=== PATIENT | female | born 1970 | race Caucasian/White ===

== ENCOUNTER → 2020-05-06 09:25 | Outpatient (BNVA) | payer OTHER, SELFPAY | PROVIDERS: PCP Family Medicine; Visit Provider Internal Medicine | DX: E55.9 Vitamin D deficiency, unspecified (principal); I10 Essential (primary) hypertension; K50.919 Crohn's disease, unspecified, with unspecified complications | CPT/HCPCS: 80053; 83036; 85025; 85651 ==

== ENCOUNTER → 2020-05-08 08:29 | Outpatient (BNVA) | payer OTHER, SELFPAY | PROVIDERS: PCP Family Medicine; Visit Provider Family Medicine | DX: E55.9 Vitamin D deficiency, unspecified (principal); N18.3 Chronic kidney disease, stage 3 (moderate); F17.219 Nicotine dependence, cigarettes, with unspecified nicotine-induced disorders; I12.9 Hypertensive chronic kidney disease with stage 1 through stage 4 chronic kidney disease, or unspecified chronic kidney disease | CPT/HCPCS: 80061; 82044; 82306 ==

== ENCOUNTER 2022-12-31 07:15 | Emergency (ER) | payer OTHER, SELFPAY ==
[2022-12-31 07:16] VITALS: BP 192/122; PULSE 108; RESP 14; TEMP 36.7; O2SAT 97; BMI 31.5
--- NOTE | 2022-12-31 07:17 | ECG_ITS ---
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 Measurements Intervals [place] Rate: 96 P: 34 WI: 167 QRS: -51 QRSD: 111 T: 77 QT: 359 QTc: 455 Interpretive Statements ELECTRONIC VENTRICULAR PACEMAKER ABNORMAL RHYTHM ECG No previous ECG available for comparison Electronically Signed On 12-31-2022 22:20:23 PAPER RULER by Yvette Be M.D. [email or web address] medical [email or web address] Groupclevel[id number]
--- NOTE | 2022-12-31 07:21 | ED_ITS ---
HPI - Abdominal Pain General: Chief Complaint: Abdominal Pain Stated Complaint: ABDOMINAL PAIN Time Seen by Provider: 12/31/22 07:17 Source: patient Mode of arrival: EMS History of Present Illness: 52-year-old female with a history of Crohn disease due to complication of her Crohn's disease several years ago she ended up with an ileostomy and a partial colectomy. She presents today now with abdominal pain but with complaints of mucousy discharge per rectum. Remainder of her colon at this point is a blind stump she does occasionally get mucus discharge, but states this is been excessive. She states she has not had any bloody discharge that she has noticed. She denies any dysuria urgency or frequency she denies any abdominal pain she has a rather large nonincarcerated incisional hernia medial to her ileostomy. No fever sweats or chills or any other symptoms at this time. Her biggest concern is the mucus output from the rectum. MD elicited complaint: abdominal pain Pertinent past history: none Onset (ago): hour(s) Exacerbating factors: nothing Relieving factors: nothing Associated Symptoms: Reports change in bowel habits and change in stool character; Denies anorexia, belching, bloating, chills, coffee ground emesis, constipation, GI cramping, diarrhea, dyspepsia, dysuria, excessive flatus, fever(s), heartburn, hematochezia, hematuria, hematemesis, fecal incontinence, loose stools, melena, nausea, poor appetite, syncope and vomiting Review of Systems Const: Denies: fever(s), chills, fatigue or malaise ENMT: Denies: throat pain, ear or mastoid pain, nasal discharge or nasal congestion Card: Denies: chest pain, palpitations, irregular heart rhythm or syncope Resp: Denies: dyspnea, productive cough or non-productive cough GI: Reports: change in bowel habits and change in stool character; Denies: abdominal pain, nausea, vomiting, hematemesis, coffee ground emesis, heartburn, diarrhea, constipation, bloating, GI cramping, belching, excessive flatus, fecal incontinence, hematochezia or melena : Denies: flank pain, dysuria, urinary frequency, urinary urgency or hematuria Skin/Breast: Denies: rash or pruritus PFSH ED PFSH: Medical History Anxiety Benign essential HTN Crohn disease Pt. had part of her small and large intestine removed in 2009. 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 Not finding any sign of abscess or colitis on the CT abdominal exam is rather benign at this point incidentally she does have a cystitis. Although she has no noticeable symptoms at this time recommend that she start on Macrobid 100 mg twice daily for 7 days. We will get her set up to follow-up with surgery for further evaluation her initial colectomy and ileostomy was done on the [facility]. She had been seeing Dr. Tapia but is unable to travel to [place]. Case management gave her numbers for local [facility] services to get her to that doctor's appointment. We will also refer to general surgery. Medical Records I reviewed the patient's medical records. Lab Data I reviewed the patient's lab results. 12/31/22 07:43 12/31/22 07:43 Labs/Radiology: Radiology Impressions Abdomen/Pelvis CT 12/31/22 07:26 IMPRESSION: 1. Prior RIGHT colectomy with RIGHT lower quadrant ileostomy. No evidence of obstruction. Stable peristomal hernia. 2. Rectum and sigmoid colon are normal in appearance. 3. Ventral abdominal wall/umbilical hernia with herniation of several nonobstructed bowel loops. This appears progressed compared to previous. 4. Suggestion of tiny faint gallbladder calculi or sludge in the dependent gallbladder. 5. Decrease in size of the previously described LEFT pelvic cystic lesion likely hydrosalpinx or ovarian cyst. 6. Heterogeneous enhancement of the uterus with improved fibroids compared to previous. Laboratory Results WBC 20.0 10^3/uL (4.0-10.0) H 12/31/22 07:43 RBC 4.70 10^6/uL (4.1-5.3) 12/31/22 07:43 Hgb 15.6 g/dL (11.5-15.3) H 12/31/22 07:43 Hct 45.9 % (37.0-47.0) 12/31/22 07:43 MCV 97.7 fl (81-99) 12/31/22 07:43 MCH 33.2 pg (28.0-34.0) 12/31/22 07:43 MCHC 34.0 g/dL (30.0-36.0) 12/31/22 07:43 RDW 15.5 % (12.1-15.1) H 12/31/22 07:43 Plt Count 470 10^3/cmm (130-400) H 12/31/22 07:43 MPV 9.7 fL (7.4-10.4) 12/31/22 07:43 Neut % (Auto) 73.0 % 12/31/22 07:43 Lymph % (Auto) 13.2 % 12/31/22 07:43 Maries % (Auto) 6.7 % 12/31/22 07:43 Eos % (Auto) 5.6 % 12/31/22 07:43 Baso % (Auto) 0.9 % 12/31/22 07:43 Neut # (Auto) 14.61 10^3/uL (1.8-7.7) H 12/31/22 07:43 Lymph # (Auto) 2.6 10^3/uL (0.8-4.8) 12/31/22 07:43 Maries # (Auto) 1.3 10^3/uL (0.2-0.9) H 12/31/22 07:43 Eos # (Auto) 1.1 10^3/uL (0.0-0.8) H 12/31/22 07:43 Baso # (Auto) 0.2 10^3/uL (0.0-0.1) H 12/31/22 07:43 Nucleated RBC % (auto) 0.5 % 12/31/22 07:43 Nucleated RBCs # 0.1 /100WBC 12/31/22 07:43 Sodium 141 mmol/L (136-145) 12/31/22 07:43 Potassium 3.6 mmol/L (3.5-5.1) 12/31/22 07:43 Chloride 104 mmol/L (98-107) 12/31/22 07:43 Carbon Dioxide 23 mmol/L (22-29) 12/31/22 07:43 Anion Gap 17.6 (5-19) 12/31/22 07:43 BUN 12 mg/dL (6-20) 12/31/22 07:43 Creatinine 1.0 mg/dL (0.5-0.9) H 12/31/22 07:43 GFR Calculation 57.8 mL/min (90-130) L 12/31/22 07:43 Glucose 108 mg/dL (65-115) 12/31/22 07:43 Calculated Osmolality 292 mOsm/kg (285-295) 12/31/22 07:43 Calcium 9.3 mg/dL (8.5-10.5) 12/31/22 07:43 Total Bilirubin 0.3 mg/dL (0.15-1.2) 12/31/22 07:43 AST 14 U/L (0-32) 12/31/22 07:43 ALT 16 U/L (0-33) 12/31/22 07:43 Alkaline Phosphatase 68 U/L (35-105) 12/31/22 07:43 Total Protein 7.1 g/dL (6.6-8.7) 12/31/22 07:43 Albumin 3.8 g/dL (3.5-5.2) 12/31/22 07:43 Globulin 3.3 g/dL (1.3-4.6) 12/31/22 07:43 Lipase 27 U/L (13-60) 12/31/22 07:43 Urine Color Yellow (Yellow) 12/31/22 07:55 Urine Appearance Sl hazy (CLEAR) A 12/31/22 07:55 Urine pH 5 (5-7) 12/31/22 07:55 Ur Specific [place] 1.020 (1.005-1.030) 12/31/22 07:55 Urine Protein Neg (Negative) 12/31/22 07:55 Urine Glucose (UA) Norm (Normal) 12/31/22 07:55 Urine Ketones Negative (Negative) 12/31/22 07:55 Urine Blood Neg (Negative) 12/31/22 07:55 Urine Nitrate Negative (Negative) 12/31/22 07:55 Urine Bilirubin Neg (Negative) 12/31/22 07:55 Urine Urobilinogen Norm mg/dL (Negative) 12/31/22 07:55 Ur Leukocyte Esterase 2+ (Negative) H 12/31/22 07:55 Urine RBC 0-4 /hpf (0-2) H 12/31/22 07:55 Urine WBC 25-40 /hpf (0-5) H 12/31/22 07:55 Ur Squamous Epith Cells 5-10 /hpf (0-5) H 12/31/22 07:55 Amorphous Sediment Not Reportable 12/31/22 07:55 Urine Bacteria Trace /hpf (NONE) 12/31/22 07:55 Discharge Plan Discharge Patient Disposition: Home Clinical Impression: Stool mucus, Cystitis Condition: Stable Prescriptions: New nitrofurantoin macrocrystal 100 mg capsule 100 mg PO BID 7 Days Qty: 14 0RF Rx Instructions: must administer with a meal/food No Action Complete Multivitamin Tablet 1 tab PO DAILY triamcinolone acetonide 0.025 % ointment 1 applic topical DAILY Qty: 15 0RF cholecalciferol (vitamin D3) 100 mcg (4,000 unit) capsule 100 mcg PO DAILY Discharge Orders: Discharge ED (Routine); Ordered 12/31/22 Ordered By: Chito Stephenson Referrals: Meeta Dominguez DO [Physician] - Discharge Diet: Usual diet Discharge Activity: Resume usual activity Patient Instructions: Opioid Safety, Pain Management Activity Restrictions/Additional Instructions: You were seen today for increased mucus from rectum. Recommend that you have a follow-up primary care doctor or surgery. Case management will help make arrangements for consultation with surgery. He did have an incidental finding of a mild bladder infection and were given a prescription for Macrobid 1 p.o. twice daily for 7 days. 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
--- NOTE | 2022-12-31 07:26 | CT_ITS ---
WS: [id number] CT ABDOMEN PELVIS TECHNIQUE: Contrast-enhanced CT of the abdomen and pelvis with coronal and sagittal reformatted image s. CLINICAL INFORMATION: mucous output from rectum after colostomy (11yrs) COMPARISON: CT October 14, 2019 DLP: 958.[address] scans at [facility] use at least one of these dose optimization techniques: automated e xposure control; mA and/or kV adjustment per patient size (includes targeted exams where dose is matc hed to clinical indication); or iterative reconstruction. FINDINGS: Postoperative changes RIGHT colectomy and RIGHT lower quadrant ileostomy. Associated peristomal herni a in the RIGHT lower quadrant similar in appearance to previous. No evidence of high-grade small or l arge bowel obstruction. Ostomy appears patent. Ectatic ventral abdominal wall with nonobstructed ventral abdominal wall hernia or umbilical hernia. Herniation of several bowel loops appears progressed progressed compared to 2019. No evidence of obst ruction. Diffuse fatty infiltration the liver. Normal portal vein and splenic vein. Normal GE junction. Slight bibasilar atelectasis. Tiny amount of sludge or tiny calculi in the gallbladder. Prior splenec neri. Normal pancreatic parenchymal enhancement. Portal vein and splenic vein are patent. Normal caliber abdominal aorta. Celiac and SMA are patent. Adrenal glands are normal. Normal renal pa renchymal enhancement. No hydronephrosis. Pelvic phleboliths. Bulky heterogeneous uterus. Cystic structure in the LEFT adnexa is stable measuring slightly smaller today measuring 8.4 x 3.3 cm.Previously described bulky fibroid appears to have been resected or reso lved. Additional smaller fibroids. Rectum appears normal. Normal sigmoid colon. Residual oversewn transverse colon and LEFT descending c olon are normal. Bilateral renal cysts. CT/CT abdomen pelvis w con* [id number] IMPRESSION: 1. Prior RIGHT colectomy with RIGHT lower quadrant ileostomy. No evidence of o bstruction. Stable peristomal hernia. 2. Rectum and sigmoid colon are normal in appearance. 3. Ventral abdominal wall/umbilical hernia with herniation of several nonobstr ucted bowel loops. This appears progressed compared to previous. 4. Suggestion of tiny faint gallbladder calculi or sludge in the dependent gal lbladder. 5. Decrease in size of the previously described LEFT pelvic cystic lesion like ly hydrosalpinx or ovarian cyst. 6. Heterogeneous enhancement of the uterus with improved fibroids compared to previous.
[2022-12-31 08:01] LABS: Basophils # 0.2 10^3/uL (0.0-0.1); Basophils % 0.9 %; Eosinophils # 1.1 10^3/uL (0.0-0.8); Eosinophils % 5.6 %; Hematocrit 45.9 % (37.0-47.0); Hemoglobin 15.6 g/dL (11.5-15.3); Lymphocytes # 2.6 10^3/uL (0.8-4.8); Lymphocytes % 13.2 %; Mean Corpuscular Hemoglobin 33.2 pg (28.0-34.0); Mean Corpuscular Volume 97.7 fl (81-99); Mean Platelet Volume 9.7 fL (7.4-10.4); Monocytes # 1.3 10^3/uL (0.2-0.9); Monocytes % 6.7 %; Neutrophils # 14.61 10^3/uL (1.8-7.7); Nucleated Red Blood Cells # 0.1 /100WBC; Nucleated Red Blood Cells % 0.5 %; Platelet Count 470 10^3/cmm (130-400); Red Cell Distribution Width 15.5 % (12.1-15.1)
[2022-12-31 08:15] LABS: Alanine Aminotransferase 16 U/L (0-33); Albumin Level 3.8 g/dL (3.5-5.2); Alkaline Phosphatase 68 U/L (35-105); Anion Gap 17.6 (5-19); Aspartate Amino Transferase 14 U/L (0-32); Blood Urea Nitrogen 12 mg/dL (6-20); Calcium 9.3 mg/dL (8.5-10.5); Carbon Dioxide 23 mmol/L (22-29); Chloride 104 mmol/L (98-107); Creatinine Clr Calc Pharmacy 82.2537; Globulin 3.3 g/dL (1.3-4.6); Glomerular Filtration Rate 57.8 mL/min (90-130); Glucose 108 mg/dL (65-115); Lipase 27 U/L (13-60); Osmolality Calculated 292 mOsm/kg (285-295); Potassium 3.6 mmol/L (3.5-5.1); Sodium 141 mmol/L (136-145); Total Bilirubin 0.3 mg/dL (0.15-1.2); Total Protein 7.1 g/dL (6.6-8.7)
[2022-12-31] MEDS: diphenhydrAMINE 50 mg/mL SDV 1mL IVP (08:16)
[2022-12-31 08:41] LABS: Bilirubin Urine Neg (Negative); Blood Urine Neg (Negative); Glucose Urine UA Norm (Normal); Ketones Urine Negative (Negative); Leukocyte Esterase Urine 2+ (Negative); Nitrate Urine Negative (Negative); Protein Urine Neg (Negative); Urine Appearance SL Hazy (CLEAR); Urine Color Yellow (Yellow); Urobilinogen Urine Norm (Negative); pH Urine 5 (5-7)
[2022-12-31 08:42] LABS: Add Urine Microscopic? YES; RBC Urine 0-4 /hpf (0-2); WBC Urine 25-40 /hpf (0-5)
[2022-12-31 08:43] LABS: Bacteria Urine TRACE /hpf
[2022-12-31 08:44] LABS: Add Urine Culture? Yes
[2022-12-31] MEDS: iohexol 350 mg/mL 500 mL Btl (per mL) IV (09:01)
--- NOTE | 2022-12-31 09:04 | PC.NURSE ---
Patient refusing to be hooked up to vitals monitor. Patient states I have anxiety and I want to pace the room.
--- NOTE | 2022-12-31 09:59 | DCPLANNER ---
database development project manager was asked to get patient information on area taxi companies that would transport patient to and from appointments.
--- NOTE | 2022-12-31 10:02 | DCPLANNER ---
Addendum entered by Connie Fernandez 01/15/23 09:06: adoption manager received the following message from the general surgery clinic regarding follow up appointment: Called patient and she wanted to follow up with her primary & did not want to be seen here in the office. Original Note: adoption manager had message to schedule a follow up appointment for patient with general surgery. adoption manager sent patients information to the front office staff at general surgery. Patients information will be printed and reviewed. Clinic will call patient with appointment information.
== END 2022-12-31 10:01 | disposition home or self-care (01) ==
PROVIDERS: Emergency Provider Family Medicine; PCP Internal Medicine
DX: N30.90 Cystitis, unspecified without hematuria (principal); R19.5 Other fecal abnormalities; Z93.2 Ileostomy status; K42.9 Umbilical hernia without obstruction or gangrene; K43.9 Ventral hernia without obstruction or gangrene; I10 Essential (primary) hypertension; F17.210 Nicotine dependence, cigarettes, uncomplicated
CPT/HCPCS: 74177; 80053; 81001; 83690; 85025; 87086; 93005; 96374; 96375; 99285; J1200; J2920; Q9967

== ENCOUNTER → 2023-06-25 16:23 | Outpatient (BNVA) | payer SELFPAY | PROVIDERS: PCP Internal Medicine; Visit Provider Emergency Medicine | DX: R30.9 Painful micturition, unspecified (principal); N30.00 Acute cystitis without hematuria | CPT/HCPCS: 81000 ==

== ENCOUNTER 2023-06-28 07:26 | Emergency (ER) | payer SELFPAY ==
[2023-06-28 07:27] VITALS: BMI 30.1
[2023-06-28 07:31] VITALS: BP 166/84; PULSE 112; RESP 16; TEMP 37.8; O2SAT 92
--- NOTE | 2023-06-28 07:45 | XRR_ITS ---
PROCEDURE INFORMATION: Exam: XR Chest Exam date and time: 06/28/2023 8:00 AM Age: 53 years old Clinical indication: Pain; Fever; Angina pectoris; Additional info: Chest pain TECHNIQUE: Imaging protocol: Radiologic exam of the chest. Views: 1 view. Total images: 634 COMPARISON: CR XR chest 1V [id number] 10/14/2019 3:13 PM FINDINGS: Lungs: Trace bibasilar atelectasis or scar. Pleural spaces: Unremarkable. No pleural effusion. No pneumothorax. Heart/Mediastinum: Unremarkable. No cardiomegaly. Bones/joints: Unremarkable. Other findings: X-ray is slightly rotated. XR/XR chest 1V portable [id number] IMPRESSION: Trace bibasilar atelectasis or scar.
--- NOTE | 2023-06-28 07:49 | W.ED.FEMALGU ---
Documented by User: CHELSI Odonnell 06/28/23 12:35 HPI - Female Genitourinary General: Chief complaint: Urogenital-Female Stated complaint: fever Time Seen by Provider: 06/28/23 07:28 Source: patient Mode of arrival: EMS Limitations: no limitations History of Present Illness: Patient is a 53-year-old female with history of Crohn's disease and splenectomy who presents to the emergency department via EMS complaining of fever onset 2 days. Patient was seen at walk-in clinic on Wednesday due to complaints of dysuria and was subsequently diagnosed with a UTI and was treated with Bactrim. No culture performed. She has been taking this as prescribed, but notes that since then she has become increasingly fatigued and as of yesterday has been running a fever, as high as 103. Her urinary symptoms have ceased, but she remains fatigued and states that she never runs fevers. 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 She denies any flank pain, back pain, or history of kidney infection. She denies any abdominal pain, chest pain, palpitations, shortness of breath, headache, and any other symptoms. She has an ileostomy in the right lower quadrant as she is status post colon resection due to her Crohn's disease. She states she has not been seen by a regular doctor for a while. MD elicited complaint: other (fever, fatigue) Onset (ago): day(s) Vaginal discharge: none Vaginal bleeding: none Exacerbating factors: none Relieving factors: none Associated symptoms: Deny abdominal pain, headache(s), nausea or syncope Treatment prior to arrival: acetaminophen Patient : No Date of Last Menstrual Period: 05/11/23 Review of Systems Const: Reports: fever(s) and fatigue; Denies: chills Eyes: Denies: change in vision or blurry vision Card: Denies: chest pain, palpitations, irregular heart rhythm, lightheadedness, syncope or dyspnea on exertion Resp: Denies: dyspnea, productive cough or pain on inspiration GI: Denies: abdominal pain, nausea, vomiting, heartburn or diarrhea : Denies: flank pain, difficulty voiding, dysuria, urinary frequency, urinary urgency, hematuria or pelvic pain Musc: Denies: neck pain, back pain or joint pain Skin/Breast: Denies: rash Neuro: Denies: headache(s) PFSH ED PFSH: Medical History Anxiety Benign essential HTN Crohn disease Pt. had part of her small and large intestine removed in 2009. 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 Female Reproductive History: Date of last menstrual period: 05/11/23 Physical Exam Const: COMMON NORMALS: no acute distress, patient oriented x3, no limitations, alert and well nourished GENERAL APPEARANCE: cooperative and comfortable NUTRITIONAL APPEARANCE: overweight ORIENTATION/CONSCIOUSNESS: Yes awake, Yes oriented to person, Yes oriented to place and Yes oriented to time HENMT: COMMON NORMALS: normocephalic, atraumatic and TM's normal bilaterally HEAD & SCALP: normal to inspection, normocephalic and atraumatic FACE & SINUS: normal facial exam TYMPANIC MEMBRANE: TM's normal bilaterally MOUTH: Normal oral and palatal mucosa present, lip normal and tongue normal THROAT: posterior oropharynx normal, tonsils normal and uvula midline Eye: COMMON NORMALS: no scleral icterus GENERAL EYE: appearance normal, both eyes and all related structures Neck/C-Spine: COMMON NORMALS: no lymphadenopathy, no meningeal signs and no JVD Chest: COMMONS NORMALS: normal inspection of the chest Resp: COMMON NORMALS: normal respiratory effort and clear to auscultation bilaterally AUSCULTATION: clear to auscultation bilaterally Cardio: COMMON NORMALS: no JVD, regular rate and regular rhythm RATE: regular rate RHYTHM: regular rhythm GI: COMMON NORMALS: Normal to inspection, nondistended, normoactive bowel sounds present, Soft to palpation, non-tender, No hepatosplenomegaly present and no masses INSPECTION: Yes GI ostomy present (Right lower quadrant; site appears clean) PALPATION: Yes Soft to palpation and Yes No hepatosplenomegaly present : COMMON NORMALS: Yes no CVA tenderness BLADDER/KIDNEY EXAM: Yes no CVA tenderness Back/Pelvis: COMMON NORMALS: no CVA tenderness and thoracic and lumbar spine normal to inspection Extremity: COMMON NORMALS: normal to inspection GENERAL: Yes normal exam except as noted Neuro: BRIGIDO COMA SCALE: document GCS findings [place] coma scale eye opening: Spontaneous [place]ido coma scale verbal response: Orientated Brigido coma scale motor response: Obey commands [place] coma scale total score: 15 COMMON NORMALS: patient oriented x3 SENSORIUM/ORIENTATION: Yes alert, Yes oriented to person, Yes oriented to place and Yes oriented to time MENINGEAL SIGNS: Yes no meningeal signs Skin: COMMON NORMALS: no rashes or lesions noted GENERAL SKIN EXAM: no rashes or lesions noted Course Consultations: Consultation #1: Dr. Breaux urology and Dr. Osman hospitalist both of which will accept transfer/consult on patient Vital Signs: Vital signs: Vital Signs Temperature 98.5 F 06/28/23 12:00 Pulse Rate 103 H 06/28/23 12:30 Respiratory Rate 20 H 06/28/23 12:30 Blood Pressure 167/88 06/28/23 12:30 Pulse Oximetry 97 06/28/23 12:30 Oxygen Delivery Me thod Room Air 06/28/23 12:00 [facility] - Female Medical Decision Making Patient is a 53-year-old female here for complaints of fever as high as 102.9 starting 2 days ago. She was seen at a walk-in clinic 3 days ago with complaints of dysuria and diagnosed with a UTI and placed on Bactrim. She has since developed a fever and has had worsening fatigue. She arrives to the ED today tachycardic with a low-grade fever. Labs reveal leukocytosis with an elevated lactate of 2.5. Repeat UA demonstrates obvious evidence of infection. CT scan imaging obtained which shows a 2mm UVJ stone. We do not have urology coverage. She is immunocompromised with failed outpatient therapy for UTI and now infected ureteral calculus. She will need to be transferred. Spoke to Dr. Stephenson who agrees with care plan for patient. She has been started on IV Rocephin. Blood/urine cultures obtained. I spoke to [facility] in [place] and they will accept patient for transfer. Lab Data 06/28/23 07:29 06/28/23 07:29 Radiology Impressions Chest X-Ray 06/28/23 07:45 IMPRESSION: Trace bibasilar atelectasis or scar. Abdomen/Pelvis CT 06/28/23 08:49 IMPRESSION: 1. 2 mm left-sided ureterovesicular junction stone. No hydroureteronephrosis. 2. There is nonspecific urinary bladder wall thickening, under distention versus cystitis. Consider urinalysis. Laboratory Results WBC 14.8 10^3/uL (4.0-10.0) H 06/28/23 07:29 RBC 4.74 10^6/uL (4.1-5.3) 06/28/23 07:29 Hgb 15.7 g/dL (11.5-15.3) H 06/28/23 07:29 Hct 46.4 % (37.0-47.0) 06/28/23 07: MCV 97.9 fl (81-99) 06/28/23 07: MCH 33.1 pg (28.0-34.0) 06/28/23 07:29 MCHC 33.8 g/dL (30.0-36.0) 06/28/23 07:29 RDW 15.4 % (12.1-15.1) H 06/28/23 07:29 Plt Count 411 10^3/cmm (130-400) H 06/28/23 07:29 MPV 10.0 fL (7.4-10.4) 06/28/23 07:29 Neut % (Auto) 81.1 % 06/28/23 07:29 Lymph % (Auto) 4.7 % 06/28/23 07:29 [place] % (Auto) 7.8 % 06/28/23 07:29 Eos % (Auto) 5.3 % 06/28/23 07:29 Baso % (Auto) 0.7 % 06/28/23 07:29 Neut # (Auto) 11.98 10^3/uL (1.8-7.7) H 06/28/23 07:29 Lymph # (Auto) 0.7 10^3/uL (0.8-4.8) L 06/28/23 07:29 [place] # (Auto) 1.2 10^3/uL (0.2-0.9) H 06/28/23 07:29 Eos # (Auto) 0.8 10^3/uL (0.0-0.8) 06/28/23 07:29 Baso # (Auto) 0.1 10^3/uL (0.0-0.1) 06/28/23 07:29 Nucleated RBC % (auto) 0.1 % 06/28/23 07: Nucleated RBCs # 0.0 /100WBC 06/28/23 07:29 Sodium 136 mmol/L (136-145) 06/28/23 07: Potassium 4.0 mmol/L (3.5-5.1) 06/28/23 07: Chloride 103 mmol/L (98-107) 06/28/23 07:29 Carbon Dioxide 18 mmol/L (22-29) L 06/28/23 07:29 Anion Gap 19.0 (5-19) 06/28/23 07:29 BUN 9 mg/dL (6-20) 06/28/23 07:29 Creatinine 1.1 mg/dL (0.5-0.9) H 06/28/23 07:29 GFR Calculation 51.6 mL/min (90-130) L 06/28/23 07:29 Glucose 96 mg/dL (65-115) 06/28/23 07:29 Calculated Osmolality 281 mOsm/kg (285-295) L 06/28/23 07:29 Lactic Acid 2.5 mmol/L (0.5-2.2) H 06/28/23 07:29 Lactic Acid (Sepsis) 1.3 mmol/L (0.5-2.2) 06/28/23 10:35 Calcium 9.2 mg/dL (8.5-10.5) 06/28/23 07:29 Total Bilirubin 0.2 mg/dL (0.15-1.2) 06/28/23 07:29 AST 25 U/L (0-32) 06/28/23 07:29 ALT 19 U/L (0-33) 06/28/23 07:29 Alkaline Phosphatase 73 U/L (35-105) 06/28/23 07:29 Total Protein 7.0 g/dL (6.6-8.7) 06/28/23 07:29 Albumin 3.9 g/dL (3.5-5.2) 06/28/23 07:29 Globulin 3.1 g/dL (1.3-4.6) 06/28/23 07:29 Urine Color Yellow (Yellow) 06/28/23 07:49 Urine Appearance Clear (CLEAR) 06/28/23 07:49 Urine pH 5 (5-7) 06/28/23 07:49 Ur Specific [place] 1.025 (1.005-1.030) 06/28/23 07:49 Urine Protein Neg (Negative) 06/28/23 07:49 Urine Glucose (UA) Norm (Normal) 06/28/23 07:49 Urine Ketones 1+ (Negative) H 06/28/23 07:49 Urine Blood 2+ (Negative) H 06/28/23 07:49 Urine Nitrate Negative (Negative) 06/28/23 07:49 Urine Bilirubin Neg (Negative) 06/28/23 07:49 Urine Urobilinogen Norm mg/dL (Negative) 06/28/23 07:49 Ur Leukocyte Esterase 2+ (Negative) H 06/28/23 07:49 Urine RBC 0-4 /hpf (0-2) H 06/28/23 07:49 Urine WBC 25-40 /hpf (0-5) H 06/28/23 07:49 Ur Squamous Epith Cells 5-10 /hpf (0-5) H 06/28/23 07:49 Amorphous Sediment Not Reportable 06/28/23 07:49 Urine Bacteria 2+ /hpf (NONE) H 06/28/23 07:49 Discharge Plan Discharge Patient Disposition: Xfer Short-Term Hosp Clinical Impression: Asplenia, Left ureteral calculus Acute cystitis Qualifiers: Hematuria presence: with hematuria Qualified Code(s): N30.01 - Acute cystitis with hematuria Fever Qualifiers: Fever type: unspecified Qualified Code(s): R50.9 - Fever, unspecified Condition: Stable Referrals: Oseas Tapia MD [Primary Care Provider] - Coding Level of Care Code ED Financial Assistant for [facility] Documented by User: Chito Stephenson DO 06/28/23 14:43 HPI - Female Genitourinary General: Chief complaint: Urogenital-Female Stated complaint: fever Time Seen by Provider: 06/28/23 07:28 PFSH ED PFSH: Medical History Anxiety Benign essential HTN Crohn disease Pt. had part of her small and large intestine removed in 2009. 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 She was seen at a walk-in clinic 3 days ago with complaints of dysuria and diagnosed with a UTI and placed on Bactrim. She has since developed a fever and has had worsening fatigue. She arrives to the ED today tachycardic with a low-grade fever. Labs reveal leukocytosis with an elevated lactate of 2.5. Repeat UA demonstrates obvious evidence of infection. CT scan imaging obtained which shows a 2mm UVJ stone. We do not have urology coverage. She is immunocompromised with failed outpatient therapy for UTI and now infected ureteral calculus. She will need to be transferred. Spoke to Dr. Stephenson who agrees with care plan for patient. She has been started on IV Rocephin. Blood/urine cultures obtained. I spoke to [facility] in [place] and they will accept patient for transfer. Discussed patient with midlevel reviewed chart recommends CT renal stone. CT shows 2 mm stone. Since we do not have urology available at our facility we will have to transfer patient. Grazyna Thompson may arrange for transfer [place]. Chart reviewed and patient discussed with midlevel. Agree with assessment and plan. Medical Records I reviewed the patient's medical records. Lab Data I reviewed the patient's lab results. 06/28/23 07:29 06/28/23 07:29 Radiology Impressions Chest X-Ray 06/28/23 07:45 IMPRESSION: Trace bibasilar atelectasis or scar. Abdomen/Pelvis CT 06/28/23 08:49 IMPRESSION: 1. 2 mm left-sided ureterovesicular junction stone. No hydroureteronephrosis. 2. There is nonspecific urinary bladder wall thickening, under distention versus cystitis. Consider urinalysis. Laboratory Results WBC 14.8 10^3/uL (4.0-10.0) H 06/28/23 07:29 RBC 4.74 10^6/uL (4.1-5.3) 06/28/23 07:29 Hgb 15.7 g/dL (11.5-15.3) H 06/28/23 07:29 Hct 46.4 % (37.0-47.0) 06/28/23 07:29 MCV 97.9 fl (81-99) 06/28/23 07:29 MCH 33.1 pg (28.0-34.0) 06/28/23 07: MCHC 33.8 g/dL (30.0-36.0) 06/28/23 07: RDW 15.4 % (12.1-15.1) H 06/28/23 07:29 Plt Count 411 10^3/cmm (130-400) H 06/28/23 07:29 MPV 10.0 fL (7.4-10.4) 06/28/23 07: Neut % (Auto) 81.1 % 06/28/23 07: Lymph % (Auto) 4.7 % 06/28/23 07: [place] % (Auto) 7.8 % 06/28/23 07: Eos % (Auto) 5.3 % 06/28/23 07: Baso % (Auto) 0.7 % 06/28/23 07: Neut # (Auto) 11.98 10^3/uL (1.8-7.7) H 06/28/23 07: Lymph # (Auto) 0.7 10^3/uL (0.8-4.8) L 06/28/23 07: [place] # (Auto) 1.2 10^3/uL (0.2-0.9) H 06/28/23 07: Eos # (Auto) 0.8 10^3/uL (0.0-0.8) 06/28/23 07: Baso # (Auto) 0.1 10^3/uL (0.0-0.1) 06/28/23 07: Nucleated RBC % (auto) 0.1 % 06/28/23 07: Nucleated RBCs # 0.0 /100WBC 06/28/23 07:29 Sodium 136 mmol/L (136-145) 06/28/23 07: Potassium 4.0 mmol/L (3.5-5.1) 06/28/23 07: Chloride 103 mmol/L (98-107) 06/28/23 07: Carbon Dioxide 18 mmol/L (22-29) L 06/28/23 07: Anion Gap 19.0 (5-19) 06/28/23 07: BUN 9 mg/dL (6-20) 06/28/23 07:29 Creatinine 1.1 mg/dL (0.5-0.9) H 06/28/23 07:29 GFR Calculation 51.6 mL/min (90-130) L 06/28/23 07:29 Glucose 96 mg/dL (65-115) 06/28/23 07:29 Calculated Osmolality 281 mOsm/kg (285-295) L 06/28/23 07:29 Lactic Acid 2.5 mmol/L (0.5-2.2) H 06/28/23 07:29 Lactic Acid (Sepsis) 1.3 mmol/L (0.5-2.2) 06/28/23 10:35 Calcium 9.2 mg/dL (8.5-10.5) 06/28/23 07:29 Total Bilirubin 0.2 mg/dL (0.15-1.2) 06/28/23 07:29 AST 25 U/L (0-32) 06/28/23 07:29 ALT 19 U/L (0-33) 06/28/23 07:29 Alkaline Phosphatase 73 U/L (35-105) 06/28/23 07:29 Total Protein 7.0 g/dL (6.6-8.7) 06/28/23 07: Albumin 3.9 g/dL (3.5-5.2) 06/28/23 07:29 Globulin 3.1 g/dL (1.3-4.6) 06/28/23 07:29 Urine Color Yellow (Yellow) 06/28/23 07:49 Urine Appearance Clear (CLEAR) 06/28/23 07:49 Urine pH 5 (5-7) 06/28/23 07:49 Ur Specific [place] 1.025 (1.005-1.030) 06/28/23 07:49 Urine Protein Neg (Negative) 06/28/23 07:49 Urine Glucose (UA) Norm (Normal) 06/28/23 07:49 Urine Ketones 1+ (Negative) H 06/28/23 07:49 Urine Blood 2+ (Negative) H 06/28/23 07:49 Urine Nitrate Negative (Negative) 06/28/23 07:49 Urine Bilirubin Neg (Negative) 06/28/23 07:49 Urine Urobilinogen Norm mg/dL (Negative) 06/28/23 07:49 Ur Leukocyte Esterase 2+ (Negative) H 06/28/23 07:49 Urine RBC 0-4 /hpf (0-2) H 06/28/23 07:49 Urine WBC 25-40 /hpf (0-5) H 06/28/23 07:49 Ur Squamous Epith Cells 5-10 /hpf (0-5) H 06/28/23 07:49 Amorphous Sediment Not Reportable 06/28/23 07:49 Urine Bacteria 2+ /hpf (NONE) H 06/28/23 07:49 Discharge Plan Discharge Patient Disposition: Xfer Short-Term Hosp Clinical Impression: Asplenia, Left ureteral calculus Acute cystitis Qualifiers: Hematuria presence: with hematuria Qualified Code(s): N30.01 - Acute cystitis with hematuria Fever Qualifiers: Fever type: unspecified Qualified Code(s): R50.9 - Fever, unspecified Condition: Stable Referrals: Oseas Tapia MD [Primary Care Provider] - Coding Level of Care Code ED Financial Assistant for [place]
[2023-06-28 07:55] LABS: Basophils # 0.1 10^3/uL (0.0-0.1); Basophils % 0.7 %; Eosinophils # 0.8 10^3/uL (0.0-0.8); Eosinophils % 5.3 %; Hematocrit 46.4 % (37.0-47.0); Hemoglobin 15.7 g/dL (11.5-15.3); Lymphocytes # 0.7 10^3/uL (0.8-4.8); Lymphocytes % 4.7 %; Mean Corpuscular HGB Conc 33.8 g/dL (30.0-36.0); Mean Corpuscular Hemoglobin 33.1 pg (28.0-34.0); Mean Corpuscular Volume 97.9 fl (81-99); Monocytes # 1.2 10^3/uL (0.2-0.9); Monocytes % 7.8 %; Neutrophils # 11.98 10^3/uL (1.8-7.7); Neutrophils % 81.1 %; Nucleated Red Blood Cells % 0.1 %; Platelet Count 411 10^3/cmm (130-400); Red Blood Count 4.74 10^6/uL (4.1-5.3); Red Cell Distribution Width 15.4 % (12.1-15.1); White Blood Count 14.8 10^3/uL (4.0-10.0)
[2023-06-28] MEDS: sodium chloride 0.9% 1,000 ML 999 ML IV (08:02)
[2023-06-28 08:03] VITALS: BP 141/79; PULSE 107; RESP 18; O2SAT 92
[2023-06-28 08:14] LABS: Glucose Urine UA Norm (Normal); Ketones Urine 1+ (Negative); Protein Urine Neg (Negative); Specific Gravity, Urine 1.025 (1.005-1.030); Urine Appearance Clear (CLEAR); Urine Color Yellow (Yellow); pH Urine 5 (5-7)
[2023-06-28 08:15] LABS: Add Urine Culture? Yes; Add Urine Microscopic? YES; Bacteria Urine 2+ /hpf; Bilirubin Urine Neg (Negative); Blood Urine 2+ (Negative); Leukocyte Esterase Urine 2+ (Negative); Nitrate Urine Negative (Negative); RBC Urine 0-4 /hpf (0-2); Urobilinogen Urine Norm (Negative); WBC Urine 25-40 /hpf (0-5)
[2023-06-28 08:24] LABS: Alanine Aminotransferase 19 U/L (0-33); Albumin Level 3.9 g/dL (3.5-5.2); Alkaline Phosphatase 73 U/L (35-105); Blood Urea Nitrogen 9 mg/dL (6-20); Calcium 9.2 mg/dL (8.5-10.5); Carbon Dioxide 18 mmol/L (22-29); Chloride 103 mmol/L (98-107); Globulin 3.1 g/dL (1.3-4.6); Glomerular Filtration Rate 51.6 mL/min (90-130); Glucose 96 mg/dL (65-115); Osmolality Calculated 281 mOsm/kg (285-295); Sodium 136 mmol/L (136-145); Total Bilirubin 0.2 mg/dL (0.15-1.2)
[2023-06-28 08:25] LABS: Lactic Sepsis W/Reflex 2.5 mmol/L (0.5-2.2)
[2023-06-28 08:31] LABS: Aspartate Amino Transferase 25 U/L (0-32)
--- NOTE | 2023-06-28 08:49 | CTR_ITS ---
PROCEDURE INFORMATION: Exam: CT Abdomen And Pelvis Without Contrast Exam date and time: 06/28/2023 9:22 AM Age: 53 years old Clinical indication: Fever; Prior surgery; Surgery date: 6+ months; Surgery type: Bowel resection, ileostomy, splenectomy; Additional info: Flank pain TECHNIQUE: Imaging protocol: Computed tomography of the abdomen and pelvis without contrast. Total images: 623 Radiation optimization: All CT scans at this facility use at least one of these dose optimization techniques: automated exposure control; mA and/or kV adjustment per patient size (includes targeted exams where dose is matched to clinical indication); or iterative reconstruction. REPORTING DATA: Count of CT and Cardiac NM exams in prior 12 months: This patient has received [address] and 0 known cardiac nuclear medicine studies in the 12 months prior to the current study. COMPARISON: CT abdomen pelvis w con* [id number] 12/31/2022 8:48 AM RADIATION DOSE METRICS: Total DLP (mGy-cm): 82.87 FINDINGS: Lungs: Trace bibasilar atelectasis or scar. Liver: Normal. No mass. Gallbladder and bile ducts: Normal. No calcified stones. No ductal dilation. Pancreas: Normal. No ductal dilation. Spleen: Prior splenectomy. Adrenal glands: Normal. No mass. Kidneys and ureters: 2 mm left-sided ureterovesicular junction stone. No hydroureteronephrosis. Stomach and bowel: Right lower quadrant ileostomy. Prior right hemicolectomy. Appendix: No evidence of appendicitis. Intraperitoneal space: Unremarkable. No free air. No significant fluid collection. Vasculature: Incidental phleboliths noted. Moderate atherosclerotic disease is evident. Lymph nodes: Unremarkable. No enlarged lymph nodes. Urinary bladder: There is nonspecific urinary bladder wall thickening, under distention versus cystitis. Reproductive: Unremarkable as visualized. Bones/joints: Unremarkable. No acute fracture. Soft tissues: Postoperative anterior abdominal wall. CT/CT kidney stone [id number] IMPRESSION: 1. 2 mm left-sided ureterovesicular junction stone. No hydroureteronephrosis. 2. There is nonspecific urinary bladder wall thickening, under distention versus cystitis. Consider urinalysis.
[2023-06-28] MEDS: cefTRIAXone 1,000 MG in sodium chloride 0.9% (plus) 50 ML 100 MG IV (09:32)
[2023-06-28 09:35] VITALS: BP 162/78; PULSE 104; RESP 18; O2SAT 96
[2023-06-28 09:40] LABS: Reflex Lactate Order REFLEX LACTIC ORDERD
[2023-06-28 10:54] LABS: Lactic Acid level (Lactate) 1.3 mmol/L (0.5-2.2)
[2023-06-28 11:00] VITALS: BP 159/75; PULSE 96; O2SAT 98
[2023-06-28 12:00] VITALS: BP 171/88; PULSE 110; TEMP 36.9; O2SAT 97
[2023-06-28 12:30] VITALS: BP 167/88; PULSE 103; RESP 20; O2SAT 97
== END 2023-06-28 14:25 | disposition short-term general hospital (02) ==
PROVIDERS: Emergency Provider Physician Assistant; PCP Internal Medicine
DX: N30.01 Acute cystitis with hematuria (principal); R50.9 Fever, unspecified; N20.1 Calculus of ureter; I10 Essential (primary) hypertension; F17.210 Nicotine dependence, cigarettes, uncomplicated; Z90.81 Acquired absence of spleen
CPT/HCPCS: 36415; 71045; 74176; 80053; 81001; 83605; 85025; 87040; 87086; 96365; 96366; 99285; J0696; J7030

== ENCOUNTER 2024-11-28 14:58 | Inpatient (IN) | payer MEDICAID, SELFPAY ==
[2024-11-28] VITALS (14 sets, daily range): BP systolic 118–183; BP diastolic 66–147; PULSE 57–109; RESP 16–25; O2SAT 92–99; BMI 30.7
--- NOTE | 2024-11-28 14:59 | XRR_ITS ---
PROCEDURE INFORMATION: Exam: XR Chest Exam date and time: 11/28/2024 3:10 PM Age: 54 years old Clinical indication: Angina pectoris; Patient HX: Chest pain weakness; Additional info: Cp TECHNIQUE: Imaging protocol: Radiologic exam of the chest. Views: 1 view. COMPARISON: CR XR chest 1V portable [id number] 06/28/2023 8:00 AM FINDINGS: Tubes, catheters and devices: Overlying monitor leads. Lungs: No infiltrate or consolidation. Pulmonary vascularity is within normal limits. Pleural spaces: No pleural effusion or pneumothorax. Heart/Mediastinum: Unremarkable. No cardiomegaly. Bones/joints: Visualized osseous structures show no acute abnormality. XR/XR chest 1V portable [id number] IMPRESSION: No acute cardiopulmonary abnormality.
--- NOTE | 2024-11-28 14:59 | ECG_ITS ---
[employer] 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 Measurements Intervals [place] Rate: 75 P: 46 [place]: 154 QRS: -51 QRSD: 118 T: 80 QT: 403 QTc: 450 Interpretive Statements SINUS RHYTHM WITH FREQUENT VENTRICULAR PREMATURE COMPLEXES INCOMPLETE RIGHT BUNDLE BRANCH BLOCK [90+ ms QRS DURATION, TERMINAL R IN V1/V2, 40+ ms S IN I/aVL/V4/V5/V6] LEFT ANTERIOR FASCICULAR BLOCK [QRS AXIS <= -45, QR IN I, RS IN II] VOLTAGE CRITERIA FOR LVH [MEETS CRITERIA IN ONE OF: R(aVL), S(V1), R(V5), R(V5/V6)+S(V1)] POSSIBLE ANTEROSEPTAL MYOCARDIAL INFARCTION , OF INDETERMINATE AGE [30 ms Q WAVE IN V1-V4] Compared to ECG 12/31/2022 07:31:07 Ventricular premature complex(es) now present Ventricular-paced complex(es) or rhythm no longer present Electronically Signed On 12-02-2024 23:18:35 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 [email or web address]
--- NOTE | 2024-11-28 15:12 | ED_ITS ---
HPI - Chest Pain 2 General: Chief Complaint: Chest Pain Stated Complaint: CHEST PAIN Time Seen by Provider: 11/28/24 14:58 Source: patient and EMS Mode of arrival: EMS Limitations: no limitations History of Present Illness: 54-year-old female states she has been h aving an aching like cramping pain across her chest that started this morning. She states that sharp in nature it has been improving when she states she puts ice over it. She denies any shortness of breath denies any nausea denies any vomiting or diarrhea. Associated symptoms: Deny abdominal pain, dyspnea, fever(s), nausea or vomiting Related Data Home Medications Medication Instructions Recorded Confirmed acetaminophen 500 mg tablet 1,000 mg PO Q6H PRN Pain 06/28/23 11/28/24 meclizine 25 mg tablet 25 mg PO DAILY PRN dizzy 11/28/24 11/28/24 Allergies Allergy/AdvReac Type Severity Reaction Status Date / Time codeine Allergy Severe ADR-Agitate Verified 06/28/23 07:59 d metronidazole [From Flagyl] Allergy Mild ALGY-Rash Verified 06/28/23 07:59 acetaminophen [From Percocet] Allergy Unknown Verified 06/28/23 07:59 Iodinated Contrast Media Allergy ALGY-Hives Verified 06/28/23 07:59 oxycodone [From Percocet] Allergy Unknown Verified 06/28/23 07:59 fentanyl AdvReac Mild Unknown Verified 06/28/23 07:59 hydromorphone [From Dilaudid] AdvReac Mild unknown Verified 06/28/23 07:59 Review of Systems 2 Const: Denies: fever(s), chills, body aches or change in appetite ENMT: Denies: throat pain or dental pain Card: Reports: chest pain Resp: Denies: dyspnea GI: Denies: abdominal pain, nausea, vomiting or diarrhea Musc: Denies: neck pain or back pain Skin/Breast: Denies: rash Neuro: Denies: headache(s) PFSH ED 2 PFSH: Medical History Benign essential HTN Crohn disease Pt. had part of her small and large intestine removed in 2009. 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 Physical Exam 2 Const: COMMON NORMALS: no acute distress, patient oriented x3 and healthy appearing HENMT: COMMON NORMALS: normocephalic and atraumatic HEAD & SCALP: n ormocephalic and atraumatic Eye: COMMON NORMALS: Equal, round and reactive pupils present and EOMs intact bilaterally PUPIL: Yes Equal, round and reactive pupils present Neck/C-Spine: COMMON NORMALS: full ROM and supple Chest: COMMONS NORMALS: normal inspection of the chest and normal palpation of entire chest wall Resp: COMMON NORMALS: normal respiratory effort, No retractions, No use of accessory muscles and clear to auscultation bilaterally AUSCULTATION: clear to auscultation bilaterally Cardio: COMMON NORMALS: regular rate, regular rhythm and No murmurs present (Cardio) RATE: regular rate RHYTHM: regular rhythm GI: COMMON NORMALS: Normal to inspection, nondistended, normoactive bowel sounds present, Soft to palpation, non-tender and no masses PALPATION: Yes Soft to palpation Extremity: COMMON NORMALS: normal to inspection and full ROM Neuro: COMMON NORMALS: patient oriented x3, moves all extremities and no focal motor deficits Psych: COMMON NORMALS: mental status grossly normal, Normal thought process present and cooperative THOUGHT PROCESS: Normal thought process present Skin: COMMON NORMALS: no rashes or lesions noted and no wounds GENERAL SKIN EXAM: no rashes or lesions noted Course 2 Vital Signs: Vital signs: Vital Signs Pulse Rate 82 11/28/24 17:09 Respiratory Rate 21 H 11/28/24 16:39 Blood Pressure 166/136 11/28/24 17:09 Pulse Oximetry 92 11/28/24 17:09 Oxygen Delivery Me thod Nasal Cannula 11/28/24 15:01 MDM - Chest Pain Medical Decision Making Patient presents for chest pain she does have a positive delta consistent with a likely NSTEMI she has no signs of pulmonary embolism here I did give her dose of Lovenox spoke to the hospitalist will admit at this time. Medical Records I reviewed the patient's medical records. Lab Data I reviewed the patient's lab results. 11/28/24 15:26 11/28/24 15:26 Radiology Impressions Chest X-Ray 11/28/24 14:59 IMPRESSION: No acute cardiopulmonary abnormality. Soft Tissue Neck X-Ray 11/28/24 15:58 IMPRESSION: No acute findings. Laboratory Results WBC 17.90 10^3/uL (3.29-11.43) H 11/28/24 15:26 RBC 4.69 10^6/uL (3.85-5.65) 11/28/24 15:26 Hgb 15.20 g/dL (11.27-16.99) 11/28/24 15:26 Hct 44.7 % (36-47) 11/28/24 15:26 MCV 95.3 fl (85-98) 11/28/24 15:26 MCH 32.4 pg (27-33) 11/28/24 15:26 MCHC 34.0 g/dL (30-55) 11/28/24 15:26 RDW 16.1 % (12.1-15.1) H 11/28/24 15:26 Plt Count 478 10^3/cmm (157-399) H 11/28/24 15:26 MPV 9.9 fL (7.4-10.4) 11/28/24 15:26 Lymph % (Auto) Not Reportable 11/28/24 15:26 [place] % (Auto) Not Reportable 11/28/24 15:26 Lymph # (Auto) Not Reportable 11/28/24 15:26 [place] # (Auto) Not Reportable 11/28/24 15:26 Total Counted 100 (0-100) 11/28/24 15:26 Atypical Lymphs % 10.0 % (0-5) H 11/28/24 15:26 Segmented Neutrophils 68 % 11/28/24 15:26 Band Neutrophils Not Reportable 11/28/24 15:26 Absolute Lymphocytes 4.7 10^3/cmm (1.2-3.4) H 11/28/24 15:26 Lymphocytes (Manual) 16 % 11/28/24 15:26 Monocytes (Manual) 3.0 % 11/28/24 15: Absolute Monocytes 0.5 10^3/cmm (0.1-0.6) 11/28/24 15: Eosinophils (Manual) 3 % 11/28/24 15: Absolute Eosinophils 0.5 10^3/cmm (0.0-0.7) 11/28/24 15: Basophils (Manual) 0.0 % 11/28/24 15: Absolute Basophils 0.0 10^3/cmm (0.0-0.2) 11/28/24 15: Platelet Estimate Increased (Normal) H 11/28/24 15: PT 12.50 SECONDS (12.1-14.9) 11/28/24 15: INR 0.87 (0.8-1.2) 11/28/24 15: Sodium 139 mmol/L (136-145) 11/28/24 15: Potassium 3.7 mmol/L (3.5-5.1) 11/28/24 15: Chloride 104 mmol/L (98-107) 11/28/24 15: Carbon Dioxide 16 mmol/L (22-29) L 11/28/24 15:26 Anion Gap 22.7 (5-19) H 11/28/24 15:26 BUN 13 mg/dL (6-20) 11/28/24 15: Creatinine 1.1 mg/dL (0.5-0.9) H 11/28/24 15:26 GFR Calculation 51.4 mL/min (90-130) L 11/28/24 15:26 Glucose 142 mg/dL (65-115) H 11/28/24 15: Calculated Osmolality 291 mOsm/kg (285-295) 11/28/24 15: Calcium 9.7 mg/dL (8.5-10.5) 11/28/24 15:26 Total Bilirubin 0.4 mg/dL (0.15-1.2) 11/28/24 15: AST 15 U/L (0-32) 11/28/24 15:26 ALT 12 U/L (0-33) 11/28/24 15:26 Alkaline Phosphatase 76 U/L (35-105) 11/28/24 15:26 Troponin T Baseline 37 ng/L (0-10) H 11/28/24 15:26 Troponin T 120 Minute 63.18 ng/L (0-10) H 11/28/24 17:32 Delta Troponin T 26.18 ABS# (0-10) H* 11/28/24 17:32 Total Protein 6.7 g/dL (6.6-8.7) 11/28/24 15:26 Albumin 3.9 g/dL (3.5-5.2) 11/28/24 15:26 Globulin 2.8 g/dL (1.3-4.6) 11/28/24 15:26 Lipase 33 U/L (13-60) 11/28/24 15:26 All radiology interpretation(s) finalized by discharge EKG Data EKG 1: I personally reviewed and interpreted this EKG as follows: EKG interpretation date: 11/28/24 EKG interpretation time: 15:03 Interpretation: nsr hr [address] elevation qrs 118 qtc 431 Discharge Plan Discharge Patient Disposition: Admitted As Inpatient Clinical Impression: Non-ST elevation ND (NSTEMI) Prescriptions: No Action acetaminophen [Tylenol Ex Str Rapid Release] 500 mg Tablet 1,000 mg PO Q6H PRN (Reason: Pain) meclizine 25 mg Tablet 25 mg PO DAILY PRN (Reason: dizzy) Referrals: Oseas Tapia MD [Primary Care Provider] - Coding Level of Care Code 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
[2024-11-28] MEDS: LORazepam 2 mg/mL INJ 1 mL 1 MG IVP (15:32)
[2024-11-28 15:45] LABS: Hematocrit 44.7 % (36-47); Mean Corpuscular Hemoglobin 32.4 pg (27-33); Mean Corpuscular Volume 95.3 fl (85-98); Mean Platelet Volume 9.9 fL (7.4-10.4); Platelet Count 478 10^3/cmm (157-399); Red Blood Count 4.69 10^6/uL (3.85-5.65); Red Cell Distribution Width 16.1 % (12.1-15.1)
[2024-11-28 15:54] LABS: INR 0.87 (0.8-1.2)
--- NOTE | 2024-11-28 15:58 | XRR_ITS ---
PROCEDURE INFORMATION: Exam: XR Soft Tissue Neck Exam date and time: 11/28/2024 4:05 PM Age: 54 years old Clinical indication: Neck pain TECHNIQUE: Imaging protocol: Radiologic exam of the soft tissues of the neck. COMPARISON: CR XR chest 1V portable [id number] 11/28/2024 3:10 PM FINDINGS: Airway: Unremarkable. No abnormal narrowing. Soft tissues: Unremarkable as visualized. No radiopaque foreign body is seen. Bones/joints: Visualized osseous structures show no acute abnormality. XR/XR soft tissue neck [id number] IMPRESSION: No acute findings.
[2024-11-28 15:59] LABS: Troponin(5th) Baseline 37 ng/L (0-10)
[2024-11-28 16:01] LABS: Alanine Aminotransferase 12 U/L (0-33); Albumin Level 3.9 g/dL (3.5-5.2); Alkaline Phosphatase 76 U/L (35-105); Anion Gap 22.7 (5-19); Aspartate Amino Transferase 15 U/L (0-32); Blood Urea Nitrogen 13 mg/dL (6-20); Calcium 9.7 mg/dL (8.5-10.5); Carbon Dioxide 16 mmol/L (22-29); Chloride 104 mmol/L (98-107); Creatinine Clr Calc Pharmacy 69.7657; Globulin 2.8 g/dL (1.3-4.6); Glomerular Filtration Rate 51.4 mL/min (90-130); Glucose 142 mg/dL (65-115); Lipase 33 U/L (13-60); Osmolality Calculated 291 mOsm/kg (285-295); Potassium 3.7 mmol/L (3.5-5.1); Sodium 139 mmol/L (136-145); Total Bilirubin 0.4 mg/dL (0.15-1.2); Total Protein 6.7 g/dL (6.6-8.7)
[2024-11-28 16:07] LABS: Slide Review Slide Review Perform
[2024-11-28 16:08] LABS: Absolute Eosinophils 0.5 10^3/cmm (0.0-0.7); Absolute Segmented Neutrophil 12.2 10/cmm (1.6-7.1); Eosinophils 3 %; Lymphocytes 16 %; Monocytes Absolute 0.5 10^3/cmm (0.1-0.6); Segmented Neutrophils 68 %; Total Cells Counted 100 (0-100)
[2024-11-28] MEDS: haloperidol inj 5 mg/mL INJ 1 mL IVP (16:08)
[2024-11-28 16:09] LABS: Lymphocytes Absolute 4.7 10^3/cmm (1.2-3.4); Platelet Estimate Increased (Normal)
--- NOTE | 2024-11-28 16:30 | PC.NURSE ---
pt went to sit up to get out of bed, pt iv was still attached. pt's iv was pulled out, this nurse went to assess line and pt dropped left hand, iv was pulled out, pressure dressing applied to site. pt states she has involuntary movements . pt then stated You're not very talkative. thanks.
--- NOTE | 2024-11-28 16:48 | ECG_ITS ---
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 Measurements Intervals [place] Rate: 106 P: 70 IL: 168 QRS: -42 QRSD: 114 T: 90 QT: 363 QTc: 484 Interpretive Statements SINUS TACHYCARDIA WITH FREQUENT VENTRICULAR PREMATURE COMPLEXES POSSIBLE LEFT ATRIAL ENLARGEMENT [-0.1mV P-WAVE IN V1/V2] LEFT AXIS DEVIATION [QRS AXIS < -30] ANTEROSEPTAL MYOCARDIAL INFARCTION , OF INDETERMINATE AGE [40+ ms Q WAVE IN V1-V4] ST DEPRESSION, CONSIDER SUBENDOCARDIAL INJURY [0.1+ mV ST DEPRESSION] Compared to ECG 11/28/2024 15:03:13 Left-axis deviation now present ST (T wave) deviation now present Left anterior fascicular block no longer present Left ventricular hypertrophy no longer present Myocardial infarct finding still present Electronically Signed On 12-02-2024 23:36:07 LANDSCAPE CONTRACTOR by Regino Espinal M.D. [id number]
[2024-11-28 18:04] LABS: Troponin 5 2HR 63.18 ng/L (0-10)
[2024-11-28 18:07] LABS: Troponin 5 2HR Delta 26.18 ABS# (0-10)
--- NOTE | 2024-11-28 19:34 | PM.HP ---
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 sided partial colectomy w/ end ileostomy in 06/2010, hx of Kidney stone removed in summer, HTN, Anxiety d/o, and Vertigo, who was brought to [facility]'s ED on 11/28/2024 via EMS for chest pain and L. arm pain. The patient states that when she woke up to urinate, around 5: 30am, her L. shoulder was hurting. She returned to bed, woke up at 7:30am with the same L. shoulder pain, and tended to her pets. She woke up again at 11am and the pain worsened. SHe states that the pain began in her shoulder and radiated to her back and across her chest, up her neck and then down her arms. She states that chest pain was non-pleuritic and non-positional. This has never happened before. She endorses chronic dizziness and light headedness due to vertigo. She endorses diaphoresis, when she panicked due to the chest pain, nausea, b/l rib pain from coughing. She smokes chron She denies f/c, SOB, CP, palpitations In the ED, the patient's vitals were significant for tachycardia to 109bm and tachypnea with with RR of 25, and elevated BP as high as 183/147 mmHg. She was given Haldol 5mg IVP, 1mg Ativan. Lovenox was a. The patient states that she was given SL NTG x 1 tab and a bunch of Aspirin to chew up. Per the admission nurse, there is no documentation that the patient was given Aspirin by EMS. Review of Systems Const: Denies: fever(s) or chills Eyes: Denies: change in vision or blurry vision ENMT: Reports: ear or mastoid pain, nasal discharge (chronic) and nasal congestion (chronic); Denies: odynophagia or ear discharge Card: Reports: chest pain and lightheadedness (chronic); Denies: palpitations or syncope Resp: Reports: non-productive cough (chronic); Denies: dyspnea GI: Reports: nausea; Denies: abdominal pain, vomiting, diarrhea, constipation, hematochezia or melena Musc: Reports: joint pain (L. shoulder and wrist pain ) Skin/Breast: Denies: rash Neuro: Reports: vertigo and other (no syncope) Psych: Reports: anxiety; Denies: depression, suicidal ideation or homicidal ideation Endo: Denies: cold intolerance or heat intolerance Sanju/Lymph: Denies: easy bruising or easy bleeding Medications/Allergies Home Medications Medication Instructions Recorded Confirmed Last Taken Type acetaminophen 500 mg tablet 1,000 mg PO Q6H PRN Pain 06/28/23 11/28/24 11/28/24 13:30 History meclizine 25 mg tablet 25 mg PO DAILY PRN dizzy 11/28/24 11/28/24 11/28/24 08:00 History Allergies Allergy/AdvReac Type Severity Reaction Status Date / Time codeine Allergy Severe ADR-Agitate Verified 06/28/23 07:59 d metronidazole [From Flagyl] Allergy Mild ALGY-Rash Verified 06/28/23 07:59 acetaminophen [From Percocet] Allergy Unknown Verified 06/28/23 07:59 Iodinated Contrast Media Allergy ALGY-Hives Verified 06/28/23 07:59 oxycodone [From Percocet] Allergy Unknown Verified 06/28/23 07:59 fentanyl AdvReac Mild Unknown Verified 06/28/23 07:59 hydromorphone [From Dilaudid] AdvReac Mild unknown Verified 06/28/23 07:59 PFSH Acute PFSH: Medical History Benign essential HTN Crohn disease Pt. had part of her small and large intestine removed in 2009. 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 Vitals/I&O/Wt Last Vital Signs Pulse 82 11/28/24 17:09 Resp 21 H 11/28/24 16:39 BP 166/136 11/28/24 17:09 Pulse Ox 92 11/28/24 17:09 O2 Del Method Nasal Cannula 11/28/24 15:01 Weight last 48 hrs Weight 90.718 kg Physical Exam Const: GENERAL APPEARANCE: cooperative (semi cooperative) and comfortable ORIENTATION/CONSCIOUSNESS: Yes awake, Yes oriented to person, Yes oriented to place and Yes oriented to time HENMT: HEAD & SCALP: normocephalic and atraumatic NOSE: Normal external nose present EXTERNAL EAR: Yes external ears normal MOUTH: Normal oral and palatal mucosa present THROAT: posterior oropharynx normal Eye: OTHER: PERRL, EOMI, normal conjunctiva b/l Neck/C-Spine: GENERAL: Yes normal visual inspection and Yes trachea midline THYROID: Thyroid normal CAROTIDS: No bruit CERVICAL SPINE: Yes cervical ROM normal Lymph: OTHER: no cervical or supraclavicular LAD Resp: OTHER: crackles in the L. lower lung field. Cardio: OTHER: RRR, no m/r/g or clicks. GI: OTHER: BS+, NT, ND, no guarding, no rigidity, no rebound tenderness, no hepatosplenomegaly. Colostomy bag in the R. abdomen, w/ no signs of stool or gas, or blood in the bag Extremity: GENERAL: No clubbing, No cyanosis and No edema Neuro: CRANIAL NERVES: Yes CN normal except as noted SPEECH: speech normal SENSORY EXAM: No sensory level loss detected MOTOR EXAM: 5/5 motor strength present throughout Psych: APPEARANCE: Yes grossly normal ATTITUDE: Yes aggressive ACTIVITY/MOTOR BEHAVIOR: Yes appropriate eye contact SPEECH: Yes normal speech MOOD & AFFECT: Yes irritable THOUGHT PROCESS: Normal thought process present THOUGHT CONTENT: Yes Normal thought content present ATTENTION/CONCENTRATION: Yes attention grossly intact MEMORY/COGNITION: Yes memory grossly intact Skin: GENERAL SKIN EXAM: no rashes or lesions noted Data 11/28/24 15:26 11/28/24 15:26 A&P Assessment and plan (1) Acute coronary syndrome: (2) Benign essential HTN: Plan Fabiola Lcuero is a 54 year old female 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 sided partial colectomy w/ end ileostomy in 06/2010, hx of Kidney stone removed in summer, HTN, Anxiety d/o, and Vertigo, who was brought to [facility]'s ED on 11/28/2024 via EMS for chest pain and L. arm pain. #Chest pain #ACS - She does not tolerate opiates. She only takes Tylenol, so she was given 1000mg of Acetaminophen. - Continue Trending Trop T, EKG. Ordered ECHO. - F/u A1c, lipids, TSH/free T4. - Continue Aspirin. Gave Labetalol 10mg IVP x 1. Start full dose Lovenox. #HTN: Ordered hydralazine prn. Gave Labetalol 10mg IVP x 1. Other chronic problems #Chronic Vertigo #Anxiety d/o #Crohn's diseae complicated by an abdominal abscess s/p R. sided partial colectomy w/ end ileostomy in 06/2010 Attestations Medical Necessity Statement*: Patient needs to be hospitalized for 2midnights or more for Acute Coronary Syndrome Time Spent in Patient Care: >70mins was spent on patient interview/exam, lab/image review and ordering, plan formulation and coordination of care. Coding Level of Care Code Acute Code for [facility] Diagnoses Acute coronary syndrome I24.9 Benign essential HTN I10
--- NOTE | 2024-11-28 19:53 | ECG_ITS ---
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 Measurements Intervals [place] Rate: 86 P: 42 ME: 163 QRS: -45 QRSD: 122 T: 90 QT: 417 QTc: 499 Interpretive Statements SINUS RHYTHM WITH FREQUENT VENTRICULAR PREMATURE COMPLEXES LEFT ANTERIOR FASCICULAR BLOCK [QRS AXIS <= -45, QR IN I, RS IN II] MINIMAL VOLTAGE CRITERIA FOR LVH, CONSIDER NORMAL VARIANT [MEETS CRITERIA IN ONE OF: R(aVL), S(V1), R(V5), R(V5/V6)+S(V1)] ANTEROLATERAL MYOCARDIAL INFARCTION , AGE INDETERMINATE Compared to ECG 11/28/2024 16:48:55 Left anterior fascicular block now present Sinus tachycardia no longer present Left-axis deviation no longer present ST (T wave) deviation no longer present Myocardial infarct finding still present Electronically Signed On 12-02-2024 23:17:08 INSPECTOR CASING by Regino Espinal M.D. [id number]
[2024-11-28] MEDS: nitroglycerin 1 gm/inch oint Pkt 2 INCH TOPICAL (20:44)
[2024-11-28 20:53] LABS: LAB Peripheral Smear Sent for Review
--- NOTE | 2024-11-28 20:59 | ECG_ITS ---
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 Measurements Intervals [place] Rate: 67 P: 22 IN: 163 QRS: -38 QRSD: 120 T: 92 QT: 424 QTc: 450 Interpretive Statements SINUS RHYTHM LEFT AXIS DEVIATION [QRS AXIS < -30] LEFT VENTRICULAR HYPERTROPHY AND ST-T CHANGE [VOLTAGE CRITERIA PLUS ST/T ABNORMALITY] POSSIBLE ANTERIOR MYOCARDIAL INFARCTION , OF INDETERMINATE AGE [30 ms Q WAVE IN V3/V4, OR R < 0.2 mV IN V4] Compared to ECG 11/28/2024 19:56:31 Left-axis deviation now present ST (T wave) deviation now present Ventricular premature complex(es) no longer present Left anterior fascicular block no longer present Myocardial infarct finding still present Electronically Signed On 12-02-2024 23:35:31 COPY COORDINATOR by Regino Espinal M.D. [id number]
[2024-11-28] MEDS: labetalol 5 mg/mL SDV 20mL IVP (21:46)
[2024-11-28] MEDS: acetaminophen 650 mg/20.3 mL UDC 500 MG PO (21:46)
[2024-11-28] MEDS: enoxaparin 100 mg/mL Syringe 90 MG SUBCUT (21:58)
--- NOTE | 2024-11-28 22:10 | USCV_ITS ---
Fabiola Lucero Age: 54 Gender: F : 1970 Exam Date: 11/28/2024 22:28 Ordering Phys: Esha Coleman MD Technologist: SALVADOR Exam Location: [facility] [place] Indication: chest pain BP: 153 / 87 HR: 65 Rhythm: Sinus Technical Quality: Adequate MEASUREMENTS (Male / Female) Normal Values 2D ECHO LV Diastolic Diameter PLAX 4.9 cm 4.2 - 5.9 / 3.9 - 5.3 cm IVS Diastolic Thickness 1.7 cm 0.6 - 1.0 / 0.6 - 0.9 cm IVS Systolic Thickness 2.1 cm LVPW Diastolic Thickness 1.5 cm 0.6 - 1.0 / 0.6 - 0.9 cm LVPW Systolic Thickness 1.8 cm LVOT Diameter 2.1 cm LV Ejection Fraction 2D Teich 55.5 % LV Ejection Fraction MOD 4C 44.2 % LV Ejection Fraction MOD 2C 57.4 % LV Ejection Fraction 2C AL 64.2 % LA Diameter 3.2 cm Aorta at Sinotubular Diameter 2.9 cm IVC Diameter 1.5 cm M-MODE LA Ao Ratio MM 1.2 AV Cusp Separation MM 1.9 cm DOPPLER AV Peak Velocity 86.0 cm/s LVOT Peak Velocity 51.0 cm/s AV Area Cont Eq vti 2.2 cm squared AV Area Cont Eq pk 2.1 cm squared MV Peak Velocity 79.0 cm/s MV Area PHT 2.7 cm squared Mitral E to A Ratio 0.6 TR Peak Velocity 189.0 cm/s TR Peak Gradient 14.3 mmHg TV Peak E Velocity 40.0 cm/s PV Peak Velocity 52.0 cm/s FINDINGS Left Ventricle Left ventricle is normal in size. LV systolic function is mildly reduced with EF of 45 to 50%. Moderate hypokinesis of anterolateral wall. Grade 1 diastolic dysfunction Right Ventricle Normal in size and function Right Atrium Normal in size Left Atrium Normal in size Mitral Valve Structurally normal mitral valve. Mild mitral regurgitation. Aortic Valve Aortic valve is thickened. No significant stenosis. Mild aortic regurgitation. Tricuspid Valve Insufficient TR jet to calculate RVSP Pulmonic Valve Not well visualized Pericardium Normal Aorta Normal in size IVC Appears to be normal CONCLUSIONS LV systolic function is mildly reduced with EF of 45-50%. Above-mentioned regional wall motion abnormalities. Grade 1 diastolic dysfunction. Mild mitral regurgitation. Mild aortic regurgitation No comparison studies are available. Regino Espinal MD (Electronically Signed) Final Date: 29 November 2024 19:31 S
[2024-11-29] VITALS (63 sets, daily range): BP systolic 103–182; BP diastolic 65–105; PULSE 52–102; RESP 12–28; TEMP 36.4–37.2; O2SAT 84–98
[2024-11-29 02:58] LABS: Bilirubin Urine Negative (Negative); Blood Urine Trace (Negative); Glucose Urine UA Negative (Normal); Ketones Urine 1+ (Negative); Leukocyte Esterase Urine Trace (Negative); Nitrate Urine Negative (Negative); Protein Urine 1+ (Negative); Specific Gravity, Urine 1.026 (1.005-1.030); Urine Appearance Clear (CLEAR); Urine Color Yellow (Yellow); Urobilinogen Urine 0.2 mg/dL (Negative)
[2024-11-29 03:03] LABS: Add Urine Microscopic? YES; Bacteria Urine 1+ /hpf; Hyaline Casts Urine 2.46 /lpf; RBC Urine 0-2 /hpf (0-2); WBC Urine 21-50 /hpf (0-5)
[2024-11-29 03:05] LABS: Amphetamines Screen Urine Negative (Negative); Barbiturates Screen Urine Negative (Negative); Benzodiazepines Screen Urine Positive (Negative); Cocaine Screen Urine Negative (Negative); Opiate Screen Urine Negative (Negative); PCP Screen Urine Negative (Negative); THC Screen Urine Negative (Negative)
[2024-11-29 05:31] LABS: Chol HDL Ratio 4.79 mg/dL (0.0-4.40); Cholesterol 249 mg/dL (0-200); HDL Cholesterol 52 mg/dL (60-100); LDL Cholesterol Calculated 136 mg/dL (50-129); LDL HDL Ratio 2.62 RATIO (0.00-3.22); Triglycerides 303 mg/dL (0-150)
[2024-11-29 05:41] LABS: Alanine Aminotransferase 29 U/L (0-33); Albumin Level 3.9 g/dL (3.5-5.2); Alkaline Phosphatase 74 U/L (35-105); Anion Gap 19.7 (5-19); Aspartate Amino Transferase 178 U/L (0-32); Blood Urea Nitrogen 9 mg/dL (6-20); Calcium 9.4 mg/dL (8.5-10.5); Carbon Dioxide 21 mmol/L (22-29); Chloride 100 mmol/L (98-107); Creatinine Clr Calc Pharmacy 88.1433; Globulin 3.2 g/dL (1.3-4.6); Glomerular Filtration Rate 64.8 mL/min (90-130); Glucose 126 mg/dL (65-115); Magnesium 1.9 mg/dL (1.7-2.3); Osmolality Calculated 284 mOsm/kg (285-295); Phosphorus 2.6 mg/dL (2.5-4.5); Potassium 3.7 mmol/L (3.5-5.1); Sodium 137 mmol/L (136-145); Thyroid Stimulating Hormone 3.99 uIU/mL (0.27-4.20); Total Bilirubin 0.5 mg/dL (0.15-1.2); Total Protein 7.1 g/dL (6.6-8.7)
[2024-11-29 05:44] LABS: Troponin T (5th) Once 1787 ng/L (0-10)
[2024-11-29 05:46] LABS: Estmated Average Glucose 114; Hemoglobin A1C 5.6 % (4.0-6.0)
--- NOTE | 2024-11-29 05:49 | ECG_ITS ---
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 Measurements Intervals [place] Rate: 57 P: 36 WA: 158 QRS: -50 QRSD: 121 T: 103 QT: 444 QTc: 436 Interpretive Statements SINUS BRADYCARDIA LEFT ANTERIOR FASCICULAR BLOCK [QRS AXIS <= -45, QR IN I, RS IN II] LEFT VENTRICULAR HYPERTROPHY AND ST-T CHANGE [VOLTAGE CRITERIA PLUS ST/T ABNORMALITY] POSSIBLE ANTEROLATERAL MYOCARDIAL INFARCTION , OF INDETERMINATE AGE [30 ms Q WAVE IN I/aVL/V3-V6] Compared to ECG 11/28/2024 21:41:29 Left anterior fascicular block now present Sinus rhythm no longer present Left-axis deviation no longer present ST (T wave) deviation still present Myocardial infarct finding still present Electronically Signed On 12-02-2024 23:14:52 IPHONE DEVELOPER by Regino Espinal M.D. [id number]
[2024-11-29 05:55] LABS: Creatine Phosphokinase 3123 U/L (26-192)
[2024-11-29] MEDS: sodium chloride 0.9% 1,000 ML 100 ML IV ×3 (06:13→22:01)
[2024-11-29] MEDS: aspirin 81 mg Chew Tablet 324 MG PO (06:29)
[2024-11-29] MEDS: hyDRALAzine 20 mg/mL INJ 1 mL 10 MG IVP (06:51)
[2024-11-29] MEDS: nitroglycerin drip 50 MG/250 ML PREMIX IV (07:48)
[2024-11-29] MEDS: ondansetron 2 mg/ML SDV 2 mL 4 MG IVP (08:09)
[2024-11-29] MEDS: metoprolol tartrate 25 mg Tablet PO ×2 (09:05→20:25)
[2024-11-29] MEDS: atorvastatin 40 mg Tablet PO (09:06)
--- NOTE | 2024-11-29 09:33 | PC.CHAP ---
Pastoral Care Encounter/Spiritual Assessment Type of Contact [] Declined weather forecaster visit [] Patient/Family/Request visit [] Outpatient visit [] Follow-up visit [] Physician referral [] Code/Alert [x] Routine visit [] Staff referral [] Actively dying [] Patient sleeping [] Family support [] [] Out of room [] Palliative care [] [] Receiving care in room [] Pre-surgical visit [] Trauma [] Long length of stay [] ICU visit [] Other: Relational/Emotional Strength [x] Patient feels connected with others/family/visitors/staff [] Distress [] Loneliness/isolation [] Abandonment Spirituality of Patient [x] Person of Magdalena [] Attends Congregational of their Magdalena [x] Believes in Prayer [] Reads Bible or Adventism materials [] There are Spiritual issues to be addressed Deli/Bakery Associate Interventions [x] Prayer [x] Active listening [] Non-anxious presence [x] Spiritual/emotional support [] Crisis/trauma care [] Spiritual counseling [] Bereavement support [] Provided bereavement packet [] Provided Bible/devotional materials [] Provided toy/stuffed animal, coloring book to patient or family member [] Provided Communion [] Anointing/[place] [] Salvation [x] Completed spiritual assessment [] Other: Impact on Illness or Injury [] Angry [] Fearful [] Anxious [] Often cries [] Exhaustion [] Unable to work [] Unable to attend gnosticism [] Unable to walk/stand [] Unable to read [] Unable to drive [] Unable to eat/drink [] Unable to sleep [] Unable to be with family [] Patient intubated [] Other: Summary Time spent with patient 5 min
--- NOTE | 2024-11-29 09:45 | W.PM.OPSUD ---
Surgery/Procedure H&P Update DATE OF PROCEDURE: November 29, 2024 DATE H&P PERFORMED: 11/29/24 H&P UPDATE INFORMATION: I have reviewed H&P completed within last 30 days, I have examined patient prior to procedure and No changes to prior documentation PREOP DIAGNOSIS: NSTEMI PRIMARY INDICATION FOR PROCEDURE: NSTEMI PLANNED PROCEDURE: Left heart cath with possible percutaneous coronary intervention PATIENT REASSESSED PRIOR TO SEDATION, WITH NO CHANGE NOTED: Yes PHYSICAL EXAM: alert, oriented x 3, clear to auscultation bilaterally and regular rate & rhythm AIRWAY EVAL/ANESTHESIA PLAN: normal airway, ASA III, Local Anesthesia, Risks, benefits & alternatives of sedation and/or procedure discussed and Patient agrees to continue as planned ADDITIONAL INFORMATION: Moderate sedation
--- NOTE | 2024-11-29 10:11 | P.CONIM_ITS ---
<Statement entered by Regino Espinal M.D - 11/29/24 22:40> Patient was evaluated and cared for in conjunction with an advanced practice practitioner. I personally examined the patient and reviewed the chart and all pertinent data including imaging, telemetry, and laboratory results. I discussed the patient in detail with the advanced practice practitioner. Please see their note for consult note, results and agreed upon plan of care for the patient. Patient has presented with typical chest pain. Significant troponin elevation. EKG has non specific ST T wave changes. Currently on nitro gtt. Chest pain has improved significantly. GENERAL: Patient is alert and oriented HEART: Regular S1 and S2 LUNGS: Clear to auscultation bilaterally EXTREMITIES: Lower extremities with no edema ASSESSMENT AND PLAN 1) NSTEMI Plan for coronary angiogram with possible PCI. Risks and benefits of the procedure discussed. NPO for now Continue aspirin, load with plavix 600mg. Patient on anticoagulation with lovenox ECHO ordered. EF appears mildy reduced with hypokinesis of anterolateral wall Thank you for involving us with care of this patient. We will continue to follow. Please call with questions. Providers/Reason For Consult 2 Consulting Physician/Specialty*: Dr Espinal, cardiology Reason for Consult*: NSTEMI Requesting Physician: Dr Mcdowell Attending Physician: Dejuan Mcdowell MD Primary Care Provider: Oseas Tapia MD History of Present Illness History of Present Illness Fabiola Lucero is a 54 year old female with past medical history of splenectomy, Crohn's disease, hypertension, vertigo. She presented to the emergency room yesterday via EMS due to chest pain which began around 530 yesterday morning, present in the chest and left shoulder radiating up to the left neck and down to the elbow. EKG did not show STEMI, baseline troponin 37 - > 63 -> 330. ACS protocol was initiated. At its worst the chest pain was rated 5-6/10, since arrival to the hospital it has been present intermittently but less severe. Fifth generation troponin this morning at 4 AM was 1787. CK also elevated at 3123. AST 178, ALT 29. This morning BUN 9, creatinine 0.9. She is currently on a nitroglycerin drip 10 mcg/min. She is a current smoker, no history of diabetes no known coronary artery disease. Urine drug screen positive for benzodiazepines. Frequent PVCs noted on the media monitor. Review of Systems 2 Const: Denies: fever(s), chills, change in weight, fatigue or diaphoresis Eyes: Denies: change in vision ENMT: Denies: epistaxis Card: Reports: chest pain; Denies: palpitations, irregular heart rhythm, edema, syncope, pre-syncope, dyspnea on exertion, orthopnea or leg pain with exertion Resp: Denies: dyspnea, productive cough or wheezing GI: Denies: nausea, vomiting, hematemesis, hematochezia or melena : Denies: hematuria Musc: Denies: extremity swelling Sanju/Lymph: Denies: easy bruising or easy bleeding Medications/Allergies Home Medications Medication Instructions Recorded Confirmed Last Taken Type acetaminophen 500 mg tablet 1,000 mg PO Q6H PRN Pain 06/28/23 11/28/24 11/28/24 13:30 History meclizine 25 mg tablet 25 mg PO DAILY PRN dizzy 11/28/24 11/28/24 11/28/24 08:00 History Allergies Allergy/AdvReac Type Severity Reaction Status Date / Time codeine Allergy Severe ADR-Agitate Verified 06/28/23 07:59 d metronidazole [From Flagyl] Allergy Mild ALGY-Rash Verified 06/28/23 07:59 acetaminophen [From Percocet] Allergy Unknown Verified 06/28/23 07:59 Iodinated Contrast Media Allergy ALGY-Hives Verified 06/28/23 07:59 oxycodone [From Percocet] Allergy Unknown Verified 06/28/23 07:59 fentanyl AdvReac Mild Unknown Verified 06/28/23 07:59 hydromorphone [From Dilaudid] AdvReac Mild unknown Verified 06/28/23 07:59 Current Medications Generic Name Dose Route Start Last Admin Trade Name Freq PRN Reason Stop Dose Admin Atorvastatin Calcium 40 mg 11/29/24 09:00 11/29/24 09:06 Atorvastatin 40 Mg Tablet PO 40 mg DAILY MIRI Administration Enoxaparin Sodium 90 mg 11/29/24 09:00 11/29/24 09:00 Enoxaparin 100 Mg/Ml Syringe SUBCUT Not Given Q12H MIRI Hydralazine HCl 10 mg 11/28/24 20:26 11/29/24 06:51 Hydralazine 20 Mg/Ml Inj 1 Ml IVP 10 mg Q4H PRN Administration hypertension Sodium Chloride 1,000 mls @ 100 mls/hr 11/29/24 06:00 11/29/24 06:13 Sodium Chloride 0.9% IV 11/29/24 15:59 100 mls/hr .Q10H MIRI Administration Nitroglycerin/Dextrose 50 mg in 250 mls @ 0 mls/hr 11/29/24 07:30 11/29/24 07:48 Nitroglycerin Drip IV 10 mcg/min .Q0M MIRI 3 mls/hr Administration Protocol Per Protocol Metoprolol Tartrate 25 mg 11/29/24 09:00 11/29/24 09:05 Metoprolol Tartrate 25 Mg Tablet PO 25 mg BID@0900,2100 MIRI Administration Ondansetron HCl 4 mg 11/28/24 20:37 11/29/24 08:09 Ondansetron 2 Mg/Ml Sdv 2 Ml IVP 4 mg Q6H PRN Administration vomiting, or N/V if npo Senna 17.2 mg 11/29/24 09:00 11/29/24 07:57 Sennosides 8.6 Mg Tablet PO Not Given DAILY MIRI PFSH Acute 2 PFSH: Medical History (Updated 11/29/24 @ 13:52 by Dejuan Mcdowell MD) MRSA infection Abdominal abscess Benign essential HTN Crohn disease Pt. had part of her small and large intestine removed in 2009. 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 Vitals/I&O/Wt Last Vital Signs Temp 97.6 F 11/29/24 08:00 Pulse 90 11/29/24 08:00 Resp 16 11/29/24 08:00 BP 121/69 11/29/24 08:00 Pulse Ox 94 11/29/24 08:00 O2 Del Method Room Air 11/29/24 08:00 11/28/24 11/29/24 11/29/24 22:59 06:59 14:59 Intake Total 120 / 240 120 / 240 Balance 120 / 240 120 / 240 Weight last 48 hrs Weight 214 lb 6 oz Weight 214 lb 6 oz Weight 214 lb 6 oz Weight 200 lb Physical Exam 2 Const: COMMON NORMALS: no acute distress and patient oriented x3 GENERAL APPEARANCE: cooperative and comfortable ORIENTATION/CONSCIOUSNESS: Yes awake, Yes oriented to person, Yes oriented to place and Yes oriented to time Chest: COMMONS NORMALS: normal inspection of the chest and normal palpation of entire chest wall CHEST: Yes Symmetrical chest wall rise Resp: COMMON NORMALS: normal respiratory effort, No retractions, No use of accessory muscles and clear to auscultation bilaterally EFFORT & INSPECTION: Yes symmetric chest movement AUSCULTATION: clear to auscultation bilaterally Cardio: COMMON NORMALS: regular rate, regular rhythm, S1 normal heart sound present, S2 normal heart sound present, No gallops present (Cardio), No clicks present (Cardio), No murmurs present (Cardio) and No rub (Cardio) RATE: r egular rate RHYTHM: regular rhythm HEART SOUNDS: S1 normal heart sound present and S2 normal heart sound present PERIPHERAL PULSES: radial pulses present Extremity: COMMON NORMALS: no pedal edema Neuro: COMMON NORMALS: patient oriented x3 and moves all extremities S ENSORIUM/ORIENTATION: Yes oriented to person, Yes oriented to place and Yes oriented to time Data 11/29/24 12:34 11/29/24 12:34 A&P Assessment and plan (1) Non-ST elevation NM (NSTEMI): NSTEMI with approximate LVEF 40% on preliminary read. Troponin peaked at 1700 this morning. Will plan for coronary angiogram later this morning. The procedure details including risks and benefits have been discussed with the patient by Dr. Espinal, including risk of stroke, , blood loss, contrast- induced nephropathy. Patient is willing to proceed. (2) Acute coronary syndrome: (3) Benign essential HTN: (4) Nicotine dependence, cigarettes, with unspecified nicotine-induced disorders: Coding Level of Care Code Acute Code for Chg Fwd Diagnoses Non-ST elevation NM (NSTEMI) I21.4 Acute coronary syndrome I24.9 Benign essential HTN I10 Nicotine dependence, cigarettes, with unspecified nicotine-induced disorders F17.219
--- NOTE | 2024-11-29 10:46 | PM.PROC ---
Procedure Note: Date of procedure: 11/29/24 Pre-procedure diagnosis: NSTEMI Post-procedure diagnosis: other (Total thrombotic occlusion of large OM 2 s/p PCI with 2 stents) Procedure: Left heart cath with PCI: Left main artery is patent. LAD has moderate to severe mid LAD stenosis. RCA is aneurysmal and has moderate proximal vessel stenosis. OM 2 is a large size vessel which was 100% occluded. Status post successful revascularization with 2 stents. Performing Provider: Regino Espinal Estimated blood loss (mL): 10 Complications: None Condition: stable Disposition: floor Coding Level of Care Code Acute Code for [facility]
--- NOTE | 2024-11-29 10:52 | PC.NURSE ---
to cardiac entry level lab technician via bed at 0930
--- NOTE | 2024-11-29 11:01 | ECG_ITS ---
Enstratius Test Date: 2024-11-29 Pat Name: Fabiola Lucero Department: Room: 107 Gender: Female Eye Specialist: : 1970 Requested By: Regino Espinal Order Number: [id number] Joel MD: Regino Espinal M.D. Measurements Intervals [place] Rate: 88 P: 53 MN: 168 QRS: -55 QRSD: 115 T: 113 QT: 410 QTc: 497 Interpretive Statements SINUS RHYTHM WITH FREQUENT VENTRICULAR PREMATURE COMPLEXES LEFT ANTERIOR FASCICULAR BLOCK [QRS AXIS <= -45, QR IN I, RS IN II] POSSIBLE ANTEROLATERAL MYOCARDIAL INFARCTION , OF INDETERMINATE AGE [30 ms Q WAVE IN I/aVL/V3-V6] Compared to ECG 11/29/2024 06:44:45 Ventricular premature complex(es) now present Sinus bradycardia no longer present Left ventricular hypertrophy no longer present ST (T wave) deviation no longer present Myocardial infarct finding still present Electronically Signed On 12-02-2024 23:34:08 BUSINESS ANALYTICS MANAGER by Regino Espinal M.D. [email or web address]
--- NOTE | 2024-11-29 11:24 | PC.NURSE ---
received from cardiac mobile home laborer at 1050 via bed.report recieved.pt is easily awakened and alert and oriented x 4.reports mild substernal chest pain rating pain 3/10.dr ureña aware.ekg ordered and obtained.dr ureña reviewed.no orders received.right wrist with tr band on and inflated.right hand is warm to touch and with brisk capillary refill.no hematoma noted.palpable radial pulse noted distal to tr band.pt instructed in activity restrictions s/p radial artery procedure..and instructed to notify staff for any bleeding,pain,numbness,sob or for any concerns at all.pt verb understanding of instructions
[2024-11-29 12:43] LABS: Basophils # 0.1 10^3/uL (0.0-0.1); Basophils % 0.4 %; Eosinophils % 0.2 %; Hematocrit 44.8 % (36-47); Lymphocytes # 1.8 10^3/uL (0.8-4.8); Mean Corpuscular HGB Conc 34.2 g/dL (30-55); Mean Corpuscular Hemoglobin 31.9 pg (27-33); Mean Corpuscular Volume 93.5 fl (85-98); Mean Platelet Volume 9.9 fL (7.4-10.4); Monocytes # 0.5 10^3/uL (0.2-0.9); Monocytes % 1.7 %; Nucleated Red Blood Cells % 0.2 %; Platelet Count 466 10^3/cmm (157-399); Red Blood Count 4.79 10^6/uL (3.85-5.65); Red Cell Distribution Width 16.1 % (12.1-15.1); White Blood Count 25.78 10^3/uL (3.29-11.43)
[2024-11-29 13:02] LABS: Alanine Aminotransferase 57 U/L (0-33); Albumin Level 3.9 g/dL (3.5-5.2); Alkaline Phosphatase 71 U/L (35-105); Anion Gap 18.7 (5-19); Aspartate Amino Transferase 439 U/L (0-32); Blood Urea Nitrogen 9 mg/dL (6-20); Calcium 9.2 mg/dL (8.5-10.5); Carbon Dioxide 19 mmol/L (22-29); Chloride 104 mmol/L (98-107); Creatinine Clr Calc Pharmacy 99.1612; Globulin 3.2 g/dL (1.3-4.6); Glomerular Filtration Rate 74.2 mL/min (90-130); Glucose 154 mg/dL (65-115); Iron 44 ug/dL (37-145); Osmolality Calculated 288 mOsm/kg (285-295); Percent Saturation 15.9 % (20-50); Potassium 3.7 mmol/L (3.5-5.1); Sodium 138 mmol/L (136-145); Total Bilirubin 0.6 mg/dL (0.15-1.2); Total Iron Binding Capacity 276 mcg/dl; Total Protein 7.1 g/dL (6.6-8.7); Unsaturated Iron Binding 232 ug/dL (112-347)
[2024-11-29 13:18] LABS: Vitamin B12 259 pg/mL (232-1245)
[2024-11-29 13:36] LABS: Troponin T (5th) Once > 10000 ng/L (0-10)
--- NOTE | 2024-11-29 13:48 | P.PN_ITS ---
Subjective 2 Subjective: Admitted overnight. Today morning examination patient complaining of chest heaviness and discomfort going down the left arm. Denies having any nausea. Denies having any difficulty in breathing. States pain is slightly better than when she had come in but has persisted overnight. Blood pressure is elevated. Vitals/I&O/Wt Last Vital Signs Temp 97.6 F 11/29/24 08:00 Pulse 98 11/29/24 12:00 Resp 14 11/29/24 12:00 BP 150/90 11/29/24 12:00 Pulse Ox 95 11/29/24 12:00 O2 Del Method Room Air 11/29/24 12:00 11/28/24 11/29/24 11/29/24 22:59 06:59 14:59 Intake Total 120 / 120 120 / 240 Balance 120 / 120 120 / 240 Weight last 48 hrs Weight 97.239 kg Weight 97.239 kg Weight 97.239 kg Weight 90.718 kg Physical Exam 2 Const: GENERAL APPEARANCE: cooperative (semi cooperative) and comfortable O RIENTATION/CONSCIOUSNESS: Yes awake, Yes oriented to person, Yes oriented to place and Yes oriented to time HENMT: COMMON NORMALS: normocephalic, atraumatic, external ears normal and Normal external nose present HEAD & SCALP: normocephalic and atraumatic N OSE: Normal external nose present EXTERNAL EAR: Yes external ears normal M OUTH: Normal oral and palatal mucosa present THROAT: posterior oropharynx normal Eye: OTHER: PERRL, EOMI, normal conjunctiva b/l Neck/C-Spine: COMMON NORMALS: Thyroid normal GENERAL: Yes normal visual inspection and Yes trachea midline THYROID: Thyroid normal CAROTIDS: No bruit CERVICAL SPINE: Yes cervical ROM normal Lymph: OTHER: no cervical or supraclavicular LAD Resp: OTHER: crackles in the L. lower lung field. Cardio: OTHER: RRR, no m/r/g or clicks. GI: OTHER: BS+, NT, ND, no guarding, no rigidity, no rebound tenderness, no hepatosplenomegaly. Colostomy bag in the R. abdomen, w/ no signs of stool or gas, or blood in the bag Extremity: GENERAL: No clubbing, No cyanosis and No edema Neuro: SENSORIUM/ORIENTATION: Yes oriented to person, Yes oriented to place and Yes oriented to time CRANIAL NERVES: Yes CN normal except as noted S PEECH: speech normal SENSORY EXAM: No sensory level loss detected MOTOR EXAM: 5/5 motor strength present throughout Psych: COMMON NORMALS: Normal thought process present and speech normal A PPEARANCE: Yes grossly normal ATTITUDE: Yes aggressive ACTIVITY/MOTOR BEHAVIOR: Yes appropriate eye contact SPEECH: Yes normal speech MOOD & AFFECT: Yes irritable THOUGHT PROCESS: Normal thought process present T HOUGHT CONTENT: Yes Normal thought content present ATTENTION/CONCENTRATION: Y es attention grossly intact MEMORY/COGNITION: Yes memory grossly intact Skin: COMMON NORMALS: no rashes or lesions noted GENERAL SKIN EXAM: no rashes or lesions noted Data 11/29/24 12:34 11/29/24 12:34 A&P Assessment and plan (1) Non-ST elevation CA (NSTEMI): Troponin overnight has gone up to 1700. Keep NPO. Will consult cardiology for an earlier cardiac angiogram. Patient continues to have ongoing chest pain. Start on nitro drip. Continue with aspirin, statin. Having frequent VPCs. Add metoprolol 25 mg twice daily. Follow-up echocardiogram. Continue on full dose Lovenox 1 mg/kg body weight every 12 hourly. Appreciate A1c, lipid panel. (2) Acute coronary syndrome: (3) Benign essential HTN: Goal blood pressure less than 140/90 mmHg. (4) Hyperlipidemia: Plan Full code N.p.o., cardiac diet post angiogram Full dose Lovenox will be sufficient for DVT prophylaxis Protonix OPD prophylaxis Other chronic problems #Chronic Vertigo #Anxiety d/o #Crohn's diseae complicated by an abdominal abscess s/p R. sided partial colectomy w/ end ileostomy in 06/2010 Attestations 2 Medical Necessity Statement*: Requires further hospitalization for management of non-ST elevation CA requiring early cardiac angiogram Diagnoses Non-ST elevation CA (NSTEMI) I21.4 Acute coronary syndrome I24.9 Benign essential HTN I10 Hyperlipidemia E78.5
--- NOTE | 2024-11-29 16:08 | PC.NURSE ---
tr band slowly deflated and eventually removed at 1500.no hematoma noted.right hand remains warm to touch and with brisk capillary refill.palpable radial pulse noted.site dressed with 2x2 gauze and secured with biocclusive drsg.pt instructed in activity restrictions s/p tr band removal...and instructed to notify staff for any bleeding,pain,sob,numbness or for any concerns at all.pt verb understanding of instructions.
[2024-11-30] VITALS: BP 126/82; PULSE 98; RESP 14; TEMP 36.8; O2SAT 97
[2024-11-30 04:00] VITALS: BP 131/78; PULSE 89; RESP 21; TEMP 36.9; O2SAT 94
[2024-11-30 04:17] LABS: Basophils # 0.1 10^3/uL (0.0-0.1); Basophils % 0.2 %; Hematocrit 42.6 % (36-47); Lymphocytes # 2.8 10^3/uL (0.8-4.8); Lymphocytes % 12.8 %; Mean Corpuscular HGB Conc 33.8 g/dL (30-55); Mean Corpuscular Hemoglobin 32.1 pg (27-33); Mean Corpuscular Volume 95.1 fl (85-98); Mean Platelet Volume 10.4 fL (7.4-10.4); Monocytes # 1.3 10^3/uL (0.2-0.9); Monocytes % 6.1 %; Neutrophils # 17.41 10^3/uL (1.8-7.7); Neutrophils % 80.4 %; Nucleated Red Blood Cells # 0.1 /100WBC; Nucleated Red Blood Cells % 0.3 %; Platelet Count 436 10^3/cmm (157-399); Red Blood Count 4.48 10^6/uL (3.85-5.65); Red Cell Distribution Width 16.4 % (12.1-15.1); White Blood Count 21.67 10^3/uL (3.29-11.43)
[2024-11-30 04:40] LABS: Alanine Aminotransferase 49 U/L (0-33); Albumin Level 3.8 g/dL (3.5-5.2); Alkaline Phosphatase 67 U/L (35-105); Anion Gap 22.3 (5-19); Aspartate Amino Transferase 241 U/L (0-32); Blood Urea Nitrogen 14 mg/dL (6-20); Calcium 9.6 mg/dL (8.5-10.5); Carbon Dioxide 17 mmol/L (22-29); Chloride 103 mmol/L (98-107); Creatinine Clr Calc Pharmacy 66.1075; Globulin 3.3 g/dL (1.3-4.6); Glomerular Filtration Rate 46.5 mL/min (90-130); Glucose 145 mg/dL (65-115); Osmolality Calculated 291 mOsm/kg (285-295); Phosphorus 1.7 mg/dL (2.5-4.5); Potassium 3.3 mmol/L (3.5-5.1); Sodium 139 mmol/L (136-145); Total Bilirubin 0.7 mg/dL (0.15-1.2); Total Protein 7.1 g/dL (6.6-8.7)
[2024-11-30 04:57] LABS: Folate Level 7.2 ng/mL (4.8-37.3)
[2024-11-30 05:48] VITALS: PULSE 82
[2024-11-30 07:27] VITALS: BP 124/67; PULSE 98; RESP 14; TEMP 36.4; O2SAT 95
--- NOTE | 2024-11-30 08:59 | P.PN_ITS ---
<Statement entered by Regino Espinal M.D - 11/30/24 23:25> Patient was evaluated and cared for in conjunction with an advanced practice practitioner. I personally examined the patient and reviewed the chart and all pertinent data including imaging, telemetry, and laboratory results. I discussed the patient in detail with the advanced practice practitioner. Please see their note for complete progress note, results and agreed upon plan of care for the patient. Patient feeling well. No chest pain. GENERAL: Patient is alert and oriented HEART: Regular S1 and S2 LUNGS: Clear to auscultation bilaterally EXTREMITIES: Lower extremities with no edema Subjective 2 Subjective: She is status post ROBERT x 2 to the second obtuse marginal. She has moderate to severe mid LAD stenosis which will be evaluated with a stress test as an outpatient. No recurrence of chest pain overnight. No complications with right radial cath site. Blood pressure is well controlled. Potassium level 3.3 on labs this morning, will replace with oral potassium 40 mEq x 1 dose. Liver enzymes have been elevated since yesterday, AST trending down at 241 ALT 49. Vitals/I&O/Wt Last Vital Signs Temp 97.6 F 11/30/24 07:27 Pulse 98 11/30/24 07:27 Resp 14 11/30/24 07:27 BP 124/67 11/30/24 07:27 Pulse Ox 95 11/30/24 07:27 O2 Del Method Room Air 11/30/24 07:27 11/29/24 11/30/24 11/30/24 22:59 06:59 14:59 Intake Total 2273.95 / 3422.283 1148.333 / 3422.283 Balance 2273.95 / 3422.283 1148.333 / 3422.283 Weight last 48 hrs Weight 214 lb 6 oz Weight 214 lb 6 oz Weight 214 lb 6 oz Weight 214 lb 6 oz Weight 200 lb Physical Exam 2 Const: COMMON NORMALS: no acute distress and patient oriented x3 GENERAL APPEARANCE: cooperative and comfortable ORIENTATION/CONSCIOUSNESS: Yes awake, Yes oriented to person, Yes oriented to place and Yes oriented to time Chest: COMMONS NORMALS: normal inspection of the chest and normal palpation of entire chest wall CHEST: Yes Symmetrical chest wall rise Resp: COMMON NORMALS: normal respiratory effort, No retractions, No use of accessory muscles and clear to auscultation bilaterally EFFORT & INSPECTION: Yes symmetric chest movement AUSCULTATION: clear to auscultation bilaterally Cardio: COMMON NORMALS: regular rate, regular rhythm, S1 normal heart sound present, S2 normal heart sound present, No gallops present (Cardio), No clicks present (Cardio), No murmurs present (Cardio) and No rub (Cardio) RATE: r egular rate RHYTHM: regular rhythm HEART SOUNDS: S1 normal heart sound present and S2 normal heart sound present PERIPHERAL PULSES: radial pulses present Extremity: COMMON NORMALS: no pedal edema Neuro: COMMON NORMALS: patient oriented x3 and moves all extremities S ENSORIUM/ORIENTATION: Yes oriented to person, Yes oriented to place and Yes oriented to time Data 11/30/24 03:43 11/30/24 03:43 A&P Assessment and plan (1) Non-ST elevation ID (NSTEMI): S/P ROBERT x 2 to the second obtuse marginal, plan for outpatient stress test to evaluate the mid LAD stenosis. She has elevated liver enzymes- will not start her on atorvastatin however will add Zetia 10 mg daily and check lipid panel as an outpatient. She should have a BMP on Wednesday to reevaluate potassium and creatinine, creatinine 1.2 (baseline 0.8-0.9). Continue aspirin, metoprolol tartrate 25 mg twice a day and Plavix. Plan to discharge home today, will require transport arrangement, also transportation to her hospital follow-up appointment. Follow-up in the cardiology clinic with the cardiology PARTS COORDINATOR in 7 to 10 days. (2) Hyperlipidemia: (3) Benign essential HTN: Attestations 2 Medical Necessity Statement*: Plan to discharge home today Coding Level of Care Code Acute Code for [facility] Fwd Diagnoses Non-ST elevation ID (NSTEMI) I21.4 Hyperlipidemia E78.5 Benign essential HTN I10
[2024-11-30] MEDS: potassium chloride oral liq 20 mEq/15 mL UDC 40 MEQ PO (09:12)
[2024-11-30] MEDS: metoprolol tartrate 25 mg Tablet PO (09:12)
[2024-11-30] MEDS: aspirin 81 mg Chew Tablet PO (09:13)
[2024-11-30] MEDS: clopidogrel 75 mg Tablet PO (09:13)
[2024-11-30] MEDS: ezetimibe 10 mg Tablet PO (09:16)
--- NOTE | 2024-11-30 10:09 | PM.DCS ---
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 sided partial colectomy w/ end ileostomy in 06/2010, hx of Kidney stone removed in summer, HTN, Anxiety d/o, and Vertigo, who was brought to [facility]'s ED on 11/28/2024 via EMS for chest pain and L. arm pain. The patient states that when she woke up to urinate, around 5: 30am, her L. shoulder was hurting. She returned to bed, woke up at 7:30am with the same L. shoulder pain, and tended to her pets. She woke up again at 11am and the pain worsened. SHe states that the pain began in her shoulder and radiated to her back and across her chest, up her neck and then down her arms. She states that chest pain was non-pleuritic and non-positional. This has never happened before. She endorses chronic dizziness and light headedness due to vertigo. She endorses diaphoresis, when she panicked due to the chest pain, nausea, b/l rib pain from coughing. She smokes chron She denies f/c, SOB, CP, palpitations In the ED, the patient's vitals were significant for tachycardia to 109bm and tachypnea with with RR of 25, and elevated BP as high as 183/147 mmHg. She was given Haldol 5mg IVP, 1mg Ativan. Lovenox was a. The patient states that she was given SL NTG x 1 tab and a bunch of Aspirin to chew up. Per the admission nurse, there is no documentation that the patient was given Aspirin by EMS. Hospital Course Hospital Course Patient was admitted to the hospital further evaluation and management of chest pain with concerns for non-ST elevation IA. Her troponin cycle was elevated up to 1700. Cardiology was consulted and she underwent cardiac angiogram. She underwent 2 ROBERT to OM1. An angiogram she was found to have moderate to severe mid LAD stenosis, aneurysm of mid RCA, moderate proximal vessel stenosis. She is to follow-up with cardiology as an outpatient for staged procedure. Her hospitalization was otherwise unremarkable. She continued to have leukocytosis. Patient would have benefited from further stay while infectious workup is done though she was insistent on being discharged. Blood cultures have been collected. Stool was negative for C. difficile. Urinalysis was consistent with more than 100 WBCs. She is been discharged on oral ciprofloxacin while cultures are awaited. She was counseled in detail to be compliant with medications. She is to follow-up with a primary care provider within next 1 week and with cardiology office within next 2 weeks. Physical Exam Const: GENERAL APPEARANCE: cooperative (semi cooperative) and comfortable ORIENTATION/CONSCIOUSNESS: Yes awake, Yes oriented to person, Yes oriented to place and Yes oriented to time HENMT: COMMON NORMALS: normocephalic, atraumatic, external ears normal and Normal external nose present HEAD & SCALP: normocephalic and atraumatic NOSE: Normal external nose present EXTERNAL EAR: Yes external ears normal MOUTH: Normal oral and palatal mucosa present THROAT: posterior oropharynx normal Eye: OTHER: PERRL, EOMI, normal conjunctiva b/l Neck/C-Spine: COMMON NORMALS: Thyroid normal GENERAL: Yes normal visual inspection and Yes trachea midline THYROID: Thyroid normal CAROTIDS: No bruit CERVICAL SPINE: Yes cervical ROM normal Lymph: OTHER: no cervical or supraclavicular LAD Resp: OTHER: crackles in the L. lower lung field. Cardio: OTHER: RRR, no m/r/g or clicks. GI: OTHER: BS+, NT, ND, no guarding, no rigidity, no rebound tenderness, no hepatosplenomegaly. Colostomy bag in the R. abdomen, w/ no signs of stool or gas, or blood in the bag Extremity: GENERAL: No clubbing, No cyanosis and No edema Neuro: SENSORIUM/ORIENTATION: Yes oriented to person, Yes oriented to place and Yes oriented to time CRANIAL NERVES: Yes CN normal except as noted SPEECH: speech normal SENSORY EXAM: No sensory level loss detected MOTOR EXAM: 5/5 motor strength present throughout Psych: COMMON NORMALS: Normal thought process present and speech normal APPEARANCE: Yes grossly normal ATTITUDE: Yes aggressive ACTIVITY/MOTOR BEHAVIOR: Yes appropriate eye contact SPEECH: Yes normal speech MOOD & AFFECT: Yes irritable THOUGHT PROCESS: Normal thought process present THOUGHT CONTENT: Yes Normal thought content present ATTENTION/CONCENTRATION: Yes attention grossly intact MEMORY/COGNITION: Yes memory grossly intact Skin: COMMON NORMALS: no rashes or lesions noted GENERAL SKIN EXAM: no rashes or lesions noted Discharge Data Studies Completed and Pending Completed Studies During Hospitalization Category Date Time Status XR chest 1V portable [id number] Stat Exams 11/28/24 14:59 Completed XR soft tissue neck [id number] Stat Exams 11/28/24 15:58 Completed CV. echo complete* [id number] Routine Ultrasound 11/28/24 22:10 Completed Pending at discharge Category Date Time Status CLIENT TE[employer]ICAL [employer]IATE request for service Routine Exams 11/29/24 09:00 Taken BMP [Basic Metabolic Panel] Routine Lab 12/04/24 09:05 Ordered Blood Culture Stat Lab 11/30/24 09:44 Ordered CDIFF [C.Diff PCR (Lab)] Routine Lab 11/30/24 09:45 Uncollected CDIFF [C.Diff PCR (Lab)] Routine Lab 11/30/24 09:53 Uncollected Comprehensive Metabolic Panel AM LABS Lab 12/01/24 04:00 Ordered MAG [Magnesium] AM LABS Lab 12/01/24 04:00 Ordered MAG [Magnesium] AM LABS Lab 12/02/24 04:00 Ordered Magnesium AM LABS Lab 12/01/24 04:00 Ordered Phosphorus AM LABS Lab 12/01/24 04:00 Ordered Urinalysis Routine Lab 11/30/24 09:44 Uncollected Radiology Impressions Chest X-Ray 11/28/24 14:59 IMPRESSION: No acute cardiopulmonary abnormality. Soft Tissue Neck X-Ray 11/28/24 15:58 IMPRESSION: No acute findings. Echocardiogram CONCLUSIONS LV systolic function is mildly reduced with EF of 45-50%. Above-mentioned regional wall motion abnormalities. Grade 1 diastolic dysfunction. Mild mitral regurgitation. Mild aortic regurgitation No comparison studies are available. Regino Espinal MD (Electronically Signed) Final Date: 29 November 2024 Laboratory Results WBC 21.67 10^3/uL (3.29-11.43) H 11/30/24 03:43 RBC 4.48 10^6/uL (3.85-5.65) 11/30/24 03:43 Hgb 14.40 g/dL (11.27-16.99) 11/30/24 03:43 Hct 42.6 % (36-47) 11/30/24 03:43 MCV 95.1 fl (85-98) 11/30/24 03:43 MCH 32.1 pg (27-33) 11/30/24 03:43 MCHC 33.8 g/dL (30-55) 11/30/24 03:43 RDW 16.4 % (12.1-15.1) H 11/30/24 03:43 Plt Count 436 10^3/cmm (157-399) H 11/30/24 03:43 MPV 10.4 fL (7.4-10.4) 11/30/24 03:43 Neut % (Auto) 80.4 % 11/30/24 03:43 Lymph % (Auto) 12.8 % 11/30/24 03:43 [place] % (Auto) 6.1 % 11/30/24 03:43 Eos % (Auto) 0.0 % 11/30/24 03:43 Baso % (Auto) 0.2 % 11/30/24 03:43 Neut # (Auto) 17.41 10^3/uL (1.8-7.7) H 11/30/24 03:43 Lymph # (Auto) 2.8 10^3/uL (0.8-4.8) 11/30/24 03:43 [place] # (Auto) 1.3 10^3/uL (0.2-0.9) H 11/30/24 03:43 Eos # (Auto) 0.0 10^3/uL (0.0-0.8) 11/30/24 03:43 Baso # (Auto) 0.1 10^3/uL (0.0-0.1) 11/30/24 03:43 Nucleated RBC % (auto) 0.3 % 11/30/24 03:43 Total Counted 100 (0-100) 11/28/24 15:26 Atypical Lymphs % 10.0 % (0-5) H 11/28/24 15:26 Segmented Neutrophils 68 % 11/28/24 15:26 Band Neutrophils Not Reportable 11/28/24 15: Absolute Lymphocytes 4.7 10^3/cmm (1.2-3.4) H 11/28/24 15:26 Lymphocytes (Manual) 16 % 11/28/24 15: Monocytes (Manual) 3.0 % 11/28/24 15: Absolute Monocytes 0.5 10^3/cmm (0.1-0.6) 11/28/24 15: Eosinophils (Manual) 3 % 11/28/24 15: Absolute Eosinophils 0.5 10^3/cmm (0.0-0.7) 11/28/24 15: Basophils (Manual) 0.0 % 11/28/24: Absolute Basophils 0.0 10^3/cmm (0.0-0.2) 11/28/24 15: Nucleated RBCs # 0.1 /100WBC 11/30/24 03:43 Platelet Estimate Increased (Normal) H 11/28/24 15:26 Peripher Smr Path Cons Sent for review 11/28/24 15:26 PT 12.50 SECONDS (12.1-14.9) 11/28/24 15: INR 0.87 (0.8-1.2) 11/28/24 15:26 Sodium 139 mmol/L (136-145) 11/30/24 03:43 Potassium 3.3 mmol/L (3.5-5.1) L 11/30/24 03:43 Chloride 103 mmol/L (98-107) 11/30/24 03:43 Carbon Dioxide 17 mmol/L (22-29) L 11/30/24 03:43 Anion Gap 22.3 (5-19) H 11/30/24 03:43 BUN 14 mg/dL (6-20) 11/30/24 03:43 Creatinine 1.2 mg/dL (0.5-0.9) H 11/30/24 03:43 GFR Calculation 46.5 mL/min (90-130) L 11/30/24 03:43 Glucose 145 mg/dL (65-115) H 11/30/24 03:43 Estimat Average Glucose 114 11/29/24 04:26 Hemoglobin A1c 5.6 % (4.0-6.0) 11/29/24 04:26 Calculated Osmolality 291 mOsm/kg (285-295) 11/30/24 03:43 Calcium 9.6 mg/dL (8.5-10.5) 11/30/24 03:43 Phosphorus 1.7 mg/dL (2.5-4.5) L 11/30/24 03:43 Magnesium 2.0 mg/dL (1.7-2.3) 11/30/24 03:43 Iron 44 ug/dL (37-145) 11/29/24 12:34 TIBC 276 mcg/dl 11/29/24 12:34 % Saturation 15.9 % (20-50) L 11/29/24 12:34 Unsat Iron Binding 232 ug/dL (112-347) 11/29/24 12:34 Total Bilirubin 0.7 mg/dL (0.15-1.2) 11/30/24 03:43 AST 241 U/L (0-32) H 11/30/24 03:43 ALT 49 U/L (0-33) H 11/30/24 03:43 Alkaline Phosphatase 67 U/L (35-105) 11/30/24 03:43 Creatine Kinase 3123 U/L (26-192) H* 11/29/24 04:26 Troponin T 5th Gen ng/L > 73805 ng/L (0-10) H* 11/29/24 12:34 Troponin T Baseline 37 ng/L (0-10) H 11/28/24 15:26 Troponin T 120 Minute 63.18 ng/L (0-10) H 11/28/24 17:32 Delta Troponin T 26.18 ABS# (0-10) H* 11/28/24 17:32 Troponin T Hi Sens 6Hr 330.0 ng/L (0-10) H 11/28/24 21:45 Troponin T Hi Sens 6Hr Delta 293.0 ng/L (0-12) H* 11/28/24 21:45 Total Protein 7.1 g/dL (6.6-8.7) 11/30/24 03:43 Albumin 3.8 g/dL (3.5-5.2) 11/30/24 03:43 Globulin 3.3 g/dL (1.3-4.6) 11/30/24 03:43 Triglycerides 303 mg/dL (0-150) H 11/29/24 04:26 Cholesterol 249 mg/dL (0-200) H 11/29/24 04:26 LDL Cholesterol, Calc 136 mg/dL (50-129) H 11/29/24 04:26 HDL Cholesterol 52 mg/dL (60-100) L 11/29/24 04:26 LDL/HDL Ratio 2.62 RATIO (0.00-3.22) 11/29/24 04:26 Cholesterol/HDL Ratio 4.79 mg/dL (0.0-4.40) H 11/29/24 04:26 Lipase 33 U/L (13-60) 11/28/24 15:26 Vitamin B12 259 pg/mL (232-1245) 11/29/24 12:34 Folate 7.2 ng/mL (4.8-37.3) 11/30/24 03:43 TSH 3.99 uIU/mL (0.27-4.20) 11/29/24 04:26 Urine Color Yellow (Yellow) 11/29/24 02:45 Urine Appearance Clear (CLEAR) 11/29/24 02:45 Urine pH 5.0 (5-7) 11/29/24 02:45 Ur Specific [place] 1.026 (1.005-1.030) 11/29/24 02:45 Urine Protein 1+ (Negative) A 11/29/24 02:45 Urine Glucose (UA) Negative (Normal) 11/29/24 02:45 Urine Ketones 1+ (Negative) H 11/29/24 02:45 Urine Blood Trace (Negative) A 11/29/24 02:45 Urine Nitrate Negative (Negative) 11/29/24 02:45 Urine Bilirubin Negative (Negative) 11/29/24 02:45 Urine Urobilinogen 0.2 mg/dL (Negative) 11/29/24 02:45 Ur Leukocyte Esterase Trace (Negative) A 11/29/24 02:45 Urine RBC 0-2 /hpf (0-2) 11/29/24 02:45 Urine WBC 21-50 /hpf (0-5) H 11/29/24 02:45 Ur Squamous Epith Cells 11-20 /hpf (0-5) H 11/29/24 02:45 Amorphous Sediment Not Reportable 11/29/24 02:45 Urine Bacteria 1+ /hpf (NONE) H 11/29/24 02:45 Hyaline Casts 2.46 /lpf 11/29/24 02:45 Urine Opiates Screen Negative ng/mL (Negative) 11/29/24 02:45 Ur Barbiturates Screen Negative ng/mL (Negative) 11/29/24 02:45 Ur Phencyclidine Scrn Negative ng/mL (Negative) 11/29/24 02:45 Ur Amphetamines Screen Negative ng/mL (Negative) 11/29/24 02:45 U Benzodiazepines Scrn Positive ng/mL (Negative) H 11/29/24 02:45 Urine Cocaine Screen Negative ng/mL (Negative) 11/29/24 02:45 U Marijuana (THC) Screen Negative ng/mL (Negative) 11/29/24 02:45 Vitals Last Vital Signs Temp 97.6 F 11/30/24 07:27 Pulse 98 11/30/24 07:27 Resp 14 11/30/24 07:27 BP 124/67 11/30/24 07:27 Pulse Ox 95 11/30/24 07:27 O2 Del Method Room Air 11/30/24 07:27 Discharge Plan Discharge Patient Disposition: Home Condition: Stable Prescriptions: New clopidogrel 75 mg Tablet 75 mg PO DAILY Qty: 30 0RF aspirin 81 mg Tablet,Chewable 81 mg PO DAILY Qty: 30 0RF ezetimibe 10 mg Tablet 10 mg PO DAILY Qty: 30 0RF metoprolol tartrate 25 mg Tablet 25 mg PO BID@0900,2100 Qty: 60 0RF ciprofloxacin 500 mg/5 mL suspension,microcapsule recon 500 mg PO Q12H 5 Days Qty: 50 0RF Continued acetaminophen 500 mg Tablet 1,000 mg PO Q6H PRN (Reason: Pain) meclizine 25 mg Tablet 25 mg PO DAILY PRN (Reason: dizzy) Discharge Orders: Discharge Order (Routine); Ordered 11/30/24 Ordered By: Dejuan Mcdowell Referrals: Oseas Tapia MD [Primary Care Provider] - 12/07/24 1:00 pm Lashay Toth FNP [Nurse Practitioner] - 12/14/24 1:30 pm Discharge Diet: Cardiac Discharge Activity: Resume usual activity and Increase activity as tolerated Patient Instructions: Ciprofloxacin (By mouth), Metoprolol (By mouth), Aspirin (By mouth), Clopidogrel (By mouth), Ezetimibe (By mouth), Heart Attack (DC), Acute Coronary Syndrome (DC), Chronic Hypertension (DC), Hyperlipidemia (DC), Opioid Safety, Post Angiogram Home Care Instructions, Post Heart Attack Stoplight Activity Restrictions/Additional Instructions: Take aspirin, Plavix, ezetimibe daily going forward. Metoprolol will be 25 mg twice daily. Ciprofloxacin is the antibiotic for next 5 days. He supposed to be taking twice daily. Please check your blood pressure daily at home and maintain a blood pressure diary and follow-up with a primary care provider within next 1 week. Follow-up with nurse practitioner from cardiology team within next 2 weeks. Discharge Attestations Time Spent in Discharge Care*: greater than 30 min Quality Metrics Clinical Quality Measures [ Acute Myocardial Infaction { Clinical Trial Participant: No; Contraindication to aspirin: None; Aspirin prescribed; Contraindication to statin: Patient requests alternative treatment; Contraindication to PCI: None; PCI performed;}] Coding Level of Care Code 69552 Total time (in minutes) for Discharge: 60 Diagnoses Non-ST elevation IA (NSTEMI) I21.4 Hyperlipidemia E78.5 Benign essential HTN I10
[2024-11-30 10:52] LABS: Bilirubin Urine Negative (Negative); Blood Urine Negative (Negative); Glucose Urine UA Trace (Normal); Ketones Urine Trace (Negative); Leukocyte Esterase Urine 1+ (Negative); Nitrate Urine Negative (Negative); Protein Urine 2+ (Negative); Urine Appearance Cloudy (CLEAR); pH Urine 5.5 (5-7)
[2024-11-30 10:57] LABS: Add Urine Microscopic? YES; Bacteria Urine 3+ /hpf; Hyaline Casts Urine 19.02 /lpf; RBC Urine 0-2 /hpf (0-2); Squamous Epithelial Cell Urine 21-50 /hpf (0-5); WBC Urine >100 /hpf (0-5)
[2024-11-30 11:10] LABS: Specific Gravity, Urine 1.044 (1.005-1.030); UA Slide Review UA Slide Review Perf; Urine Color Orange (Yellow)
[2024-11-30 11:12] LABS: Add Urine Culture? Yes
[2024-11-30 11:13] LABS: Fine Granular Casts Urine 0-4 /lpf; Oval Fat Bodies Urine 1+ /hpf
[2024-11-30 11:25] LABS: C.Diff PCR (Lab) NEGATIVE (Negative)
[2024-11-30 11:34] VITALS: BP 124/67; PULSE 93; RESP 17; O2SAT 95
--- NOTE | 2024-11-30 12:38 | PC.NURSE ---
discharge instructions given and explained.pt verb understanding of instructions.medications provided by meds to bed program.pt discharged ambulatory to exit at this time.pt's sister to drive pt home.
== END 2024-11-30 12:39 | disposition home or self-care (01) | DRG 322 ==
LOC: ER 18:48 → CSU 18:52
PROVIDERS: Internal Medicine; Admitting Provider Student in an Organized Health Care Education/Training Program; Emergency Provider Emergency Medicine; PCP Internal Medicine; Visit Provider Student in an Organized Health Care Education/Training Program
PROC: 0270356 Dilation of Coronary Artery, One Artery, Bifurcation, with Two Drug-eluting Intraluminal Devices, Percutaneous Approach (ICD-10-PCS; principal; 2024-11-29 08:30)
PROC: 0270356 Dilation of Coronary Artery, One Artery, Bifurcation, with Two Drug-eluting Intraluminal Devices, Percutaneous Approach (ICD-10-PCS; 2024-11-29 08:30)
DX: I21.4 Non-ST elevation (NSTEMI) myocardial infarction (principal); K50.90 Crohn's disease, unspecified, without complications; E78.5 Hyperlipidemia, unspecified; I10 Essential (primary) hypertension; F41.9 Anxiety disorder, unspecified; R42 Dizziness and giddiness; F17.210 Nicotine dependence, cigarettes, uncomplicated; I25.10 Atherosclerotic heart disease of native coronary artery without angina pectoris; Z90.81 Acquired absence of spleen; Z90.49 Acquired absence of other specified parts of digestive tract
CPT/HCPCS: 36415; 70360; 71045; 80053; 80061; 80306; 80503; 81001; 82550; 82607; 82746; 83036; 83540; 83550; 83690; 83735; 84100; 84443; 84484; 85007; 85025; 85347; 85610; 87040; 87086; 87493; 93005; 93306; 93454; 96372; 96374; 96375; 96376; 99152; 99153; 99285; A9270; C1725; C1769; C1874; C1887; C1894; C9600; J0360; J1200; J1630; J1644; J1650; J2060; J2250; J2405; J2919; J3490; J7030; Q9967

== ENCOUNTER 2024-12-15 10:33 | Inpatient (IN) | payer MEDICAID, SELFPAY ==
[2024-12-15] VITALS (9 sets, daily range): BP systolic 116–142; BP diastolic 8–80; PULSE 61–120; RESP 14–22; TEMP 36.3–36.6; O2SAT 93–99; BMI 29.9
[2024-12-15 10:56] LABS: Glucose Point of Care 116 mg/dL (70-110)
--- NOTE | 2024-12-15 11:18 | XR_ITS ---
WS: [id number] Portable AP upright chest, 12/15/2024 Clinical Data: near syncope Comparison: Portable chest, 11/28/2024 Findings: No nodules, masses or effusions are seen. The heart is normal. The pulmonary vascularity is not increased. No pneumonia or pneumothorax is seen. The aortic arch and descending thoracic aorta show minimal calcification and tortuosity. Monitor leads are on the chest wall. XR/XR chest 1V portable [id number] Impression: Atherosclerosis.
--- NOTE | 2024-12-15 11:20 | ED_ITS ---
HPI - Dizziness 2 General: Chief Complaint: Dizziness Stated Complaint: dizziness/weakness Time Seen by Provider: 12/15/24 10:59 Source: patient Mode of arrival: EMS Limitations: no limitations History of Present Illness: HPI Narrative: This patient was transported from her home by EMS. She states that after her usual morning activities of daily living which included her breakfast taking her medication as she felt generalized weakness. She just felt like she had to sit down. She denied any concomitant chest pain shortness of breath dizziness, lightheadedness, chest pain, palpitations etc. She thought her blood pressure might have been low and got up and started walking around and then became more anxious about what the symptoms may or may not represent and she became more anxious. She states that she had a panic attack recently that she attributed to a panic attack only but wind up having acute coronary syndrome requiring a stent. She states that she had a quite stressful day yesterday in her ride to and from her cardiology appointment was very stressful and that is left her bit out of sorts. She states she slept well last night however. She states that there part of the episode yesterday required a sudden stop and she wrenched her right side of her neck and also had some pain in her right shoulder and she did not know if she had harmed herself or that there was an issue with her heart because of the episode yesterday. She is almost completely quit smoking does occasionally smoke part of a cigarette from time to time. She denies any blood in her stools or blood in her urine. She denies any other concomitant symptoms at this time. There was absolutely no headache associated with the symptoms, focal weakness, difficulty with speech vision etc. Associated symptoms: Denies chest pain, chills, headache(s), nausea, palpitations, syncope or vomiting Associated neuro symptoms: Deny numbness in extremities Related Data Home Medications ?Medication ?Instructions ?Recorded ?Confirmed acetaminophen 500 mg tablet 1,000 mg PO Q6H PRN Pain 0 06/28/23 12/15/24 meclizine 25 mg tablet 25 mg PO DAILY PRN dizzy 12/15/24 rosuvastatin 10 mg tablet 10 mg PO DAILY 12/14/2406/01 Previous Rx's ?Medication ?Instructions ?Recorded aspirin 81 mg chewable tablet 81 mg PO DAILY #30 tabs 11/30/24 clopidogrel 75 mg tablet 75 mg PO DAILY #30 tabs 11/09 01/30 metoprolol tartrate 25 mg tablet 12.5 mg (11/09 x 25 mg) PO 12/14/24 BID@0900,2100 #60 tabs Allergies Allergy/AdvReac Type Severity Reaction Status Date / Time codeine Allergy Severe ADR-Agitate Verified 12/15/24 10:49 d metronidazole (From Flagyl) Allergy Mild ALGY-Rash Verified 12/15/24 10:49 acetaminophen (From Percocet) Allergy Unknown Verified 12/15/24 10:49 Iodinated Contrast Media Allergy ALGY-Hives Verified 12/15/24 10:49 oxycodone (From Percocet) Allergy Unknown Verified 12/15/24 10:49 fentanyl AdvReac Mild Unknown Verified 12/15/24 10:49 hydromorphone (From Dilaudid) AdvReac Mild unknown Verified 12/15/24 10:49 Review of Systems 2 Const: Denies: fever(s), chills or body aches Eyes: Denies: change in vision or blurry vision Card: Denies: chest pain, palpitations, irregular heart rhythm, swelling of feet/ankles, lightheadedness or syncope Resp: Reports: non-productive cough; Denies: dyspnea or productive cough GI: Denies: abdominal pain, nausea or vomiting Musc: Reports: neck pain and extremity pain; Denies: back pain or extremity swelling Skin/Breast: Denies: rash or pruritus Neuro: Denies: headache(s), numbness in extremities, weakness in extremities, sensory changes, dizziness or vertigo Psych: Reports: anxiety Sanju/Lymph: Reports: easy bruising; Denies: easy bleeding, petechiae or purpura PFS ED 2 PFSH: Medical History MRSA infection Abdominal abscess Benign essential HTN Crohn disease Pt. had part of her small and large intestine removed in 2009. 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 Const: COMMON NORMALS: patient oriented x3 and no limitations GENERAL APPEARANCE: cooperative and comfortable NUTRITIONAL APPEARANCE: overweight HENMT: COMMON NORMALS: normocephalic, Normal nasal mucous membranes and turbinates present, moist oral mucous membranes and oropharynx normal HEAD & SCALP: normocephalic FACE & SINUS: normal facial exam and face symmetric N OSE: Normal nasal mucous membranes and turbinates present Eye: COMMON NORMALS: Equal, round and reactive pupils present, EOMs intact bilaterally and conjunctivae normal CONJUNCTIVA: Yes conjunctivae normal P UPIL: Yes Equal, round and reactive pupils present Neck/C-Spine: COMMON NORMALS: full ROM and No carotid bruits OTHER: She has mild palpable tenderness over the superior border of the right trapezius with some trigger points. She has no midline tenderness, no left superior trapezius tenderness. Able to range her neck in the normal ranges however rotation to the right exacerbates her symptoms. Chest: COMMONS NORMALS: normal inspection of the chest and normal palpation of entire chest wall Resp: COMMON NORMALS: normal respiratory effort, No use of accessory muscles and clear to auscultation bilaterally EFFORT & INSPECTION: Yes able to speak in complete sentences AUSCULTATION: clear to auscultation bilaterally O THER: Occasional cough Cardio: COMMON NORMALS: regular rate, regular rhythm and Peripheral pulses 2+ throughout RATE: regular rate RHYTHM: regular rhythm PERIPHERAL PULSES: Peripheral pulses 2+ throughout GI: COMMON NORMALS: Soft to palpation, non-tender and no masses PALPATION: Yes Soft to palpation OTHER: Ostomy in the right paramedian region of the abdomen Back/Pelvis: COMMON NORMALS: thoracic and lumbar spine normal to inspection, no thoracic nor lumbar tenderness, thoraco-lumbar ROM normal and straight leg raise negative bilaterally Extremity: COMMON NORMALS: normal to inspection, no calf tenderness and no pedal edema NARRATIVE EXTREMITY EXAM: Examination with attention to right upper extremity reveals no deformity, no ecchymosis, normal range of motion. Slight amount of soft tissue tenderness over the lateral deltoid. Neuro: COMMON NORMALS: patient oriented x3, moves all extremities, no focal motor deficits and no sensory deficits noted CRANIAL NERVES: Yes CN normal except as noted Psych: COMMON NORMALS: mental status grossly normal Skin: COMMON NORMALS: no rashes or lesions noted and turgor normal GENERAL SKIN EXAM: no rashes or lesions noted and turgor normal Course 2 Reevaluation(s): Reevaluation #1: Initial troponin is noted to be elevated. She has no acute EKG changes nor does she have any ongoing concomitant chest pain or other symptoms referable to her cardiovascular symptom. Will trend her troponin and then make disposition decision. no evidence of ACS acutely at this time. Time: 12:04 Reevaluation #2: 2-hour troponin is reassuring and that h it as a negative delta from her initial time 0 troponin. Will review with cardiology regarding whether she needs any additional observation time or can be followed up as an outpatient. She has no concomitant chest pain or other symptoms other than noted in the HPI. Time: 14:33 Consultations: Consultation #1: Dr. Prado was in the department seeing another patient and I ask him about this patient and he is consulting on this patient but does recommend admission Time: 16:33 Consultation #2: Discussed with Dr. Valles who agrees to accept the patient for admission Time: 16:54 Vital Signs: Vital signs: Vital Signs Temperature 97.8 F 12/15/24 10:35 Pulse Rate 82 12/15/24 16:33 Respiratory Rate 16 12/15/24 16:33 Blood Pressure 142/80 12/15/24 16:33 Pulse Oximetry 96 12/15/24 16:33 Oxygen Delivery Me thod Room Air 12/15/24 16:33 MDM - Dizziness Medical Decision Making This patient presented as noted in the HPI. She has known coronary disease and still occasionally using tobacco but states she is faithful on her medications. He had stents in her obtuse marginal on 29 November of this year. She has underlying anxiety and so it is not clear if that is playing a role in some of her symptoms or if she is having true ACS at this time. Her clinical exam did not reveal any concerning findings other than trapezius spasm. She had no other findings to suggest acute bony trauma etc. Her initial EKG was reassuring without any acute changes. Initial troponin was elevated and a 2-hour troponin did not show any positive change. Chest x-ray showed evidence of atherosclerosis but no other acute changes to include pneumothorax, rib fractures etc. Cardiology was consulted to review her current findings and presentation due to her troponin elevation with certainly would be unlikely residually elevated from her previous event. Because of her coronary artery catheterization showing significant LAD disease as well as her current presentation it was felt that she would be benefited by observation with echocardiogram and serial troponins and then further testing as indicated. Medical Records I reviewed the patient's medical records. Lab Data I reviewed the patient's lab results. 12/15/24 11:26 12/15/24 11:26 Radiology Impressions Chest X-Ray 12/15/24 11:18 Impression: Atherosclerosis. Laboratory Results WBC 12.48 10^3/uL (3.29-11.43) H 12/15/24 11:26 RBC 4.63 10^6/uL (3.85-5.65) 12/15/24 11:26 Hgb 14.60 g/dL (11.27-16.99) 12/15/24 11:26 Hct 43.6 % (36-47) 12/15/24 11:26 MCV 94.2 fl (85-98) 12/15/24 11:26 MCH 31.5 pg (27-33) 12/15/24 11:26 MCHC 33.5 g/dL (30-55) 12/15/24 11:26 RDW 15.7 % (12.1-15.1) H 12/15/24 11:26 Plt Count 638 10^3/cmm (157-399) H 12/15/24 11:26 MPV 9.0 fL (7.4-10.4) 12/15/24 11:26 Neut % (Auto) 68.2 % 12/15/24 11:26 Lymph % (Auto) 18.7 % 12/15/24 11:26 [place] % (Auto) 7.9 % 12/15/24 11:26 Eos % (Auto) 3.4 % 12/15/24 11:26 Baso % (Auto) 1.5 % 12/15/24 11:26 Neut # (Auto) 8.51 10^3/uL (1.8-7.7) H 12/15/24 11:26 Lymph # (Auto) 2.3 10^3/uL (0.8-4.8) 12/15/24 11:26 [place] # (Auto) 1.0 10^3/uL (0.2-0.9) H 12/15/24 11:26 Eos # (Auto) 0.4 10^3/uL (0.0-0.8) 12/15/24 11:26 Baso # (Auto) 0.2 10^3/uL (0.0-0.1) H 12/15/24 11:26 Nucleated RBC % (auto) 0 % 12/15/24 11: Nucleated RBCs # 0.0 /100WBC 12/15/24 11:26 Sodium 136 mmol/L (136-145) 12/15/24 11:26 Potassium 4.2 mmol/L (3.5-5.1) 12/15/24 11:26 Chloride 101 mmol/L (98-107) 12/15/24 11:26 Carbon Dioxide 21 mmol/L (22-29) L 12/15/24 11:26 Anion Gap 18.2 (5-19) 12/15/24 11:26 BUN 11 mg/dL (6-20) 12/15/24 11:26 Creatinine 1.0 mg/dL (0.5-0.9) H 12/15/24 11:26 GFR Calculation 57.4 mL/min (90-130) L 12/15/24 11:26 Glucose 125 mg/dL (65-115) H 12/15/24 11:26 POC Glucose 116 mg/dL (70-110) H 12/15/24 10:53 Calculated Osmolality 283 mOsm/kg (285-295) L 12/15/24 11:26 Calcium 9.3 mg/dL (8.5-10.5) 12/15/24 11:26 Magnesium 2.2 mg/dL (1.7-2.3) 12/15/24 11:26 Troponin T Baseline 136 ng/L (0-10) H* 12/15/24 11:26 Troponin T 120 Minute 128.0 ng/L (0-10) H 12/15/24 13:35 Delta Troponin T -8.0 ABS# (0-10) L 12/15/24 13:35 All radiology interpretation(s) finalized by discharge EKG Data EKG 1: I personally reviewed and interpreted this EKG as follows: Interpretation: Initial EKG this visit reveals ventricular rate of 73 bpm. Normal IL interval, QRS duration, corrected QT interval. She has a leftward axis consistent with anterior humeral block. No acute ST-T wave changes noted at this time. She has a loss of R wave forces anteriorly however this EKG is essentially unchanged from November 29, 2024 EKG 2: I personally reviewed and interpreted this EKG as follows: Interpretation: Repeat electrocardiogram this visit reveals a ventricular rate of 66 bpm. Normal IL interval, QRS duration, corrected QT interval. Leftward axis unchanged. No change from prior tracing this visit. No acute ST-T wave changes consistent with acute ischemia. Does have evidence of R wave loss noted previously. Discharge Plan Discharge Patient Disposition: Placed in Observation Clinical Impression: Myocardial injury, Coronary artery disease Condition: Stable Prescriptions: No Action rosuvastatin 10 mg tablet 10 mg PO DAILY metoprolol tartrate 25 mg tablet 12.5 mg PO BID@0900,2100 Qty: 60 0RF acetaminophen 500 mg Tablet 1,000 mg PO Q6H PRN (Reason: Pain) meclizine 25 mg Tablet 25 mg PO DAILY PRN (Reason: dizzy) clopidogrel 75 mg Tablet 75 mg PO DAILY Qty: 30 0RF aspirin 81 mg Tablet,Chewable 81 mg PO DAILY Qty: 30 0RF Referrals: Oseas Tapia MD [Primary Care Provider] - Print Language: Hungarian Coding Level of Care Code ED Electrician Station Assistant for Nikosg Arley
[2024-12-15 11:32] LABS: Basophils # 0.2 10^3/uL (0.0-0.1); Basophils % 1.5 %; Eosinophils # 0.4 10^3/uL (0.0-0.8); Eosinophils % 3.4 %; Hematocrit 43.6 % (36-47); Lymphocytes # 2.3 10^3/uL (0.8-4.8); Lymphocytes % 18.7 %; Mean Corpuscular HGB Conc 33.5 g/dL (30-55); Mean Corpuscular Hemoglobin 31.5 pg (27-33); Mean Corpuscular Volume 94.2 fl (85-98); Monocytes % 7.9 %; Neutrophils # 8.51 10^3/uL (1.8-7.7); Neutrophils % 68.2 %; Nucleated Red Blood Cells % 0 %; Platelet Count 638 10^3/cmm (157-399); Red Blood Count 4.63 10^6/uL (3.85-5.65); Red Cell Distribution Width 15.7 % (12.1-15.1); White Blood Count 12.48 10^3/uL (3.29-11.43)
--- NOTE | 2024-12-15 11:46 | ECG_ITS ---
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1970 Requested By: Eric Sanz Order Number: [id number] Joel MD: RAMONE MELVIN Measurements Intervals [place] Rate: 73 P: 43 [place]: 160 QRS: -52 QRSD: 117 T: 112 QT: 430 QTc: 475 Interpretive Statements SINUS RHYTHM LEFT ANTERIOR FASCICULAR BLOCK [QRS AXIS <= -45, QR IN I, RS IN II] POSSIBLE ANTEROLATERAL MYOCARDIAL INFARCTION , OF INDETERMINATE AGE [30 ms Q WAVE IN I/aVL/V3-V6] Compared to ECG 11/29/2024 11:05:42 Ventricular premature complex(es) no longer present Myocardial infarct finding still present Electronically Signed On 12-17-2024 21:04:51 [employer] by RAMONE MELVIN [email or web address]
[2024-12-15 11:55] LABS: Troponin(5th) Baseline 136 ng/L (0-10)
[2024-12-15 11:57] LABS: Anion Gap 18.2 (5-19); Blood Urea Nitrogen 11 mg/dL (6-20); Calcium 9.3 mg/dL (8.5-10.5); Carbon Dioxide 21 mmol/L (22-29); Chloride 101 mmol/L (98-107); Creatinine Clr Calc Pharmacy 78.3619; Glomerular Filtration Rate 57.4 mL/min (90-130); Glucose 125 mg/dL (65-115); Magnesium 2.2 mg/dL (1.7-2.3); Osmolality Calculated 283 mOsm/kg (285-295); Potassium 4.2 mmol/L (3.5-5.1); Sodium 136 mmol/L (136-145)
--- NOTE | 2024-12-15 12:17 | PC.PHAR ---
Pt finished a round of Cipro 500/5 finished 12/05/24. Ezetimibe 10mg dc'd and changed to Rosuvastatin 10mg daily.
--- NOTE | 2024-12-15 13:28 | ECG_ITS ---
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1970 Requested By: Eric Sanz Order Number: [id number] Joel MD: RAMONE MELVIN Measurements Intervals [place] Rate: 66 P: 33 [place]: 174 QRS: -56 QRSD: 116 T: 117 QT: 446 QTc: 468 Interpretive Statements SINUS RHYTHM WITH SINUS ARRHYTHMIA LEFT ANTERIOR FASCICULAR BLOCK [QRS AXIS <= -45, QR IN I, RS IN II] POSSIBLE ANTEROLATERAL MYOCARDIAL INFARCTION , OF INDETERMINATE AGE [30 ms Q WAVE IN I/aVL/V3-V6] Compared to ECG 12/15/2024 11:46:23 No significant changes Electronically Signed On 12-17-2024 21:11:41 [employer] by RAMONE MELVIN [email or web address]
[2024-12-15 17:21] LABS: Alanine Aminotransferase 12 U/L (0-33); Albumin Level 3.7 g/dL (3.5-5.2); Alkaline Phosphatase 73 U/L (35-105); Aspartate Amino Transferase 16 U/L (0-32); C Reactive Protein 18.2 mg/L (0.0-4.9); Gamma Glutamyl Transferase 30 U/L (5-36); Globulin 2.7 g/dL (1.3-4.6); Lipase 29 U/L (13-60); Total Bilirubin 0.3 mg/dL (0.15-1.2); Total Protein 6.4 g/dL (6.6-8.7)
[2024-12-15 17:28] LABS: Procalcitonin 0.05 ng/mL (0-0.5)
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
--- NOTE | 2024-12-15 18:08 | ECG_ITS ---
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: : 1970 Requested By: Eric Sanz Order Number: [id number] Joel MD: RAMONE MELVIN Measurements Intervals [place] Rate: 78 P: 35 WA: 164 QRS: -46 QRSD: 117 T: 117 QT: 421 QTc: 482 Interpretive Statements SINUS RHYTHM LEFT ANTERIOR FASCICULAR BLOCK [QRS AXIS <= -45, QR IN I, RS IN II] POSSIBLE ANTEROLATERAL MYOCARDIAL INFARCTION , OF INDETERMINATE AGE [30 ms Q WAVE IN I/aVL/V3-V6] Compared to ECG 12/15/2024 13:28:09 Sinus arrhythmia no longer present Myocardial infarct finding still present Electronically Signed On 12-17-2024 21:10:44 CONSTRUCTION LABORER by RAMONE MELVIN [id number]
[2024-12-15 18:12] LABS: Troponin 5 6HR Delta -12.1 ng/L (0-12)
[2024-12-15 18:13] LABS: Troponin 5 6HR 123.9 ng/L (0-10)
[2024-12-15 18:24] LABS: INR 0.88 (0.8-1.2)
[2024-12-15 18:44] LABS: NT Pro B Type Natriuretic Pept 2060 pg/mL (0-125)
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
[2024-12-15] MEDS: metoprolol tartrate 25 mg Tablet 12.5 MG PO (21:53)
[2024-12-15 21:55] LABS: Thyroid Stimulating Hormone 1.84 uIU/mL (0.27-4.20)
[2024-12-15 23:31] LABS: Bilirubin Urine Negative (Negative); Blood Urine Negative (Negative); Glucose Urine UA Negative (Normal); Ketones Urine Negative (Negative); Leukocyte Esterase Urine 1+ (Negative); Nitrate Urine Negative (Negative); Protein Urine Trace (Negative); Specific Gravity, Urine 1.025 (1.005-1.030); Urine Appearance Turbid (CLEAR); Urine Color Yellow (Yellow); pH Urine 5.5 (5-7)
[2024-12-15 23:36] LABS: Add Urine Microscopic? YES; Bacteria Urine 3+ /hpf; Hyaline Casts Urine 2.46 /lpf; RBC Urine 0-2 /hpf (0-2); Squamous Epithelial Cell Urine 21-50 /hpf (0-5); WBC Urine >100 /hpf (0-5)
[2024-12-15 23:40] LABS: Add Urine Culture? No
[2024-12-16] VITALS (7 sets, daily range): BP systolic 123–142; BP diastolic 72–96; PULSE 46–85; RESP 18–20; TEMP 36.3–36.9; O2SAT 95–98
--- NOTE | 2024-12-16 00:07 | PC.NURSE ---
Scored 1 on NIH sensory due to chronic numbness and tingling that is normal to patient on left arm.
[2024-12-16 02:07] LABS: Amphetamines Screen Urine Negative (Negative); Barbiturates Screen Urine Negative (Negative); Benzodiazepines Screen Urine Negative (Negative); Cocaine Screen Urine Negative (Negative); Opiate Screen Urine Negative (Negative); PCP Screen Urine Negative (Negative); THC Screen Urine Negative (Negative)
[2024-12-16 04:42] LABS: Basophils # 0.2 10^3/uL (0.0-0.1); Basophils % 1.3 %; Eosinophils # 0.4 10^3/uL (0.0-0.8); Eosinophils % 3.4 %; Hematocrit 42.6 % (36-47); Lymphocytes # 3.2 10^3/uL (0.8-4.8); Lymphocytes % 24.9 %; Mean Corpuscular HGB Conc 32.9 g/dL (30-55); Mean Corpuscular Volume 97.3 fl (85-98); Mean Platelet Volume 9.4 fL (7.4-10.4); Monocytes # 0.9 10^3/uL (0.2-0.9); Monocytes % 7.3 %; Neutrophils # 8.08 10^3/uL (1.8-7.7); Neutrophils % 62.8 %; Nucleated Red Blood Cells % 0 %; Platelet Count 621 10^3/cmm (157-399); Red Blood Count 4.38 10^6/uL (3.85-5.65); Red Cell Distribution Width 15.5 % (12.1-15.1); White Blood Count 12.87 10^3/uL (3.29-11.43)
[2024-12-16 05:08] LABS: Alanine Aminotransferase 13 U/L (0-33); Albumin Level 3.5 g/dL (3.5-5.2); Alkaline Phosphatase 66 U/L (35-105); Aspartate Amino Transferase 13 U/L (0-32); Blood Urea Nitrogen 13 mg/dL (6-20); Calcium 9.7 mg/dL (8.5-10.5); Carbon Dioxide 23 mmol/L (22-29); Chloride 105 mmol/L (98-107); Creatinine Clr Calc Pharmacy 97.9524; Globulin 3.2 g/dL (1.3-4.6); Glomerular Filtration Rate 74.2 mL/min (90-130); Glucose 97 mg/dL (65-115); Magnesium 2.2 mg/dL (1.7-2.3); Osmolality Calculated 290 mOsm/kg (285-295); Phosphorus 3.1 mg/dL (2.5-4.5); Sodium 140 mmol/L (136-145); Total Bilirubin 0.2 mg/dL (0.15-1.2); Total Protein 6.7 g/dL (6.6-8.7)
[2024-12-16] MEDS: aspirin 81 mg Chew Tablet PO (08:45)
[2024-12-16] MEDS: metoprolol tartrate 25 mg Tablet 12.5 MG PO ×2 (08:45→20:58)
[2024-12-16] MEDS: atorvastatin 40 mg Tablet PO (08:46)
[2024-12-16] MEDS: clopidogrel 75 mg Tablet PO (08:46)
--- NOTE | 2024-12-16 10:34 | PC.NURSE ---
Provider is updated that Ms Lucero is refusing to take the ceftriaxone this morning. She doesn't feel that it needed. Provider said noted .
--- OUTSIDE RECORDS SUMMARY | 2024-12-16 13:06 | XMS_ITS ---
Author Organization [facility] Address [address] [place] [address] Care Team Providers Care Fiber Glass Worker Name Role Phone Albaro Tapia Primary Care Provider [phone] REASON FOR VISIT Message Encounters Encounter Location Date Provider Diagnosis [facility] [address] [place] [address] 03/27/2024 Albaro Tapia Plan Of Treatment No Information Progress Notes * Frances VELAB:[birth year] (53 yo F)Acc No.[id number]:03/27/2024 Patient:?Fabiola VELA :1970???Age:53 Y???Sex:Female Address:[address] [place] [address] * true * Date:? Generated for Mario Alberto ndiaye/Malorie/eTransmitting on:?12/16/2024 01:06 PM LOG ROLLER
--- OUTSIDE RECORDS SUMMARY | 2024-12-16 13:06 | XMS_ITS | Clinical Summary ---
Author Organization [place] Address [address] John: Epic Prelude ADT [place] [address] Care Team Providers Care Turn Out Name Role Phone Non-Staff, Physician Primary Care Provider Unava ilable Allergies Active Allergy Reactions Criticality Noted Date Comments Iodinated Contrast Media Nausea and Vomiting Low Latex Rash Low 04/28/2016 Metronidazole Rash Low 11/23/2019 Moxifloxacin Rash Low 11/13/2018 Opioids - Morphine Analogues Nausea and Vomiting Low 08/17/2014 Sterling Hives High 09/09/2016 Medications lisinopriL (PRINIVIL) 20 mg tabletIndications:B enign hypertension Take 0.5 Tablets (10 mg) by mouth daily. 30 Tablet 0 0 Active pravastatin (PRAVACHOL) 10 mg tabletIndications:H yperlipidemia, unspecified hyperlipidemia type Take 1 Tablet (10 mg) by mouth daily at bedtime. 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 Family History Medical History Relation Name Comments Healthy Father Healthy Mother Relation Name Status Comments Father Mother Social History Tobacco Use Types Packs/Day Years Used Date Smoking Tobacco: Every Day Cigarettes Smokeless Tobacco: Never Alcohol Use Standard Drinks/Week Comments No 0 (1 standard drink = 0.6 oz pur e alcohol) Comments Unknown Sex and Gender Information Value Date Recorded Sex Assigned at Not on file Legal Sex Female 10:49 AM CLINICAL DIETITIAN Gender Identity Not on file Sexual Orientation Not on file Last Filed Vital Signs Vital Sign Reading Time Taken Comments Blood Pressure 146/86 04/17/2020 9:15 PM CDT Pulse 134 12/13/2019 3:14 PM CLINICAL DIETITIAN Temperature 36.5 ??C (97.7 ??F) 04/17/2020 9:15 PM CD T Respiratory Rate 34 12/13/2019 3:14 PM CLINICAL DIETITIAN Oxygen Saturation - - Inhaled Oxygen Concentration - - Weight 89.1 kg (196 lb 8 oz) 04/17/2020 9:15 PM CDT Height 177.8 cm (5' 10 ) 04/17/2020 9:15 PM CDT Body Mass Index 28.19 04/17/2020 9:15 PM CDT Plan of Treatment Health Maintenance Due Date Last Done Comments DTAP/TDAP/TD VACCINES (1 - Tdap) 1987 HEPATITIS B VACCINES (1 of 3 - 19+ 3-dose series) 1987 CERVICAL CANCER SCREENING 1998 BREAST CANCER SCREENING 2008 FIT-DNA Q 3 years 2013 FIT/FOBT Q 1 year 2013 Flex Sig/CT Colonography Q 5 years 2013 ZOSTER VACCINE (1 of 2) 2018 COLORECTAL SCREENING 03/11/2020 03/11/2010 Colorectal Cancer Screening 03/11/2020 INFLUENZA VACCINE (#1) 2024 12/13/2019 PNEUMOCOCCAL VACCINE 0-64 YEARS Aged Out No longer eligible based on patient's age to complete this topic Care Teams Turn Out Relationship Specialty Start Date End Date Non-Staff, Physician NO ADDRESS ON FILE PCP - General 03/01/20
--- OUTSIDE RECORDS SUMMARY | 2024-12-16 13:06 | XMS_ITS ---
Author Organization [facility] Address [address] [place] [address] Care Team Providers Care Creative Services Writer Name Role Phone Albaro Tapia Primary Care Provider [phone] REASON FOR VISIT Message Encounters Encounter Location Date Provider Diagnosis [facility] [address] [place] [address] 03/10/2024 Albaro Tapia Plan Of Treatment No Information Progress Notes * Frances VELAB:[birth year] (53 yo F)Acc No.[id number]:03/10/2024 Patient:?MIRIAN Fabiola :1970???Age:53 Y???Sex:Female Address:[address] [place] [address] * true * Date:? Generated for Mario Alberto ndiaye/Malorie/eTransmitting on:?12/16/2024 01:06 PM NEUROLOGY NURSE
--- OUTSIDE RECORDS SUMMARY | 2024-12-16 13:06 | XMS_ITS | Patient Health Record ---
Author Organization [facility] Address [address] [place] [address] Care Team Providers Care Seat Scooper Machine Name Role Phone Albaro Tapia Primary Care Provider Allergies Allergen (clinical drug ingredient) Drug/Non Drug Allergy documented on EMR Reaction Allergy Type Onset Date Status metronidazole Flagyl Unknown Drug Allergy Act constantino acetaminophen / oxycodone Percocet Unknown Drug Allergy Active hydrocodone Hydrocodone Unknown Drug Allergy Act constantino Iodine Unknown Drug Allergy Active prednisolone Prednisolone Unknown Drug Allergy A ctive Results Component Value Reference Range Notes Vitamin D Total (B) 32778 Reviewed date:03/23/2024 10:01:46 AM Interpretation: Performing Lab: Notes/Report: Diagnosis Description: Other complications of enterostomy Vitamin D Total 33.7 30.0-100.0 ng/mL Deficiency: < 20 ng/mL Insufficiency: 20? < 30 ng/mL Sufficiency: 30?100 ng/mL Performed on the [employer] IM Analyzer Vitamin B12 (B) 10790 Reviewed date:03/23/2024 10:01:51 AM Interpretation: Performing Lab: Notes/Report: Diagnosis Description: Other complications of enterostomy [id number] 289 211-911 pg/mL CBC w\ Auto Diff 31186 Reviewed date:03/23/2024 10:01:37 AM Interpretation: Performing Lab: Notes/Report: Diagnosis Description: Other complications of enterostomy WBC 14.3 4.5-11.0 X10'3 RBC 5.00 4.00-5.20 X10'6 Hgb 16.7 12.0-16.0 G/DL Hct 47.2 36.0-46.0 % MCV 94.4 80.0-100.0 FL MCH 33.4 27.0-31.0 PG MCHC 35.4 31.0-37.0 G/DL Platelet 465 150-400 X10'3 RDW-SD 52.2 35.0-49.0 FL RDW-CV 15.1 12.2-15.6 % MPV 10.2 9.2-12.0 FL Neutro Auto% 57.6 42.0-75.0 % Lymph Auto% 26.8 20.0-51.0 % [place] Auto% 8.6 1.7-9.3 % Eos Auto% 5.2 .0-6.0 % Baso Auto% 1.5 0.0-1.0 % Imm Gran% .3 .0-.4 % Neutro Abs 8.27 .80-7.70 Absolute Neutrophil Count 8270 Lymph Abs 3.84 .10-4.10 [place] Abs 1.23 .20-1.00 Eos Abs .74 .00-.40 Baso Abs .21 .00-.10 Imm Gran Abs .04 .00-.10 NRBC# .00 .00-.20 X10'3 NRBC% .00 .00-.20 /100 int act WBC's Lipid Panel Reflex DLDL [id number] 1, 88376 (Not yet reviewed by provider) Interpretation: Performing Lab: Notes/Report: Diagnosis Description: Atherosclerotic heart disease of [place] coronary artery without angina pectoris Trig 185 Classification Guidelines:Triglycerides Adults: >20yrs Desirable <150 Borderline High 150-199 High 200-499 Very high >=500 Children: Male 0-4 yr 22-99 5-9 yr 30-101 10-14 yr 32-125 15-19 yr 37-148 Children: Female 0-4 yr 34-112 5-9 yr 32-105 10-14 yr 37-131 15-19 yr 39-132 Chol 180 <=200 MG/DL HDL 51 39-96 MG/DL Reference Ranges:HDL Male: 5-9y 38-75 10-14y 37-74 15-19y 30-63 >=20y 40-59 Female: 5-9y 36-73 10-14y 37-70 15-19y 35-74 >=20y 40-59 CH/HDL 3.5 0.0-4.9 RATIO LDL 92 0-130 MG/DL LDL result is i naccurate , if Trig is >400 mg/dl. See DLDL result. Reason For Referral No Information Medications Medication SIG (Take, Route, Frequency, Duration) Notes Start Date End Date Status Ciprofloxacin-dexAMETHaso ne 0.3-0.1 % 4 drops into affected ear Otic Twice a day for 7 days 03/10/2024 Not-Taking Meclizine HCl 25 MG 1 tablet as needed Orally every 12 hrs Not-Taking Aspirin 81 MG 1 tablet Orally Once a day Active Rosuvastatin Calcium 10 MG 1 tablet Orally Once a day for 30 day(s) 12/07/2024 Active Metoprolol Tartrate 25 MG 1 tablet with food Orally Twice a day Active Clopidogrel Bisulfate 75 MG 1 tablet Orally Once a day Active Social History Tobacco Use: Social History Observation Description Date Details (start date - stop date) Current Smoker NA - NA Alcohol Screen (Audit-C) Question Answer Notes Did you have a drink containing alcohol in the p ast year? No Points 0 Interpretation Negative PHQ-9 Question Answer Notes Little interest or pleasure in doing things Not at all Feeling down, depressed, or hopeless Not at all Trouble falling or staying asleep, or sleeping t oo much Not at all Feeling tired or having little energy Not at all Poor appetite or overeating Not at all Feeling bad about yourself, or that you are a failure, or have let yourself or your family down Not at all Trouble concentrating on thi ngs, such as reading the newspaper or watching television Not at all Moving or speaking so slowly that other people could have noticed. Or the opposite ? being so fidgety or restless that you have been moving around a lot more than usual Not at all Thoughts that you would be b lit off , or of hurting yourself in some way Not at all Total Score 0 Tobacco Control (Standard) Question Answer Notes Tobacco use: Current smoker How often do you smoke cigarettes? Every day How many cigarettes a day do you smoke? 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 Problem 6866049 Rectal pouchitis (K91.850) Active confirmed Vital Signs Heart Rate 86 /min 12/07/2024 Temperature 99 degrees Fahrenheit 12/07/2024 Height-cm 203.2 cm 12/07/2024 Oximetry 95 % 12/07/2024 Blood pressure diastolic 80 mm Hg 12/07/2024 Weight-kg 96.25 kg 12/07/2024 Height 80 in 12/07/2024 Blood pressure systolic 130 mm Hg 12/07/2024 Weight 212.2 lbs 12/07/2024 BMI 23.31 kg/m2 12/07/2024 Encounters Encounter Location Date Provider Diagnosis [facility] [address] [place] [phone] 03/10/2024 Albaro Tapia Altered bowel elimination due to intestinal ostomy K94.19 ; Tobacco abuse Z72.0 ; Acute diffuse otitis externa of right ear H60.311 ; Vitamin D deficiency E55.9 and B12 deficiency E53.8 [facility] [address] [place] [phone] 12/07/2024 Albaro Tapia CAD, multiple vessel I25.10 ; Tobacco abuse Z72.0 and Depression screen Z13.31 [facility] [address] [place] [phone] 03/10/2024 Albaro Tapia [facility] [address] [place] [phone] 03/27/2024 Albaro Tapia Assessments Encounter Date Diagnosis (ICD Code) Assessment Notes Treatment Notes Treatment Clinical Notes Section Notes 12/07/2024 CAD, multiple vessel (ICD-10 - I25.10) 03/10/2024 Tobacco abuse (ICD-10 - Z72.0) 03/10/2024 Altered bowel elimination due to intestinal ostomy (ICD-10 - K94.19) 03/10/2024 Acute diffuse otitis externa of right ear (ICD-10 - H60.311) 12/07/2024 Tobacco abuse (ICD-10 - Z72.0) 12/07/2024 Depression screen (ICD-10 - Z13.31) 03/10/2024 Vitamin D deficiency (ICD-10 - E55.9) 03/10/2024 B12 deficiency (ICD-10 - E53.8) 03/10/2024 Other Venipuncture performed by Radha White. Right arm/hand. One attempt. Pt tolerated well, bleeding controlled with light dressing. Lab sent to [facility] via pencil maker. 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
--- OUTSIDE RECORDS SUMMARY | 2024-12-16 13:07 | XMS_ITS ---
Author Organization [facility] Address [address] [place] [address] Care Team Providers Care Machine Heel Seat Laster Name Role Phone Albaro Tapia Primary Care [...] ctive Results Component Value Reference Range Notes Lipid Panel Reflex DLDL 6645 3, 19906 (Not yet reviewed by provider) Interpretation: Performing Lab: Notes/Report: Diagnosis Description: Atherosclerotic heart disease of [place] coronary artery without angina pectoris Trig 185 [...] Trig is >400 mg/dl. See DLDL result. REASON FOR VISIT [facility] F/U Medications Medication SIG (Take, Route, Frequency, Duration) Notes Start Date End Date Status Ciprofloxacin-dexAMETHaso ne 0.3-0.1 % 4 drops into affected ear Otic Twice a day for 7 days 03/10/2024 Not-Taking Rosuvastatin Calcium 10 MG 1 tablet Orally Once a day for 30 day(s) 12/07/2024 Active Metoprolol Tartrate 25 MG 1 tablet with food Orally Twice a day Active Clopidogrel Bisulfate 75 MG 1 tablet Orally Once a day Active Meclizine HCl 25 MG 1 tablet as needed Orally every 12 hrs Not-Taking Aspirin 81 MG 1 tablet Orally Once a day Active Social History Tobacco Use: Social History Observation Description Date Details (start date - stop date) Current Smoker NA - NA PHQ-9 Question Answer Notes Little interest or [...] Problem Status W/U Status Risk Notes Problem 014146541 CAD, multiple vessel (I25.10) Active confirmed Vital Signs Temperature 99 degrees Fahrenheit 12/07/2024 Blood pressure systolic 130 mm Hg 12/07/19 25 Blood pressure diastolic 80 mm Hg 025 Heart Rate 86 /min 12/07/2024 Height 80 in 12/07/2024 Weight 212.2 lbs 12/07/2024 BMI 23.31 kg/m2 12/07/2024 Oximetry 95 % 12/07/2024 Height-cm 203.2 cm 12/07/2024 Weight-kg 96.25 kg 12/07/2024 Encounters Encounter Location Date Provider Diagnosis [facility] [address] [place] [phone] 12/07/2024 Albaro Tapia CAD, multiple vessel I25.10 ; Tobacco abuse Z72.0 and Depression screen Z13.31 Assessments Encounter Date Diagnosis (ICD Code) Assessment Notes Treatment Notes Treatment Clinical Notes Section Notes 12/07/2024 CAD, multiple vessel (ICD-10 - I25.10) 12/07/2024 Tobacco abuse (ICD-10 - Z72.0) 12/07/2024 Depression screen (ICD-10 - Z13.31) Plan Of Treatment Medication Medication Name Sig Start Date Stop Date Notes Ezetimibe 10 MG 1 tablet Orally Once a day Rosuvastatin Calcium 10 MG 1 tablet Oral ly Once a day for 30 day(s) 12/07/2024 Pending Test Test Name Order Date Lipid Panel Reflex DLDL 10834, 51934 Next Appt Details Follow Up: 4 Weeks, Reason: Progress Notes * Frances VELAB:[birth year] (54 yo F)Acc No.[id number]:12/07/2024 Patient:?Tamara VELAthia Provider:?Albaro Tapia MD :1970???Age:54 Y???Sex:Female D ate:12/07/2024 Address:[address] [place], [place] [phone] Check Out:02:10 PM ADMISSIONS REPRESENTATIVE Subjective: * Chief Complaints: * ???[facility] F/U * HPI: ???::? Patient here for [facility] follow up - heart attack - menopause 2 years ago last peroid. * ROS:?General/Constitutional:?Patient denies?fatigue , fever , night sweats.?Hematology:?Patient denies?easy bruising , bleeding problems , recent transfusion.?Respiratory:?Patient denies?cough , shortness of breath , wheezing.?Cardiovascular:?Patient denies?chest pain , irregular heartbeat , swelling in hands/feet.?Gastrointestinal:?Patient denies?abdominal pain, bloating , constipation , diarrhea , heartburn , blood in stool , nausea , vomiting.?Genitourinary:?Patient denies?painful urination , blood in the urine , difficulty urinating.?ENT:?Patient denies?ear pain , nosebleed, runny nose,?sore throat.?Musculoskeletal:?Patient denies?arthritis\arthralgia , back pain , joint stiffness , muscle aches.?Skin:?Patient denies?skin lesion(s) , rash , acne.?Neurologic:?Patient denies?dizziness , fainting , headache , memory loss , seizures.?Psychiatric:?Patient denies?anxiety , depressed mood , difficulty sleeping , suicidal thoughts.?hospital follow up. * Medical History:? * Surgical History:?eyes surge ry umbilical cord removed at age 4 bowel recesction splinectomy * Hospitalization/Major Diagno stic Procedure:?No Hospitalization History. * Family History:?Father: dece ased, heart, type II diabetes.?Mother: , mental illness.? diabetes, hypertension, insanity,. * Social History:?Tobacco Use:?Tobacco Control (Standard)?Tobacco use:?Current smoker ?How often do you smoke cigarettes??Every day ?How many cigarettes a day do you smoke??11-20 ???Depression Screening:?PHQ-9?Little interest or pleasure in doing things?Not at all ?Feeling down, depressed, or hopeless?Not at all ?Trouble falling or staying asleep, or sleeping too much?Not at all ?Feeling tired or having little energy?Not at all ?Poor appetite or overeating?Not at all ?Feeling bad about yourself, or that you are a failure, or have let yourself or your family down?Not at all ?Trouble concentrating on things, such as reading the newspaper or watching television?Not at all ?Moving or speaking so slowly that other people could have noticed. Or the opposite ? being so fidgety or restless that you have been moving around a lot more than usual?Not at all ?Thoughts that you would be better off , or of hurting yourself in some way?Not at all ?Total Score?0 ?Depression screening findings?Findings?Negative (0-4) 12/07/24 ???12/07/24. * Medications:?TakingClopidogr el Bisulfate 75 MG Tablet 1 tablet Orally Once a day Ezetimibe 10 MG Tablet 1 tablet Orally Once a day Metoprolol Tartrate 25 MG Tablet 1 tablet with food Orally Twice a day Aspirin 81 MG Tablet Chewable 1 tablet Orally Once a day Taking Clopidogrel Bisulfate 75 MG Tablet 1 tablet Orally Once a day Taking Ezetimibe 10 MG Tablet 1 tablet Orally Once a day Taking Metoprolol Tartrate 25 MG Tablet 1 tablet with food Orally Twice a day Taking Aspirin 81 MG Tablet Chewable 1 tablet Orally Once a day Not-TakingMeclizine HCl 25 MG Tablet 1 tablet as needed Orally every 12 hrs Ciprofloxacin-dexAMETHasone 0.3-0.1 % Suspension 4 drops into affected ear Otic Twice a day Medication List reviewed and reconciled with the patientNot-Taking Meclizine HCl 25 MG Tablet 1 tablet as needed Orally every 12 hrs Not-Taking Ciprofloxacin-dexAMETHasone 0.3-0.1 % Suspension 4 drops into affected ear Otic Twice a day Medication List reviewed and reconciled with the patient * Allergies:?Flagyl: AllergyIo dine: AllergyHydrocodonePercocetPrednisoloneno[Allergies Verified] Objective: * Vitals:?Ht: 80 in, Wt:212.2l bs, Wt-k.25 kg, BMI:23.31Index, Temp:99F, BP:130/80mm Hg, HR:86/min, Oxygen sat %:95%, O2 Source: RA, Pain scale: 0 1-10, Ht-cm: 203.2 cm. * Examination: ???Examination: ?GENERAL APPEARANCE:?Awake/alert. No apparent distress.?HEART:?Regular rate and rhythm without rubs, murmurs, or gallops. PMI nondisplaced.?LUNGS:?Clear to auscultation without rales, rhonchi, wheezing, tachypnea or air hunger.?ABDOMEN:?Soft, nontender, nondistended with active bowel sounds X4. No HSM or masses.? Assessment: * Assessment: 1.?CAD, multiple vessel - I2 5.10 (Primary)???2.?Tobacco abuse - Z72.0???3.?Depression screen - Z13.31??? Plan: * Treatment: 2.?Others? Stop Ezetimibe Tablet, 10 MG, 1 tablet, Orally, Once a day.?? * Procedure Codes:?99697 BRIEF EMOTIONAL/BEHAV ASSMT * Preventive Medicine:? ??Screenings:?LAST WELLNESS VISIT (if today's visit is wellness, use today's date):?Date:?11/28/2024 ?BREAST CANCER SCREENING:?Date of most recent screening:?10+ years ?CERVICAL CANCER SCREENING:?Date of the last PAP Smear :?5+ years ?COLORECTAL CANCER SCREENING:?Date of last colonoscopy?10+ years ?DEPRESSION SCREENING:?Date of most recent screening:?12/07/2024 ?VACCINATIONS:?Influenza vaccinations:?does not take shot * Follow Up:?4 Weeks * Billing Information: * Visit Code:? 10525 Office Visit, Est Pt., Level 3. * Procedure Codes:? 66756 BRIEF EMOTIONAL/BEHAV ASSMT. * SSIONS REPRESENTATIVE Sign off status: Completed true * Provider:?Albaro Tapia MD Yaw e:?12/07/2024 Generated for Printi ng/Fasamg/eTransmitting on:?12/16/2024 01:06 PM ADMISSIONS REPRESENTATIVE History and Physical Notes * Examination Category Sub-Category Detail Notes Category Not es Examination GENERAL APPEARANCE: Awake/alert. No appar ent distress HEART: Regular rate and rhy thm without rubs, murmurs, or gallops. PMI nondisplaced ABDOMEN: Soft, nontender, non distended with active bowel sounds X4. No HSM or masses LUNGS: Clear to auscultatio n without rales, rhonchi, wheezing, tachypnea or air hunger
--- NOTE | 2024-12-16 13:11 | PC.NURSE ---
Addendum entered by Elise Magallon RN 12/16/24 13:51: supervisor food checkers and cashiers was also involved with trying to find supplies. HOME called and did not have proper supplied available. supervisor food checkers and cashiers got car tender approved to go pick-up supplies from patients house. A family member will have supplies available for pick-up. Addendum entered by Elise Magallon RN 12/16/24 13:17: HOME is also called and they will see what they have and call us back. She needs coloplast #[id number]. Original Note: Patient has been upset most of the morning over that we do not have any ileostmy supplies. Nursing staff has shown her several options that we have available to us and she said none of those will work for me . We are contacting local pharmacy's to see if they have the supplies available. She is unable to have family bring in her own supplies from home.
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
[2024-12-16] MEDS: heparin 5,000 unit/mL INJ 1 mL IVP (15:50)
[2024-12-16] MEDS: heparin drip 25,000 UNIT/500 ML PREMIX 51.19 UNIT IV (16:08)
--- NOTE | 2024-12-16 17:33 | USCV_ITS ---
Fabiola Lucero Age: 54 Gender: F : 1970 Exam Date: 12/16/2024 07:57 Ordering Phys: Grazyna Dias NP Technologist: EDILIA Exam Location: [facility] [place] Indication: chest pain BP: 140 / 76 HR: Rhythm: Sinus Technical Quality: Adequate MEASUREMENTS (Male / Female) Normal Values 2D ECHO LV Diastolic Diameter PLAX 4.6 cm 4.2 - 5.9 / 3.9 - 5.3 cm IVS Diastolic Thickness 1.6 cm 0.6 - 1.0 / 0.6 - 0.9 cm IVS Systolic Thickness 1.4 cm LVPW Diastolic Thickness 2.2 cm 0.6 - 1.0 / 0.6 - 0.9 cm LVPW Systolic Thickness 2.6 cm LVOT Diameter 2.2 cm LV Ejection Fraction 2D Teich 55.4 % LV Ejection Fraction MOD 4C 52.3 % LV Ejection Fraction MOD 2C 41.5 % LV Ejection Fraction 2C AL 41.1 % LA Diameter 3.3 cm RA Systolic Volume 4C AL 25.5 ml RA Systolic Volume 4C MOD 23.5 ml LA Sys Volume AL 37.6 cm cubed LA Sys Volume Index AL 17.2 cm cubed/m squared Aorta at Sinotubular Diameter 2.2 cm M-MODE LA Ao Ratio MM 1.3 AV Cusp Separation MM 1.4 cm FINDINGS Left Ventricle Mildly increased left ventricular cavity size. Moderately decreased left ventricular systolic function. Left ventricular ejection fraction is estimated at 45 %. Global left ventricular hypokinesis. Right Ventricle Right Atrium Left Atrium Mitral Valve Aortic Valve Tricuspid Valve Pulmonic Valve Pericardium No pericardial effusion. Aorta IVC CONCLUSIONS Limited Echo Mildly increased left ventricular cavity size. Moderately decreased left ventricular systolic function. Left ventricular ejection fraction is estimated at 45 %. Global left ventricular hypokinesis. No pericardial effusion. Adelfo Prado MD (Electronically Signed) Final Date: 16 December 2024 10:47 S
--- NOTE | 2024-12-16 17:48 | USR_ITS ---
PROCEDURE INFORMATION: Exam: US Duplex Bilateral Extracranial Arteries; Complete; Carotid Arteries Exam date and time: 12/16/2024 11:04 AM Age: 54 years old Clinical indication: Screening exam; Additional info: Presyncope TECHNIQUE: Imaging protocol: Real-time duplex ultrasound scan of the bilateral extracranial arteries combining bro scale, color Doppler and spectral waveform analysis with image documentation. Complete exam. Exam focused on the carotid arteries. COMPARISON: CT cervical spin wo con* [id number] 12/15/2024 5:55 PM FINDINGS: Right common carotid artery: Atheroma. No occlusion or stenosis. Waveforms are normal. Right internal carotid artery: Unremarkable. No occlusion or stenosis. Waveforms are normal. Right ICA/CCA ratio: Within normal limits. Right external carotid artery: No stenosis in the origin. Right vertebral artery: Unremarkable. Antegrade flow. Left common carotid artery: Atheroma. No occlusion or stenosis. Waveforms are normal. Left internal carotid artery: Unremarkable. No occlusion or stenosis. Waveforms are normal. Left ICA/CCA ratio: Within normal limits. Left external carotid artery: No stenosis in the origin. Left vertebral artery: Unremarkable. Antegrade flow. US/CV carotid duplex BI* [id number] IMPRESSION: No hemodynamically significant arterial stenosis. REFERENCES: SRU CRITERIA. The degree of internal carotid artery stenosis is based on criteria defined by the Society of Radiologists in Ultrasound (SRU). Normal is no stenosis. Mild is less than 50% stenosis. Moderate is 50-69% stenosis. Severe is greater than 69% stenosis to near occlusion. Near occlusion is a markedly narrowed lumen. Total occlusion is no detectable patent lumen.
--- NOTE | 2024-12-16 18:32 | PC.NURSE ---
Patients ostomy supplies arrived and patient was able to shower and change her bag herself.
--- NOTE | 2024-12-16 18:39 | PC.NURSE ---
Dr Prado was updated this morning that patients heparin drip was not started and waiting on the echo to be done. I got in report that the heparin drip was on hold her Dr Prado until after echo is done. No new orders were given this morning.
--- NOTE | 2024-12-16 21:20 | PC.NURSE ---
This nurse went in to assess patient and give medications. Patient began getting very emotional stating that My questions are not being answered. There is a lack of communication between nurses and doctors. Tried to encourage patient to write questions down so we could get them answered for her but patient is wanting to speak with a doctor. Patient is very upset about if she is needing a cath procedure or not. Will attempt to get answers for patient but in mean time encouraging breathing exercises, write questions on paper, and distraction techniques. branch logistics supervisor was made aware if issues at beginning of shift.
[2024-12-16 22:59] LABS: Partial Thromboplastin Time 72.7 SECONDS (23.9-36.7)
[2024-12-17] VITALS (7 sets, daily range): BP systolic 112–142; BP diastolic 71–102; PULSE 63–92; RESP 13–20; TEMP 36.5–36.8; O2SAT 95–99
[2024-12-17 04:55] LABS: Basophils # 0.2 10^3/uL (0.0-0.1); Basophils % 1.7 %; Eosinophils # 0.5 10^3/uL (0.0-0.8); Eosinophils % 4.7 %; Hematocrit 41.3 % (36-47); Lymphocytes % 35.3 %; Mean Corpuscular HGB Conc 33.9 g/dL (30-55); Mean Corpuscular Hemoglobin 32.3 pg (27-33); Mean Corpuscular Volume 95.2 fl (85-98); Mean Platelet Volume 9.3 fL (7.4-10.4); Monocytes # 0.9 10^3/uL (0.2-0.9); Monocytes % 8.4 %; Neutrophils # 5.57 10^3/uL (1.8-7.7); Neutrophils % 49.6 %; Nucleated Red Blood Cells % 0 %; Platelet Count 605 10^3/cmm (157-399); Red Blood Count 4.34 10^6/uL (3.85-5.65); Red Cell Distribution Width 15.4 % (12.1-15.1); White Blood Count 11.22 10^3/uL (3.29-11.43)
[2024-12-17 05:18] LABS: Alanine Aminotransferase 12 U/L (0-33); Albumin Level 3.4 g/dL (3.5-5.2); Alkaline Phosphatase 61 U/L (35-105); Anion Gap 15.8 (5-19); Aspartate Amino Transferase 13 U/L (0-32); Blood Urea Nitrogen 14 mg/dL (6-20); Calcium 9.5 mg/dL (8.5-10.5); Carbon Dioxide 20 mmol/L (22-29); Chloride 109 mmol/L (98-107); Creatinine Clr Calc Pharmacy 88.7057; Globulin 3.2 g/dL (1.3-4.6); Glomerular Filtration Rate 64.8 mL/min (90-130); Glucose 97 mg/dL (65-115); Osmolality Calculated 292 mOsm/kg (285-295); Phosphorus 2.8 mg/dL (2.5-4.5); Potassium 3.8 mmol/L (3.5-5.1); Sodium 141 mmol/L (136-145); Total Bilirubin 0.3 mg/dL (0.15-1.2); Total Protein 6.6 g/dL (6.6-8.7)
[2024-12-17 05:29] LABS: Slide Review Slide Review Perform
--- NOTE | 2024-12-17 05:36 | PC.NURSE ---
Addendum entered by Carolina Cleveland RN 12/17/24 07:51: 0100- Patient requesting to go outside. This nurse explained to patient there is no one available at the moment to take her out for fresh air . Also was educated that at night it is preferred patients stay in the hospital for there safety. Original Note: 0100- Patient requesting to go outside. This nurse explained to patient they is no one avaliable at the moment to take her out for fresh out . Also was educated that at night it is perferred patients stay in the hosptial.
[2024-12-17 05:38] LABS: Partial Thromboplastin Time 77.1 SECONDS (23.9-36.7)
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
--- NOTE | 2024-12-17 10:28 | PC.NURSE ---
took over pt care dr abreu at bedside to speak to pt in regards to angiogram benefits and risks of the procedure. pt agreed to go ahead and do an angiogram.
[2024-12-17] MEDS: clopidogrel 300 mg Tablet PO (10:49)
--- NOTE | 2024-12-17 11:03 | W.PM.OPSUD ---
Surgery/Procedure H&P Update DATE OF PROCEDURE: December 17, 2024 DATE H&P PERFORMED: 12/16/24 H&P UPDATE INFORMATION: I have reviewed H&P completed within last 30 days, I have examined patient prior to procedure and No changes to prior documentation PREOP DIAGNOSIS: Non-ST elevation TN PATIENT REASSESSED PRIOR TO SEDATION, WITH NO CHANGE NOTED: Yes PHYSICAL EXAM: alert, oriented x 3, clear to auscultation bilaterally, regular rate & rhythm and operative site marked AIRWAY EVAL/ANESTHESIA PLAN: ASA II, Risks, benefits & alternatives of sedation and/or procedure discussed and Patient agrees to continue as planned ADDITIONAL INFORMATION: Patient has been explained all risk-benefit and alternative for the procedure. She understand 2% risk of stroke major bleed she understand risk for urgent or emergent bypass surgery vascular surgery contrast induced nephropathy hematoma bruising. She would like to proceed with it. She is compliant with dual antiplatelet therapy.
--- NOTE | 2024-12-17 11:27 | PC.NURSE ---
at the laboratory technology teacher via bed
--- NOTE | 2024-12-17 12:03 | P.PCN_ITS ---
Procedure Note: Date of procedure: 12/17/24 Pre-procedure diagnosis: Non- STEMI Post-procedure diagnosis: same Procedure: Coronary angiogram was performed: Patient was not cooperative on the table, maybe next time it is a good idea that we should bring anesthesia however she was noted to have mid high-grade 90% stenosis treated with drug-eluting stent postdilated with noncompliant balloon. Excellent angiographic result with ROWENA- 3 flow was noted at the end of the case. Left main circumflex has luminal irregularities. Patent previously placed obtuse marginal stent. RCA has a proximal 50 to 60% stenosis and ectasia in the midsegment. Due to uncooperativeness we have not performed IFR of the RCA as patient was not staying still on the table. We may will do stress test as an outpatient on maximal medical therapy and 3 months. Plan: Radial band will come off as per protocol Patient has been loaded with 300 mg of Plavix today, continue aspirin 81 mg from tomorrow and 75 mg of Plavix. IV fluid 100 mL/h for next 10 hours Continue beta-geronimo statin Possible discharge tomorrow Full note to be dictated Coding Level of Care Code Acute Code for [place]
--- NOTE | 2024-12-17 12:07 | P.PN_ITS ---
Subjective 2 Subjective: Status post coronary angiogram: Mid LAD was treated with single drug-eluting stent postdilated with noncompliant balloon. Excellent angiographic result was noted. Patient has 50% proximal RCA lesion thought to be nonsignificant, we deferred IFR since patient was uncooperative on the table, if patient need any further angiogram in the future may need anesthesia assistance. Vitals/I&O/Wt Last Vital Signs Temp 97.9 F 12/17/24 08:00 Pulse 82 12/17/24 08:00 Resp 20 H 12/17/24 08:00 BP 137/102 12/17/24 08:00 Pulse Ox 96 12/17/24 07:58 O2 Del Method Room Air 12/17/24 07:58 12/16/24 12/17/24 12/17/24 22:59 06:59 14:59 Intake Total 241.706 / 481.706 365.4 / 847.106 Balance 241.706 / 481.706 365.4 / 847.106 Weight last 48 hrs Weight 217 lb 3 oz Weight 209 lb Physical Exam 2 Const: COMMON NORMALS: alert OTHER: GENERAL: Patient is alert, awake and oriented x3. HEART: Regular S1 and S2. No murmur, rub or gallop. LUNGS: Clear to auscultate bilaterally. CENTRAL NERVOUS SYSTEM: Grossly nonfocal. EXTREMITIES: Lower extremities with out edema bilaterally. Resp: COMMON NORMALS: clear to auscultation bilaterally AUSCULTATION: clear to auscultation bilaterally Neuro: SENSORIUM/ORIENTATION: Yes alert Data 12/17/24 04:40 12/17/24 04:40 A&P Assessment and plan (1) Non-ST elevation CO (NSTEMI): (2) Nicotine dependence, cigarettes, with unspecified nicotine-induced disorders: (3) Hyperlipidemia: (4) Coronary artery disease: Qualifiers: Associated angina: with unspecified form of angina Coronary Disease- Associated Artery/Lesion type: osage artery Plan Status post drug-eluting stent to mid LAD postdilated with noncompliant balloon. Excellent angiographic result ROWENA-3 flow was noted. 50% proximal RCA stenosis, patent previously placed obtuse marginal stent. Left main and circumflex has luminal irregularities, LV gram was not performed because patient was not very cooperative on the table. Continue aspirin and statin beta-geronimo and Plavix 100 mL/h IV fluid for next 10 hours Radial band as per protocol Possible discharge tomorrow Patient and her daughter over the phone was called and discussed regarding the procedure and placement the stent. PDMP PDMP Reviewed: Not Reviewed Attestations 2 Medical Necessity Statement*: Patient require continuation hospitalization for post PCI care Coding Level of Care Code Acute Code for Chg Fwd Diagnoses Non-ST elevation CO (NSTEMI) I21.4 Nicotine dependence, cigarettes, with unspecified nicotine-induced disorders F17.219 Hyperlipidemia E78.5 Coronary artery disease I25.10 Associated angina: with unspecified form of angina Coronary Disease-Associated Artery/Lesion type: osage artery
[2024-12-17] MEDS: nitroglycerin drip 50 MG/250 ML PREMIX IV (12:10)
[2024-12-17] MEDS: aspirin 81 mg Chew Tablet PO (12:25)
[2024-12-17] MEDS: metoprolol tartrate 25 mg Tablet 12.5 MG PO ×2 (12:26→20:34)
[2024-12-17] MEDS: atorvastatin 40 mg Tablet PO (12:26)
[2024-12-17] MEDS: sodium chloride 0.9% 1,000 ML 100 ML IV (13:37)
--- NOTE | 2024-12-17 19:51 | PC.NURSE ---
TR band off No complications post tr band removal. radial pulse palpable. activity restrictions discuss to pt post angiogram such as no lifting of more than 5 lbs on right wrist, no pushing,pulling or unnecessary bending on right forearm. call light provided to pt.
--- NOTE | 2024-12-17 19:53 | PC.NURSE ---
pt is ambulating down hallways denies any chest pain or discomfort on left arm and chest anymore., tele box on pt. nitro drip off around 1800 pm.
[2024-12-17] MEDS: pantoprazole 40 mg SDV IVP (20:34)
[2024-12-18 04:00] VITALS: BP 116/80; PULSE 65; RESP 15; TEMP 36.5
[2024-12-18 06:35] LABS: Basophils # 0.1 10^3/uL (0.0-0.1); Basophils % 0.3 %; Eosinophils % 0.1 %; Hematocrit 42.4 % (36-47); Lymphocytes # 2.5 10^3/uL (0.8-4.8); Lymphocytes % 16.2 %; Mean Corpuscular HGB Conc 33.7 g/dL (30-55); Mean Corpuscular Hemoglobin 31.5 pg (27-33); Mean Corpuscular Volume 93.4 fl (85-98); Mean Platelet Volume 9.8 fL (7.4-10.4); Monocytes % 6.6 %; Neutrophils % 76.4 %; Nucleated Red Blood Cells % 0 %; Platelet Count 542 10^3/cmm (157-399); Red Blood Count 4.54 10^6/uL (3.85-5.65); Red Cell Distribution Width 15.5 % (12.1-15.1); White Blood Count 15.58 10^3/uL (3.29-11.43)
[2024-12-18 07:01] LABS: Alanine Aminotransferase 13 U/L (0-33); Albumin Level 3.9 g/dL (3.5-5.2); Alkaline Phosphatase 68 U/L (35-105); Anion Gap 18.9 (5-19); Aspartate Amino Transferase 17 U/L (0-32); Blood Urea Nitrogen 15 mg/dL (6-20); Calcium 9.9 mg/dL (8.5-10.5); Carbon Dioxide 18 mmol/L (22-29); Chloride 107 mmol/L (98-107); Creatinine Clr Calc Pharmacy 74.9434; Globulin 3.5 g/dL (1.3-4.6); Glomerular Filtration Rate 57.4 mL/min (90-130); Glucose 127 mg/dL (65-115); Magnesium 2.1 mg/dL (1.7-2.3); Osmolality Calculated 292 mOsm/kg (285-295); Phosphorus 2.2 mg/dL (2.5-4.5); Potassium 3.9 mmol/L (3.5-5.1); Sodium 140 mmol/L (136-145); Total Bilirubin 0.3 mg/dL (0.15-1.2); Total Protein 7.4 g/dL (6.6-8.7)
[2024-12-18 07:51] VITALS: BP 155/98; PULSE 84; RESP 20; TEMP 36.7; O2SAT 97
[2024-12-18] MEDS: clopidogrel 75 mg Tablet PO (09:00)
[2024-12-18] MEDS: atorvastatin 40 mg Tablet PO (09:00)
[2024-12-18] MEDS: metoprolol tartrate 25 mg Tablet 12.5 MG PO (09:00)
[2024-12-18] MEDS: aspirin 81 mg Chew Tablet PO (09:13)
--- NOTE | 2024-12-18 09:44 | PC.CHAP ---
Pastoral Care Encounter/Spiritual Assessment Type of Contact [] Declined tassel making machine operator visit [] Patient/Family/Request visit [] Outpatient visit [] Follow-up visit [] Physician referral [] Code/Alert [x] Routine visit [] Staff referral [] Actively dying [x] Patient sleeping [] Family support [] [] Out of room [] Palliative care [] [] Receiving care in room [] Pre-surgical visit [] Trauma [] Long length of stay [] ICU visit [] Other: Relational/Emotional Strength [] Patient feels connected with others/family/visitors/staff [] Distress [] Loneliness/isolation [] Abandonment Spirituality of Patient [] Person of Magdalena [] Attends Denominational of their Magdalena [] Believes in Prayer [] Reads Bible or Lutheran materials [] There are Spiritual issues to be addressed Meat [employer]ver Interventions [x] Prayer [] Active listening [] Non-anxious presence [] Spiritual/emotional support [] Crisis/trauma care [] Spiritual counseling [] Bereavement support [] Provided bereavement packet [] Provided Bible/devotional materials [] Provided toy/stuffed animal, coloring book to patient or family member [] Provided Communion [] Anointing/[place] [] Salvation [] Completed spiritual assessment [] Other: Impact on Illness or Injury [] Angry [] Fearful [] Anxious [] Often cries [] Exhaustion [] Unable to work [] Unable to attend rastafarian [] Unable to walk/stand [] Unable to read [] Unable to drive [] Unable to eat/drink [] Unable to sleep [] Unable to be with family [] Patient intubated [] Other: Summary Time spent with patient
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
[2024-12-18 12:00] VITALS: BP 134/85; PULSE 94; RESP 24; TEMP 36.7; O2SAT 97
--- NOTE | 2024-12-18 13:47 | P.PN_ITS ---
<Statement entered by Adelfo Prado MD - 12/18/24 20:46> Patient was evaluated and cared for in conjunction with an advanced practice practitioner. I personally examined the patient and reviewed the chart and all pertinent data including imaging, telemetry, and laboratory results. I discussed the patient in detail with the advanced practice practitioner. Please see their note for complete H&P testing result and agreed upon plan of care for the patient. Denies any complaint status post PCI to mid LAD GENERAL: Patient is alert, awake and oriented x3. HEART: Regular S1 and S2. No murmur, rub or gallop. LUNGS: Clear to auscultate bilaterally. CENTRAL NERVOUS SYSTEM: Grossly nonfocal. EXTREMITIES: Lower extremities with out edema bilaterally. Non-ST elevation [place] Hypertension Hyperlipidemia Patient has moderate RCA lesion thought to be managed medically as patient was not cooperative on the table IFR could not have been done mid LAD which was critical lesion and thought to be culprit for non-STEMI was treated with single drug-eluting stent. Continue aspirin statin beta-geronimo. Follow-up with cardiology in 1week Subjective 2 Subjective: Patient doing well. No complaints. No chest pain or shortness of breath s/p stent to the LAD. Vitals/I&O/Wt Last Vital Signs Temp 98.1 F 12/18/24 12:00 Pulse 94 12/18/24 12:00 Resp 24 H 12/18/24 12:00 BP 134/85 12/18/24 12:00 Pulse Ox 97 12/18/24 12:00 O2 Del Method Room Air 12/18/24 12:00 12/17/24 12/18/24 12/18/24 22:59 06:59 14:59 Intake Total 1366.213 / 1509.107 480 / 480 Balance 1366.213 / 1509.107 480 / 480 Weight last 48 hrs Weight 190 lb Physical Exam 2 Narrative: General: No apparent distress, healthy appearing, well nourished HENMT: normoceophalic Muskuloskeletal: Full ROM Lymphatic: no lymphedema noted Respiratory: Normal respiratory effort, clear to auscultation bilaterally throughout all lung sherwood, no use of accessory muscles Cardio: No JVD, regular rate, regular rhythm, S1 S2 normal, no murmurs, peripheral pulses 2+ radial bilaterally GI: Normal to inspection, nondistended Extremities: Full ROM, normal, normal capillary refill, no cyanosis or edema Neuro: Alert and oriented x4, no focal motor deficits Psych: Affect normal, denies suicidal ideation, mental status grossly normal Skin: No rashes or lesions noted, no wounds, previous right radial cath site healed Data 12/18/24 06:07 12/18/24 06:07 A&P Assessment and plan (1) Non-ST elevation W[place] (NSTEMI): (2) Nicotine dependence, cigarettes, with unspecified nicotine-induced disorders: (3) Hyperlipidemia: (4) Coronary artery disease: Qualifiers: Associated angina: with unspecified form of angina Coronary Disease- Associated Artery/Lesion type: [place] artery Plan Status post drug-eluting stent to mid LAD postdilated with noncompliant balloon. Excellent angiographic result ROWENA-3 flow was noted. 50% proximal RCA stenosis, patent previously placed obtuse marginal stent. Left main and circumflex has luminal irregularities, LV gram was not performed because patient was not very cooperative on the table. Continue aspirin and statin beta-geronimo and Plavix She may be discharged home with f/u appointment in 7-10 days with us. She will need a stress test in about 3-4 months to see if the RCA lesion is signficant enought to fix. PDMP PDMP Reviewed: Not Reviewed Attestations 2 Medical Necessity Statement*: May be discharged from cardiology standpoint Coding Level of Care Code Acute Code for Chg Fwd Diagnoses Non-ST elevation W[place] (NSTEMI) I21.4 Nicotine dependence, cigarettes, with unspecified nicotine-induced disorders F17.219 Hyperlipidemia E78.5 Coronary artery disease I25.10 Associated angina: with unspecified form of angina Coronary Disease-Associated Artery/Lesion type: [place] artery
[2024-12-18 14:41] VITALS: BP 134/85; PULSE 72; O2SAT 93
--- NOTE | 2024-12-18 15:07 | PC.NURSE ---
meds to bed delivered and waiting for her transportation MTM said the ride will be here at 5:30 pm. Discharge papers provided to pt. reassurance and education provided to pt in regards to her home meds and post angiogram home care instructions. pt verbalizes understanding.
== END 2024-12-18 15:07 | disposition home or self-care (01) | DRG 322 ==
LOC: ER 16:55 → CSU 12-16 13:04 → ER IP 12-16 13:04
PROVIDERS: Internal Medicine; Internal Medicine Cardiovascular Disease; Admitting Provider Family Medicine; Emergency Provider Emergency Medicine; PCP Internal Medicine; Visit Provider Student in an Organized Health Care Education/Training Program
PROC: 027034Z Dilation of Coronary Artery, One Artery with Drug-eluting Intraluminal Device, Percutaneous Approach (ICD-10-PCS; principal; 2024-12-17 11:00)
PROC: 027034Z Dilation of Coronary Artery, One Artery with Drug-eluting Intraluminal Device, Percutaneous Approach (ICD-10-PCS; 2024-12-17 11:00)
DX: I21.4 Non-ST elevation (NSTEMI) myocardial infarction (principal); K50.90 Crohn's disease, unspecified, without complications; N39.0 Urinary tract infection, site not specified; F17.210 Nicotine dependence, cigarettes, uncomplicated; E78.5 Hyperlipidemia, unspecified; N18.9 Chronic kidney disease, unspecified; I12.9 Hypertensive chronic kidney disease with stage 1 through stage 4 chronic kidney disease, or unspecified chronic kidney disease; F41.9 Anxiety disorder, unspecified; R55 Syncope and collapse; Z95.5 Presence of coronary angioplasty implant and graft; Z90.49 Acquired absence of other specified parts of digestive tract; Z93.2 Ileostomy status; Z79.82 Long term (current) use of aspirin; Z79.02 Long term (current) use of antithrombotics/antiplatelets
CPT/HCPCS: 36415; 36416; 70450; 71045; 71110; 72125; 80048; 80053; 80076; 80306; 81001; 82962; 82977; 83690; 83735; 83880; 84100; 84145; 84443; 84484; 85025; 85347; 85610; 85730; 86140; 93005; 93308; 93454; 93880; 96374; 96375; 96376; 99152; 99153; 99285; A9270; C1725; C1769; C1874; C1887; C1894; C9600; J1200; J1644; J2250; J2470; J2919; J3010; J3490; J7030; Q9967

== ENCOUNTER → 2025-05-02 11:24 | Outpatient (BNVA) | payer MEDICAID, SELFPAY | PROVIDERS: PCP Internal Medicine; Visit Provider Nurse Practitioner | DX: I21.4 Non-ST elevation (NSTEMI) myocardial infarction (principal); E78.5 Hyperlipidemia, unspecified; E55.9 Vitamin D deficiency, unspecified | CPT/HCPCS: 80053; 80061; 82306; 82607; 84443; 85025 ==

== ENCOUNTER 2025-05-08 11:04 | Outpatient (CLI) | payer MEDICAID, SELFPAY | END 2025-05-08 11:05 | disposition home or self-care (01) | PROVIDERS: PCP Nurse Practitioner; Visit Provider Internal Medicine | DX: R06.09 Other forms of dyspnea (principal) | CPT/HCPCS: 94010 ==

== ENCOUNTER 2025-05-14 04:17 | Emergency (ER) | payer MEDICAID, SELFPAY ==
--- OUTSIDE RECORDS SUMMARY | 2025-02-07 08:20 | XMS_ITS ---
Author Organization [facility] Address [address] [place] [address] Care Team Providers Care Mine Safety Manager Name Role Phone Albaro Tapia Primary Care Provider REASON FOR VISIT follow up Encounters Encounter Location Date Provider Diagnosis [facility] [address] [place] [phone] 02/07/2025 Albaro Tapia Plan Of Treatment No Information Progress Notes * Juan Alberto VELAJovannyB:[birth year] (54 yo F)Acc No.[id number]:02/07/2025 Progress Notes Patient: Fabiola BURLESON Provider: Emile Tapia MD :1970 A ge:54 Y S ex:Female Date:02/07/2025 Address[place] [id number] Subjective: * Chief Complaints: * 1 . Follow up. * Medical History: Objective: * Vitals: Assessment: Plan: * Treatment: Forms: * Billing Information: * Visit Code: * Procedure Codes: Care Plan Details* * Electronic signature of Arvind Tapia MD on 05/14/2025 at 04:23 AM CDT Sign off status: Pending * Provider: Emile Tapia MD Date: 02/07/2025 Generated for Mario Alberto ndiaye/Fajeanna/eTransmitting on: 05/14/2025 04:23 AM CDT
[2025-05-14 04:19] VITALS: BP 145/102; PULSE 82; RESP 18; TEMP 36.4; O2SAT 98; BMI 28.7
--- OUTSIDE RECORDS SUMMARY | 2025-05-14 04:23 | XMS_ITS | Patient Health Record ---
Author Organization [facility] Address [address] [place] [address] Care Team Providers Care Sensitizer Name Role Phone Albaro Tapia Primary Care [...] Reference Range Notes Lipid Panel Reflex DLDL [id number] 1, [id number] Reviewed date:12/28/2024 12:53:18 PM Interpretation: Performing Lab: Notes/Report: Diagnosis Description: Atherosclerotic heart disease of [place] coronary artery without angina pectoris Trig 185 [...] mg/dl. See DLDL result. Reason For Referral Reason acute vision loss Diagnosis 1 Sudden visual loss o f right eye (H53.131) Referral Organization [facility] Referring Provider First Name Nam collins Referring Provider Last Name Regina Referring Provider Speciality Internal M edicine Referred Provider Edilberto Gutierrez Referred Provider Specialty Environmental Engineering Professor General Notes Cassandra Guo 02:26:41 PM >faxed Gerardo Holliday Heidi 02/12/2025 08:26:18 AM >PROGRESS NOTES IN REFERRAL FILE Referral Priority Routine Referral Appointment Date 02/09/2025 Medications Medication SIG (Take, Route, Frequency, Duration) Notes Start Date End Date Status Meclizine HCl 25 MG 1 tablet as needed Orally every 12 hrs Not-Taking Metoprolol Tartrate 25 MG 1/2 tablet wit h food Orally Twice a day for 30 days Active Ciprofloxacin-dexAMETHason e 0.3-0.1 % 4 drops into affected ear Otic Twice a day for 7 days 03/10/2024 Not-Taking Clopidogrel Bisulfate 75 MG 1 tablet Orally Once a day for 90 days Active Isosorbide Mononitrate 10 MG 1 tablet Orally Twice a day for 90 days Active Aspirin 81 MG 1 tablet Orally Once a day for 30 days Active Rosuvastatin Calcium 10 MG 1 tablet Oral ly Once a day for 90 days 12/07/2024 Active Acetaminophen 500 MG 1 capsule as needed Orally every 6 hrs Active Social History Tobacco Use: Social History Observation Description Date Details (start date - stop date) Current Smoker NA - NA Alcohol Screen (Audit-C) Question Answer Notes Did you have a drink containing alcohol in the p ast year? No Points 0 Interpretation Negative PHQ-9 Question Answer Notes Little interest or pleasure in doing things Shena ral days Feeling down, depressed, or hopeless Not at all Trouble falling or staying asleep, or sleeping t oo much Nearly every day Feeling tired or having little energy Several da ys Poor appetite or overeating Not at all [...] some way Not at all Total Score 5 Interpretation Mild Depression Tobacco Control (Standard) Question Answer Notes Tobacco use: Current smoker How often do you smoke cigarettes? Every day How many cigarettes a day do you smoke? 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 confirmed Problem 63020680 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 Problem 137469606944678 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 confirmed Problem 1283925 Rectal pouchitis (K91.850) Active confirmed Vital Signs Heart Rate 99 /min 04/24/2025 Temperature 97.7 degrees Fahrenheit 04/24/2025 Blood pressure diastolic 80 mm Hg 04/24/2025 Oximetry 97 % 04/24/2025 Height-cm 203.2 cm 04/24/2025 Weight-kg 93.44 kg 04/24/2025 Height 80 in 04/24/2025 Blood pressure systolic 139 mm Hg 04/24/2025 Weight 206 lbs 04/24/2025 BMI 22.63 kg/m2 04/24/2025 Encounters Encounter Location Date Provider Diagnosis [facility] [address] [phone] 12/07/2024 Albaro Tapia CAD, multiple vessel I25.10 ; Tobacco abuse Z72.0 and Depression screen Z13.31 [facility] [address] [place] [phone] 12/25/2024 Albaro Tapia CAD, multiple vessel I25.10 ; Altered bowel elimination due to intestinal ostomy K94.19 and Tobacco abuse Z72.0 [facility] [address] [place] [phone] 02/08/2025 Rjdomenico Tapia CAD, multiple vessel I25.10 ; B12 deficiency E53.8 ; Altered bowel elimination due to intestinal ostomy K94.19 ; Sudden visual loss of right eye H53.131 and Depression screen Z13.31 [facility] [address] [address] 04/24/2025 Albaro Tapia Primary insomnia F51.01 ; Tobacco abuse Z72.0 ; B12 deficiency E53.8 ; Dyspnea on exertion R06.09 and Depression screen Z13.31 [facility] [address] [place] [phone] 01/15/2025 Eliotamarilis Tapia [facility] [address] [place] [phone] 01/30/2025 Albaro Tapia CAD, multiple vessel I25.10 Assessments Encounter Date Diagnosis (ICD Code) Assessment Notes Treatment Notes Treatment Clinical Notes Section Notes 12/25/2024 CAD, multiple vessel (ICD-10 - I25.10) 12/25/2024 Altered bowel elimination due to intestinal ostomy (ICD-10 - K94.19) 01/30/2025 CAD, multiple vessel (ICD-10 - I25.10) 02/08/2025 CAD, multiple vessel (ICD-10 - I25.10) 02/08/2025 B12 deficiency (ICD-10 - E53.8) 12/07/2024 CAD, multiple vessel (ICD-10 - I25.10) 04/24/2025 Primary insomnia (ICD-10 - F51.01) 04/24/2025 Tobacco abuse (ICD-10 - Z72.0) 12/25/2024 Tobacco abuse (ICD-10 - Z72.0) 04/24/2025 B12 deficiency (ICD-10 - E53.8) 02/08/2025 Altered bowel elimination due to intestinal ostomy (ICD-10 - K94.19) 12/07/2024 Tobacco abuse (ICD-10 - Z72.0) 12/07/2024 Depression screen (ICD-10 - Z13.31) 02/08/2025 Sudden visual loss of right eye (ICD-10 - H53.131) 04/24/2025 Dyspnea on exertion (ICD-10 - R06.09) 04/24/2025 Depression screen (ICD-10 - Z13.31) 02/08/2025 Depression screen (ICD-10 - Z13.31) Plan Of Treatment Pending Test Test Name Order Date Spirometry With Bronchodilator-[id number] Insurance Providers Payer Name Payer Address Payer Phone Subscriber Number Group Number Insured Name Patient Relationship to Insured Coverage Start Date Coverage End Date [place] Medicaid [address] [place] [address] [id number] Fabiola Lucero Self - patient is the insured Medical (General) History Medical History History ICD Code 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
--- OUTSIDE RECORDS SUMMARY | 2025-05-14 04:23 | XMS_ITS | Clinical Summary ---
Author Organization [facility] Address [address] 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 START TEACHER Gender Identity Not on file Sexual Orientation Not on file Last Filed Vital Signs Vital Sign Reading Time Taken Comments Blood Pressure 146/86 04/17/2020 9:15 PM CDT Pulse 134 12/13/2019 3:14 PM HEAD START TEACHER Temperature 36.5 C (97.7 F) 04/17/2020 9:15 PM CDT Respiratory Rate 34 12/13/2019 3:14 PM HEAD START TEACHER Oxygen Saturation - - Inhaled Oxygen Concentration [...] (1 of 3 - 19+ 3-dose series) 06/08 HPV/Cotest (21-29) 1989 CERVICAL CANCER SCREENING 1998 HPV/Cotest (30-65) 1998 PAP SMEAR 1998 BREAST CANCER SCREENING 2008 FIT-DNA Q 3 years 2013 FIT/FOBT Q 1 year 2013 Flex Sig/CT Colonography Q 5 years 2013 ZOSTER VACCINE (1 of 2) 2018 COLORECTAL SCREENING 03/11/2020 03/11/2010 Colorectal Cancer Screening 03/11/2020 INFLUENZA VACCINE (#1) 2025 12/13/2019 Care Teams Vice President Of Academic Affairs Relationship Specialty Start Date End Date Non-Staff, Physician NO ADDRESS ON FILE PCP - General 03/01/20
--- OUTSIDE RECORDS SUMMARY | 2025-05-14 04:23 | XMS_ITS | Encounter Summary ---
Author Organization [facility] Address [address] [place] [address] Care Team Providers Care Boat Hoist Operator Name Role Phone Non-Staff, Physician Primary Care Provider Unava ilable Reason for Referral * Outpatient Services (Routine) - Closed Specialty Diagnoses / Procedures Referred By Contac t Referred To Contact Radiology Diagnoses Ovarian cyst, left Uterine fibroid Procedures US PELVIS COMPLETE William Kingston MD Phone: tel: fax: [facility] View [address] [place] [address] Phone: tel: fax: Referral ID Status Reason Start Date Expiration Date V isits Requested Visits Authorized [id number] Closed [facility] View CTS to Schedule (SGF) 01/22/2017 02/22/2018 1 1 Encounter Details Date Type Department Care Team (Latest Contact Info) Description 01/22/2017 Ancillary Orders [facility] Centralized Scheduling [address] [place] [address] William Kingston MD [address] [place] [address] Ovarian cyst, left; Uterine fibroid Social History Tobacco Use Types Packs/Day Years Used Date Smoking Tobacco: Every Day Cigarettes Smokeless Tobacco: Never Alcohol Use Standard Drinks/Week Comments No 0 (1 standard drink = 0.6 oz pur e alcohol) Comments No Sex and Gender Information Value Date Recorded Sex Assigned at Not on file Legal Sex Female 1:52 PM CDT Gender Identity Not on file Sexual Orientation Not on file Occupation Industry Job Start Date Job End Date Not on file Not on file Not on file Not on file documented as of this encounter Plan of Treatment Not on file documented as of this encounter Results * US PELVIS COMPLETE (01/29/2017 11:49 AM CDT) Anatomical Region Laterality Modality Pelvis Ultrasound 01/29/2017 11:4 9 AM CDT Impressions 01/29/2017 3:50 PM CDT IMPRESSION: Please see below. Exam: US PELVIS COMPLETE Date/Time of Exam: 01/29/2017 11:49 AM Reason For Exam: Ovarian cyst, left,Uterine fibroid. Findings: Comparison from 09/18/2016. LMP is 01/04/2017. The study was performed transabdominal. The uterus is 8.7 x 5.9 x 7.6 cm in size. The uterus is bulbous in appearance. The uterus is smooth in contour. The myometrium is heterogeneous. This is probably secondary to the presence of fibroids. There is a 2.5 x 3.3 cm posterior fibroid. There is a 3.4 x 2.1 cm anterior fibroid. The endometrium is 2.7 mm in thickness. There is a moderate amount of free fluid in the cul-de-sac. The right ovary is 2.3 x 1.7 x 2.4 cm in size. The right ovary is unremarkable in appearance. There is no visible normal left ovary in the left adnexa. There is a 9.8 x 4.8 cm mildly complex fluid collection in the left adnexal region. IMPRESSION: 1. There are least two uterine fibroids. The larger is 3.4 cm in diameter. 2. Moderate amount of nonspecific free fluid in the cul-de-sac. 3. There is a nonspecific mildly complex 9.8 cm fluid collection in the left adnexa. This has increased in size since the prior study. The abnormality is nonspecific in appearance. It is somewhat concerning that it has increased in size in the interval. Continued follow-up is recommended. At a minimum, a follow-up ultrasound should be obtained in three months. Narrative Procedure Note Lashay Cho MD - 01/29/2017 IMPRESSION IMPRESSION: Please see below. Exam: US PELVIS COMPLETE Date/Time of Exam: 01/29/2017 11:49 AM Reason For Exam: Ovarian cyst, left,Uterine fibroid. Findings: Comparison from 09/18/2016. LMP is 01/04/2017. The study was performed transabdominal. The uterus is 8.7 x 5.9 x 7.6 cm in size. The uterus is bulbous in appearance. The uterus is smooth in contour. The myometrium is heterogeneous. This is probably secondary to the presence of fibroids. There is a 2.5 x 3.3 cm posterior fibroid. There is a 3.4 x 2.1 cm anterior fibroid. The endometrium is 2.7 mm in thickness. There is a moderate amount of free fluid in the cul-de-sac. The right ovary is 2.3 x 1.7 x 2.4 cm in size. The right ovary is unremarkable in appearance. There is no visible normal left ovary in the left adnexa. There is a 9.8 x 4.8 cm mildly complex fluid collection in the left adnexal region. IMPRESSION: 1. There are least two uterine fibroids. The larger is 3.4 cm in diameter. 2. Moderate amount of nonspecific free fluid in the cul-de-sac. 3. There is a nonspecific mildly complex 9.8 cm fluid collection in the left adnexa. This has increased in size since the prior study. The abnormality is nonspecific in appearance. It is somewhat concerning that it has increased in size in the interval. Continued follow-up is recommended. At a minimum, a follow-up ultrasound should be obtained in three months. us William Kingston MD US ORDERABLES Final Result documented in this encounter Visit Diagnoses Diagnosis Ovarian cyst, left Other and unspecified ovarian cyst Uterine fibroid Leiomyoma of uterus, unspecified Ovarian cyst, left Other and unspecified ovarian cyst Uterine fibroid Leiomyoma of uterus, unspecified documented in this encounter Care Teams Boat Hoist Operator Relationship Specialty Start Date End Date Non-Staff, Physician NO ADDRESS ON FILE PCP - General 03/01/20 documented as of this encounter
--- OUTSIDE RECORDS SUMMARY | 2025-05-14 04:23 | XMS_ITS | Clinical Summary ---
Author Organization [facility] Address [address] [place] [phone] Care Team Providers Care Security Attendant Name Role Phone Non-Staff, Physician Primary Care Provider Unava ilable Allergies Active Allergy Reactions Criticality Noted Date Comments Iodinated Contrast Media Nausea and Vomiting Low Latex Rash Low 04/28/2016 Metronidazole Rash Low 11/23/2019 Moxifloxacin Rash Low 11/13/2018 Opioids - Morphine Analogues Nausea and Vomiting Low 08/17/2014 [place] Hives High 09/09/2016 Medications lisinopril (PRINIVIL) 20 mg tabletIndications:B enign hypertension Take 0.5 Tablets (10 mg) by mouth daily. 30 Tablet 0 Active pravastatin (PRAVACHOL) 10 mg tabletIndications:H [...] Tobacco: Every Day Cigarettes Smokeless Tobacco: Never Tobacco Cessation:Ready to Q uit: No; Counseling Given: Yes Alcohol Use Standard Drinks/Week Comments No 0 [...] file Not on file Not on file Last Filed Vital Signs Vital Sign Reading Time Taken Comments Blood Pressure 146/86 04/17/2020 9:15 PM CDT Pulse 134 12/13/2019 3:14 PM BUOY TENDER Temperature 36.5 C (97.7 F) 04/17/2020 9:15 PM CDT Respiratory Rate 34 12/13/2019 3:14 PM BUOY TENDER Oxygen Saturation 100% 04/17/2020 9:15 PM CDT Inhaled Oxygen Concentration - - Weight 89.1 kg (196 lb 8 oz) 04/17/2020 9:15 PM CDT Height 177.8 cm (5' 10 ) 04/17/2020 9:15 PM CDT Body Mass Index 28.19 04/17/2020 9:15 PM CDT Plan of Treatment Health Maintenance Due Date Last Done Comments DTAP/TDAP/TD VACCINES (1 - Tdap) 1987 HEPATITIS B VACCINES (1 of 3 - 19+ 3-dose series) 06/08 ZOSTER VACCINE (1 of 2) 1987 HPV/Cotest (21-29) 1989 CERVICAL CANCER SCREENING 1998 HPV/Cotest (30-65) 1998 PAP SMEAR 1998 BREAST CANCER SCREENING 2008 FIT-DNA Q 3 years 2013 FIT/FOBT Q 1 year 2013 Flex Sig/CT Colonography Q 5 years 2013 COLORECTAL SCREENING 03/11/2020 03/11/2010 Colorectal Cancer Screening 03/11/2020 INFLUENZA VACCINE (#1) 2025 12/13/2019 Procedures Procedure Name Priority Date/Time Associated Diagnosis Comments ENDOSCOPY, COLON, DIAGNOSTIC Routine 03/11/2010 from Last 3 Months or Most Recently Relevant to Health Maintenance Results * ENDOSCOPY, COLON, DIAGNOSTIC (03/11/2010) us Abstract Spg Provider GI PROCEDURE ORDERABLES Fi nal Result from Last 3 Months or Most Recently Relevant to Health [place] [id number] [employer] Care Teams Security Attendant Relationship Specialty Start Date End Date Non-Staff, Physician NO ADDRESS ON FILE PCP - General 03/01/20
--- OUTSIDE RECORDS SUMMARY | 2025-05-14 04:23 | XMS_ITS | Encounter Summary ---
Author Organization [facility] Address [address] [place] [address] Care Team Providers Care Oracle Sql Developer Name Role Phone Non-Staff, Physician Primary Care Provider Unava ilable Encounter Details Date Type Department Care Team (Late st Contact Info) Description 01/21/2015 Lab Requisition [facility] Services [place] [address] [place] [address] Obed Henriquez, DO NO ADDRESS ON FILE Social History Tobacco Use Types Packs/Day Years Used Date Smoking Tobacco: Every Day Smokeless Tobacco: Never Alcohol Use Standard Drinks/Week [...] on file documented as of this encounter Procedures Procedure Name Priority Date/Time Associated Diagnosis Comments DIFFERENTIAL, MANUAL Routine 01/21/2015 10:26 PM CDT VITAMIN B12 AND FOLATE Routine 5 10:26 PM CDT CBC WITH DIFFERENTIAL Routine 01/21/2015 10:26 PM CDT TSH Routine 01/21/2015 10:26 PM CDT IRON LEVEL Routine 01/21/2015 10:26 PM CDT LIPID PANEL Routine 01/21/2015 10:26 PM CDT COMPREHENSIVE METABOLIC PANEL Routine 01/21/2015 10:26 PM CDT documented in this encounter Results * (ABNORMAL) MANUAL DIFFERENTIAL (01/21/2015 10:26 PM CDT) ADJUSTED WBC 14.4 K/uL 01/21/2015 11:18 PM CDT [facility] [place] SEGMENTED NEUTROPHILS 67 45 - 70 % 01/21/2015 11:18 PM CDT [facility] [place] LYMPHOCYTES RELATIVE 24 20 - 45 % 01/21/2015 11:18 PM CDT [facility] [place] MONOCYTES RELATIVE 4 2 - 8 % 01/21/2015 11:18 PM CDT [facility] [place] EOSINOPHILS RELATIVE 5 0 - 5 % 01/21/2015 11:18 PM CDT [facility] [place] PLATELET EST. Consistent with Count 01/21/2015 11:18 PM CDT [facility] [place] NEUTROPHILS ABSOLUTE COUNT 9.65(H) 1.78 - 5.38 K/uL 01/21/2015 11:18 PM CDT [facility] [place] LYMPHOCYTES ABSOLUTE 3.46 1.20 - 4.00 K/uL 01/21/2015 11:18 PM CDT [facility] [place] MONOCYTES ABSOLUTE 0.58 0.30 - 0.82 K/uL 01/21/2015 11:18 PM CDT [facility] [place] EOSINOPHILS ABSOLUTE 0.72(H) 0.04 - 0.54 K/uL 01/21/2015 11:18 PM CDT [facility] [place] RBC MORPHOLOGY Normal 01/21/2015 11:18 PM CDT [facility] [place] TOTAL CELLS COUNTED IN DIFF 100 01/21/2015 11:18 PM CDT [facility] [place] Blood 01/21/2015 10:2 6 PM CDT 01/21/2015 10:26 PM CDT Obed Henriquez DO HEMATOLOGY ORDERABLES COM Final Result [facility] [employer] [facility] CLIA # [id number] [address] [place] [address] * TSH (01/21/2015 10:26 PM CDT) TSH 1.73 0.30 - 4.80 uIU/mL 01/21/2015 11:17 PM CDT [facility] [employer] [facility] Blood 01/21/2015 10:2 6 PM CDT 01/21/2015 10:26 PM CDT us Obed Henriquez DO CHEMISTRY ORDERABLES Final Resu lt Performing Organization Address City/[facility]/ZIP Co de Phone Number [facility] [employer] [facility] CLIA # [id number] [address] [place] [address] * (ABNORMAL) LIPID PANEL (01/21/2015 10:26 PM CDT) CHOLESTEROL 263(H) 130 - 200 mg/dL 01/21/2015 11:17 PM CDT [facility] TRIGLYCERIDE 744(H) 30 - 200 mg/dL 01/21/2015 11:17 PM CDT [facility] [employer] HDL 35 - 80 mg/dL 01/21/2015 11:17 PM T [facility] [employer] Comment: Measured HDL is not accurate when the Triglyceride value exceeds 700. LDL CALCULATED 0 - 100 mg/dL 01/21/2015 11:17 PM T [facility] [employer] Comment:Calculated LDL is no t accurate when the Triglyceride value exceeds 400. NON-HDL CHOLESTEROL mg/dL 01/21/2015 11:17 PM CDT [facility]ENTERBugsnag [facility] Comment:Unable to determine Blood 01/21/2015 10:2 6 PM CDT 01/21/2015 10:26 PM CDT Narrative [facility] [employer] [facility] - 01/21/2015 11:17 PM CDT TOTAL CHOLESTEROL mg/dL Desirable <200 Borderline high 200-239 High >=240 TRIGLYCERIDES mg/dL Normal <150 Borderline high 150-199 High 200-499 Very high >=500 HDL CHOLESTEROL mg/dL Low <40 Normal 40-60 Desirable >60 LDL CHOLESTEROL mg/dL Optimal <100 Low risk 100-129 Borderline high 130-159 High 160-189 Very high >=190 NON HDL CHOLESTEROL mg/dL Desirable <130 Borderline high 130-159 High 160-189 Very high >=190 Based on AHA/NCEP Guidelines Obed Henriquze DO CHEMISTRY ORDERABLES Final Resu lt Performing Organization Address [facility]/ZIP Co de Phone Number [facility] [place] CLIA # [id number] [address] [place] [address] * (ABNORMAL) IRON LEVEL (01/21/2015 10:26 PM CDT) IRON 38(L) 50 - 170 ug/dL 01/21/2015 11:18 PM CDT [facility] [place] Blood 01/21/2015 10:2 6 PM CDT 01/21/2015 10:26 PM CDT Obed Henriquez DO CHEMISTRY ORDERABLES Final Resu lt Performing Organization Address [facility]/ZIP Co de Phone Number [facility] [employer] [facility] CLIA # [id number] [address] [place] [address] * (ABNORMAL) COMPREHENSIVE METABOLIC PANEL (01/21/2015 10:26 PM CDT) SODIUM 137 136 - 145 mmol/L 01/21/2015 11:17 PM CDT [facility]ENTERRevionics [facility] [place] POTASSIUM 3.9 3.5 - 5.1 mmol/L 01/21/2015 11:17 PM CDT [facility] [place] CHLORIDE 101 98 - 107 mmol/L 01/21/2015 11:17 PM CDT [facility] [place] CO2 24 21 - 32 mmol/L 01/21/2015 11:17 PM CDT [facility] [place] CALCIUM 9.6 8.5 - 10.1 mg/dL 01/21/2015 11:17 PM CDT [facility] [place] BUN 10 7 - 18 mg/dL 01/21/2015 11:17 PM [facility] CREATININE 1.10 0.60 - 1.30 mg/dL 01/21/2015 11:17 PM [facility]OR[facility] GLUCOSE 92 74 - 106 mg/dL 01/21/2015 11:17 PM [facility] TOTAL PROTEIN 7.9 6.4 - 8.2 g/dL 01/21/2015 11:17 PM [facility] ALBUMIN 3.7 3.4 - 5.0 g/dL 01/21/2015 11:17 PM [facility]ORAT[facility] BILIRUBIN TOTAL 0.3 0.2 - 1.0 mg/dL 01/21/2015 11:17 PM [facility]ORATORY [facility] ALKALINE PHOSPHATASE 73 46 - 116 U/L 01/21/2015 11:17 PM [facility] AST 18 15 - 37 U/L 01/21/2015 11:17 PM [facility] ALT 22(L) 30 - 65 U/L 01/21/2015 11:17 PM [facility] GFR 53(L) >=60 mL/min/1.7 3 sq meter 01/21/2015 11:17 PM [facility] [employer] [facility] Comment: eGFR has not been validated for use in the elderly (> 70 years of age), women, patients with serious co-morbid conditions, or persons with extremes of body size or muscle mass and should also be interpreted with caution in patients with acute kidney failure, dialysis dependent patients, patients reporting exceptional dietary intake (e.g. vegetarian diet, high protein diets, creatine supplementation), and patients with severe liver disease. Based on National Kidney Disease Education Program If patient is , please refer to the GFR result. GFR, >60 >=60 mL/min/1.7 3 sq meter 01/21/2015 11:17 PM [facility] ANION GAP 12 12 - 20 mmol/L 01/21/2015 11:17 PM [facility] Blood 01/21/2015 10:2 6 PM CDT 01/21/2015 10:26 PM CDT Narrative [facility] [place] - 01/21/2015 11:17 PM CDT Effective 07/12/2014, the Alkaline Phosphatase test method and reference range have changed. Please take this into consideration when interpreting results prior to or after this date. us Obed Henriquez DO CHEMISTRY ORDERABLES Final Resu lt [facility] CLIA # [id number] [address] [place] [address]83 * (ABNORMAL) CBC WITH DIFFERENTIAL (01/21/2015 10:26 PM CDT) WBC 14.4(H) 4.0 - 10.0 K/uL 01/21/2015 10:49 PM CDT [facility] RBC 5.27(H) 3.93 - 5.22 M/uL 01/21/2015 10:49 PM CDT [facility] HEMOGLOBIN 15.3 11.2 - 15.7 g/dL 01/21/2015 10:49 PM CDT [facility] [place] HEMATOCRIT 46.3(H) 34.1 - 44.9 % 01/21/2015 10:49 PM CDT [facility] MCV 87.9 79.4 - 94.8 fL 01/21/2015 10:49 PM CDT [facility] MCH 29.0 25.6 - 32.2 pg 01/21/2015 10:49 PM CDT [facility] MCHC 33.0 32.2 - 35.5 g/dL 01/21/2015 10:49 PM CDT [facility] [employer] [facility] RDW 16.0(H) 11.0 - 14.5 % 01/21/2015 10:49 PM CDT [facility] [employer] [facility] RDW-STDEV 51.6 36.9 - 56.9 fL 01/21/2015 10:49 PM CDT [facility] [employer] [facility] [place] PLATELETS 544(H) 163 - 337 K/uL 01/21/2015 10:49 PM CDT [facility] [employer] [facility] MPV 10.9 10.0 - 14.8 fL 01/21/2015 10:49 PM CDT [facility] [employer] Blood 01/21/2015 10:2 6 PM CDT 01/21/2015 10:26 PM CDT Obed Henriquez DO HEMATOLOGY ORDERABLES Final Res ult [facility] [employer] [facility] CLIA # [id number] [address] [place] [address] * VITAMIN B12 AND FOLATE (01/21/2015 10:26 PM CDT) FOLATE, SERUM 11.02 >=5.38 ng/mL 01/22/2015 9:33 PM CDT [facility] [employer] VITAMIN B12 238 211 - 911 pg/mL 01/22/2015 9:33 PM CDT [facility] [employer] [facility] Blood specimen (specimen) 01/21/2015 10:26 PM CDT 01/21/2015 10:26 PM CDT Obed Henriquez DO CHEMISTRY ORDERABLES Final Resu lt Performing Organization Address City/[facility]/ZIP Co de Phone Number [facility] [employer] [facility] CLIA# [id number] [facility] [place], [place] [id number] [place] [address] [employer] [facility] CLIA# [id number] [address] [place] [address] documented in this encounter Visit Diagnoses Not on filedocumented in this encounter Care Teams Oracle Sql Developer Relationship Specialty Start Date End Date Non-Staff, Physician NO ADDRESS ON FILE PCP - General 03/01/20 documented as of this encounter
--- OUTSIDE RECORDS SUMMARY | 2025-05-14 04:23 | XMS_ITS | Encounter Summary ---
Author Organization [facility] Address [address] [place] [address] Care Team Providers Care Legislative Correspondent Name Role Phone Non-Staff, Physician Primary Care Provider Unava ilable Encounter Details Date Type Department Care Team (Late st Contact Info) Description 12/23/2015 Lab Requisition [facility] [place] [address] [facility] [address] [place] [id number] Jay Jay Riddle PA NO ADDRESS ON FILE Social History Tobacco [...] Procedure Name Priority Date/Time Associated Diagnosis Comments FOLATE, SERUM Routine 12/23/2015 8:48 PM FIELD TECHNICAL SPECIALIST CBC WITH DIFFERENTIAL Routine 12/23/2015 8:48 PM FIELD TECHNICAL SPECIALIST VITAMIN D 25 HYDROXY Routine 12/23/2015 8:48 PM FIELD TECHNICAL SPECIALIST TSH Routine 12/23/2015 8:48 PM FIELD TECHNICAL SPECIALIST IRON LEVEL Routine 12/23/2015 8:48 PM FIELD TECHNICAL SPECIALIST VITAMIN B12 LEVEL Routine 12/23/2015 8:4 8 PM FIELD TECHNICAL SPECIALIST HEPATIC FUNCTION PANEL Routine 12/23/2015 8:48 PM FIELD TECHNICAL SPECIALIST LIPID PANEL Routine 12/23/2015 8:48 PM FIELD TECHNICAL SPECIALIST BASIC METABOLIC PANEL Routine 12/23/2015 8:48 PM FIELD TECHNICAL SPECIALIST documented in this encounter Results * (ABNORMAL) VITAMIN D 25 HYDROXY (12/23/2015 8:48 PM FIELD TECHNICAL SPECIALIST) VITAMIN D TOTAL (25OH) 6(L) 30 - 100 ng/ml 12/25/2015 1:31 AM FIELD TECHNICAL SPECIALIST [facility] Blood 12/23/2015 8:48 PM FIELD TECHNICAL SPECIALIST 12/23/2015 8:48 PM FIELD TECHNICAL SPECIALIST Narrative [facility] [employer] [facility] - 12/25/2015 1:31 AM FIELD TECHNICAL SPECIALIST Interpretive Data Chart: Deficient: 0 - 20 ng/ml Insufficient: 21 - 29 ng/ml Sufficient: 30 - 100 ng/ml Increased Risk of Hypercalciuria: >100 ng/ml Toxic: >150 ng/ml Jay Jay GAGNON CHEMISTRY ORDERABLES Final Re sult Performing Organization Address [facility]/ZIP Co de Phone Number [facility] CLIA# [id number] [address] [place] [address] * TSH (12/23/2015 8:48 PM FIELD TECHNICAL SPECIALIST) Pathologist [facility] TSH 2.47 0.27 - 4.20 uIU/mL 12/23/2015 9:55 PM FIELD TECHNICAL SPECIALIST [facility] Blood 12/23/2015 8:48 PM FIELD TECHNICAL SPECIALIST 12/23/2015 8:48 PM FIELD TECHNICAL SPECIALIST Jay Jay GAGNON CHEMISTRY ORDERABLES Final Re sult Performing Organization Address City/[facility]/ZIP Co de Phone Number [facility] [employer] [facility] CLIA # [id number] [address] [address] * (ABNORMAL) LIPID PANEL (12/23/2015 8:48 PM FIELD TECHNICAL SPECIALIST) CHOLESTEROL 262(H) <200 mg/dL 12/23/2015 9:55 PM [facility] TRIGLYCERIDE 626(H) <150 mg/dL 12/23/2015 9:55 PM [facility] HDL 44 40 - 59 mg/dL 12/23/2015 9:55 PM [facility] LDL CALCULATED <100 mg/dL 12/23/2015 9:55 PM [facility] Comment:Calculated LDL is no t accurate when the Triglyceride value exceeds 400. NON-HDL CHOLESTEROL 218(H) <130 mg/dL 12/23/2015 9:55 PM [facility] Blood 12/23/2015 8:48 PM FIELD TECHNICAL SPECIALIST 12/23/2015 8:48 PM FIELD TECHNICAL SPECIALIST [facility] - 12/23/2015 9:55 PM FIELD TECHNICAL SPECIALIST TOTAL CHOLESTEROL mg/dL Desirable <200 Borderline high 200-239 High >=240 TRIGLYCERIDES mg/dL Normal <150 Borderline high 150-199 High 200-499 Very high >=500 HDL CHOLESTEROL mg/dL Low <40 Normal 40-59 Desirable >=60 LDL CHOLESTEROL mg/dL Optimal <100 Low risk 100-129 Borderline high 130-159 High 160-189 Very high >=190 NON HDL CHOLESTEROL mg/dL Optimal <130 Near Optimal 130-159 Borderline High 160-189 High 190-219 Very high >=220 Based on AHA/NCEP Guidelines Jay Jay GAGNON CHEMISTRY ORDERABLES Final Re sult [facility] CLIA # [id number] [address] [address] * IRON LEVEL (12/23/2015 8:48 PM FIELD TECHNICAL SPECIALIST) IRON 47 37 - 145 ug/dL 12/23/2015 9:55 PM [facility] Blood 12/23/2015 8:48 PM FIELD TECHNICAL SPECIALIST 12/23/2015 8:48 PM FIELD TECHNICAL SPECIALIST Jay Jay GAGNON CHEMISTRY ORDERABLES Final Re sult Performing Organization Address [facility] de Phone Number [facility] [place] CLIA # [id number] [address] [place] [address] [phone] * HEPATIC FUNCTION PANEL (12/23/2015 8:48 PM FIELD TECHNICAL SPECIALIST) TOTAL PROTEIN 7.4 6.6 - 8.7 g/dL 12/23/2015 9:55 PM FIELD TECHNICAL SPECIALIST [facility] [place] ALBUMIN 4.1 3.5 - 5.2 g/dL 12/23/2015 9:55 PM FIELD TECHNICAL SPECIALIST [facility] [place] BILIRUBIN TOTAL 0.2 0.0 - 1.2 mg/dL 12/23/2015 9:55 PM FIELD TECHNICAL SPECIALIST [facility] [place] BILIRUBIN DIRECT <0.2 0.0 - 0.3 mg/dL 12/23/2015 9:55 PM FIELD TECHNICAL SPECIALIST [facility] [place] ALKALINE PHOSPHATASE 66 35 - 104 U/L 12/23/2015 9:55 PM FIELD TECHNICAL SPECIALIST [facility] [place] AST 22 10 - 35 U/L 12/23/2015 9:55 PM FIELD TECHNICAL SPECIALIST [facility] [place] ALT 19 10 - 35 U/L 12/23/2015 9:55 PM FIELD TECHNICAL SPECIALIST [facility] [place] Blood 12/23/2015 8:48 PM FIELD TECHNICAL SPECIALIST 12/23/2015 8:48 PM FIELD TECHNICAL SPECIALIST Jay Jay GAGNON CHEMISTRY ORDERABLES Final Re sult Performing Organization Address [facility] Co de Phone Number [facility] [place] CLIA # [id number] [address] [place] [address] [phone] * BASIC METABOLIC PANEL (12/23/2015 8:48 PM FIELD TECHNICAL SPECIALIST) SODIUM 136 136 - 145 mmol/L 12/23/2015 9:55 PM FIELD TECHNICAL SPECIALIST [employer] [facility] [place] POTASSIUM 3.8 3.5 - 5.1 mmol/L 12/23/2015 9:55 PM [facility] CHLORIDE 98 98 - 107 mmol/L 12/23/2015 9:55 PM [facility] [employer] [facility] [place] CO2 22 22 - 29 mmol/L 12/23/2015 9:55 PM [facility] [email or web address] [facility] [place] CALCIUM 9.6 8.6 - 10.0 mg/dL 12/23/2015 9:55 PM [facility] [email or web address] [facility] BUN 9 6 - 20 mg/dL 12/23/2015 9:[address] [facility] [employer] [facility] CREATININE 0.81 0.51 - 0.95 mg/dL 12/23/2015 9:55 PM [facility] [email or web address] [facility] GLUCOSE 89 74 - 106 mg/dL 12/23/2015 9:55 PM [facility] [email or web address] [facility] GFR >60 >=60 mL/min/1.7 3 sq meter 12/23/2015 9:55 PM [facility] [email or web address] [facility] Comment: eGFR has not been validated for [...] GFR, >60 >=60 mL/min/1.7 3 sq meter 12/23/2015 9:55 PM [facility] [employer] [facility] ANION GAP 16 12 - 20 mmol/L 12/23/2015 9:55 PM [facility] [email or web address] [facility] Blood 12/23/2015 8:48 PM FIELD TECHNICAL SPECIALIST 12/23/2015 8:48 PM FIELD TECHNICAL SPECIALIST us Jay Jay GAGNON CHEMISTRY ORDERABLES Final Re sult [facility] [employer] [facility] CLIA # [id number] [address] [place] [address] * (ABNORMAL) CBC WITH DIFFERENTIAL (12/23/2015 8:48 PM FIELD TECHNICAL SPECIALIST) WBC 13.5(H) 4.0 - 10.0 K/uL 12/23/2015 9:11 PM FIELD TECHNICAL SPECIALIST [facility] [place] RBC 5.00 3.93 - 5.22 M/uL 12/23/2015 9:11 PM FIELD TECHNICAL SPECIALIST [facility] [place] HEMOGLOBIN 14.1 11.2 - 15.7 g/dL 12/23/2015 9:11 PM FIELD TECHNICAL SPECIALIST [facility] [place] HEMATOCRIT 43.1 34.1 - 44.9 % 12/23/2015 9:11 PM FIELD TECHNICAL SPECIALIST [facility] [place] MCV 86.2 79.4 - 94.8 fL 12/23/2015 9:11 PM FIELD TECHNICAL SPECIALIST [facility] [place] MCH 28.2 25.6 - 32.2 pg 12/23/2015 9:11 PM FIELD TECHNICAL SPECIALIST [facility] [place] MCHC 32.7 32.2 - 35.5 g/dL 12/23/2015 9:11 PM FIELD TECHNICAL SPECIALIST [facility] [place] RDW 17.1(H) 11.0 - 14.5 % 12/23/2015 9:11 PM FIELD TECHNICAL SPECIALIST [employer] [place] RDW-STDEV 53.9 36.9 - 56.9 fL 12/23/2015 9:11 PM FIELD TECHNICAL SPECIALIST [employer] [facility] [place] PLATELETS 533(H) 163 - 337 K/uL 12/23/2015 9:11 PM FIELD TECHNICAL SPECIALIST [facility] [place] MPV 10.6 10.0 - 14.8 fL 12/23/2015 9:11 PM FIELD TECHNICAL SPECIALIST [facility] [place] NEUTROPHILS 53 34 - 71 % 12/23/2015 9:11 PM FIELD TECHNICAL SPECIALIST [facility] [place] LYMPHOCYTES 27 19 - 52 % 12/23/2015 9:11 PM FIELD TECHNICAL SPECIALIST [facility] [place] MONOCYTES 10 5 - 13 % 12/23/2015 9:11 PM FIELD TECHNICAL SPECIALIST [facility] [place] EOSINOPHILS 8(H) 1 - 6 % 12/23/2015 9:11 PM FIELD TECHNICAL SPECIALIST [facility] [place] BASOPHILS 2(H) 0 - 1 % 12/23/2015 9:11 PM FIELD TECHNICAL SPECIALIST [facility] [place] NEUTROPHIL ABSOLUTE 7.08(H) 1.56 - 6.13 K/uL 12/23/2015 9:11 PM FIELD TECHNICAL SPECIALIST [facility] [place] LYMPHOCYTE ABSOLUTE 3.68(H) 1.20 - 3.40 K/uL 12/23/2015 9:11 PM FIELD TECHNICAL SPECIALIST [facility] [place] MONOCYTE ABSOLUTE 1.33(H) 0.24 - 0.36 K/uL 12/23/2015 9:11 PM FIELD TECHNICAL SPECIALIST [facility] [place] EOSINOPHIL ABSOLUTE 1.09(H) 0.04 - 0.36 K/uL 12/23/2015 9:11 PM FIELD TECHNICAL SPECIALIST [facility] [place] BASOPHILS ABSOLUTE 0.29(H) 0.01 - 0.08 K/uL 12/23/2015 9:11 PM FIELD TECHNICAL SPECIALIST [facility] [place] IMMATURE GRANULOCYTES 0 % 12/23/2015 9:11 PM FIELD TECHNICAL SPECIALIST [facility] [place] IMMATURE GRANULOCYTES ABSOLUTE 0.02 K/uL 12/23/2015 9:11 PM FIELD TECHNICAL SPECIALIST [facility] Blood 12/23/2015 8:48 PM FIELD TECHNICAL SPECIALIST 12/23/2015 8:48 PM FIELD TECHNICAL SPECIALIST Jay Jay GAGNON HEMATOLOGY ORDERABLES Final R esult Performing Organization Address City/[facility]/ZIP Co de Phone Number [facility] CLIA # [id number] [address] [place] [phone] * FOLATE, SERUM (12/23/2015 8:48 PM FIELD TECHNICAL SPECIALIST) FOLATE, SERUM 21.7 >=5.4 ng/mL 12/25/2015 1:31 AM FIELD TECHNICAL SPECIALIST [facility] [employer] [facility] Blood 12/23/2015 8:48 PM FIELD TECHNICAL SPECIALIST 12/23/2015 8:48 PM FIELD TECHNICAL SPECIALIST Jay Jay GAGNON CHEMISTRY ORDERABLES Final Re sult [facility] CLIA# [id number] [address] [place] [address] * VITAMIN B12 LEVEL (12/23/2015 8:48 PM FIELD TECHNICAL SPECIALIST) VITAMIN B12 239 211 - 946 pg/mL 12/23/2015 9:59 PM FIELD TECHNICAL SPECIALIST [facility] Blood 12/23/2015 8:48 PM FIELD TECHNICAL SPECIALIST 12/23/2015 8:48 PM FIELD TECHNICAL SPECIALIST Jay Jay GAGNON CHEMISTRY ORDERABLES Final Re sult [facility] [employer] [facility] CLIA # [id number] [address] [place] [id number] documented in this encounter Visit Diagnoses Not on filedocumented in this encounter Care Teams Legislative Correspondent Relationship Specialty Start Date End Date Non-Staff, Physician NO ADDRESS ON FILE PCP - General 03/01/20 documented as of this encounter
--- NOTE | 2025-05-14 04:42 | XRR_ITS ---
PROCEDURE INFORMATION: Exam: XR Chest Exam date and time: 05/14/2025 4:47 AM Age: 54 years old Clinical indication: Cough and shortness of breath; Prior surgery; Surgery date: 6+ months; Surgery type: Splenectomy; C/O cough with SOB. TECHNIQUE: Imaging protocol: Radiologic exam of the chest. Views: 1 view. COMPARISON: CR XR chest 1V portable [id number] 12/15/2024 11:25 AM FINDINGS: Lungs: Unremarkable. No consolidation. Pleural spaces: Unremarkable. No pleural effusion. No pneumothorax. Heart/Mediastinum: Unremarkable. No cardiomegaly. Bones/joints: Unremarkable. XR/XR chest 1V portable [id number] IMPRESSION: No acute findings.
[2025-05-14 05:14] VITALS: PULSE 85; RESP 18; O2SAT 98
[2025-05-14 05:22] VITALS: BP 144/114; PULSE 80; RESP 16; O2SAT 99
--- NOTE | 2025-05-14 05:31 | ECG_ITS ---
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 Support Supervisor: : 1970 Requested By: Bhavesh Zazueta Order Number: [id number] Reading MD: Measurements Intervals [place] Rate: 78 P: 20 FL: 162 QRS: -49 QRSD: 119 T: 101 QT: 419 QTc: 478 Interpretive Statements SINUS RHYTHM WITH OCCASIONAL VENTRICULAR PREMATURE COMPLEXES LEFT ANTERIOR FASCICULAR BLOCK [QRS AXIS <= -45, QR IN I, RS IN II] LEFT VENTRICULAR HYPERTROPHY AND ST-T CHANGE [VOLTAGE CRITERIA PLUS ST/T ABNORMALITY] POSSIBLE ANTERIOR MYOCARDIAL INFARCTION , OF INDETERMINATE AGE [30 ms Q WAVE IN V3/V4, OR R < 0.2 mV IN V4] Compared to ECG 12/15/2024 18:08:46 Ventricular premature complex(es) now present Left ventricular hypertrophy now present ST (T wave) deviation now present Myocardial infarct finding still present [email or web address] [id number]
--- NOTE | 2025-05-14 05:37 | W.ED.SOB ---
HPI - SOB/Dyspnea General: Chief Complaint: Shortness of Breath/Dyspnea Stated Complaint: sob Time Seen by Provider: 05/14/25 04:37 History of Present Illness: HPI Narrative: 54-year-old female who says that she has been coughing on and off and having some shortness of breath since December or so. She says she is hard to sleep at night, because when she lays down flat she starts coughing and gets short of breath. She has to elevate her head. She also states that she gets extremely short of breath with any activity, even walking around her house. She came in for PFTs last week, and had to stop [address] to the pulmonary cardiac department because she was short of breath. She states that her PFTs were normal however. She has intermittent sputum production. She used to smoke 4.5 packs/day, but is cut back to 1/2 pack/day. No fever. Chest discomfort only with coughing fits. No lower extremity swelling. She does have a history of coronary disease, with stent placement last year. Related Data Home Medications ?Medication ?Instructions ?Recorded ?Confirmed acetaminophen 500 mg tablet 1,000 mg PO Q6H PRN Pain 06/28/23 05/08/25 rosuvastatin 10 mg tablet 20 mg PO DAILY 05/02/25 05/08/25 Previous Rx's ?Medication ?Instructions ?Recorded aspirin 81 mg chewable tablet 81 mg PO DAILY #30 tabs 12/18/24 clopidogrel 75 mg tablet 75 mg PO DAILY #30 tabs 12/18/24 isosorbide mononitrate 20 mg tablet 10 mg (1/2 x 20 mg) PO BID #30 tabs 12/18/24 metoprolol tartrate 25 mg tablet 12.5 mg (1/2 x 25 mg) PO 12/18/24 BID@0900,2100 #60 tabs escitalopram oxalate 5 mg tablet 5 mg PO .evening meal #30 tabs 05/02/25 (Lexapro) cholecalciferol (vitamin D3) 125 125 mcg PO DAILY #52 mL 05/08/25 mcg/mL (5,000 unit/mL) oral drops albuterol sulfate 90 mcg/actuation 2 inh inhalation Q4H PRN shortness 05/14/25 aerosol inhaler of breath or wheezing #6.7 grams furosemide 40 mg tablet (Lasix) 40 mg PO DAILY #3 tabs 05/14/25 potassium chloride 20 mEq oral 20 meq PO DAILY #5 ea 05/14/25 packet Allergies Allergy/AdvReac Type Severity Reaction Status Date / Time codeine Allergy Severe ADR-Agitate Verified 05/02/25 10:09 d metronidazole (From Flagyl) Allergy Mild ALGY-Rash Verified 05/02/25 10:09 acetaminophen (From Percocet) Allergy Unknown Verified 05/02/25 10:09 Iodinated Contrast Media Allergy ALGY-Hives Verified 05/02/25 10:09 oxycodone (From Percocet) Allergy Unknown Verified 05/02/25 10:09 fentanyl AdvReac Mild Unknown Verified 05/02/25 10:09 hydromorphone (From Dilaudid) AdvReac Mild unknown Verified 05/02/25 10:09 PFSH ED PFSH: Medical History MRSA infection Abdominal abscess Benign essential HTN Crohn disease Pt. had part of her small and large intestine removed in 2009. Uterine leiomyoma Vertigo Anxiety Surgical History History of CAD (coronary artery disease) 11/28/24 2 stents, 12/17/24 1 stent [facility] H/O ileostomy (~2009) Status post colonoscopy S/P partial colectomy (~2009) History of splenectomy History of eye surgery Family History Other CAD (coronary artery disease) Diabetes Psychiatric illness Denies family history of Cancer Social History Smoking and tobacco/nicotine status: current every day tobacco/nicotine user cigarettes Packs smoked per day: 1.5 Alcohol intake: never Substance/Drug Use: never Household members: spouse Housing: House Marital status: Current occupational status: employed 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 Physical Exam Const: COMMON NORMALS: no acute distress GENERAL APPEARANCE: cooperative and anxious; not frail appearing HENMT: COMMON NORMALS: normocephalic, atraumatic and Normal external nose present HEAD & SCALP: normocephalic and atraumatic FACE & SINUS: normal facial exam and face symmetric NOSE: Normal external nose present Eye: COMMON NORMALS: Equal, round and reactive pupils present and EOMs intact bilaterally PUPIL: Yes Equal, round and reactive pupils present Neck/C-Spine: GENERAL: Yes trachea midline Chest: CHEST: Yes Symmetrical chest wall rise Resp: COMMON NORMALS: normal respiratory effort, No retractions, No use of accessory muscles and clear to auscultation bilaterally AUSCULTATION: clear to auscultation bilaterally Cardio: COMMON NORMALS: regular rate and regular rhythm RATE: regular rate RHYTHM: regular rhythm GI: COMMON NORMALS: Normal to inspection, nondistended, normoactive bowel sounds present Extremity: COMMON NORMALS: no pedal edema Neuro: BRIGIDO COMA SCALE: document GCS findings [place] coma scale eye opening: Spontaneous [place] coma scale verbal response: Orientated Brig[place] coma scale motor response: Obey commands [place] coma scale total score: 15 SENSORY EXAM: Yes extremities (intact) Psych: COMMON NORMALS: speech normal SPEECH: Yes normal speech Skin: COMMON NORMALS: no rashes or lesions noted GENERAL SKIN EXAM: no rashes or lesions noted Course Vital Signs: Vital signs: Vital Signs Temperature 97.6 F 05/14/25 04:19 Pulse Rate 88 05/14/25 07:00 Respiratory Rate 16 05/14/25 07:00 Blood Pressure 149/103 05/14/25 07:00 Pulse Oximetry 99 05/14/25 07:00 Oxygen Delivery Me thod Room Air 05/14/25 07:00 MDM - SOB/Dyspnea Medical Decision Making Patient is at rest currently. She denies anxiety but clinically does appear somewhat anxious. Her CBC is normal. Her chest x-ray is negative. She is not terribly short of breath currently. She remains hypertensive. She is in sinus rhythm, with saturations of 99% on room air. No ST-T wave changes to indicate myocardial ischemia. Swabs for flu COVID and RSV are negative. Troponin mildly elevated at 33. The patient is not having active chest pain. BNP however is 7000, which is a significant increase from prior BNP. Despite chest x-ray being negative, could be reason for shortness of breath and cough. Room air saturations are normal. She will be prescribed furosemide for diuresis for the next 3 days along with potassium supplementation. As nebulizer treatments seem to help her symptoms to some degree, she will also be prescribed an albuterol inhaler. This can be used as needed. She will follow-up with her doctor. Will set her up for an outpatient echocardiogram regarding the elevated BNP. Case management will contact her regarding this. She knows to return for worsening symptoms despite treatment. She was counseled extensively on the plan and demonstrates understanding. Lab Data 05/14/25 05:48 05/14/25 05:48 Labs/Radiology: Radiology Impressions Chest X-Ray 05/14/25 04:42 IMPRESSION: No acute findings. Laboratory Results WBC 10.74 10^3/uL (3.29-11.43) 05/14/25 05:48 RBC 4.42 10^6/uL (3.85-5.65) 05/14/25 05:48 Hgb 14.60 g/dL (11.27-16.99) 05/14/25 05:48 Hct 43.4 % (36-47) 05/14/25 05:48 MCV 98.2 fl (85-98) H 05/14/25 05:48 MCH 33.0 pg (27-33) 05/14/25 05:48 MCHC 33.6 g/dL (30-55) 05/14/25 05:48 RDW 18.8 % (12.1-15.1) H 05/14/25 05:48 Plt Count 359 10^3/cmm (157-399) 05/14/25 05:48 MPV 10.7 fL (7.4-10.4) H 05/14/25 05:48 Neut % (Auto) 67.0 % 05/14/25 05:48 Lymph % (Auto) 23.1 % 05/14/25 05:48 [place] % (Auto) 7.3 % 05/14/25 05:48 Eos % (Auto) 1.2 % 05/14/25 05:48 Baso % (Auto) 0.9 % 05/14/25 05:48 Neut # (Auto) 7.20 10^3/uL (1.8-7.7) 05/14/25 05:48 Lymph # (Auto) 2.5 10^3/uL (0.8-4.8) 05/14/25 05:48 [place] # (Auto) 0.8 10^3/uL (0.2-0.9) 05/14/25 05:48 Eos # (Auto) 0.1 10^3/uL (0.0-0.8) 05/14/25 05:48 Baso # (Auto) 0.1 10^3/uL (0.0-0.1) 05/14/25 05:48 Nucleated RBC % (auto) 7.1 % 05/14/25 05:48 Nucleated RBCs # 0.8 /100WBC 05/14/25 05:48 Sodium 139 mmol/L (136-145) 05/14/25 05:48 Potassium 4.0 mmol/L (3.5-5.1) 05/14/25 05:48 Chloride 106 mmol/L (98-107) 05/14/25 05:48 Carbon Dioxide 19 mmol/L (22-29) L 05/14/25 05:48 Anion Gap 18.0 (5-19) 05/14/25 05:48 BUN 12 mg/dL (6-20) 05/14/25 05:48 Creatinine 1.0 mg/dL (0.5-0.9) H 05/14/25 05:48 GFR Calculation 57.4 mL/min (90-130) L 05/14/25 05:48 Glucose 115 mg/dL (65-115) 05/14/25 05:48 Calculated Osmolality 289 mOsm/kg (285-295) 05/14/25 05:48 Lactic Acid 1.9 mmol/L (0.5-2.2) 05/14/25 05:48 Calcium 9.6 mg/dL (8.5-10.5) 05/14/25 05:48 Total Bilirubin 1.0 mg/dL (0.15-1.2) 05/14/25 05:48 AST 25 U/L (0-32) 05/14/25 05:48 ALT 29 U/L (0-33) 05/14/25 05:48 Alkaline Phosphatase 97 U/L (35-105) 05/14/25 05:48 Troponin T Baseline 33 ng/L (0-10) H 05/14/25 05:48 NT-Pro-B Natriuret Pep 6896 pg/mL (0-125) H 05/14/25 05:48 Total Protein 6.5 g/dL (6.6-8.7) L 05/14/25 05:48 Albumin 3.9 g/dL (3.5-5.2) 05/14/25 05:48 Globulin 2.6 g/dL (1.3-4.6) 05/14/25 05:48 Influenza A (PCR) Negative (Negative) 05/14/25 05:20 Influenza Type B (PCR) Negative (Negative) 05/14/25 05:20 RSV (PCR) Negative (Negative) 05/14/25 05:20 SARS-CoV-2 (PCR) Negative (Negative) 05/14/25 05:20 All radiology interpretation(s) finalized by discharge Discharge Plan Discharge Patient Disposition: Home Clinical Impression: Hypertension, Congestive cardiomyopathy Condition: Stable Prescriptions: New furosemide [Lasix] 40 mg tablet 40 mg PO DAILY Qty: 3 0RF potassium chloride 20 mEq packet 20 meq PO DAILY Qty: 5 0RF albuterol sulfate 90 mcg/actuation HFA aerosol inhaler 2 inh INHALATION Q4H PRN (Reason: shortness of breath or wheezing) Qty: 6.7 1RF No Action rosuvastatin 10 mg tablet 20 mg PO DAILY escitalopram oxalate [Lexapro] 5 mg tablet 5 mg PO .evening meal Qty: 30 0RF cholecalciferol (vitamin D3) 125 mcg/mL (5,000 unit/mL) drops 125 mcg PO DAILY Qty: 52 2RF acetaminophen 500 mg Tablet 1,000 mg PO Q6H PRN (Reason: Pain) clopidogrel 75 mg Tablet 75 mg PO DAILY Qty: 30 0RF aspirin 81 mg Tablet,Chewable 81 mg PO DAILY Qty: 30 0RF metoprolol tartrate 25 mg tablet 12.5 mg PO BID@0900,2100 Qty: 60 0RF isosorbide mononitrate 20 mg tablet 10 mg PO BID Qty: 30 0RF Rx Instructions: give doses 7 hrs apart Discharge Orders: Discharge ED (Routine); Ordered 05/14/25 Ordered By: Bhavesh Kraft Referrals: Mireya Varner [email or web address] [Primary Care Provider, Family Practice] - 1-3 days Patient Instructions: Pulmonary Edema (ED), Opioid Safety, Pain Management, Patient Portal & Roland Instructions Activity Restrictions/Additional Instructions: Use your inhaler as needed. Medication as directed. You will get a call from case management regarding outpatient echocardiogram that will be set up for you. Follow-up with your doctor later this week. Print Language: Telugu Coding Level of Care Code ED Systems Testing Laboratory Technician for [facility]
[2025-05-14 05:53] LABS: Hematocrit 43.4 % (36-47); Hemoglobin 14.60 g/dL (11.27-16.99); Mean Corpuscular HGB Conc 33.6 g/dL (30-55); Mean Corpuscular Hemoglobin 33.0 pg (27-33); Mean Corpuscular Volume 98.2 fl (85-98); Nucleated Red Blood Cells % 7.1 %; Platelet Count 359 10^3/cmm (157-399); Red Blood Count 4.42 10^6/uL (3.85-5.65); White Blood Count 10.74 10^3/uL (3.29-11.43)
[2025-05-14 06:06] LABS: Respiratory Syncytial Virus Ce NEGATIVE (Negative); SARS-CoV-2 PCR NEGATIVE (Negative)
[2025-05-14 06:14] LABS: Lactic Sepsis W/Reflex 1.9 mmol/L (0.5-2.2)
[2025-05-14 06:16] LABS: Troponin(5th) Baseline 33 ng/L (0-10)
[2025-05-14 06:20] LABS: Alanine Aminotransferase 29 U/L (0-33); Albumin Level 3.9 g/dL (3.5-5.2); Alkaline Phosphatase 97 U/L (35-105); Anion Gap 18.0 (5-19); Aspartate Amino Transferase 25 U/L (0-32); Blood Urea Nitrogen 12 mg/dL (6-20); Calcium 9.6 mg/dL (8.5-10.5); Carbon Dioxide 19 mmol/L (22-29); Chloride 106 mmol/L (98-107); Creatinine Clr Calc Pharmacy 76.7423; Globulin 2.6 g/dL (1.3-4.6); Glucose 115 mg/dL (65-115); NT Pro B Type Natriuretic Pept 6896 pg/mL (0-125); Osmolality Calculated 289 mOsm/kg (285-295); Potassium 4.0 mmol/L (3.5-5.1); Sodium 139 mmol/L (136-145); Total Protein 6.5 g/dL (6.6-8.7)
--- NOTE | 2025-05-14 06:56 | ECG_ITS ---
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 Measurements Intervals [place] Rate: 83 P: 33 TN: 151 QRS: -52 QRSD: 116 T: 96 QT: 419 QTc: 493 Interpretive Statements SINUS RHYTHM LEFT AXIS DEVIATION [QRS AXIS < -30] POSSIBLE ANTERIOR MYOCARDIAL INFARCTION , OF INDETERMINATE AGE [30 ms Q WAVE IN V3/V4, OR R < 0.2 mV IN V4] MODERATE T-WAVE ABNORMALITY, CONSIDER LATERAL ISCHEMIA [-0.1+ mV T-WAVE IN I/aVL/V5/V6] Compared to ECG 05/14/2025 05:31:48 Left-axis deviation now present T-wave abnormality now present Possible ischemia now present ST (T wave) deviation no longer present Myocardial infarct finding still present Electronically Signed On 05-15-2025 08:39:42 CDT by Regino Espinal M.D. [email or web address] [id number]
[2025-05-14 07:00] VITALS: BP 149/103; PULSE 88; RESP 16; O2SAT 99
[2025-05-14] MEDS: potassium chloride oral liq 20 mEq/15 mL UDC PO (07:19)
--- NOTE | 2025-05-14 07:24 | PC.NURSE ---
this nurse assumed pt care from Jv MIMS at 0700.
[2025-05-14 08:00] LABS: Troponin 5 2HR 31.14 ng/L (0-10)
[2025-05-14 08:06] LABS: Troponin 5 2HR Delta -1.86 ABS# (0-10)
--- NOTE | 2025-05-17 08:20 | DCPLANNER ---
faxed outpatient echo to scheduling
== END 2025-05-14 08:35 | disposition home or self-care (01) ==
PROVIDERS: Emergency Provider Emergency Medicine; PCP Nurse Practitioner
DX: I42.8 Other cardiomyopathies (principal); I10 Essential (primary) hypertension; Z79.02 Long term (current) use of antithrombotics/antiplatelets; Z79.82 Long term (current) use of aspirin; Z11.52 Encounter for screening for COVID-19; F17.210 Nicotine dependence, cigarettes, uncomplicated
CPT/HCPCS: 36415; 71045; 80053; 83605; 83880; 84484; 85025; 87637; 93005; 93010; 94640; 99285; J9999

== ENCOUNTER 2025-05-22 10:59 | Outpatient (CLI) | payer MEDICAID, SELFPAY ==
--- NOTE | 2025-05-22 10:45 | CT_ITS ---
WS: [id number] CT chest wo con [id number] HISTORY: F17.200 - Nicotine dependence, unspecified, uncomplicated TECHNIQUE: Axial imaging performed through the thorax. Coronal and sagittal reformats are submitted. All CT scans at [facility] use at least one of these dose optimization techniques: automated exposure control; mA and/or kV adjustment per patient size (includes targeted exams where dose is matched to clinical indication); or iterative reconstruction. CONTRAST: None DLP: 557.20 mGy.cm COMPARISON: None available. Lungs and central airway: Moderate pulmonary hyperinflation and centrilobular emphysema. There are a few very tiny scattered micronodules. 4 mm noncalcified nodule RIGHT upper lobe, image 27 series 5. No pneumonia. No endobronchial lesions. Pleura: Normal. No pleural effusion. Heart and pericardium: Mild cardiomegaly. Coronary artery stents are noted. Mediastinum and lyric: No pathologically enlarged lymph nodes. Vessels: Mild atherosclerosis aorta. No aneurysm. Normal size pulmonary artery. Chest wall and lower neck: No soft tissue masses. Upper abdomen: Small hiatal hernia. No adrenal mass. Atrophic pancreas. Scattered splenic artery calcifications. Spleen is absent. Surgical sutures are noted in the LEFT upper abdomen. Osseous structures: Small Schmorl's nodes defects in the mid to lower thoracic spine. No destructive bone lesions. CT/CT chest wo con [id number] IMPRESSION: 1. Moderate centrilobular emphysema. 2. 4 mm noncalcified nodule RIGHT upper lobe. Indeterminate solid pulmonary nodule measuring 4 mm. In a high-risk patient wit h a solid nodule <6 mm, CT at 12 months is optional with stronger consideration if there is suspicious nodule morphology and/or upper lobe location. A non-calcified 4 mm solid nodule in the right upper lobe is indeterminate. 3. No mediastinal or hilar adenopathy. 4. Absent spleen. 5. Mild cardiomegaly with coronary artery stents.
== END 2025-05-22 11:00 | disposition home or self-care (01) ==
PROVIDERS: PCP Nurse Practitioner; Visit Provider Nurse Practitioner
DX: Z12.2 Encounter for screening for malignant neoplasm of respiratory organs (principal); J43.2 Centrilobular emphysema; R91.1 Solitary pulmonary nodule; F17.200 Nicotine dependence, unspecified, uncomplicated
CPT/HCPCS: 71250

== ENCOUNTER 2025-06-19 00:16 | Emergency (ER) | payer MEDICAID, SELFPAY ==
--- OUTSIDE RECORDS SUMMARY | 2025-02-07 08:20 | XMS_ITS ---
Author Organization [facility] Address [address] [place] [address] Care Team Providers Care Hotel Recreational Facilities Manager Name Role Phone Albaro Tapia Primary Care Provider REASON FOR VISIT follow up Encounters Encounter Location Date Provider Diagnosis [facility] [address] [place] [phone] 02/07/2025 Albaro Tapia Plan Of Treatment No Information Progress Notes * Juan Alberto VELAJovannyB:[birth year] (54 yo F)Acc No.[id number]:02/07/2025 Progress Notes Patient: Fabiola Fuller Provider: Emile Tapia MD :1970 A ge:54 Y S ex:Female Date:02/07/2025 Address[place] [id number] Subjective: * Chief Complaints: * F ollow up Billing Information: * Procedure Codes: Care Plan Details* * Electronic signature of Arvind Tapia MD on 06/20/2025 at 12:34 PM CDT Sign off status: Pending * Provider: Emile Tapia MD Date: 02/07/2025 Generated for Mario Alberto ndiaye/Malorie/eTransmitting on: 06/20/2025 12:34 PM CDT
[2025-06-19] VITALS (10 sets, daily range): BP systolic 116–127; BP diastolic 82–88; PULSE 74–88; RESP 16–18; TEMP 36.5; O2SAT 95–100; BMI 27.2
--- NOTE | 2025-06-19 00:24 | ED_ITS ---
HPI - Abdominal Pain 2 General: Chief Complaint: Abdominal Pain Stated Complaint: ABD PAIN Time Seen by Provider: 06/19/25 00:17 History of Present Illness: 54-year-old woman with a history of COPD , abdominal abscess and multiple surgeries, Crohn's disease, anxiety, coronary artery disease and an ileostomy who presents to the emergency room with abdominal pain. She said this been going on for a while and will be sudden episodes. Worse with movement. Moves from one side of the abdomen to the other. Says tonight it got so bad she could not move. No nausea or vomiting Related Data Home Medications ?Medication ?Instructions ?Recorded ?Confirmed acetaminophen 500 mg tablet 1,000 mg PO Q6H PRN Pain 0 06/28/23 06/13/25 Previous Rx's ?Medication ?Instructions ?Recorded aspirin 81 mg chewable tablet 81 mg PO DAILY #30 tabs 12/18/24 isosorbide mononitrate 20 mg tablet 10 mg (1/2 x 20 mg ) PO BID #30 tabs 12/18/24 metoprolol tartrate 25 mg tablet 12.5 mg (1/2 x 25 mg) PO 12/18/24 BID@0900,2100 #60 tabs cholecalciferol (vitamin D3) 125 125 mcg PO DAILY #52 mL 05/08/25 mcg/mL (5,000 unit/mL) oral drops budesonide-formoterol HFA 160 2 puff inhalation Q12H # 10.2 grams 05/24/25 mcg-4.5 mcg/actuation aerosol inhaler (Symbicort) nebulizers #1 ea 05/24/25 albuterol sulfate 90 mcg/actuation 2 inh inhalation Q4 H PRN shortness 06/01/25 aerosol inhaler of breath or wheezing #6.7 g kristina clopidogrel 75 mg tablet 75 mg PO DAILY #30 tabs 05/02 rosuvastatin 10 mg tablet 20 mg (2 x 10 mg) PO DAILY # 30 tabs 06/13/25 cefdinir 250 mg/5 mL oral 300 mg (6 mL) PO BID 5 days #60 mL 06/19/25 suspension Allergies Allergy/AdvReac Type Severity Reaction Status Date / Time codeine Allergy Severe ADR-Agitate Verified 05/28/25 23:54 d metronidazole (From Flagyl) Allergy Mild ALGY-Rash Verified 05/28/25 23:54 acetaminophen (From Percocet) Allergy Unknown Verified 05/28/25 23:54 Iodinated Contrast Media Allergy ALGY-Hives Verified 05/28/25 23:54 oxycodone (From Percocet) Allergy Unknown Verified 05/28/25 23:54 fentanyl AdvReac Mild Unknown Verified 05/28/25 23:54 hydromorphone (From Dilaudid) AdvReac Mild unknown Verified 05/28/25 23:54 Review of Systems 2 Narrative: Constitutional symptoms: Negative except as documented in HPI. Skin symptoms: Negative except as documented in HPI. Eye symptoms: Negative except as documented in HPI. ENMT symptoms: Negative except as documented in HPI. Respiratory symptoms: Negative except as documented in HPI. Cardiovascular symptoms: Negative except as documented in HPI. Gastrointestinal symptoms: Negative except as documented in HPI. Genitourinary symptoms: Negative except as documented in HPI. Musculoskeletal symptoms: Negative except as documented in HPI. Neurologic symptoms: Negative except as documented in HPI. Psychiatric symptoms: Negative except as documented in HPI. Endocrine symptoms: Negative except as documented in HPI. 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 had part of her small and large intestine removed in 2009. Uterine leiomyoma Vertigo Anxiety Surgical History History of CAD (coronary artery disease) 11/28/24 2 stents, 12/17/24 1 stent [facility] H/O ileostomy (~2009) Status post colonoscopy S/P partial colectomy (~2009) History of splenectomy History of eye surgery Family History Other CAD (coronary artery disease) Diabetes Psychiatric illness Denies family history of Cancer Social History Smoking and tobacco/nicotine status: current every day tobacco/nicotine user cigarettes Packs smoked per day: 1.5 Alcohol intake: never Substance/Drug Use: never Household members: spouse Housing: House Marital status: Current occupational status: employed 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 Skin: Warm, dry. Head: Normocephalic, atraumatic. Neck: Supple, trachea midline. Eye: Extraocular movements are intact. Ears, nose, mouth and throat: mucosa moist. Cardiovascular: Regular, Normal peripheral perfusion. Respiratory: Lungs are clear to auscultation, respirations are non-labored, breath sounds are equal, Symmetrical chest wall expansion. Gastrointestinal: Soft, currently nontender, Non distended Musculoskeletal: Normal ROM, no deformity. Neurological: Alert and oriented, No focal neurological deficit observed. Psychiatric: Cooperative, appropriate mood & affect. Course 2 Vital Signs: Vital signs: Vital Signs Temperature 97.7 F 06/19/25 00:17 Pulse Rate 83 06/19/25 02:00 Respiratory Rate 18 06/19/25 00:17 Blood Pressure 127/87 06/19/25 00:39 Pulse Oximetry 99 06/19/25 02:00 Oxygen Delivery Me thod Room Air 06/19/25 02:00 MDM - Abdominal Pain Medical Decision Making Medical decision making: Differential diagnosis including but not limited to and based on the above HPI, review of systems and physical exam: In this patient with epigastric pain differential would include cholelithiasis or cholecystitis. Hepatitis. Diverticulitis. Constipation. UTI. colitis. small bowel obstruction. crohn's flare. pancreatitis. gastritis. peptic ulcer. also concern for acute cardiac event. Orders placed to evaluate differential diagnosis based on the above differential, HPI and physical exam Lab Review: Laboratory results were reviewed and interpreted by myself the emergency room physician. No leukocytosis. No anemia. Stable renal function with a BUN/creatinine of 16 and 1.1. Urine is a bit concentrated and does appear to have infection. Patient receiving fluids and antibiotics. CT of the abdomen pelvis without contrast: No obvious acute findings. Hypodensity in the adnexa that might be ovarian. Ultrasound suggested. I discussed this with patient and she can have this done as an outpatient. This was reviewed and interpreted by myself the emergency room physician. I also reviewed the radiology report. I reviewed the patient's medical record. Reexamination: Patient remained stable. No increased work of breathing. No altered mental status. No focal motor deficits. ASsessment and plan: chronic abdominal pain Urinary tract infection ?Rocephin and fluids in the emergency room. - Discharged home - Discussed plan with patient. Answered any questions. - Evaluation and treatment of this problem were appropriate in the emergency setting. Lab Data 06/19/25 00:32 06/19/25 00:32 Labs/Radiology: Radiology Impressions Abdomen/Pelvis CT 06/19/25 01:15 IMPRESSION: 1. Patient is status post right hemicolectomy and right lower quadrant ileostomy without obstruction. 2. Persistence of decompressed thickened bladder nonspecific finding correlate with urinalysis and workup as indicated. 3. Hypodensity left adnexa likely ovarian characterization with pelvic ultrasound recommended Laboratory Results WBC 9.41 10^3/uL (3.29-11.43) 06/19/25 00:32 RBC 4.74 10^6/uL (3.85-5.65) 06/19/25 00:32 Hgb 14.00 g/dL (11.27-16.99) 06/19/25 00:32 Hct 43.3 % (36-47) 06/19/25 00:32 MCV 91.4 fl (85-98) 06/19/25 00:32 MCH 29.5 pg (27-33) 06/19/25 00:32 MCHC 32.3 g/dL (30-55) 06/19/25 00:32 RDW 18.0 % (12.1-15.1) H 06/19/25 00:32 Plt Count 391 10^3/cmm (157-399) 06/19/25 00:32 MPV 11.7 fL (7.4-10.4) H 06/19/25 00:32 Neut % (Auto) 57.5 % 06/19/25 00:32 Lymph % (Auto) 31.9 % 06/19/25 00:32 [place] % (Auto) 7.9 % 06/19/25 00:32 Eos % (Auto) 1.3 % 06/19/25 00:32 Baso % (Auto) 1.0 % 06/19/25 00:32 Neut # (Auto) 5.42 10^3/uL (1.8-7.7) 06/19/25 00:32 Lymph # (Auto) 3.0 10^3/uL (0.8-4.8) 06/19/25 00:32 [place] # (Auto) 0.7 10^3/uL (0.2-0.9) 06/19/25 00:32 Eos # (Auto) 0.1 10^3/uL (0.0-0.8) 06/19/25 00:32 Baso # (Auto) 0.1 10^3/uL (0.0-0.1) 06/19/25 00:32 Nucleated RBC % (auto) 1.5 % 06/19/25 00:32 Nucleated RBCs # 0.1 /100WBC 06/19/25 00:32 Sodium 135 mmol/L (136-145) L 06/19/25 00:32 Potassium 4.4 mmol/L (3.5-5.1) 06/19/25 00:32 Chloride 105 mmol/L (98-107) 06/19/25 00:32 Carbon Dioxide 16 mmol/L (22-29) L 06/19/25 00:32 Anion Gap 18.4 (5-19) 06/19/25 00:32 BUN 16 mg/dL (6-20) 06/19/25 00:32 Creatinine 1.1 mg/dL (0.5-0.9) H 06/19/25 00:32 GFR Calculation 51.4 mL/min (90-130) L 06/19/25 00:32 Glucose 116 mg/dL (65-115) H 06/19/25 00:32 Calculated Osmolality 282 mOsm/kg (285-295) L 06/19/25 00:32 Lactic Acid 2.5 mmol/L (0.5-2.2) H 06/19/25 00:32 Calcium 10.0 mg/dL (8.5-10.5) 06/19/25 00:32 Total Bilirubin 1.1 mg/dL (0.15-1.2) 06/19/25 00:32 AST 40 U/L (0-32) H 06/19/25 00:32 ALT 55 U/L (0-33) H 06/19/25 00:32 Alkaline Phosphatase 126 U/L (35-105) H 06/19/25 00:32 C-Reactive Protein 9.2 mg/L (0.0-4.9) H 06/19/25 00:32 Total Protein 6.3 g/dL (6.6-8.7) L 06/19/25 00:32 Albumin 3.6 g/dL (3.5-5.2) 06/19/25 00:32 Globulin 2.7 g/dL (1.3-4.6) 06/19/25 00:32 Lipase 23 U/L (13-60) 06/19/25 00:32 Urine Color Dark yellow (Yellow) A 06/19/25 01:21 Urine Appearance Cloudy (CLEAR) A 06/19/25 01:21 Urine pH 5.5 (5-7) 06/19/25 01:21 Ur Specific [place] 1.031 (1.005-1.030) H 06/19/25 01:21 Urine Protein 2+ (Negative) A 06/19/25 01:21 Urine Glucose (UA) Negative (Normal) 06/19/25 01:21 Urine Ketones Trace (Negative) 06/19/25 01:21 Urine Blood Trace (Negative) A 06/19/25 01:21 Urine Nitrate Negative (Negative) 06/19/25 01:21 Urine Bilirubin 2+ (Negative) H 06/19/25 01:21 Urine Urobilinogen 1.0 mg/dL (Negative) 06/19/25 01:21 Ur Leukocyte Esterase 1+ (Negative) A 06/19/25 01:21 Urine RBC 3-5 /hpf (0-2) 06/19/25 01:21 Urine WBC 21-50 /hpf (0-5) H 06/19/25 01:21 Ur Squamous Epith Cells 11-20 /hpf (0-5) H 06/19/25 01:21 Calcium Oxalate Crystal 5-10 /hpf H 06/19/25 01:21 Amorphous Sediment Not Reportable 06/19/25 01:21 Urine Bacteria Trace /hpf (NONE) 06/19/25 01:21 Hyaline Casts 36.80 /lpf 06/19/25 01:21 Urine Mucus 2+ /hpf 06/19/25 01:21 Urine Opiates Screen Negative ng/mL (Negative) 06/19/25 01:21 Ur Barbiturates Screen Negative ng/mL (Negative) 06/19/25 01:21 Ur Phencyclidine Scrn Negative ng/mL (Negative) 06/19/25 01:21 Ur Amphetamines Screen Negative ng/mL (Negative) 06/19/25 01:21 U Benzodiazepines Scrn Negative ng/mL (Negative) 06/19/25 01:21 Urine Cocaine Screen Negative ng/mL (Negative) 06/19/25 01:21 U Marijuana (THC) Screen Negative ng/mL (Negative) 06/19/25 01:21 All radiology interpretation(s) finalized by discharge Discharge Plan Discharge Patient Disposition: Home Clinical Impression: Urinary tract infection, Abdominal pain, Dehydration Condition: Stable Prescriptions: New cefdinir 250 mg/5 mL suspension for reconstitution 300 mg PO BID 5 Days Qty: 60 0RF No Action budesonide-formoterol [Symbicort] 160-4.5 mcg/actuation HFA aerosol inhaler 2 puff inhalation Q12H Qty: 10.2 2RF (DME) [facility] See [facility] Instructions .ROUTE .MEDSUPPLY Qty: 1 0RF Rx Instructions: use every 4 hours as needed cholecalciferol (vitamin D3) 125 mcg/mL (5,000 unit/mL) drops 125 mcg PO DAILY Qty: 52 2RF clopidogrel 75 mg tablet 75 mg PO DAILY Qty: 30 5RF rosuvastatin 10 mg tablet 20 mg PO DAILY Qty: 30 5RF albuterol sulfate 90 mcg/actuation HFA aerosol inhaler 2 inh INHALATION Q4H PRN (Reason: shortness of breath or wheezing) Qty: 6.7 2RF acetaminophen 500 mg Tablet 1,000 mg PO Q6H PRN (Reason: Pain) aspirin 81 mg Tablet,Chewable 81 mg PO DAILY Qty: 30 0RF metoprolol tartrate 25 mg tablet 12.5 mg PO BID@0900,2100 Qty: 60 0RF isosorbide mononitrate 20 mg tablet 10 mg PO BID Qty: 30 0RF Rx Instructions: give doses 7 hrs apart Discharge Orders: Discharge ED (Routine); Ordered 06/19/25 Ordered By: Korina Bardales Referrals: Mireya Varner, [facility] [Primary Care Provider, Family Practice] Discharge Diet: Advance as tolerated Discharge Activity: Increase activity as tolerated Patient Instructions: Abdominal Pain (ED), Opioid Safety, Pain Management, Patient Portal & Roland Instructions Activity Restrictions/Additional Instructions: You need to follow with your primary care provider and have an ultrasound of your pelvis done in the near future for an abnormal finding seen near your ovary on the CT scan. Thank you for choosing [facility] for your healthcare needs today. You have been screened and evaluated and felt safe for discharge. Health conditions do change or evolve sometimes and as such it is important that you follow up with your Primary Doctor to be re checked, 3-5 days is a general good time frame for follow up. You are always welcome to return to the ED for re assessment if your symptoms are worsening or you have new concerns Print Language: Thai Coding Level of Care Code ED Regulatory Associate for [facility]
[2025-06-19 00:37] LABS: Hematocrit 43.3 % (36-47); Hemoglobin 14.00 g/dL (11.27-16.99); Mean Corpuscular HGB Conc 32.3 g/dL (30-55); Mean Corpuscular Hemoglobin 29.5 pg (27-33); Mean Corpuscular Volume 91.4 fl (85-98); Nucleated Red Blood Cells % 1.5 %; Platelet Count 391 10^3/cmm (157-399); Red Blood Count 4.74 10^6/uL (3.85-5.65); White Blood Count 9.41 10^3/uL (3.29-11.43)
[2025-06-19 01:00] LABS: Alanine Aminotransferase 55 U/L (0-33); Albumin Level 3.6 g/dL (3.5-5.2); Alkaline Phosphatase 126 U/L (35-105); Blood Urea Nitrogen 16 mg/dL (6-20); Calcium 10.0 mg/dL (8.5-10.5); Carbon Dioxide 16 mmol/L (22-29); Chloride 105 mmol/L (98-107); Creatinine Clr Calc Pharmacy 68.1304; Globulin 2.7 g/dL (1.3-4.6); Glucose 116 mg/dL (65-115); Lipase 23 U/L (13-60); Osmolality Calculated 282 mOsm/kg (285-295); Sodium 135 mmol/L (136-145); Total Protein 6.3 g/dL (6.6-8.7)
[2025-06-19 01:01] LABS: Lactic Sepsis W/Reflex 2.5 mmol/L (0.5-2.2)
[2025-06-19 01:12] LABS: Anion Gap 18.4 (5-19); Aspartate Amino Transferase 40 U/L (0-32); Potassium 4.4 mmol/L (3.5-5.1)
--- NOTE | 2025-06-19 01:15 | CTR_ITS ---
PROCEDURE INFORMATION: Exam: CT Abdomen And Pelvis Without Contrast Exam date and time: 06/19/2025 1:25 AM Age: 54 years old Clinical indication: Abdominal pain; Epigastric; Prior surgery; Surgery date: 6+ months; Surgery type: Splenectomy TECHNIQUE: Imaging protocol: Computed tomography of the abdomen and pelvis without contrast. Radiation optimization: All CT scans at this facility use at least one of these dose optimization techniques: automated exposure control; mA and/or kV adjustment per patient size (includes targeted exams where dose is matched to clinical indication); or iterative reconstruction. COMPARISON: CT kidney stone [id number] 06/28/2023 9:22 AM RADIATION DOSE METRICS: Total DLP (mGy-cm): 1820.28 FINDINGS: Liver: Unremarkable. No mass. Gallbladder and biliary ducts: Unremarkable. No calcified stones. No ductal dilation. Pancreas: Unremarkable. No ductal dilation. Spleen: Spleen surgically removed. Adrenal glands: Normal. No mass. Kidneys and ureters: Unremarkable. No hydronephrosis. Stomach and bowel: Patient is status post segmental right colonic resection there is a right lower quadrant ileostomy with parastomal herniation of small bowel loops without obstruction. The decompressed cecum bladder nonspecific finding correlate with urinalysis to exclude infection. Appendix: No evidence of appendicitis. Intraperitoneal space: There is a small amount of perihepatic free fluid. There is no intra abdominopelvic free air demonstrated. Vasculature: Unremarkable. No abdominal aortic aneurysm. Lymph nodes: Unremarkable. No enlarged lymph nodes. Urinary bladder: See Stomach and bowel finding. Reproductive: This hypodensity left adnexa 4.2 cm could be ovarian characterization with pelvic ultrasound recommended Bones/joints: Unremarkable. No acute fracture. Soft tissues: Unremarkable. CT/CT abdomen pelvis wo con [id number] IMPRESSION: 1. Patient is status post right hemicolectomy and right lower quadrant ileostomy without obstruction. 2. Persistence of decompressed thickened bladder nonspecific finding correlate with urinalysis and workup as indicated. 3. Hypodensity left adnexa likely ovarian characterization with pelvic ultrasound recommended
[2025-06-19 01:27] LABS: Slide Review Slide Review Perform
[2025-06-19 01:46] LABS: Glucose Urine UA Negative (Normal); Nitrate Urine Negative (Negative)
[2025-06-19 01:53] LABS: PCP Screen Urine Negative (Negative)
[2025-06-19 02:10] LABS: Specific Gravity, Urine 1.031 (1.005-1.030); UA Slide Review UA Slide Review Perf
[2025-06-19 02:22] LABS: Reflex Lactate Order REFLEX LACTIC ORDERD
[2025-06-19] MEDS: cefTRIAXone 1,000 mg SDV 1000 MG IVP (02:41)
[2025-06-19] MEDS: sodium chloride 0.9% (100 ml) 100 ML (02:42)
--- OUTSIDE RECORDS SUMMARY | 2025-06-20 12:34 | XMS_ITS | Encounter Summary ---
Author Organization [facility] Address [address] [place] [address] Care Team Providers Care Manager Critical Care Unit Name Role Phone Non-Staff, Physician Primary Care Provider Unava ilable Reason for Referral * Outpatient Services (Routine) - Closed Specialty Diagnoses / Procedures Referred By Contac t Referred To Contact Radiology Diagnoses Ovarian cyst, left Uterine fibroid Procedures US PELVIS COMPLETE William Kingston MD Phone: tel: fax: [facility] [address] [place] [address] Phone: tel: fax: Referral ID Status Reason Start Date Expiration Date V isits Requested Visits Authorized [id number] Closed [facility] CTS to Schedule (SGF) 01/22/2017 02/22/2018 1 1 Encounter Details Date Type Department Care Team (Latest Contact Info) Description 01/22/2017 Ancillary Orders [facility] Centralized Scheduling [address] [place] [address] William Kingston MD [address] [place] [address] Ovarian cyst, left; Uterine fibroid [...] unspecified documented in this encounter Care Teams Manager Critical Care Unit Relationship Specialty Start Date End Date Non-Staff, Physician NO ADDRESS ON FILE PCP - General 03/01/20 documented as of this encounter
--- OUTSIDE RECORDS SUMMARY | 2025-06-20 12:34 | XMS_ITS | Encounter Summary ---
Author Organization [facility] Address [address] [place] [address] Care Team Providers Care Coil Shaper Name Role Phone Non-Staff, Physician Primary Care Provider Unava ilable Encounter Details Date Type Department Care Team (Late st Contact Info) Description 12/23/2015 Lab Requisition [facility] General Laboratory Services [place] [address] [facility] [address] [place] [id number] Jay Jay Riddle PA NO ADDRESS ON [...] Comments FOLATE, SERUM Routine 12/23/2015 8:48 PM SPA MANAGER CBC WITH DIFFERENTIAL Routine 12/23/2015 8:48 PM SPA MANAGER VITAMIN D 25 HYDROXY Routine 12/23/2015 8:48 PM SPA MANAGER TSH Routine 12/23/2015 8:48 PM SPA MANAGER IRON LEVEL Routine 12/23/2015 8:48 PM SPA MANAGER VITAMIN B12 LEVEL Routine 12/23/2015 8:4 8 PM SPA MANAGER HEPATIC FUNCTION PANEL Routine 12/23/2015 8:48 PM SPA MANAGER LIPID PANEL Routine 12/23/2015 8:48 PM SPA MANAGER BASIC METABOLIC PANEL Routine 12/23/2015 8:48 PM SPA MANAGER documented in this encounter Results * (ABNORMAL) VITAMIN D 25 HYDROXY (12/23/2015 8:48 PM SPA MANAGER) VITAMIN D TOTAL (25OH) 6(L) 30 - 100 ng/ml 12/25/2015 1:31 AM SPA MANAGER [facility] Blood 12/23/2015 8:48 PM SPA MANAGER 12/23/2015 8:48 PM SPA MANAGER Narrative [facility] [employer] [facility] - 12/25/2015 1:31 AM SPA MANAGER Interpretive Data Chart: Deficient: 0 - 20 ng/ml Insufficient: 21 - 29 ng/ml Sufficient: 30 - 100 ng/ml Increased Risk of Hypercalciuria: >100 ng/ml Toxic: >150 ng/ml Jay Jay GAGNON CHEMISTRY ORDERABLES Final Re sult Performing Organization Address [facility]/ZIP Co de Phone Number [facility] CLIA# [id number] [address] [place] [phone] * TSH (12/23/2015 8:48 PM SPA MANAGER) Pathologist [facility] TSH 2.47 0.27 - 4.20 uIU/mL 12/23/2015 9:55 PM SPA MANAGER [facility] Blood 12/23/2015 8:48 PM SPA MANAGER 12/23/2015 8:48 PM SPA MANAGER Jay Jay GAGNON CHEMISTRY ORDERABLES Final Re sult Performing Organization Address City/[facility]/ZIP Co de Phone Number [facility] [employer] [facility] CLIA # [id number] [address] [address] * (ABNORMAL) LIPID PANEL (12/23/2015 8:48 PM SPA MANAGER) CHOLESTEROL 262(H) <200 mg/dL 12/23/2015 9:55 PM [facility] TRIGLYCERIDE 626(H) <150 mg/dL 12/23/2015 9:55 PM [facility] HDL 44 40 - 59 mg/dL 12/23/2015 9:55 PM [facility] LDL CALCULATED <100 mg/dL 12/23/2015 9:55 PM [facility] Comment:Calculated LDL is no t accurate when the Triglyceride value exceeds 400. NON-HDL CHOLESTEROL 218(H) <130 mg/dL 12/23/2015 9:55 PM [facility] Blood 12/23/2015 8:48 PM SPA MANAGER 12/23/2015 8:48 PM SPA MANAGER [facility] - 12/23/2015 9:55 PM SPA MANAGER TOTAL CHOLESTEROL mg/dL Desirable <200 Borderline high [...] Jay GAGNON CHEMISTRY ORDERABLES Final Re sult [facility] CLIA # [id number] [address] [address] * IRON LEVEL (12/23/2015 8:48 PM SPA MANAGER) IRON 47 37 - 145 ug/dL 12/23/2015 9:55 PM [facility] Blood 12/23/2015 8:48 PM SPA MANAGER 12/23/2015 8:48 PM SPA MANAGER Jay Jay GAGNON CHEMISTRY ORDERABLES Final Re sult Performing Organization Address [facility] de Phone Number [employer] [facility] [place] CLIA # [id number] [address] [place] [address] [phone] * HEPATIC FUNCTION PANEL (12/23/2015 8:48 PM SPA MANAGER) TOTAL PROTEIN 7.4 6.6 - 8.7 g/dL 12/23/2015 9:55 PM SPA MANAGER [employer] [facility] [place] ALBUMIN 4.1 3.5 - 5.2 g/dL 12/23/2015 9:55 PM SPA MANAGER [employer] [facility] [place] BILIRUBIN TOTAL 0.2 0.0 - 1.2 mg/dL 12/23/2015 9:55 PM SPA MANAGER [facility] [place] BILIRUBIN DIRECT <0.2 0.0 - 0.3 mg/dL 12/23/2015 9:55 PM SPA MANAGER [employer] [facility] [place] ALKALINE PHOSPHATASE 66 35 - 104 U/L 12/23/2015 9:55 PM SPA MANAGER [employer] [facility] [place] AST 22 10 - 35 U/L 12/23/2015 9:55 PM SPA MANAGER [employer] [facility] [place] ALT 19 10 - 35 U/L 12/23/2015 9:55 PM SPA MANAGER [employer] [facility] [place] Blood 12/23/2015 8:48 PM SPA MANAGER 12/23/2015 8:48 PM SPA MANAGER Jay Jay GAGNON CHEMISTRY ORDERABLES Final Re sult Performing Organization Address [facility] Co de Phone Number [employer] [facility] [place] CLIA # [id number] [address] [place] [address] [phone] * BASIC METABOLIC PANEL (12/23/2015 8:48 PM SPA MANAGER) SODIUM 136 136 - 145 mmol/L 12/23/2015 9:55 PM SPA MANAGER [employer] [place] POTASSIUM 3.8 3.5 - 5.1 mmol/L 12/23/2015 9:55 PM [facility] [employer] [facility] CHLORIDE 98 98 - 107 mmol/L 12/23/2015 9:55 PM [facility] [employer] [facility] [place] CO2 22 22 - 29 mmol/L 12/23/2015 9:[address] [facility] [place] CALCIUM 9.6 8.6 - 10.0 mg/dL 12/23/2015 9:[address] [facility] BUN 9 6 - 20 mg/dL 12/23/2015 9:55 PM [facility] [employer] [facility] CREATININE 0.81 0.51 - 0.95 mg/dL 12/23/2015 9:[address] [facility] GLUCOSE 89 74 - 106 mg/dL 12/23/2015 9:[address] [facility] GFR >60 >=60 mL/min/1.7 3 sq meter 12/23/2015 9:[address] [facility] Comment: eGFR has not been validated [...] mL/min/1.7 3 sq meter 12/23/2015 9:55 PM [facility] [employer] [facility] ANION GAP 16 12 - 20 mmol/L 12/23/2015 9:[address] [facility] Blood 12/23/2015 8:48 PM SPA MANAGER 12/23/2015 8:48 PM SPA MANAGER us Jay Jay GAGNON CHEMISTRY ORDERABLES Final Re sult [facility] [employer] [facility] CLIA # [id number] [address] [place] [phone] * (ABNORMAL) CBC WITH DIFFERENTIAL (12/23/2015 8:48 PM SPA MANAGER) WBC 13.5(H) 4.0 - 10.0 K/uL 12/23/2015 9:11 PM SPA MANAGER [facility] [place] RBC 5.00 3.93 - 5.22 M/uL 12/23/2015 9:11 PM SPA MANAGER [facility] [place] HEMOGLOBIN 14.1 11.2 - 15.7 g/dL 12/23/2015 9:11 PM SPA MANAGER [facility] [place] HEMATOCRIT 43.1 34.1 - 44.9 % 12/23/2015 9:11 PM SPA MANAGER [facility] [place] MCV 86.2 79.4 - 94.8 fL 12/23/2015 9:11 PM SPA MANAGER [facility] [place] MCH 28.2 25.6 - 32.2 pg 12/23/2015 9:11 PM SPA MANAGER [employer] [facility] [place] MCHC 32.7 32.2 - 35.5 g/dL 12/23/2015 9:11 PM SPA MANAGER [facility] [place] RDW 17.1(H) 11.0 - 14.5 % 12/23/2015 9:11 PM SPA MANAGER [facility] [place] RDW-STDEV 53.9 36.9 - 56.9 fL 12/23/2015 9:11 PM SPA MANAGER [facility] [place] PLATELETS 533(H) 163 - 337 K/uL 12/23/2015 9:11 PM SPA MANAGER [employer] [facility] [place] MPV 10.6 10.0 - 14.8 fL 12/23/2015 9:11 PM SPA MANAGER [facility] [place] NEUTROPHILS 53 34 - 71 % 12/23/2015 9:11 PM SPA MANAGER [facility] [place] LYMPHOCYTES 27 19 - 52 % 12/23/2015 9:11 PM SPA MANAGER [facility] [place] MONOCYTES 10 5 - 13 % 12/23/2015 9:11 PM SPA MANAGER [facility] [place] EOSINOPHILS 8(H) 1 - 6 % 12/23/2015 9:11 PM SPA MANAGER [facility] [place] BASOPHILS 2(H) 0 - 1 % 12/23/2015 9:11 PM SPA MANAGER [facility] [place] NEUTROPHIL ABSOLUTE 7.08(H) 1.56 - 6.13 K/uL 12/23/2015 9:11 PM SPA MANAGER [facility] [place] LYMPHOCYTE ABSOLUTE 3.68(H) 1.20 - 3.40 K/uL 12/23/2015 9:11 PM SPA MANAGER [facility] [place] MONOCYTE ABSOLUTE 1.33(H) 0.24 - 0.36 K/uL 12/23/2015 9:11 PM SPA MANAGER [facility] [place] EOSINOPHIL ABSOLUTE 1.09(H) 0.04 - 0.36 K/uL 12/23/2015 9:11 PM SPA MANAGER [facility] [place] BASOPHILS ABSOLUTE 0.29(H) 0.01 - 0.08 K/uL 12/23/2015 9:11 PM SPA MANAGER [facility] [place] IMMATURE GRANULOCYTES 0 % 12/23/2015 9:11 PM SPA MANAGER [facility] [place] IMMATURE GRANULOCYTES ABSOLUTE 0.02 K/uL 12/23/2015 9:11 PM SPA MANAGER [facility] Blood 12/23/2015 8:48 PM SPA MANAGER 12/23/2015 8:48 PM SPA MANAGER Jay Jay GAGNON HEMATOLOGY ORDERABLES Final R esult Performing Organization Address City/[facility]/ZIP Co de Phone Number [facility] CLIA # [id number] [address] [place] [phone] * FOLATE, SERUM (12/23/2015 8:48 PM SPA MANAGER) FOLATE, SERUM 21.7 >=5.4 ng/mL 12/25/2015 1:31 AM SPA MANAGER [facility] [employer] [facility] Blood 12/23/2015 8:48 PM SPA MANAGER 12/23/2015 8:48 PM SPA MANAGER Jay Jay GAGNON CHEMISTRY ORDERABLES Final Re sult [facility] CLIA# [id number] [address] [place] [address] * VITAMIN B12 LEVEL (12/23/2015 8:48 PM SPA MANAGER) VITAMIN B12 239 211 - 946 pg/mL 12/23/2015 9:59 PM SPA MANAGER [facility] Blood 12/23/2015 8:48 PM SPA MANAGER 12/23/2015 8:48 PM SPA MANAGER Jay Jay GAGNON CHEMISTRY ORDERABLES Final Re sult [facility] [employer] [facility] CLIA # [id number] [address] [place] [phone] documented in this encounter Visit Diagnoses Not on filedocumented in this encounter Care Teams Coil Shaper Relationship Specialty Start Date End Date Non-Staff, Physician NO ADDRESS ON FILE PCP - General 03/01/20 documented as of this encounter
--- OUTSIDE RECORDS SUMMARY | 2025-06-20 12:34 | XMS_ITS | Clinical Summary ---
Author Organization [facility] Address [address] [place] [phone] Care Team Providers Care Air Conditioning Specialist Name Role Phone Non-Staff, Physician Primary Care Provider Unava ilable Allergies Active Allergy Reactions Criticality Noted Date Comments Iodinated Contrast Media Nausea and Vomiting Low Latex Rash Low 04/28/2016 Metronidazole Rash Low 11/23/2019 Moxifloxacin Rash Low 11/13/2018 Opioids - Morphine Analogues Nausea and Vomiting Low 08/17/2014 [place] Hives High 09/09/2016 Medications lisinopril (PRINIVIL) 20 [...] PM CDT Pulse 134 12/13/2019 3:14 PM CHIEF OPERATOR REFORMER Temperature 36.5 C (97.7 F) 04/17/2020 9:15 PM CDT Respiratory Rate 34 12/13/2019 3:14 PM CHIEF OPERATOR REFORMER Oxygen Saturation 100% 04/17/2020 9:15 PM CDT [...] Relevant to Health Maintenance [place] [id number] [employer] Care Teams Air Conditioning Specialist Relationship Specialty Start Date End Date Non-Staff, Physician NO ADDRESS ON FILE PCP - General 03/01/20
--- OUTSIDE RECORDS SUMMARY | 2025-06-20 12:34 | XMS_ITS | Encounter Summary ---
Author Organization [facility] Address [address] [place] [address] Care Team Providers Care Cable Stretcher And Tester Name Role Phone Non-Staff, Physician Primary Care Provider Unava ilable Encounter Details Date Type Department Care Team (Late st Contact Info) Description 01/21/2015 Lab Requisition [facility] General Laboratory Services [place] [address] [place] [address] Obed Henriquez, DO NO ADDRESS [...] WBC 14.4 K/uL 01/21/2015 11:18 PM CDT [facility] [place] SEGMENTED NEUTROPHILS 67 45 - 70 % 01/21/2015 11:18 PM CDT [facility] [place] LYMPHOCYTES RELATIVE 24 20 - 45 % 01/21/2015 11:18 PM CDT [facility] [place] MONOCYTES RELATIVE 4 2 - 8 % 01/21/2015 11:18 PM CDT [facility] [place] EOSINOPHILS RELATIVE 5 0 - 5 % 01/21/2015 11:18 PM CDT [facility] [place] PLATELET EST. Consistent with Count 01/21/2015 11:18 PM CDT [facility] [place] NEUTROPHILS ABSOLUTE COUNT 9.65(H) 1.78 - 5.38 K/uL 01/21/2015 11:18 PM CDT [facility] [place] LYMPHOCYTES ABSOLUTE 3.46 1.20 - 4.00 K/uL 01/21/2015 11:18 PM CDT [facility] [place] MONOCYTES ABSOLUTE 0.58 0.30 - 0.82 K/uL 01/21/2015 11:18 PM CDT [facility] [place] EOSINOPHILS ABSOLUTE 0.72(H) 0.04 - 0.54 K/uL 01/21/2015 11:18 PM CDT [facility] [place] RBC MORPHOLOGY Normal 01/21/2015 11:18 PM CDT [facility] [place] TOTAL CELLS COUNTED IN DIFF 100 01/21/2015 11:18 PM CDT [facility] [place] Blood 01/21/2015 10:2 6 PM CDT 01/21/2015 10:26 PM CDT Obed Henriquez DO HEMATOLOGY ORDERABLES COM Final Result [facility] [employer] [facility] CLIA # [id number] [address] [place] [phone] * TSH (01/21/2015 10:26 PM CDT) TSH 1.73 0.30 - 4.80 uIU/mL 01/21/2015 11:17 PM CDT [facility] [employer] [facility] Blood 01/21/2015 10:2 6 PM CDT 01/21/2015 10:26 PM CDT us Obed Henriquez DO CHEMISTRY ORDERABLES Final Resu lt Performing Organization Address City/[facility]/ZIP Co de Phone Number [facility] [employer] [facility] CLIA # [id number] [address] [place] [phone] * (ABNORMAL) LIPID PANEL (01/21/2015 10:26 PM CDT) CHOLESTEROL 263(H) 130 - 200 mg/dL 01/21/2015 11:17 PM CDT [facility] [employer] [facility] TRIGLYCERIDE 744(H) 30 - 200 mg/dL 01/21/2015 11:17 PM CDT [facility] [employer] [facility] HDL 35 - 80 mg/dL 01/21/2015 11:17 PM T [facility] [employer] [facility] Comment: Measured HDL is not accurate when the Triglyceride value exceeds 700. LDL CALCULATED 0 - 100 mg/dL 01/21/2015 11:17 PM T [facility] [employer] [facility] Comment:Calculated LDL is no t accurate when the Triglyceride value exceeds 400. NON-HDL CHOLESTEROL mg/dL 01/21/2015 11:17 PM CDT [facility] Comment:Unable to determine Blood 01/21/2015 10:2 6 PM CDT 01/21/2015 10:26 PM CDT Narrative [facility] [employer] [facility] - 01/21/2015 11:17 PM CDT [...] high >=190 Based on AHA/NCEP Guidelines Obed Henriquez DO CHEMISTRY ORDERABLES Final Resu lt Performing Organization Address [facility]/ZIP Co de Phone Number [facility] [place] CLIA # [id number] [address] [place] [phone] * (ABNORMAL) IRON LEVEL (01/21/2015 10:26 PM CDT) IRON 38(L) 50 - 170 ug/dL 01/21/2015 11:18 PM CDT [facility] [place] Blood 01/21/2015 10:2 6 PM CDT 01/21/2015 10:26 PM CDT Obed Henriquez DO CHEMISTRY ORDERABLES Final Resu lt Performing Organization Address [facility]/ZIP Co de Phone Number [facility] [employer] [facility] CLIA # [id number] [address] [place] [phone] * (ABNORMAL) COMPREHENSIVE METABOLIC PANEL (01/21/2015 10:26 PM CDT) SODIUM 137 136 - 145 mmol/L 01/21/2015 11:17 PM CDT [facility] [place] POTASSIUM 3.9 3.5 - 5.1 mmol/L 01/21/2015 11:17 PM CDT [facility] [place] CHLORIDE 101 98 - 107 mmol/L 01/21/2015 11:17 PM CDT [facility] [place] CO2 24 21 - 32 mmol/L 01/21/2015 11:17 PM CDT [facility] [place] CALCIUM 9.6 8.5 - 10.1 mg/dL 01/21/2015 11:17 PM CDT [facility] [place] BUN 10 7 - 18 mg/dL 01/21/2015 11:17 PM [facility] CREATININE 1.10 0.60 - 1.30 mg/dL 01/21/2015 11:17 PM [facility] LABORATORY [facility] GLUCOSE 92 74 - 106 mg/dL 01/21/2015 11:[address] [facility] TOTAL PROTEIN 7.9 6.4 - 8.2 g/dL 01/21/2015 11:[address] [facility] ALBUMIN 3.7 3.4 - 5.0 g/dL 01/21/2015 11:17 PM [facility]OR[facility] BILIRUBIN TOTAL 0.3 0.2 - 1.0 mg/dL 01/21/2015 11:17 PM [facility] LABORATORY [facility] ALKALINE PHOSPHATASE 73 46 - 116 U/L 01/21/2015 11:17 PM [facility] AST 18 15 - 37 U/L 01/21/2015 11:[address] [facility] ALT 22(L) 30 - 65 U/L 01/21/2015 11:17 PM [facility] GFR 53(L) >=60 mL/min/1.7 3 sq meter 01/21/2015 11:17 PM [facility] [employer] [facility] Comment: eGFR has not been validated for [...] mL/min/1.7 3 sq meter 01/21/2015 11:17 PM [facility] LABORATORY [facility] ANION GAP 12 12 - 20 mmol/L 01/21/2015 11:17 PM [facility] LABORATORY [facility] Blood 01/21/2015 10:2 6 PM CDT 01/21/2015 10:26 PM CDT Narrative [facility] [place] - 01/21/2015 11:17 PM CDT Effective 07/12/2014, the Alkaline Phosphatase test method and reference range have changed. Please take this into consideration when interpreting results prior to or after this date. us Obed Henriquez DO CHEMISTRY ORDERABLES Final Resu lt [facility] CLIA # [id number] [address] [place] [phone] * (ABNORMAL) CBC WITH DIFFERENTIAL (01/21/2015 10:26 PM CDT) WBC 14.4(H) 4.0 - 10.0 K/uL 01/21/2015 10:49 PM CDT [facility] RBC 5.27(H) 3.93 - 5.22 M/uL 01/21/2015 10:49 PM CDT [facility] HEMOGLOBIN 15.3 11.2 - 15.7 g/dL 01/21/2015 10:49 PM CDT [facility] HEMATOCRIT 46.3(H) 34.1 - 44.9 % 01/21/2015 10:49 PM CDT [facility] MCV 87.9 79.4 - 94.8 fL 01/21/2015 10:49 PM CDT [facility] MCH 29.0 25.6 - 32.2 pg 01/21/2015 10:49 PM CDT [facility] MCHC 33.0 32.2 - 35.5 g/dL 01/21/2015 10:49 PM CDT [facility] [employer] [facility] RDW 16.0(H) 11.0 - 14.5 % 01/21/2015 10:49 PM CDT [facility] [employer] [facility] RDW-STDEV 51.6 36.9 - 56.9 fL 01/21/2015 10:49 PM CDT [facility] [employer] [facility] PLATELETS 544(H) 163 - 337 K/uL 01/21/2015 10:49 PM CDT [facility] [employer] [facility] MPV 10.9 10.0 - 14.8 fL 01/21/2015 10:49 PM CDT [facility] [employer] [facility] Blood 01/21/2015 10:2 6 PM CDT 01/21/2015 10:26 PM CDT Obed Henriquez DO HEMATOLOGY ORDERABLES Final Res ult [facility] [employer] [facility] CLIA # [id number] [address] [place] [address] * VITAMIN B12 AND FOLATE (01/21/2015 10:26 PM CDT) FOLATE, SERUM 11.02 >=5.38 ng/mL 01/22/2015 9:33 PM CDT [facility] [employer] [facility] VITAMIN B12 238 211 - 911 pg/mL 01/22/2015 9:33 PM CDT [facility] [employer] [facility] Blood specimen (specimen) 01/21/2015 10:26 PM CDT 01/21/2015 10:26 PM CDT Obed Henriquez DO CHEMISTRY ORDERABLES Final Resu lt Performing Organization Address City/[facility]/ZIP Co de Phone Number [facility] [employer] [facility] CLIA# [id number] [facility] [place], [place] [id number] [place] [address] [employer] [facility] CLIA# [id number] [address] [place] [phone] documented in this encounter Visit Diagnoses Not on filedocumented in this encounter Care Teams Cable Stretcher And Tester Relationship Specialty Start Date End Date Non-Staff, Physician NO ADDRESS ON FILE PCP - General 03/01/20 documented as of this encounter
--- OUTSIDE RECORDS SUMMARY | 2025-06-20 12:34 | XMS_ITS | Patient Health Record ---
Author Organization [facility] Address [address] [place] [address] Care Team Providers Care Automotive Service Cashier Name Role Phone Albaro Tapia Primary Care Provider [phone] Allergies Allergen (clinical drug ingredient) Drug/Non Drug Allergy documented on EMR Reaction Allergy Type Onset Date Status metronidazole Flagyl Unknown Drug Allergy Act constantino acetaminophen / oxycodone Percocet Unknown Drug Allergy Active hydrocodone Hydrocodone Unknown Drug Allergy Act constantino Iodine Unknown Drug Allergy Active prednisolone Prednisolone Unknown Drug Allergy A ctive Results Component Value Reference Range Flag Notes Lipid Panel Reflex DLDL 8006 1 17083 Reviewed date:12/28/2024 12:53:18 PM Interpretation: Performing Lab: Notes/Report: Diagnosis Description: Atherosclerotic heart disease of [place] coronary artery without angina pectoris Trig 185 NA Classification Guidelines:Triglycerides Adults: >20yrs Desirable <150 Borderline [...] LDL 92 0-130 MG/DL LDL result is inaccurate , if Trig is >400 mg/dl. See DLDL result. Reason For Referral Reason acute vision loss Diagnosis 1 Sudden visual loss o f right eye (H53.131) Referral Organization [facility] Referring Provider First Name Nam collins Referring Provider Last Name Regina Referring Provider Speciality Internal M edicine Referred Provider Edilberto Gutierrez Referred Provider Specialty [employer] Teacher General Notes Cassandra Guo 02:26:41 PM >faxed Gerardo Holliday Heidi 02/12/2025 08:26:18 AM >PROGRESS NOTES IN REFERRAL FILE Referral Priority Routine Referral Appointment Date 02/09/2025 Medications Medication SIG (Take, Route, Frequency, Duration) Notes Start Date End Date Status Meclizine HCl 25 MG Tablet 1 tablet as n eeded Orally every 12 hrs Not-Taking Metoprolol Tartrate 25 MG Tablet 1/2 tablet with food Orally Twice a day; Duration: 30 days Active Ciprofloxacin-dexAMETHason e 0.3-0.1 % Suspension 4 drops into affected ear Otic Twice a day; Duration: 7 days 03/10/2024 Not-Taking Clopidogrel Bisulfate 75 MG Tablet 1 tablet Orally Once a day; Duration: 90 days Active Isosorbide Mononitrate 10 MG Tablet 1 tablet Orally Twice a day; Duration: 90 days Active Aspirin 81 MG Tablet Chewable 1 tablet Orally Once a day; Duration: 30 days Active Rosuvastatin Calcium 10 MG Tablet 1 tablet Orally Once a day; Duration: 90 days 12/07/2024 Active Acetaminophen 500 MG Capsule 1 capsule as needed Orally every 6 hrs Active Social History Tobacco Use: Social History Observation Description Date Details (start date - stop date) Current Smoker NA - NA Social History Depression Screening Social Info Question Answer Notes depression screening findings Findings Positive (5+ without suicidality) 04/24/25 PHQ-9 Little interest or pleasure in doing things Several days Feeling down, depressed, or hopeless Not [...] all Total Score 5 Interpretation Mild Depression Drugs/Alcohol: Social Info Question Answer Notes Alcohol Screen (Audit-C) Did you have a drink containing alcohol in the past year? No Points 0 Interpretation Negative Drugs Have you used drugs other than those for medical reasons in the past 12 months? No Tobacco Use: Social Info Question Answer Notes Tobacco Control (Standard) Tobacco use: Current smoker How often do you smoke cigarettes? Every day How many cigarettes a day do you smoke? 09-27 Section Notes: CIME Dep/tob - 12/07/24 CIME Dep/tob - 04/24/25 12/07/24 Dep/tob - 12/07/24 Problems Problem Type SNOMED Code ICD Code Onset Dates Problem Status W/U Status Risk Notes Problem Primary insomnia (6159632) Primary insomnia (F51.01) Active confirmed Problem Vitamin D deficiency (31781743) Vitamin D deficiency (E55.9) Active confirmed Problem Tobacco abuse (6093827143) Tobacco abuse (Z72.0) Active confirmed Problem Dyspnea on exertion (35849675) Dyspnea on exertion (R06.09) Active confirmed Problem Multi vessel coronary artery disease (849318974) CAD, multiple vessel (I25.10) Active confirmed Problem Vitamin B12 deficiency (non anemic) (92951573) B12 deficiency (E53.8) Active confirmed Problem 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 Problem 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 Problem Sudden visual loss of right eye (362367475828253 ) 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 confirmed Problem Rectal pouchitis (K91.850) Active confirmed Vital Signs Heart Rate 99 /min 04/24/2025 Temperature 97.7 degrees Fahrenheit 04/24/2025 Blood pressure diastolic 80 mm Hg 04/24/2025 Oximetry 97 % 04/24/2025 Height-cm 203.2 cm 04/24/2025 Weight-kg 93.44 kg 04/24/2025 Height 80 in 04/24/2025 Blood pressure systolic 139 mm Hg 04/24/2025 Weight 206 lbs 04/24/2025 BMI 22.63 kg/m2 04/24/2025 Encounters Encounter Location Date Provider Diagnosis [facility] [address] [place] [phone] 04/24/2025 Albaro Tapia Primary insomnia F51.01 ; Tobacco abuse Z72.0 ; B12 deficiency E53.8 ; Dyspnea on exertion R06.09 and Depression screen Z13.31 [facility] [address] [place] [phone] 02/08/2025 Albaro Tapia CAD, multiple vessel I25.10 ; B12 deficiency E53.8 ; Altered bowel elimination due to intestinal ostomy K94.19 ; Sudden visual loss of right eye H53.131 and Depression screen Z13.31 [facility] [address] [place] [phone] 12/25/2024 Albaro Tapia CAD, multiple vessel I25.10 ; Altered bowel elimination due to intestinal ostomy K94.19 and Tobacco abuse Z72.0 [facility] [address] [place] [phone] 12/07/2024 Albaro Tapia CAD, multiple vessel I25.10 ; Tobacco abuse Z72.0 and Depression screen Z13.31 [facility] [address] [phone] 01/30/2025 Albaro Tapia CAD, multiple vessel I25.10 [facility] [address] [place] [phone] 01/15/2025 Albaro Tapia Assessments Encounter Date Diagnosis (ICD Code) Assessment Notes Treatment Notes Treatment Clinical Notes Section Notes 12/07/2024 CAD, multiple vessel (ICD-10 - I25.10) 12/25/2024 CAD, multiple vessel (ICD-10 - I25.10) 12/25/2024 Altered bowel elimination due to intestinal ostomy (ICD-10 - K94.19) 01/30/2025 CAD, multiple vessel (ICD-10 - I25.10) 02/08/2025 CAD, multiple vessel (ICD-10 - I25.10) 02/08/2025 B12 deficiency (ICD-10 - E53.8) 04/24/2025 Primary insomnia (ICD-10 - F51.01) 04/24/2025 Tobacco abuse (ICD-10 - Z72.0) 04/24/2025 B12 deficiency (ICD-10 - E53.8) 02/08/2025 Altered bowel elimination due to intestinal ostomy (ICD-10 - K94.19) 12/25/2024 Tobacco abuse (ICD-10 - Z72.0) 12/07/2024 Tobacco abuse (ICD-10 - Z72.0) 12/07/2024 Depression screen (ICD-10 - Z13.31) 02/08/2025 Sudden visual loss of right eye (ICD-10 - H53.131) 04/24/2025 Dyspnea on exertion (ICD-10 - R06.09) 04/24/2025 Depression screen (ICD-10 - Z13.31) 02/08/2025 Depression screen (ICD-10 - Z13.31) Plan Of Treatment No Information Insurance Providers Payer Name Payer Address Payer Phone Subscriber Number Group Number Insured Name Patient Relationship to Insured Coverage Start Date Coverage End Date [place] Medicaid [address] [place] [address] [id number] Fabiola Lucero Self - patient is the insured Medical (General) History Medical History History ICD Code 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
--- OUTSIDE RECORDS SUMMARY | 2025-06-20 12:34 | XMS_ITS | Clinical Summary ---
Author Organization [facility] Address [address] 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
== END 2025-06-19 04:31 | disposition home or self-care (01) ==
PROVIDERS: Emergency Provider Emergency Medicine; PCP Nurse Practitioner
DX: N39.0 Urinary tract infection, site not specified (principal); E86.0 Dehydration; R10.9 Unspecified abdominal pain; Z79.02 Long term (current) use of antithrombotics/antiplatelets; Z79.82 Long term (current) use of aspirin; F17.210 Nicotine dependence, cigarettes, uncomplicated; J44.9 Chronic obstructive pulmonary disease, unspecified; I10 Essential (primary) hypertension; I25.10 Atherosclerotic heart disease of native coronary artery without angina pectoris
CPT/HCPCS: 74176; 80053; 80306; 81001; 83605; 83690; 85025; 86140; 96361; 96374; 99285; J0696; J7030

== ENCOUNTER → 2025-07-03 14:35 | Outpatient (BNVA) | payer MEDICAID, SELFPAY | PROVIDERS: PCP Nurse Practitioner; Visit Provider Nurse Practitioner | DX: R73.9 Hyperglycemia, unspecified (principal) | CPT/HCPCS: 80053; 83036; 85025 ==

== ENCOUNTER 2025-08-27 07:02 | Observation (INO) | payer MEDICAID, SELFPAY ==
[2025-08-27] VITALS (10 sets, daily range): BP systolic 107–138; BP diastolic 72–98; PULSE 75–93; RESP 16–20; TEMP 36.3–36.8; O2SAT 95–99; BMI 27.3
--- NOTE | 2025-08-27 07:04 | ECG_ITS ---
St[facility] Test Date: 2025-08-27 Pat Name: Fabiola Lucero Department: Room: Gender: Female Special Projects Coordinator: : 1970 Requested By: Korina Valera Order Number: [id number] Joel MD: Yvette Be M.D. Measurements Intervals [place] Rate: 83 P: 37 IN: 161 QRS: -49 QRSD: 118 T: 97 QT: 401 QTc: 472 Interpretive Statements SINUS RHYTHM WITH OCCASIONAL VENTRICULAR PREMATURE COMPLEXES LEFT ANTERIOR FASCICULAR BLOCK [QRS AXIS <= -45, QR IN I, RS IN II] POSSIBLE ANTERIOR MYOCARDIAL INFARCTION , OF INDETERMINATE AGE [30 ms Q WAVE IN V3/V4, OR R < 0.2 mV IN V4] Compared to ECG 05/14/2025 05:32:37 Ventricular premature complex(es) now present Left anterior fascicular block now present Left-axis deviation no longer present T-wave abnormality no longer present Possible ischemia no longer present Myocardial infarct finding still present Electronically Signed On 08-28-2025 19:24:07 CDT by Yvette Be M.D. [email or web address]
--- OUTSIDE RECORDS SUMMARY | 2025-08-27 07:06 | XMS_ITS | Encounter Summary ---
Author Organization [facility] Address [address] [place] [address] Care Team Providers Care Machine Attendant Name Role Phone Non-Staff, Physician Primary Care Provider Unava ilable Encounter Details Date Type Department Care Team (Late st Contact Info) Description 12/23/2015 Lab Requisition [facility] General Laboratory Services [place] [address] [facility] [address] [place] [address] Jay Jay Riddle PA NO ADDRESS ON [...] Comments FOLATE, SERUM Routine 12/23/2015 8:48 PM [facility] CBC WITH DIFFERENTIAL Routine 12/23/2015 8:48 PM [facility] VITAMIN D 25 HYDROXY Routine 12/23/2015 8:48 PM [facility] TSH Routine 12/23/2015 8:48 PM [facility] IRON LEVEL Routine 12/23/2015 8:48 PM [facility] VITAMIN B12 LEVEL Routine 12/23/2015 8:4 8 PM [facility] HEPATIC FUNCTION PANEL Routine 12/23/2015 8:48 PM [facility] LIPID PANEL Routine 12/23/2015 8:48 PM [facility] BASIC METABOLIC PANEL Routine 12/23/2015 8:48 PM [facility] documented in this encounter Results * (ABNORMAL) VITAMIN D 25 HYDROXY (12/23/2015 8:48 PM [facility]) VITAMIN D TOTAL (25OH) 6(L) 30 - 100 ng/ml 12/25/2015 1:31 AM [facility] Blood 12/23/2015 8:48 PM [facility] 12/23/2015 8:48 PM [facility] Narrative [facility] [employer] [facility] - 12/25/2015 1:31 AM MATERIAL LIAISON Interpretive Data Chart: Deficient: 0 - 20 ng/ml Insufficient: 21 - 29 ng/ml Sufficient: 30 - 100 ng/ml Increased Risk of Hypercalciuria: >100 ng/ml Toxic: >150 ng/ml Jay Jay GAGNON CHEMISTRY ORDERABLES Final Re sult Performing Organization Address [facility]/ZIP Co de Phone Number [facility] CLIA# [id number] [address] [place] [phone] * TSH (12/23/2015 8:48 PM MATERIAL LIAISON) Pathologist [facility] TSH 2.47 0.27 - 4.20 uIU/mL 12/23/2015 9:55 PM MATERIAL LIAISON [facility] Blood 12/23/2015 8:48 PM [facility] 12/23/2015 8:48 PM [facility]IA[facility] Jay Jay GAGNON CHEMISTRY ORDERABLES Final Re sult Performing Organization Address City/[facility]/ZIP Co de Phone Number [facility] [employer] [facility] CLIA # [id number] [address] [address] * (ABNORMAL) LIPID PANEL (12/23/2015 8:48 PM MAT[facility]IA[facility]) CHOLESTEROL 262(H) <200 mg/dL 12/23/2015 9:55 PM [facility] TRIGLYCERIDE 626(H) <150 mg/dL 12/23/2015 9:55 PM [facility] HDL 44 40 - 59 mg/dL 12/23/2015 9:55 PM [facility] LDL CALCULATED <100 mg/dL 12/23/2015 9:55 PM [facility] Comment:Calculated LDL is no t accurate when the Triglyceride value exceeds 400. NON-HDL CHOLESTEROL 218(H) <130 mg/dL 12/23/2015 9:55 PM [facility] Blood 12/23/2015 8:48 PM [facility] 12/23/2015 8:48 PM MAT[facility] LIAISON [facility] - 12/23/2015 9:55 PM [facility] TOTAL CHOLESTEROL mg/dL Desirable <200 Borderline high [...] Jay GAGNON CHEMISTRY ORDERABLES Final Re sult [facility] CLIA # [id number] [address] [address] * IRON LEVEL (12/23/2015 8:48 PM [facility]) IRON 47 37 - 145 ug/dL 12/23/2015 9:55 PM [facility] Blood 12/23/2015 8:48 PM [facility] 12/23/2015 8:48 PM [facility] Jay Jay GAGNON CHEMISTRY ORDERABLES Final Re sult Performing Organization Address [facility] de Phone Number [facility] [place] CLIA # [id number] [address] [place] [id number] * HEPATIC FUNCTION PANEL (12/23/2015 8:48 PM MAT[facility] LIAISON) TOTAL PROTEIN 7.4 6.6 - 8.7 g/dL 12/23/2015 9:55 PM [facility] [place] ALBUMIN 4.1 3.5 - 5.2 g/dL 12/23/2015 9:55 PM [facility] [place] BILIRUBIN TOTAL 0.2 0.0 - 1.2 mg/dL 12/23/2015 9:55 PM [facility] [place] BILIRUBIN DIRECT <0.2 0.0 - 0.3 mg/dL 12/23/2015 9:55 PM [facility] L[facility]ISON [facility] [place] ALKALINE PHOSPHATASE 66 35 - 104 U/L 12/23/2015 9:55 PM [facility] LIA[facility] [place] AST 22 10 - 35 U/L 12/23/2015 9:55 PM [facility] LIAISON [facility] [place] ALT 19 10 - 35 U/L 12/23/2015 9:55 PM [facility] [place] Blood 12/23/2015 8:48 PM [facility] 12/23/2015 8:48 PM [facility] Jay Jay GAGNON CHEMISTRY ORDERABLES Final Re sult Performing Organization Address [facility] Co de Phone Number [facility] [place] CLIA # [id number] [address] [place] [phone] * BASIC METABOLIC PANEL (12/23/2015 8:48 PM [facility]) SODIUM 136 136 - 145 mmol/L 12/23/2015 9:55 PM [facility] [place] POTASSIUM 3.8 3.5 - 5.1 mmol/L 12/23/2015 9:55 PM [facility] [employer] [facility] CHLORIDE 98 98 - 107 mmol/L 12/23/2015 9:55 PM [facility] [employer] [facility] CO2 22 22 - 29 mmol/L 12/23/2015 9:55 PM [facility] [employer] [facility] CALCIUM 9.6 8.6 - 10.0 mg/dL 12/23/2015 9:55 PM [facility] [employer] [facility] BUN 9 6 - 20 mg/dL 12/23/2015 9:55 PM [facility] [employer] [facility] CREATININE 0.81 0.51 - 0.95 mg/dL 12/23/2015 9:55 PM [facility] [employer] [facility] GLUCOSE 89 74 - 106 mg/dL 12/23/2015 9:55 PM [facility] [employer] [facility] GFR >60 >=60 mL/min/1.7 3 sq meter 12/23/2015 9:55 PM [facility] [employer] [facility] Comment: eGFR has not been validated for [...] mL/min/1.7 3 sq meter 12/23/2015 9:55 PM [facility] [employer] [facility] ANION GAP 16 12 - 20 mmol/L 12/23/2015 9:55 PM [facility] [employer] [facility] Blood 12/23/2015 8:48 PM [facility] 12/23/2015 8:48 PM [facility] us Jay Jay GAGNON CHEMISTRY ORDERABLES Final Re sult [facility] [employer] [facility] CLIA # [id number] [address] [place] [phone] * (ABNORMAL) CBC WITH DIFFERENTIAL (12/23/2015 8:48 PM [facility]ISON) WBC 13.5(H) 4.0 - 10.0 K/uL 12/23/2015 9:11 PM [facility] [place] RBC 5.00 3.93 - 5.22 M/uL 12/23/2015 9:11 PM [facility] [place] HEMOGLOBIN 14.1 11.2 - 15.7 g/dL 12/23/2015 9:11 PM [facility] [place] HEMATOCRIT 43.1 34.1 - 44.9 % 12/23/2015 9:11 PM [facility] [place] MCV 86.2 79.4 - 94.8 fL 12/23/2015 9:11 PM [facility] [place] MCH 28.2 25.6 - 32.2 pg 12/23/2015 9:11 PM [facility] [employer] [place] MCHC 32.7 32.2 - 35.5 g/dL 12/23/2015 9:11 PM [facility] [place] RDW 17.1(H) 11.0 - 14.5 % 12/23/2015 9:11 PM [facility] [place] RDW-STDEV 53.9 36.9 - 56.9 fL 12/23/2015 9:11 PM [facility] [place] PLATELETS 533(H) 163 - 337 K/uL 12/23/2015 9:11 PM [facility]ISON [facility] [place] MPV 10.6 10.0 - 14.8 fL 12/23/2015 9:11 PM [facility] [place] NEUTROPHILS 53 34 - 71 % 12/23/2015 9:11 PM [facility] [place] LYMPHOCYTES 27 19 - 52 % 12/23/2015 9:11 PM [facility] [place] MONOCYTES 10 5 - 13 % 12/23/2015 9:11 PM [facility] [place] EOSINOPHILS 8(H) 1 - 6 % 12/23/2015 9:11 PM [facility] [place] BASOPHILS 2(H) 0 - 1 % 12/23/2015 9:11 PM [facility] [place] NEUTROPHIL ABSOLUTE 7.08(H) 1.56 - 6.13 K/uL 12/23/2015 9:11 PM [facility] [place] LYMPHOCYTE ABSOLUTE 3.68(H) 1.20 - 3.40 K/uL 12/23/2015 9:11 PM [facility] [place] MONOCYTE ABSOLUTE 1.33(H) 0.24 - 0.36 K/uL 12/23/2015 9:11 PM MAT[facility] LIAISON [facility] [place] EOSINOPHIL ABSOLUTE 1.09(H) 0.04 - 0.36 K/uL 12/23/2015 9:11 PM MAT[facility] LIAISON [facility] [place] BASOPHILS ABSOLUTE 0.29(H) 0.01 - 0.08 K/uL 12/23/2015 9:11 PM MAT[facility] LIAISON [facility] [place] IMMATURE GRANULOCYTES 0 % 12/23/2015 9:11 PM [facility]ISON [facility] [place] IMMATURE GRANULOCYTES ABSOLUTE 0.02 K/uL 12/23/2015 9:11 PM MATERIAL LIAISON [facility] Blood 12/23/2015 8:48 PM [facility] 12/23/2015 8:48 PM [facility] Jay Jay GAGNON HEMATOLOGY ORDERABLES Final R esult Performing Organization Address City/[facility]/ZIP Co de Phone Number [facility] CLIA # [id number] [address] [place] [address] * FOLATE, SERUM (12/23/2015 8:48 PM MATERIAL LIAISON) FOLATE, SERUM 21.7 >=5.4 ng/mL 12/25/2015 1:31 AM MATERIAL LIAISON [facility] [employer] [facility] Blood 12/23/2015 8:48 PM [facility]IAISON 12/23/2015 8:48 PM [facility] LIAISON Jay Jay GAGNON CHEMISTRY ORDERABLES Final Re sult [facility] CLIA# [id number] [address] [place] [address] * VITAMIN B12 LEVEL (12/23/2015 8:48 PM MAT[facility] LIAISON) VITAMIN B12 239 211 - 946 pg/mL 12/23/2015 9:59 PM [facility] Blood 12/23/2015 8:48 PM [facility]ISON 12/23/2015 8:48 PM [facility]IA[facility] Jay Jay GAGNON CHEMISTRY ORDERABLES Final Re sult [facility] [employer] [facility] CLIA # [id number] [address] [place] [address] documented in this encounter Visit Diagnoses Not on filedocumented in this encounter Care Teams Machine Attendant Relationship Specialty Start Date End Date Non-Staff, Physician NO ADDRESS ON FILE PCP - General 03/01/20 documented as of this encounter
--- OUTSIDE RECORDS SUMMARY | 2025-08-27 07:06 | XMS_ITS | Encounter Summary ---
Author Organization [facility] Address [address] [place] [address] Care Team Providers Care Elevator Starter Name Role Phone Non-Staff, Physician Primary Care Provider Unava ilable Reason for Referral * Outpatient Services (Routine) - Closed Specialty Diagnoses / Procedures Referred By Contac t Referred To Contact Radiology Diagnoses Ovarian cyst, left Uterine fibroid Procedures US PELVIS COMPLETE William Kingston MD Phone: tel: fax: [facility] [address] [place] [address] Phone: tel: fax: Referral ID Status Reason Start Date Expiration Date V isits Requested Visits Authorized [id number] Closed [facility] CTS to Schedule (SGF) 01/22/2017 02/22/2018 1 1 Encounter Details Date Type Department Care Team (Latest Contact Info) Description 01/22/2017 Ancillary Orders [facility] Centralized Scheduling [address] [place] [address] William Kingston MD [address] [place] [address] Ovarian cyst, left; Uterine fibroid [...] unspecified documented in this encounter Care Teams Elevator Starter Relationship Specialty Start Date End Date Non-Staff, Physician NO ADDRESS ON FILE PCP - General 03/01/20 documented as of this encounter
--- OUTSIDE RECORDS SUMMARY | 2025-08-27 07:06 | XMS_ITS | Encounter Summary ---
Author Organization [facility] Address [address] [place] [address] Care Team Providers Care Ammunition Storekeeper Name Role Phone Non-Staff, Physician Primary Care Provider Unava ilable Encounter Details Date Type Department Care Team (Late st Contact Info) Description 01/21/2015 Lab [facility] [place] [address] [place] [address] Obed Henriquez, DO NO ADDRESS [...] WBC 14.4 K/uL 01/21/2015 11:18 PM CDT [facility] [place] SEGMENTED NEUTROPHILS 67 45 - 70 % 01/21/2015 11:18 PM CDT [facility] [place] LYMPHOCYTES RELATIVE 24 20 - 45 % 01/21/2015 11:18 PM CDT [employer] [place] MONOCYTES RELATIVE 4 2 - 8 % 01/21/2015 11:18 PM CDT [facility] [place] EOSINOPHILS RELATIVE 5 0 - 5 % 01/21/2015 11:18 PM CDT [facility] [place] PLATELET EST. Consistent with Count 01/21/2015 11:18 PM CDT [facility] [place] NEUTROPHILS ABSOLUTE COUNT 9.65(H) 1.78 - 5.38 K/uL 01/21/2015 11:18 PM CDT [facility] [place] LYMPHOCYTES ABSOLUTE 3.46 1.20 - 4.00 K/uL 01/21/2015 11:18 PM CDT [facility] [place] MONOCYTES ABSOLUTE 0.58 0.30 - 0.82 K/uL 01/21/2015 11:18 PM CDT [facility] [place] EOSINOPHILS ABSOLUTE 0.72(H) 0.04 - 0.54 K/uL 01/21/2015 11:18 PM CDT [facility] [place] RBC MORPHOLOGY Normal 01/21/2015 11:18 PM CDT [facility] [place] TOTAL CELLS COUNTED IN DIFF 100 01/21/2015 11:18 PM CDT [facility] [place] Blood 01/21/2015 10:2 6 PM CDT 01/21/2015 10:26 PM CDT Obed Henriquez DO HEMATOLOGY ORDERABLES COM Final Result [facility] [employer] [facility] CLIA # [id number] [address] [place] [phone] * TSH (01/21/2015 10:26 PM CDT) TSH 1.73 0.30 - 4.80 uIU/mL 01/21/2015 11:17 PM CDT [facility] [employer] [facility] Blood 01/21/2015 10:2 6 PM CDT 01/21/2015 10:26 PM CDT us Obed Henriquez DO CHEMISTRY ORDERABLES Final Resu lt Performing Organization Address City/[facility]/ZIP Co de Phone Number [facility] [employer] [facility] CLIA # [id number] [address] [place] [phone] * (ABNORMAL) LIPID PANEL (01/21/2015 10:26 PM CDT) CHOLESTEROL 263(H) 130 - 200 mg/dL 01/21/2015 11:17 PM CDT [facility] TRIGLYCERIDE 744(H) 30 - 200 mg/dL 01/21/2015 11:17 PM CDT [facility] [employer] [facility] HDL 35 - 80 mg/dL 01/21/2015 11:17 PM T [facility] [employer] [facility] Comment: Measured HDL is not accurate when the Triglyceride value exceeds 700. LDL CALCULATED 0 - 100 mg/dL 01/21/2015 11:17 PM T [facility] [employer] [facility] Comment:Calculated LDL is no t accurate when the Triglyceride value exceeds 400. NON-HDL CHOLESTEROL mg/dL 01/21/2015 11:17 PM CDT [facility] Comment:Unable to determine Blood 01/21/2015 10:2 6 PM CDT 01/21/2015 10:26 PM CDT Narrative [facility] [employer] [facility] - 01/21/2015 11:17 PM CDT TOTAL CHOLESTEROL [...] ORDERABLES Final Resu lt Performing Organization Address [facility]/ZIP Co de Phone Number [facility] [place] CLIA # [id number] [address] [place] [phone] * (ABNORMAL) IRON LEVEL (01/21/2015 10:26 PM CDT) IRON 38(L) 50 - 170 ug/dL 01/21/2015 11:18 PM CDT [facility] [place] Blood 01/21/2015 10:2 6 PM CDT 01/21/2015 10:26 PM CDT Obed Henriquez DO CHEMISTRY ORDERABLES Final Resu lt Performing Organization Address [facility]/ZIP Co de Phone Number [facility] [employer] [facility] CLIA # [id number] [address] [place] [phone] * (ABNORMAL) COMPREHENSIVE METABOLIC PANEL (01/21/2015 10:26 PM CDT) SODIUM 137 136 - 145 mmol/L 01/21/2015 11:17 PM CDT [facility] [place] POTASSIUM 3.9 3.5 - 5.1 mmol/L 01/21/2015 11:17 PM CDT [facility] [place] CHLORIDE 101 98 - 107 mmol/L 01/21/2015 11:17 PM CDT [facility] [place] CO2 24 21 - 32 mmol/L 01/21/2015 11:17 PM CDT [facility] [place] CALCIUM 9.6 8.5 - 10.1 mg/dL 01/21/2015 11:17 PM CDT [facility] [place] BUN 10 7 - 18 mg/dL 01/21/2015 11:17 PM [facility]OR[facility] CREATININE 1.10 0.60 - 1.30 mg/dL 01/21/2015 11:17 PM [facility] LABORATORY [facility] GLUCOSE 92 74 - 106 mg/dL 01/21/2015 11:17 PM [facility] TOTAL PROTEIN 7.9 6.4 - 8.2 g/dL 01/21/2015 11:17 PM [facility] ALBUMIN 3.7 3.4 - 5.0 g/dL 01/21/2015 11:17 PM [facility] LABORATORY [facility] [place] BILIRUBIN TOTAL 0.3 0.2 - 1.0 mg/dL 01/21/2015 11:17 PM [facility] LABORATORY [facility] ALKALINE PHOSPHATASE 73 46 - 116 U/L 01/21/2015 11:17 PM [facility]AT[facility] [place] AST 18 15 - 37 U/L 01/21/2015 11:17 PM [facility] ALT 22(L) 30 - 65 U/L 01/21/2015 11:17 PM [facility] [place] GFR 53(L) >=60 mL/min/1.7 3 sq meter 01/21/2015 11:17 PM [facility] [employer] [facility] Comment: eGFR has not been validated for [...] mL/min/1.7 3 sq meter 01/21/2015 11:17 PM [facility] LABORATORY [facility] ANION GAP 12 12 - 20 mmol/L 01/21/2015 11:17 PM [facility]ORATORY [facility] Blood 01/21/2015 10:2 6 PM CDT 01/21/2015 10:26 PM CDT Narrative [facility] [place] - 01/21/2015 11:17 PM CDT Effective 07/12/2014, the Alkaline Phosphatase test method and reference range have changed. Please take this into consideration when interpreting results prior to or after this date. us Obed Henriquez DO CHEMISTRY ORDERABLES Final Resu lt [facility] CLIA # [id number] [address] [place] [phone] * (ABNORMAL) CBC WITH DIFFERENTIAL (01/21/2015 10:26 PM CDT) WBC 14.4(H) 4.0 - 10.0 K/uL 01/21/2015 10:49 PM CDT [facility] RBC 5.27(H) 3.93 - 5.22 M/uL 01/21/2015 10:49 PM CDT [facility] HEMOGLOBIN 15.3 11.2 - 15.7 g/dL 01/21/2015 10:49 PM CDT [facility] HEMATOCRIT 46.3(H) 34.1 - 44.9 % 01/21/2015 10:49 PM CDT [facility] MCV 87.9 79.4 - 94.8 fL 01/21/2015 10:49 PM CDT [facility] MCH 29.0 25.6 - 32.2 pg 01/21/2015 10:49 PM CDT [facility] MCHC 33.0 32.2 - 35.5 g/dL 01/21/2015 10:49 PM CDT [facility] [employer] [facility] RDW 16.0(H) 11.0 - 14.5 % 01/21/2015 10:49 PM CDT [facility] [employer] [facility] RDW-STDEV 51.6 36.9 - 56.9 fL 01/21/2015 10:49 PM CDT [facility] [employer] [facility] PLATELETS 544(H) 163 - 337 K/uL 01/21/2015 10:49 PM CDT [facility] [employer] [facility] MPV 10.9 10.0 - 14.8 fL 01/21/2015 10:49 PM CDT [facility] [employer] [facility] Blood 01/21/2015 10:2 6 PM CDT 01/21/2015 10:26 PM CDT Obed Henriquez DO HEMATOLOGY ORDERABLES Final Res ult [facility] [employer] [facility] CLIA # [id number] [address] [place] [address] * VITAMIN B12 AND FOLATE (01/21/2015 10:26 PM CDT) FOLATE, SERUM 11.02 >=5.38 ng/mL 01/22/2015 9:33 PM CDT [facility] [employer] [facility] VITAMIN B12 238 211 - 911 pg/mL 01/22/2015 9:33 PM CDT [facility] [employer] [facility] Blood specimen (specimen) 01/21/2015 10:26 PM CDT 01/21/2015 10:26 PM CDT Obed Henriquez DO CHEMISTRY ORDERABLES Final Resu lt Performing Organization Address City/[facility]/ZIP Co de Phone Number [facility] [employer] [facility] CLIA# [id number] [facility] [place], [place] [id number] [place] [address] [employer] [facility] CLIA# [id number] [address] [place] [phone] documented in this encounter Visit Diagnoses Not on filedocumented in this encounter Care Teams Ammunition Storekeeper Relationship Specialty Start Date End Date Non-Staff, Physician NO ADDRESS ON FILE PCP - General 03/01/20 documented as of this encounter
--- OUTSIDE RECORDS SUMMARY | 2025-08-27 07:06 | XMS_ITS | Clinical Summary ---
Author Organization [facility] Address [address] John: Epic Prelude ADT [facility] [address] Care Team Providers Care Sub Arc Operator Name Role Phone Non-Staff, Physician Primary Care Provider Unava ilable Allergies Active Allergy Reactions Criticality Noted Date Comments Iodinated Contrast Media Nausea and Vomiting Low Latex Rash Low 04/28/2016 Metronidazole Rash Low 11/23/2019 Moxifloxacin Rash Low 11/13/2018 Opioids - Morphine Analogues Nausea and Vomiting Low 08/17/2014 [place] Hives High 09/09/2016 Medications lisinopriL (PRINIVIL) 20 [...] on file Legal Sex Female 10:49 AM FUR DRUMMER Gender Identity Not on file Sexual Orientation Not on file Last Filed Vital Signs Vital Sign Reading Time Taken Comments Blood Pressure 146/86 04/17/2020 9:15 PM CDT Pulse 134 12/13/2019 3:14 PM FUR DRUMMER Temperature 36.5 C (97.7 F) 04/17/2020 9:15 PM CDT Respiratory Rate 34 12/13/2019 3:14 PM [employer]UR [employer]UMMER Oxygen Saturation - - Inhaled Oxygen Concentration [...] Cancer Screening 03/11/2020 INFLUENZA VACCINE (#1) 2025 Care Teams Sub Arc Operator Relationship Specialty Start Date End Date Non-Staff, Physician NO ADDRESS ON FILE PCP - General 03/01/20
--- OUTSIDE RECORDS SUMMARY | 2025-08-27 07:06 | XMS_ITS | Clinical Summary ---
Author Organization [facility] Address [address] [place] [id number] Care Team Providers Care Dental Assistant Medical Assistant Name Role Phone Non-Staff, Physician Primary Care Provider Unava ilable Allergies Active Allergy Reactions Criticality Noted Date Comments Iodinated Contrast Media Nausea and Vomiting Low Latex Rash Low 04/28/2016 Metronidazole Rash Low 11/23/2019 Moxifloxacin Rash Low 11/13/2018 Opioids - Morphine Analogues Nausea and Vomiting Low 08/17/2014 [place] Hives High 09/09/2016 Medications lisinopril (PRINIVIL) 20 [...] PM CDT Pulse 134 12/13/2019 3:14 PM ACCOUNTING FILE CLERK Temperature 36.5 C (97.7 F) 04/17/2020 9:15 PM CDT Respiratory Rate 34 12/13/2019 3:14 PM ACCOUNTING FILE CLERK Oxygen Saturation 100% 04/17/2020 9:15 PM CDT [...] Cancer Screening 03/11/2020 INFLUENZA VACCINE (#1) 2025 Procedures Procedure Name Priority Date/Time Associated Diagnosis Comments ENDOSCOPY, COLON, DIAGNOSTIC Routine 03/11/2010 from Last 3 Months or Most Recently Relevant to Health Maintenance Results * ENDOSCOPY, COLON, DIAGNOSTIC (03/11/2010) us Abstract Spg Provider GI PROCEDURE ORDERABLES Fi nal Result from Last 3 Months or Most Recently Relevant to Health Maintenance Insurance [employer] Care Teams Dental Assistant Medical Assistant Relationship Specialty Start Date End Date Non-Staff, Physician NO ADDRESS ON FILE PCP - General 03/01/20
--- NOTE | 2025-08-27 07:08 | ED_ITS ---
HPI - Chest Pain 2 General: Chief Complaint: Chest Pain Stated Complaint: chest pain Time Seen by Provider: 08/27/25 07:04 History of Present Illness: 55-year-old female with a history of cor onary artery disease status post stents, COPD, hypertension, Crohn's disease, hyperlipidemia and anxiety who presents emergency room with left arm pain and a funny feeling in her chest. She says this is how she felt for a few days before she had her heart attack. She wanted to get checked out before it got to that. No fever. No cough. No nausea or vomiting. No abdominal pain. No altered mental status. No lower extremity swelling. Related Data Home Medications ?Medication ?Instructions ?Recorded ?Confirmed acetaminophen 500 mg tablet 1,000 mg PO Q6H PRN Pain 0 06/28/23 08/27/25 Previous Rx's ?Medication ?Instructions ?Recorded aspirin 81 mg chewable tablet 81 mg PO DAILY #30 tabs 12/18/24 isosorbide mononitrate 20 mg tablet 10 mg (1/2 x 20 mg ) PO BID #30 tabs 12/18/24 metoprolol tartrate 25 mg tablet 12.5 mg (1/2 x 25 mg) PO 12/18/24 BID@0900,2100 #60 tabs cholecalciferol (vitamin D3) 125 125 mcg PO DAILY #52 mL 05/08/25 mcg/mL (5,000 unit/mL) oral drops nebulizers #1 ea 05/24/25 clopidogrel 75 mg tablet 75 mg PO DAILY #30 tabs 05/02 rosuvastatin 10 mg tablet 20 mg (2 x 10 mg) PO DAILY # 30 tabs 06/13/25 furosemide 20 mg tablet (Lasix) 20 mg PO QAM PRN edema #30 tabs 07/03/25 potassium chloride 10 mEq oral 10 meq PO DAILY #30 ea 07/03/25 packet albuterol sulfate 2.5 mg/3 mL 2.5 mg (3 mL) inhalation Q4H PRN 08/06/25 (0.083 %) solution for nebulization shortness of breat h or wheezing #180 mL albuterol sulfate 90 mcg/actuation 2 inh inhalation Q4 H PRN shortness 08/21/25 aerosol inhaler of breath or wheezing #6.7 g kristina Allergies Allergy/AdvReac Type Severity Reaction Status Date / Time codeine Allergy Severe ADR-Agitate Verified 07/12/25 22:30 d metronidazole (From Flagyl) Allergy Mild ALGY-Rash Verified 07/12/25 22:30 acetaminophen (From Percocet) Allergy Unknown Verified 07/12/25 22:30 Iodinated Contrast Media Allergy ALGY-Hives Verified 07/12/25 22:30 oxycodone (From Percocet) Allergy Unknown Verified 07/12/25 22:30 fentanyl AdvReac Mild Unknown Verified 07/12/25 22:30 hydromorphone (From Dilaudid) AdvReac Mild unknown Verified 07/12/25 22:30 Review of Systems 2 Narrative: Constitutional symptoms: Negative except as documented in HPI. Skin symptoms: Negative except as documented in HPI. Eye symptoms: Negative except as documented in HPI. ENMT symptoms: Negative except as documented in HPI. Respiratory symptoms: Negative except as documented in HPI. Cardiovascular symptoms: Negative except as documented in HPI. Gastrointestinal symptoms: Negative except as documented in HPI. Genitourinary symptoms: Negative except as documented in HPI. Musculoskeletal symptoms: Negative except as documented in HPI. Neurologic symptoms: Negative except as documented in HPI. Psychiatric symptoms: Negative except as documented in HPI. Endocrine symptoms: Negative except as documented in HPI. PFSH ED 2 PFSH: Medical History (Updated 08/27/25 @ 10:58 by Korina Bardales MD) 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 had part of her small and large intestine removed in 2009. Uterine leiomyoma Vertigo Anxiety Surgical History History of CAD (coronary artery disease) 11/28/24 2 stents, 12/17/24 1 stent [facility] H/O ileostomy (~2009) Status post colonoscopy S/P partial colectomy (~2009) History of splenectomy History of eye surgery Family History Other CAD (coronary artery disease) Diabetes Psychiatric illness Denies family history of Cancer Social History Smoking and tobacco/nicotine status: current every day tobacco/nicotine user cigarettes Packs smoked per day: 1.5 Alcohol intake: never Substance/Drug Use: never Adopted: No Caregiver/support person: No Lives independently: Yes Household members: spouse Housing: House Marital status: service: No Current occupational status: employed 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 Skin: Warm, dry. Head: Normocephalic, atraumatic. Neck: Supple, trachea midline. Eye: Extraocular movements are intact. Ears, nose, mouth and throat: mucosa moist. Cardiovascular: Regular, Normal peripheral perfusion. Respiratory: Lungs are clear to auscultation, respirations are non-labored, breath sounds are equal, Symmetrical chest wall expansion. Gastrointestinal: Soft, Nontender, Non distended Musculoskeletal: Normal ROM, no deformity. Neurological: Alert and oriented, No focal neurological deficit observed. Psychiatric: Cooperative, appropriate mood & affect. Course 2 Vital Signs: Vital signs: Vital Signs Temperature 97.4 F L 08/27/25 07:12 Pulse Rate 87 08/27/25 12:00 Respiratory Rate 17 08/27/25 07:12 Blood Pressure 116/78 08/27/25 12:00 Pulse Oximetry 97 08/27/25 12:00 Oxygen Delivery Me thod Room Air 08/27/25 12:00 MDM - Chest Pain Medical Decision Making Differential diagnosis for patient with chest pain or chest pain equivalent includes but is not limited to and based on the above HPI, review of systems and physical exam: Pneumonia. unstable angina. angina. Acute coronary syndrome / UT. Pulmonary embolism. Costochondritis / musculoskeletal. Pleurisy. Pericarditis. Esophageal spasm. Pancreatis. Cholecystitis. Orders placed to evaluate differential diagnosis based on the above differential, HPI and physical exam EKG: Time 7:04 AM. Rate 83. Normal sinus rhythm, nonspecific ST changes, PVCs, left anterior fascicular block, This was reviewed and interpreted by myself the ER physician at 7:08 AM Repeat EKG: Time 940. Rate 87. Normal sinus rhythm, nonspecific ST changes, PVCs, left anterior fascicular block, This was reviewed and interpreted by myself the ER physician at 9:40 AM. Notes significant changes from EKG done previously today in the emergency room. Chest x-ray: No acute process. No infiltrate. No pneumothorax. This was reviewed and interpreted by myself the emergency room physician. I also reviewed the radiology report. Lab Review: Laboratory results were reviewed and interpreted by myself the emergency room physician. No leukocytosis. No anemia. No renal failure. Initial cardiac marker is elevated at 29. Repeat is still at 29. I reviewed the patient's medical record. Reexamination: Heart score is 6. Patient says her pain/discomfort is improved some. No increased work of breathing. No altered mental status. I reviewed the patient's chart:55-year-old female with a history of coronary artery disease status post stents, COPD, hypertension, Crohn's disease, hyperlipidemia and anxiety Consultation: I spoke with Dr. Lakhani who is on-call for the hospital service who agrees to admission Assessment and plan: Chest pain Coronary artery disease -I discussed the patient with the hospitalist on-call who is admitting the patient. - Discussed findings and plan with patient. Answered any questions. - All laboratory values were reviewed and interpreted personally by myself, the ER physician - All imaging was reviewed and interpreted personally by myself, the ER physician. - Evaluation and treatment of this problem were appropriate in the emergency setting Lab Data 08/27/25 07:28 08/27/25 07:28 Radiology Impressions Chest X-Ray 08/27/25 07:15 IMPRESSION: No acute process. Laboratory Results WBC 8.33 10^3/uL (3.29-11.43) 08/27/25 07:28 Corrected WBC 8.0 10^3/cmm (4.8-10.8) 08/27/25 07:28 RBC 5.45 10^6/uL (3.85-5.65) 08/27/25 07:28 Hgb 13.80 g/dL (11.27-16.99) 08/27/25 07: Hct 44.1 % (36-47) 08/27/25 07:28 MCV 80.9 fl (85-98) L 08/27/25 07:28 MCH 25.3 pg (27-33) L 08/27/25 07: MCHC 31.3 g/dL (30-55) 08/27/25 07:28 RDW 23.9 % (12.1-15.1) H 08/27/25 07:28 Plt Count 465 10^3/cmm (157-399) H 08/27/25 07:28 MPV 10.4 fL (7.4-10.4) 08/27/25 07: Lymph % (Auto) Not Reportable 08/27/25 07: Bertie % (Auto) Not Reportable 08/27/25 07:28 Lymph # (Auto) Not Reportable 08/27/25 07: Bertie # (Auto) Not Reportable 08/27/25 07:28 Total Counted 100 (0-100) 08/27/25 07: Atypical Lymphs % 6.0 % (0-5) H 08/27/25 07: Absolute Neutrophils 6.2 10^3/cmm (1.4-6.5) 08/27/25 07: Segmented Neutrophils 74 % 08/27/25 07: Band Neutrophils 0.0 % 08/27/25 07: Absolute Lymphocytes 1.9 10^3/cmm (1.2-3.4) 08/27/25 07:28 Lymphocytes (Manual) 17 % 08/27/25 07:28 Monocytes (Manual) 2.0 % 08/27/25 07: Absolute Monocytes 0.2 10^3/cmm (0.1-0.6) 08/27/25 07: Eosinophils (Manual) 2 % 08/27/25 07: Absolute Eosinophils 0.2 10^3/cmm (0.0-0.7) 08/27/25 07: Basophils (Manual) 0.0 % 08/27/25 07: Absolute Basophils 0.0 10^3/cmm (0.0-0.2) 08/27/25 07: Nucleated RBCs 4.0 /100WBC (0-1) H 08/27/25 07: Platelet Estimate Increased (Normal) H 08/27/25 07:28 Sodium 133 mmol/L (136-145) L 08/27/25 07:28 Potassium 4.5 mmol/L (3.5-5.1) 08/27/25 07:28 Chloride 100 mmol/L (98-107) 08/27/25 07: Carbon Dioxide 18 mmol/L (22-29) L 08/27/25 07:28 Anion Gap 19.5 (5-19) H 08/27/25 07:28 BUN 11 mg/dL (6-20) 08/27/25 07:28 Creatinine 0.7 mg/dL (0.5-0.9) 08/27/25 07:28 GFR Calculation 86.2 mL/min (90-130) L 08/27/25 07:28 Glucose 108 mg/dL (65-115) 08/27/25 07:28 Calculated Osmolality 276 mOsm/kg (285-295) L 08/27/25 07:28 Calcium 9.6 mg/dL (8.5-10.5) 08/27/25 07: Total Bilirubin 1.5 mg/dL (0.15-1.2) H 08/27/25 07:28 AST 18 U/L (0-32) 08/27/25 07:28 ALT 21 U/L (0-33) 08/27/25 07: Alkaline Phosphatase 120 U/L (35-105) H 08/27/25 07:28 Troponin T Baseline 29 ng/L (0-10) H 08/27/25 07:28 Troponin T 120 Minute 28.79 ng/L (0-10) H 08/27/25 09:25 Delta Troponin T -0.21 ABS# (0-10) L 08/27/25 09:25 NT-Pro-B Natriuret Pep 5001 pg/mL (0-125) H 08/27/25 07:28 Total Protein 6.2 g/dL (6.6-8.7) L 08/27/25 07:28 Albumin 3.2 g/dL (3.5-5.2) L 08/27/25 07:28 Globulin 3.0 g/dL (1.3-4.6) 08/27/25 07:28 All radiology interpretation(s) finalized by discharge Clincial Decision Support The following clinical decision support tools were used to aid in care of the patient HEART Score -> History: Highly Suspicious, EKG: Non-specific Changes, Age: 45-64 yrs, Risk Factors: >/=3 Risk Factors, Troponin: Baseline Trop 16-45 ng/L. Resulting HEART Score: 7. Discharge Plan Discharge Patient Disposition: Placed in Observation Admit Provider: Brenda Lakhani Clinical Impression: Chest pain Coronary artery disease Qualifiers: Coronary Disease-Associated Artery/Lesion type: [place] artery Associated angina: with unspecified form of angina Coding Level of Care Code ED Program Coordinator for Chg Fwd Heart Score HEART Score Components History: Highly Suspicious EKG: Non-specific Changes Age: 45-64 yrs Risk Factors: >/=3 Risk Factors Troponin: Baseline Trop 16-45 ng/L HEART Score RESULT HEART Score: 7
--- NOTE | 2025-08-27 07:15 | XRR_ITS ---
PROCEDURE INFORMATION: Exam: XR Chest Exam date and time: 08/27/2025 07:28 AM Age: 55 years old Clinical indication: Pain; Angina pectoris; Additional info: Chest pain TECHNIQUE: Imaging protocol: Radiologic exam of the chest. Views: 1 view. COMPARISON: CR (CHEST, ) 05/14/2025 04:47 AM FINDINGS: Lungs: Unremarkable. No consolidation. Pleural spaces: Unremarkable. No pleural effusion. No pneumothorax. Heart/Mediastinum: Unremarkable. No cardiomegaly. Vasculature: Atherosclerotic vascular disease. Bones/joints: Unremarkable. XR/XR chest 1V portable [id number] IMPRESSION: No acute process.
[2025-08-27 07:48] LABS: Hematocrit 44.1 % (36-47); Hemoglobin 13.80 g/dL (11.27-16.99); Mean Corpuscular HGB Conc 31.3 g/dL (30-55); Mean Corpuscular Hemoglobin 25.3 pg (27-33); Mean Corpuscular Volume 80.9 fl (85-98); Platelet Count 465 10^3/cmm (157-399); Red Blood Count 5.45 10^6/uL (3.85-5.65); White Blood Count 8.33 10^3/uL (3.29-11.43)
[2025-08-27 08:06] LABS: Troponin(5th) Baseline 29 ng/L (0-10)
[2025-08-27 08:13] LABS: Alanine Aminotransferase 21 U/L (0-33); Albumin Level 3.2 g/dL (3.5-5.2); Alkaline Phosphatase 120 U/L (35-105); Aspartate Amino Transferase 18 U/L (0-32); Blood Urea Nitrogen 11 mg/dL (6-20); Calcium 9.6 mg/dL (8.5-10.5); Carbon Dioxide 18 mmol/L (22-29); Chloride 100 mmol/L (98-107); Creatinine Clr Calc Pharmacy 102.5859; Globulin 3.0 g/dL (1.3-4.6); Glucose 108 mg/dL (65-115); NT Pro B Type Natriuretic Pept 5001 pg/mL (0-125); Osmolality Calculated 276 mOsm/kg (285-295); Sodium 133 mmol/L (136-145); Total Protein 6.2 g/dL (6.6-8.7)
[2025-08-27 08:16] LABS: Anion Gap 19.5 (5-19); Potassium 4.5 mmol/L (3.5-5.1)
[2025-08-27 08:37] LABS: Slide Review Slide Review Perform
[2025-08-27 08:38] LABS: Absolute Segmented Neutrophil 6.2 10/cmm (1.6-7.1); Atypical Lymphs 6.0 % (0-5); Band Neutrophils Absolute 0.0 10^3/cmm (0.0-1.2); Total Cells Counted 100 (0-100)
--- NOTE | 2025-08-27 09:15 | ECG_ITS ---
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 Measurements Intervals [place] Rate: 87 P: 39 OK: 159 QRS: -47 QRSD: 113 T: 84 QT: 396 QTc: 477 Interpretive Statements SINUS RHYTHM LEFT ANTERIOR FASCICULAR BLOCK [QRS AXIS <= -45, QR IN I, RS IN II] POSSIBLE ANTERIOR MYOCARDIAL INFARCTION , OF INDETERMINATE AGE [30 ms Q WAVE IN V3/V4, OR R < 0.2 mV IN V4] Compared to ECG 08/27/2025 07:04:00 Ventricular premature complex(es) no longer present Myocardial infarct finding still present Electronically Signed On 08-28-2025 19:43:05 CDT by Yvette Be M.D. [email or web address]
[2025-08-27 10:01] LABS: Troponin 5 2HR 28.79 ng/L (0-10)
[2025-08-27 10:12] LABS: Troponin 5 2HR Delta -0.21 ABS# (0-10)
--- NOTE | 2025-08-27 13:38 | ECG_ITS ---
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 Measurements Intervals [place] Rate: 82 P: 44 NV: 164 QRS: -48 QRSD: 116 T: 92 QT: 395 QTc: 463 Interpretive Statements SINUS RHYTHM LEFT ANTERIOR FASCICULAR BLOCK [QRS AXIS <= -45, QR IN I, RS IN II] POSSIBLE ANTERIOR MYOCARDIAL INFARCTION , OF INDETERMINATE AGE [30 ms Q WAVE IN V3/V4, OR R < 0.2 mV IN V4] Non Specific ST-T changes Compared to ECG 08/27/2025 09:34:51 No significant changes Electronically Signed On 08-28-2025 19:41:04 CDT by Yvette Be M.D. [email or web address]
[2025-08-27 14:04] LABS: Troponin 5 6HR 26.60 ng/L (0-10); Troponin 5 6HR Delta -2.40 ng/L (0-12)
--- NOTE | 2025-08-27 17:13 | USCV_ITS ---
Fabiola Lucero Age: 55 Gender: F : 1970 Exam Date: 08/27/2025 20:50 Ordering Phys: Brenda Lakhani MD Technologist: SALVADOR Exam Location: [facility] [place] Indication: chest pain, hx CAD s/p PCI, HTN, Chrohn's dz, HL BP: 127 / 88 HR: 85 Rhythm: Sinus Technical Quality: Adequate MEASUREMENTS (Male / Female) Normal Values 2D ECHO LV Diastolic Diameter PLAX 5.0 cm 4.2 - 5.9 / 3.9 - 5.3 cm IVS Diastolic Thickness 1.3 cm 0.6 - 1.0 / 0.6 - 0.9 cm IVS Systolic Thickness 1.8 cm LVPW Diastolic Thickness 1.2 cm 0.6 - 1.0 / 0.6 - 0.9 cm LVPW Systolic Thickness 1.5 cm LVOT Diameter 2.1 cm LV Ejection Fraction 2D Teich 22.5 % LV Ejection Fraction MOD 4C 17.4 % LV Ejection Fraction MOD 2C 16.0 % LV Ejection Fraction 2C AL 13.6 % LA Diameter 5.0 cm Aorta at Sinotubular Diameter 2.8 cm IVC Diameter 1.6 cm M-MODE LA Ao Ratio MM 1.1 AV Cusp Separation MM 2.0 cm DOPPLER AV Peak Velocity 76.0 cm/s LVOT Peak Velocity 43.0 cm/s AV Area Cont Eq vti 1.9 cm squared AV Area Cont Eq pk 2.0 cm squared MV Peak Velocity 84.0 cm/s MV Area PHT 7.1 cm squared Mitral E to A Ratio 1.8 TV Peak Velocity 294.0 cm/s TR Peak Velocity 313.0 cm/s TR Peak Gradient 39.2 mmHg TV Peak E Velocity 37.0 cm/s PV Peak Velocity 44.0 cm/s FINDINGS Left Ventricle Severe diffuse hypokinesis of the left ventricle with ejection fraction around 19%. Mildly dilated LV cavity Right Ventricle Normal RV size with a slightly diminished ejection fraction Right Atrium Mildly increased right atrial size. Left Atrium Mildly increased left atrial size. IA Septum Interatrial septum appears to be intact Mitral Valve Mild mitral valve regurgitation. Aortic Valve Thickened aortic valve. Trace aortic valve regurgitation. Tricuspid Valve Moderate tricuspid valve regurgitation. Thickened tricuspid annulus Pulmonic Valve Pulmonic valve not well visualized. Pericardium No pericardial effusion. Aorta Normal aortic annulus size. IVC Normal inferior vena cava. CONCLUSIONS Severe diffuse hypokinesis of the left ventricle with ejection fraction around 19%. Mildly dilated LV cavity. Mild biatrial enlargement Moderate tricuspid valve regurgitation. Thickened tricuspid annulus. Estimated pulmonary artery peak systolic pressure 42 mmHg Thickened aortic valve. Trace aortic valve regurgitation. Mild mitral valve regurgitation. Compared to the study from 12/16/2024, there is a significant drop in the ejection fraction Dr Yvette Be MD [facility] (Electronically Signed) Final Date: 27 August 2025 22:47 S
--- NOTE | 2025-08-27 17:22 | P.HP_ITS ---
Providers/Chief Complaint 2 Admitting Physician: Brenda Lakhani MD Primary Care Provider: YAMILKA Whitlock Chief Complaint: chest pain History of Present Illness Fabiola Lucero is a 55 year old female with medical history significant for CAD. Patient had myocardial infarction in November 2024 this year and was status post cardiac catheterization at that time in this hospital and had 2 coronary artery stents putting at follow-up 2 weeks after the coronary artery event and cardiac catheterization patient had a stressful journey coming to the hospital with a friend that stressed her and she was not feeling well quite out of it for that reason patient was taken back to [facility] [employer] Technician and required another stent placed within 2 weeks of the other 2.. Patient is a patient of Dr. Leyva. He said he saw Dr. Espinal once after dose hospitalization following myocardial infarction. Last time she was supposed to see Dr. Leyva was the of this month but that was rescheduled to September. Patient anginal equivalent is left upper extremity muscle aches. This patient never had any chest pain and the prior MRI she had in November. This time patient is experiencing exact type of pain in the left upper extremity with aches and pain. For this reason patient decided to come to the emergency room for further evaluation. Troponin in the emergency room initial 1 was 32nd troponin was lower at 28 I have seen and evaluated patient and I called cardiology on-call Dr. Be who will be seeing this patient. I have made the patient n.p.o. after midnight and placed a stress test and discussed this with Dr. Be and he knows to follow-up with what type of procedure following the whole story of this patient. Is this patient cannot go for cardiac catheterization or any she is going to follow through with stress test. There were no EKG changes no ST elevation in the EKG. Patient had troponin not elevated. Must continue to follow through. Patient received aspirin in the emergency room I continue with daily aspirin patient is receiving Plavix and had not stopped or missed any doses according to her. Must continue to follow through Review of Systems 2 Narrative: System review upon ten organ review where significant for cardiovascular system disorder Medications/Allergies Home Medications ?Medication ?Instructions ?Recorded ?Confirmed ?Last Taken ?Type acetaminophen 500 mg tablet 1,000 mg PO Q6H PRN Pain 0 06/28/23 08/27/25 05/13/25 History aspirin 81 mg chewable tablet 81 mg PO DAILY #30 tabs 12/18/24 08/27/25 08/26/25 Rx isosorbide mononitrate 20 mg tablet 10 mg (1/2 x 20 mg ) PO BID #30 tabs 12/18/24 08/27/25 Unknown Rx metoprolol tartrate 25 mg tablet 12.5 mg (1/2 x 25 mg) PO 12/18/24 08/27/25 08/26/25 Rx BID@0900,2100 #60 tabs cholecalciferol (vitamin D3) 125 125 mcg PO DAILY #52 mL 05/08/25 08/27/25 08/26/25 Rx mcg/mL (5,000 unit/mL) oral drops nebulizers #1 ea 05/24/25 08/27/25 Unkn own Rx clopidogrel 75 mg tablet 75 mg PO DAILY #30 tabs 0805/0208/27/25 08/26/25 Rx rosuvastatin 10 mg tablet 20 mg (2 x 10 mg) PO DAILY # 30 tabs 06/13/25 08/27/25 08/26/25 Rx furosemide 20 mg tablet (Lasix) 20 mg PO QAM PRN edema #30 tabs 07/03/25 08/27/25 Unknown Rx potassium chloride 10 mEq oral 10 meq PO DAILY #30 ea 07/03/25 08/27/25 Unknown Rx packet albuterol sulfate 2.5 mg/3 mL 2.5 mg (3 mL) inhalation Q4H PRN 08/06/25 08/27/25 08/23/25 Rx (0.083 %) solution for nebulization shortness of breat h or wheezing #180 mL albuterol sulfate 90 mcg/actuation 2 inh inhalation Q4 H PRN shortness 08/21/25 08/27/25 08/24/25 Rx aerosol inhaler of breath or wheezing #6.7 g kristina Allergies Allergy/AdvReac Type Severity Reaction Status Date / Time codeine Allergy Severe ADR-Agitate Verified 07/12/25 22:30 d metronidazole (From Flagyl) Allergy Mild ALGY-Rash Verified 07/12/25 22:30 acetaminophen (From Percocet) Allergy Unknown Verified 07/12/25 22:30 Iodinated Contrast Media Allergy ALGY-Hives Verified 07/12/25 22:30 oxycodone (From Percocet) Allergy Unknown Verified 07/12/25 22:30 fentanyl AdvReac Mild Unknown Verified 07/12/25 22:30 hydromorphone (From Dilaudid) AdvReac Mild unknown Verified 07/12/25 22:30 PFSH Acute 2 PFSH: Medical History 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 had part of her small and large intestine removed in 2009. Uterine leiomyoma Vertigo Anxiety Surgical History History of CAD (coronary artery disease) 11/28/24 2 stents, 12/17/24 1 stent O[facility] H/O ileostomy (~2009) Status post colonoscopy S/P partial colectomy (~2009) History of splenectomy History of eye surgery Family History Other CAD (coronary artery disease) Diabetes Psychiatric illness Denies family history of Cancer Social History Smoking and tobacco/nicotine status: current every day tobacco/nicotine user cigarettes Packs smoked per day: 1.5 Alcohol intake: never Substance/Drug Use: never Adopted: No Caregiver/support person: No Lives independently: Yes Household members: spouse Housing: House Marital status: service: No Current occupational status: employed 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 Do you think of yourself as: Straight/Heterosexual Current gender identity: Female Vitals/I&O/Wt Last Vital Signs Temp 97.4 F L 08/27/25 07:12 Pulse 89 08/27/25 14:47 Resp 16 08/27/25 14:47 BP 124/93 08/27/25 14:47 Pulse Ox 99 08/27/25 14:47 O2 Del Method Room Air 08/27/25 15:34 08/27/25 08/27/25 08/27/25 06:59 14:59 22:59 Intake Total 0 / 0 Balance 0 / 0 Weight last 48 hrs Weight 83.915 kg Physical Exam 2 Narrative: Patient is very anxious looking stressed because of extrinsic issues concerning people or how they have treated her the skin has big circles of red rashes and she had been told that this is from stress according to her. HEENT normocephalic/atraumatic neck neck is supple cardiovascular heart rate is regular lungs are pretty much clear abdomen soft nontender nondistended unremarkable extremities are intact no edema has good pulses neurology has no focality lab studies lab studies reviewed and noted. Data 08/27/25 07:28 08/27/25 07:28 A&P Assessment and plan 1. Chest pain: 2. Elevated AST (SGOT): 3. ALT (SGPT) level raised: 4. COPD (chronic obstructive pulmonary disease) with emphysema: 5. Smoking addiction: 6. Coronary artery disease: 7. Hyperlipidemia: 8. Acute coronary syndrome: Plan: Chest pain must rule out new CAD - Patient had 3 coronary artery stent placed in November 2024 with an angina equivalent of left upper extremity aches similar to the left upper extremity muscular aches - Patient had been on Plavix since after coronary arteries stent placed less than a year ago - EKG nonischemic and no ST-T wave abnormality in a way of ST depression or ST elevation - Troponin negative x 2 - Patient still actively smoking, however patient had gone down from 3-1/2 packs of cigarettes today to smoking 16 sticks of cigarette within this year - Patient currently now lives with the daughter - Patient is chest pain-free Nicotine addiction - I have spent time talking to the patient about smoking cessation - Patient verbalized that his goal was to stop smoking because he had cut down from a 4-1/2 packs to 16 sticks daily Chronic medical problem reference hyperlipidemia coronary artery disease COPD - Continue home medication for chronic stable medical problems GI and DVT prophylaxis in place Disposition cardiology will be seeing patient tomorrow echocardiogram to be done and likely stress test if all is negative patient goes home tomorrow patient is observation. PDMP PDMP Reviewed: Not Reviewed Attestations 2 Medical Necessity Statement*: Patient with chest pain with a history of significant coronary artery disease patient is needing stress test with cardiology consultation will need at least 23 hours or less than 2 midnights to optimize care. Coding Level of Care Code Acute Code for [facility] Fwd Diagnoses Chest pain R07.9 Elevated AST (SGOT) R74.01 ALT (SGPT) level raised R74.01 COPD (chronic obstructive pulmonary disease) with emphysema J43.9 Smoking addiction F17.200 Coronary artery disease I25.10 Hyperlipidemia E78.5 Acute coronary syndrome I24.9 Time Spent (min) 60
[2025-08-27] MEDS: heparin 5,000 unit/mL INJ 1 mL 5000 UNIT SUBCUT (19:40)
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
[2025-08-28] VITALS (7 sets, daily range): BP systolic 117–135; BP diastolic 90–101; PULSE 80–94; RESP 16–20; TEMP 35.9–36.8; O2SAT 92–99
[2025-08-28] MEDS: heparin 5,000 unit/mL INJ 1 mL 5000 UNIT SUBCUT ×3 (00:22→18:01)
[2025-08-28 05:46] LABS: Alanine Aminotransferase 22 U/L (0-33); Albumin Level 3.1 g/dL (3.5-5.2); Alkaline Phosphatase 126 U/L (35-105); Aspartate Amino Transferase 21 U/L (0-32); Blood Urea Nitrogen 15 mg/dL (6-20); Calcium 9.6 mg/dL (8.5-10.5); Carbon Dioxide 18 mmol/L (22-29); Chloride 103 mmol/L (98-107); Creatinine Clr Calc Pharmacy 89.7626; Globulin 3.6 g/dL (1.3-4.6); Glucose 96 mg/dL (65-115); Magnesium 2.0 mg/dL (1.7-2.3); Osmolality Calculated 285 mOsm/kg (285-295); Sodium 137 mmol/L (136-145); Total Protein 6.7 g/dL (6.6-8.7)
[2025-08-28 05:47] LABS: Anion Gap 20.6 (5-19); Potassium 4.6 mmol/L (3.5-5.1)
--- NOTE | 2025-08-28 07:47 | PM.PN ---
Subjective Subjective: Patient is feeling better. She had a Myocardial perfusion imaging today. She was found to have a large area of fixed defects involving the anterolateral, lateral, inferolateral, inferior and apical regions with no significant reversible defect. The transient ischemic dilatation ratio was 1.15. LV ejection fraction was around 22%. LV cavity was found to be severely dilated. Medications: Medication Review Details: Current Medications Acetaminophen (Acetaminophen 650 Mg/20.3 Ml Udc) 325 mg PO Q4H PRN PRN Reason: MILD PAIN OR INCREASE TEMP Last Admin: 08/28/25 05:12 Dose: 325 mg Aminophylline (Aminophylline 25 Mg/Ml Sdv 20 Ml) 25 mg IVP Q2M PRN PRN Reason: see dose instructions Stop: 08/29/25 06:48 Aspirin (Aspirin 325 Mg Tablet) 325 mg PO DAILY [facility] Last Admin: 08/28/25 05:13 Dose: 325 mg Docusate Sodium (Docusate Sodium 100 Mg Capsule) 100 mg PO BID [facility] Last Admin: 08/28/25 05:13 Dose: Not Given Heparin Sodium (Porcine) (Heparin 5,000 Unit/Ml Inj 1 Ml) 5,000 unit SUBCUT Q8H [facility] Last Admin: 08/28/25 00:22 Dose: 5,000 unit Sodium Chloride (Sodium Chloride 0.9%) 1,000 mls @ 75 mls/hr IV .[id number] [facility] Last Admin: 08/27/25 20:29 Dose: 75 mls/hr Nitroglycerin (Nitroglycerin 0.4 Mg Sublingual Tablet) 0.4 mg SUBLINGUAL Q5M PRN PRN Reason: CHEST PAIN Stop: 08/29/25 06:48 Ondansetron HCl (Ondansetron 2 Mg/Ml Sdv 2 Ml) 4 mg IVP Q8H PRN PRN Reason: vomiting, or N/V if npo Ondansetron HCl (Ondansetron 2 Mg/Ml Sdv 2 Ml) 4 mg IVP Q2M PRN PRN Reason: NAUSEA Pantoprazole Sodium (Pantoprazole Dr 40 Mg Tablet) 40 mg PO DAILY [facility] Last Admin: 08/28/25 05:13 Dose: 40 mg Regadenoson (Regadenoson 0.4 Mg/5 Ml Syringe) 0.4 mg IVP ONCE PRN PRN Reason: Lexiscan Stress Test Senna (Sennosides 8.6 Mg Tablet) 17.2 mg PO BEDTIME MIRI Last Admin: 08/27/25 20:06 Dose: Not Given Vitals/I&O/Wt Last Vital Signs Temp 96.6 F L 08/28/25 07:20 Pulse 89 08/28/25 07:20 Resp 20 H 08/28/25 07:20 BP 126/93 08/28/25 07:20 Pulse Ox 97 08/28/25 07:20 O2 Del Method Room Air 08/28/25 07:20 08/27/25 08/28/25 08/28/25 22:59 06:59 14:59 Intake Total 240 / 240 240 / 480 Balance 240 / 240 240 / 480 Weight last 48 hrs Weight 185 lb Weight 185 lb Physical Exam Narrative: GENERAL: The patient is alert and oriented times three. Not in any acute distress. Moderately obese HEENT: No significant pallor, icterus or lymphadenopathy.Oral cavity: There are no mucous membrane lesions. NECK: Trachea appears to be central. No masses noted. No JVD or thyromegaly appreciated. RESPIRATORY: Chest is symmetrical. No intercostals muscle retraction or any accessory muscle activation. There is no chest wall tenderness. Breath sounds are heard bilaterally. No rales or rhonchi heard. No evidence of any consolidation. BREASTS: Deferred. HEART: The heart sounds are normal. No S3 or S4. No significant murmurs. No pericardial rub ABDOMEN: No vessel pulsations moderately obese. Extensive scarring. Ileostomy bag is draining : Deferred. RECTAL: Deferred. LYMPHATIC: No lymphadenopathy noted in the neck. EXTREMITIES: No edema or cyanosis. No clubbing. MUSCULOSKELETAL: No acute joint deformities or swelling SKIN: There are no significant rashes or ecchymosis NEUROPSYCHIATRIC: The patient is alert and oriented x3. No focal motor deficits. Data 08/27/25 07:28 08/28/25 04:40 Other Labs: Laboratory Last Values WBC Cancelled 08/28/25 04:40 Corrected WBC Cancelled 08/28/25 04:40 RBC Cancelled 08/28/25 04:40 Hgb Cancelled 08/28/25 04:40 Hct Cancelled 08/28/25 04:40 MCV Cancelled 08/28/25 04:40 MCH Cancelled 08/28/25 04:40 MCHC Cancelled 08/28/25 04:40 RDW Cancelled 08/28/25 04:40 Plt Count Cancelled 08/28/25 04:40 MPV Cancelled 08/28/25 04:40 Gran % Cancelled 08/28/25 04:40 Neut % (Auto) Cancelled 08/28/25 04:40 Lymph % (Auto) Cancelled 08/28/25 04:40 [place] % (Auto) Cancelled 08/28/25 04:40 Eos % (Auto) Cancelled 08/28/25 04:40 Baso % (Auto) Cancelled 08/28/25 04:40 Neut # (Auto) Cancelled 08/28/25 04:40 Lymph # (Auto) Cancelled 08/28/25 04:40 [place] # (Auto) Cancelled 08/28/25 04:40 Eos # (Auto) Cancelled 08/28/25 04:40 Baso # (Auto) Cancelled 08/28/25 04:40 Absolute Gran (auto) Cancelled 08/28/25 04:40 Nucleated RBC % (auto) Cancelled 08/28/25 04:40 Total Counted 100 (0-100) 08/27/25 07:28 Atypical Lymphs % 6.0 % (0-5) H 08/27/25 07:28 Absolute Neutrophils 6.2 10^3/cmm (1.4-6.5) 08/27/25 07:28 Segmented Neutrophils 74 % 08/27/25 07:28 Band Neutrophils 0.0 % 08/27/25 07:28 Absolute Lymphocytes 1.9 10^3/cmm (1.2-3.4) 08/27/25 07:28 Lymphocytes (Manual) 17 % 08/27/25 07:28 Monocytes (Manual) 2.0 % 08/27/25 07:28 Absolute Monocytes 0.2 10^3/cmm (0.1-0.6) 08/27/25 07:28 Eosinophils (Manual) 2 % 08/27/25 07:28 Absolute Eosinophils 0.2 10^3/cmm (0.0-0.7) 08/27/25 07:28 Basophils (Manual) 0.0 % 08/27/25 07:28 Absolute Basophils 0.0 10^3/cmm (0.0-0.2) 08/27/25 07:28 Nucleated RBCs 4.0 /100WBC (0-1) H 08/27/25 07:28 Nucleated RBCs # Cancelled 08/28/25 04:40 Platelet Estimate Increased (Normal) H 08/27/25 07:28 Sodium 137 mmol/L (136-145) 08/28/25 04:40 Potassium 4.6 mmol/L (3.5-5.1) 08/28/25 04:40 Chloride 103 mmol/L (98-107) 08/28/25 04:40 Carbon Dioxide 18 mmol/L (22-29) L 08/28/25 04:40 Anion Gap 20.6 (5-19) H 08/28/25 04:40 BUN 15 mg/dL (6-20) 08/28/25 04:40 Creatinine 0.8 mg/dL (0.5-0.9) 08/28/25 04:40 GFR Calculation 73.9 mL/min (90-130) L 08/28/25 04:40 Glucose 96 mg/dL (65-115) 08/28/25 04:40 Calculated Osmolality 285 mOsm/kg (285-295) 08/28/25 04:40 Calcium 9.6 mg/dL (8.5-10.5) 08/28/25 04:40 Phosphorus 3.5 mg/dL (2.5-4.5) 08/28/25 04:40 Magnesium 2.0 mg/dL (1.7-2.3) 08/28/25 04:40 Total Bilirubin 1.5 mg/dL (0.15-1.2) H 08/28/25 04:40 AST 21 U/L (0-32) 08/28/25 04:40 ALT 22 U/L (0-33) 08/28/25 04:40 Alkaline Phosphatase 126 U/L (35-105) H 08/28/25 04:40 Troponin T Baseline 29 ng/L (0-10) H 08/27/25 07:28 Troponin T 120 Minute 28.79 ng/L (0-10) H 08/27/25 09:25 Delta Troponin T -0.21 ABS# (0-10) L 08/27/25 09:25 Troponin T Hi Sens 6Hr 26.60 ng/L (0-10) H 08/27/25 13:11 Troponin T Hi Sens 6Hr Delta -2.40 ng/L (0-12) L 08/27/25 13:11 NT-Pro-B Natriuret Pep 5001 pg/mL (0-125) H 08/27/25 07:28 Total Protein 6.7 g/dL (6.6-8.7) 08/28/25 04:40 Albumin 3.1 g/dL (3.5-5.2) L 08/28/25 04:40 Globulin 3.6 g/dL (1.3-4.6) 08/28/25 04:40 Other data: Myocardial perfusion imaging from today 1. Myocardial perfusion imaging revealing large area of moderate to severely decreased persistent tracer uptake involving the inferior, inferolateral, anterolateral and apical regions suggesting extensive myocardial scarring involving the distribution of the circumflex artery and right coronary artery predominantly with no evidence of any significant ischemia. 2. Markedly diminished LV ejection fraction 22% 3. Segmental wall motion analysis revealing multiple wall motion abnormalities as mentioned above. 4. Severely dilated LV cavity with an end-systolic volume of 157 mL. Possibly no significant ischemia, based on the above findings No similar previous studies are available for comparison A&P Assessment and plan 1. Left arm pain: The etiology of her left arm pain is not clear. Possibility of coronary ischemia causing this is a consideration. So far the enzymes are negative for myocardial injury. EKG is unremarkable. In view of the severe LV systolic dysfunction, a significant change from the previous study of December Possibility of progression of disease in the [place] vessel/stent restenosis are considerations. 2. Atherosclerotic heart disease of [place] coronary artery with other forms of angina pectoris: Patient had PCI of the occluded second obtuse marginal artery in November when she presented with non-ST elevation myocardial infarction. She had a staged PCI of the mid LAD in December. She was found to have mild to moderate diffuse disease in the other vessels. 3. Ischemic cardiomyopathy: The patient's LV ejection fraction by echocardiogram was 45% in December of this year. The repeat echocardiogram revealing ejection fraction around 19%. This is a significant change. 4. Smoking addiction: Patient is known advised to quit smoking. 5. Mixed hyperlipidemia: May continue on the current medications 6. Benign essential HTN: Currently normotensive. Plan: In view of the patient's presenting symptoms and the abnormal objective findings, in order to further evaluate her coronary status, a repeat cardiac catheterization would be appropriate. This was discussed with the patient in detail with the risks and benefits. The risk of bleeding, hematoma, vascular injury, myocardial infarction, myocardial perforation, malignant cardiac arrhythmias ,CVA, renal failure and other concomitant complications were explained in detail. Patient understood this well and consented to proceed. We may go ahead and do schedule the patient for a cardiac catheterization tomorrow. Based on the angiogram findings, further recommendations will be made PDMP PDMP Reviewed: Not Reviewed Attestations Medical Necessity Statement*: Patient requires continued hospital stay for close monitoring and further management Coding Level of Care Code 11711 Diagnoses Left arm pain M79.602 Atherosclerotic heart disease of [place] coronary artery with other forms of angina pectoris I25.118 Ischemic cardiomyopathy I25.5 Smoking addiction F17.200 Mixed hyperlipidemia E78.2 Hyperlipidemia type: mixed hyperlipidemia Benign essential HTN I10
[2025-08-28 11:45] LABS: Hematocrit 46.6 % (36-47); Hemoglobin 14.10 g/dL (11.27-16.99); Mean Corpuscular HGB Conc 30.3 g/dL (30-55); Mean Corpuscular Hemoglobin 25.4 pg (27-33); Mean Corpuscular Volume 83.8 fl (85-98); Nucleated Red Blood Cells % 3.0 %; Platelet Count 468 10^3/cmm (157-399); Red Blood Count 5.56 10^6/uL (3.85-5.65); White Blood Count 9.77 10^3/uL (3.29-11.43)
--- NOTE | 2025-08-28 15:44 | P.PN_ITS ---
Subjective 2 Subjective: Patient seen and evaluated before she went for stress test and also after. Patient had no ischemia on stress test. Patient echocardiogram today was significantly lower than it was last year makes you worry if there are underlining ischemia. EF today in echo was 19% as opposed to 46% last year. Dr. Be like to take the patient for cardiac catheterization tomorrow to further see next step Vitals/I&O/Wt Last Vital Signs Temp 97.3 F L 08/28/25 11:17 Pulse 84 08/28/25 11:17 Resp 18 08/28/25 11:17 BP 125/92 08/28/25 11:17 Pulse Ox 98 08/28/25 11:17 O2 Del Method Room Air 08/28/25 11:17 08/28/25 08/28/25 08/28/25 06:59 14:59 22:59 Intake Total 240 / 480 1240 / 1240 Balance 240 / 480 1240 / 1240 Weight last 48 hrs Weight 83.915 kg Weight 83.915 kg Physical Exam 2 Narrative: Generally patient mood is very somewhat mean and hostile and unfriendly Stress test is negative case discussed with the patient regarding the plan cardiology also has spoken to the patient for a plan of cardiac catheterization tomorrow Patient naturally smoked 4-1/2 packs of cigarettes daily and had now tapering down to 16 sticks of cigarettes HEENT normocephalic atraumatic neck neck is supple cardiovascular heart rate is regular lungs are pretty much clear abdomen soft nontender nondistended unremarkable extremities are intact no edema has good pulses neurology has no focality lab studies lab studies reviewed and noted Data 08/28/25 10:57 08/28/25 04:40 A&P Assessment and plan 1. Ischemic cardiomyopathy: 2. Atherosclerotic heart disease of [place] coronary artery with other forms of angina pectoris: 3. Left arm pain: 4. Chest pain: Plan: Angina equivalent left arm pain - Troponin negative - EKG nonischemic - Patient with CHADS2 score greater than 2 - Patient underwent stress test today and it showed nonischemic picture - Echocardiogram repeated today to compare with one last year, ejection fraction today is 19% compared to 46% last year - This is a question to answer that now that led to cardiology to perform cardiac cath tomorrow for next step - Patient does not have any further arm pain no shortness of breath had no complaints at this time Severe interval change in ischemic cardiomyopathy to an ejection fraction of 19% today - N.p.o. after midnight - For cardiac catheterization tomorrow Nicotine addiction - Patient still actively smoking PDMP PDMP Reviewed: Not Reviewed Attestations 2 Medical Necessity Statement*: Patient is with coronary artery disease with worsening EF at 19% at this point patient I have a [place] prior to going home must follow-up with cardiology recommendation patient will need 2 midnights from admission. Coding Level of Care Code Acute Code for [facility] Fwd Diagnoses Ischemic cardiomyopathy I25.5 Atherosclerotic heart disease of [place] coronary artery with other forms of angina pectoris I25.118 Left arm pain M79.602 Chest pain R07.9 Time Spent (min) 40
--- NOTE | 2025-08-28 17:15 | NMCV_ITS ---
NM evelio perf SPECT r/s* [id number] Fabiola Lucero Age: 55 Gender: F : 1970 Exam Date: 08/28/2025 07:30 Ordering Phys: Brenda Lakhani MD Technologist: SEAN Thibodeaux Exam [facility] Indications: CP STRESS TEST [facility] IMAGE PROTOCOL Rest/Stress 1 Lexiscan Day Radiopharmaceutical Dose (mCi) Administration Site Administered by Rest: Tc-99m 10.7 IV Nicol Avila, [facility]NA[facility] Sestamibi Stress:Tc-99m 33 IV Nicol Austin, MANAGER [facility]OSP[facility] Sestamibi Rest: 28-Aug-2025 60 Discovery 630 Stress: 28-Aug-2025 30 Discovery 630 0.4mg Lexiscan. Supine position only as patient was unable to lay prone. SPECT RESULTS Technical Quality: Good Raw Data Analysis: Normal Image Corrections: No attenuation or motion correction applied Summed Stress Score: 23 Summed Rest Score: 26 Summed Difference Score: 0 PERFUSION FINDINGS Moderate to severely decreased tracer uptake involving the inferior, inferolateral, anterolateral and LV apex with no significant reversibility. FUNCTIONAL RESULTS (calculated via Gated SPECT) Stress Image LV EF (%): 22 Stress EDV (mL):202 TID: 1.15 Stress ESV (mL):157 FUNCTIONAL FINDINGS: Segmental wall motion analysis revealing severe diffuse hypokinesia of the septum, inferior wall, lateral wall and the apex IMPRESSIONS 1. Myocardial perfusion imaging revealing large area of moderate to severely decreased persistent tracer uptake involving the inferior, inferolateral, anterolateral and apical regions suggesting extensive myocardial scarring involving the distribution of the circumflex artery and right coronary artery predominantly with no evidence of any significant ischemia. 2. Markedly diminished LV ejection fraction 22% 3. Segmental wall motion analysis revealing multiple wall motion abnormalities as mentioned above. 4. Severely dilated LV cavity with an end-systolic volume of 157 mL. Possibly no significant ischemia, based on the above findings No similar previous studies are available for comparison Dr Yvette Be MD [facility] (Electronically Signed) Final Date: 28 August 2025 10:05 S
[2025-08-29] VITALS (22 sets, daily range): BP systolic 110–138; BP diastolic 75–99; PULSE 65–103; RESP 10–26; TEMP 36.1–37.1; O2SAT 92–100
[2025-08-29] MEDS: heparin 5,000 unit/mL INJ 1 mL 5000 UNIT SUBCUT (01:22)
--- NOTE | 2025-08-29 06:03 | PC.NURSE ---
Patient is refusing oral Benadryl, since she knows that they can give it in label folder and states that she has enough trouble swallowing, education was provided.
--- NOTE | 2025-08-29 06:35 | XACV_ITS ---
Exam Room: 2 Ht: 175 cm Wt: 85 kg BSA: 2.05 m2 Gender: Female : 1970 Any Known Allergies: Other Exam Priority: Routine Procedure(s): Procedure Description: Diagnostic procedure Procedure Description: Left Heart Catheterization Procedure Description: Coronary Angiography Haile WATKINS; Diagnostic Cath Status: Urgent Diagnostic Findings * The left main is a medium caliber vessel with no significant stenotic lesions. * The left anterior descending artery is a medium caliber vessel which appears to wraparound the LV apex. The stent in the mid LAD was found to be widely patent. The rest of the LAD segments were found to have mild diffuse disease with no significant stenotic lesions. The diagonal branches were found to be relatively small small caliber vessel with mild diffuse disease. The first septal unarmed security officer is a medium caliber vessel with mild disease at the ostium. * The left circumflex artery is a medium caliber vessel which was found to have mild diffuse disease proximally. The long stented segment of the first obtuse marginal artery was found to be widely patent. The mid circumflex, right after the origin of the first obtuse marginal artery was found to have around 40% stenosis. Minimal intimal irregularities were noted in the distal circumflex and the second obtuse marginal arteries. * The right coronary artery is a large-caliber ectatic vessel which was found to have around 50 to 60% tubular narrowing proximally. The mid and distal segments of the artery were found to have mild diffuse intimal irregularities. The PLV branch was found to be bifurcating proximally. One of the bifurcation branches found to have around 50 to 60% tubular narrowing proximally involving the ostium. The PDA branch was also found to have around 50% narrowing proximally. No other significant lesions were seen.. Conclusions 1. This 55-year-old white female with history of atherosclerotic heart disease and previous myocardial infarction, PCI of the obtuse marginal and mid LAD, he is presenting with recurrent left arm pain. Echocardiogram revealing an ejection fraction of around 19%, a significant drop from the 40 to 45% in December of this year. The Myocardial perfusion imaging revealed a large area of fixed perfusion defect involving the anterolateral, lateral, inferolateral , inferior wall and apical regions. In view of the presenting symptoms, worsening LV systolic function, in order to further evaluate the coronary status, a cardiac catheterization was recommended. Patient underwent left heart catheterization with left and right coronary angiogram today. The findings are as follows.. 2. No significant left main disease. Patent stented segments of the LAD and the obtuse marginal arteries. Moderate disease in the right coronary artery. Mild diffuse disease in the other vessels. LVEDP of 22 mmHg. 3. The angiogram was reviewed with Dr. Prado. Since there is no demonstrable ischemia based on the perfusion scan, it was thought to be appropriate to treat the RCA lesions medically. Most likely this patient has negative remodeling of the LV. Diagnostic RX Recommendation: medical therapy and/or counseling LV EDP: 22 mmHg Left Ventriculography Findings: * The LV gram was not performed to minimize the dye overload. The LVEDP was 22 mmHg. Pressures Phase:Rest AO : 113 / 85 ( 97 ) @ 9:19:00 AM 112 / 82 ( 95 ) @ 9:25:00 AM 114 / 81 ( 91 ) @ 9:25:00 AM LV : 115 / 12 / 22 @ 9:25:00 AM 113 / 11 / 22 @ 9:25:00 AM Valves Phase:DefaultPhase AV : 1.0 @ 8:38:47 AM AV Mean Gradient: 0.0 @ 8:38:47 AM Clinical Evaluation EBL: 5mL-10mL Procedural Details Procedure Consent Obtained. Pre-Procedure Time Out. Identified patient by full name and date of as verbalized by the patient/guarantor. Does the consent match the physician's order: Yes. Accurate & Complete Informed Consent: Yes. Inpatient/Outpatient History & Physical on Chart: Yes. If H&P is completed, is and addenduem needed: No. Visualize and Verify Site with Patient/Guarantor: N/A. Relevant Radiology Images available: Yes. The risks, benefits, and alternatives of sedation and/or procedure were discussed by physician. The patient agrees to continue. Procedure started. [facility] Clinical Fraility Score: 4: Vulnerable. Metal Box Maker Indications: Suspected CAD/Abnormal stress test. Chest Pain Symptom Assessment: Typical Angina Symptoms. Cardiovascular Instability: No. Correct patient, site and procedure confirmed by cath team. PERRLA. Strong, equal hand guide winder bilaterally. Lungs clear x 5 lobes. IV Site on Arrival: 20 gauge in the left hand. IV Fluids: 0.9% NaCl at KVO. 200 mL infused prior to laborer pole crew. Pre Procedural Pulses: bilateral dorsalis pedis was Doppled. Pre Procedural Pulses: bilateral posterior tibial was Doppled. Pre Procedural Pulses: bilateral radial was 3+. Oxygen started at 6liters/min via simple mask. right groin was prepped with chloroprep then draped in the usual sterile fashion. right radial was prepped with chloroprep then draped in the usual sterile fashion. Physician notified. Baseline sample Acquired. HR: 91 BPM. Patient's family unavailable. Equipment: 6F - Radial. Cardiac Cath Pack. ACIST Manifold Kit Model BT 2000. Heparinized Saline (2 units/mL), 1000 mL bag. Anesthesia at [facility] to asssit with sedation. See anesthesia record for medication and airway management. Physician arrived. Physician scrubbed in. Immediate Pre-Procedure Time Out. Correct Patient: Yes; Correct Procedure: Yes; Correct Site: Yes; Correct Patient Position: Yes; Correct Supplies: Yes; Dried Flammable Prep: Yes; Blood Products Available: N/A;. Lidocaine 1% infiltrated to the right radial. Arterial access obtained. A 5 andorran Fabio catheter in over the exchange J wire. Multiple views taken of left coronary artery. Catheter redirected to the RCA. Unable to cannulate the RCA. Catheter removed over the exchange J wire. A 5 andorran JR4 catheter in over the exchange J wire. EDP Sample taken: LV 115/12,22; HR: 80 BPM; SpO2: 100%. Pullback taken: LV 113/11,22; AO 112/82(95); Mean: 0mmHg, Peak to Peak: 1mmHg, SEP: 18sec/min; HR: 80 BPM; SpO2: 100%. Multiple views taken of right coronary artery. Catheter removed over the exchange J wire. Dr. Be scrubbed out. A TR Band was successful obtaining hemostatsis at the Right Radial artery insertion site. Post Procedure: Pulses reassessed and unchanged. PERRLA. Strong, equal hand guide winder bilaterally. No VTE prophylaxis required. Medication's Wasted: Lidocaine 1% = 18 mL. Medication's Wasted: Nitro = 49.8 mg. Medication's Wasted: Heparin = 1000 units. Total IV fluids: 200 mL. Post-op diagnosis: Non-obstructive CAD, patent prior stents. Complications: none. Estimated blood loss: 5mL-10mL. Responsiveness - Normal response to verbal stimuli; alert and oriented, PERRLA. Airway - Unaffected, no intervention required; spontaneous ventilation. Circulation: W/N/L, pulses unchanged. Nausea/Vomiting: No. Dr. Be updated the daughter, Theodore, via telephone. Procedure completed. Patient transferred by bed to 1st floor. Vital chart was stopped. Access Site Site: Right Radial artery Sheath Size: 6 Fr Hemostasis Method: TR Band Hemostasis Success: Successful Procedure Medications Start: 8:05 AM Stop: 8:05 AM Medication: Benadryl Amount: 50 mg Route: I.V. Start: 8:05 AM Stop: 8:05 AM Medication: Solu-Medrol (methylprednisolone) Amount: 125 mg Route: I.V. Start: 8:05 AM Stop: 8:05 AM Medication: Versed Amount: 2 mg Route: I.V. Start: 8:14 AM Stop: 8:14 AM Medication: Nitrogylcerin Amount: 200 mcg Route: I.A. Start: 8:15 AM Stop: 8:15 AM Medication: Verapamil Amount: 5 mg Route: I.A. Start: 8:18 AM Stop: 8:18 AM Medication: Heparin Amount: 5000 units Route: I.V. I, the attending physician, have reviewed and verified all procedure medications. Yes, all medications given per verbal order History/Risk Factors Hypertension: Yes Dyslipidemia: Yes Peripheral Arterial Disease (PAD): No Myocardial Infarction (CO): No Obesity: No Renal Disease: No Tobacco Use: Current/Recent(w/in 1 year) Prior Interventions PCI: Yes CABG: No Valve Surgery: No Date of PCI: 12/17/2024 Report Signatures Finalized by Dr Yvette Be MD [facility] on 08/29/2025 09:45 AM
--- NOTE | 2025-08-29 07:25 | P.ANESASSM_ITS ---
Pre-Anesthetic Assessment Height/Weight: Height 5 ft 9 in Weight 187 lb 9.6 oz Temp Pulse Resp BP Pulse Ox O2 Del Method 96.9 F L 79 19 H 132/86 97 Room Air 08/29/25 06:52 08/29/25 06:52 08/29/25 06:52 08/29/25 06:52 08/29/25 06:52 08/29/25 06:52 Preop Diagnosis: Cardiomyopathy Was Beta Bobby taken within 24 hours: N/A Was Clonidine taken within 24 hours: N/A Social Tobacco and No alcohol Exam alert and oriented x 3 Airway Submandibular: within normal limits Cervical ROM: within normal limits Mallampati: Class III Comments: Comments: Multiple missing teeth, denies any loose Anesthetic Plan ASA status: 4 Anesthesia: MAC Other: Patient initially admitted on 08/27/2025 with unstable angina History of CAD with PCI in mid LAD in December of this year. Spoke with daughter on the phone to obtain consent as well Smokes nicotine Prior ileostomy Patient with ischemic cardiomyopathy currently. EF 45% in December of this year down to 19% during hospitalization Labs reviewed from 08/28/2025 and acceptable for procedure Plan for MAC anesthesia Medications/Allergies Home Medications ?Medication ?Instructions ?Recorded ?Confirmed ?Last Taken ?Type acetaminophen 500 mg tablet 1,000 mg PO Q6H PRN Pain 0 06/28/23 08/27/25 05/13/25 History aspirin 81 mg chewable tablet 81 mg PO DAILY #30 tabs 12/18/24 08/27/25 08/26/25 Rx isosorbide mononitrate 20 mg tablet 10 mg (1/2 x 20 mg ) PO BID #30 tabs 12/18/24 08/27/25 Unknown Rx metoprolol tartrate 25 mg tablet 12.5 mg (1/2 x 25 mg) PO 12/18/24 08/27/25 08/26/25 Rx BID@0900,2100 #60 tabs cholecalciferol (vitamin D3) 125 125 mcg PO DAILY #52 mL 05/08/25 08/27/25 08/26/25 Rx mcg/mL (5,000 unit/mL) oral drops nebulizers #1 ea 05/24/25 08/27/25 Unkn own Rx clopidogrel 75 mg tablet 75 mg PO DAILY #30 tabs 0805/0208/27/25 08/26/25 Rx rosuvastatin 10 mg tablet 20 mg (2 x 10 mg) PO DAILY # 30 tabs 06/13/25 08/27/25 08/26/25 Rx furosemide 20 mg tablet (Lasix) 20 mg PO QAM PRN edema #30 tabs 07/03/25 08/27/25 Unknown Rx potassium chloride 10 mEq oral 10 meq PO DAILY #30 ea 07/03/25 08/27/25 Unknown Rx packet albuterol sulfate 2.5 mg/3 mL 2.5 mg (3 mL) inhalation Q4H PRN 08/06/25 08/27/25 08/23/25 Rx (0.083 %) solution for nebulization shortness of breat h or wheezing #180 mL albuterol sulfate 90 mcg/actuation 2 inh inhalation Q4 H PRN shortness 08/21/25 08/27/25 08/24/25 Rx aerosol inhaler of breath or wheezing #6.7 g kristina Allergies Allergy/AdvReac Type Severity Reaction Status Date / Time codeine Allergy Severe ADR-Agitate Verified 07/12/25 22:30 d metronidazole (From Flagyl) Allergy Mild ALGY-Rash Verified 07/12/25 22:30 Iodinated Contrast Media Allergy ALGY-Hives Verified 07/12/25 22:30 oxycodone (From Percocet) Allergy Unknown Verified 07/12/25 22:30 fentanyl AdvReac Mild Unknown Verified 07/12/25 22:30 hydromorphone (From Dilaudid) AdvReac Mild unknown Verified 07/12/25 22:30 Current Medications Generic Name Dose Route Start Last Admin Trade Name Freq PRN Reason Stop Dose Admin Acetaminophen 325 mg 08/28/25 03:56 08/28/25 05:12 Acetaminophen 650 Mg/20.3 Ml Udc PO 325 mg Q4H PRN Administration MILD PAIN OR INCREASE TEMP Aspirin 325 mg 08/28/25 05:00 08/29/25 06:04 Aspirin 325 Mg Tablet PO 325 mg DAILY MIRI Administration Docusate Sodium 100 mg 08/28/25 05:00 08/29/25 05:00 Docusate Sodium 100 Mg Capsule PO Not Given BID MIRI Heparin Sodium (Porcine) 5,000 unit 08/27/25 17:15 08/29/25 01:22 Heparin 5,000 Unit/Ml Inj 1 Ml SUBCUT 5,000 unit Q8H MIRI Administration Sodium Chloride 1,000 mls @ 50 mls/hr 08/28/25 12:41 08/28/25 16:06 Sodium Chloride 0.9% IV 08/29/25 08:40 Not Given .Q20H ONE Sodium Chloride 1,000 mls @ 75 mls/hr 08/29/25 07:00 08/29/25 06:05 Sodium Chloride 0.9% IV 75 mls/hr .[id number] MIRI Administration Pantoprazole Sodium 40 mg 08/28/25 05:00 08/29/25 05:[address] 40 Mg Tablet PO Not Given DAILY [facility] Senna 17.2 mg 08/27/25 21:00 08/28/25 20:06 Sennosides 8.6 Mg Tablet PO Not Given BEDTIME [facility] Additional Medication Information Current Medications Acetaminophen (Acetaminophen 650 Mg/20.3 Ml Udc) 325 mg PO Q4H PRN PRN Reason: MILD PAIN OR INCREASE TEMP Last Admin: 08/28/25 05:12 Dose: 325 mg Aminophylline (Aminophylline 25 Mg/Ml Sdv 20 Ml) 25 mg IVP Q2M PRN PRN Reason: see dose instructions Stop: 08/29/25 06:48 Aspirin (Aspirin 325 Mg Tablet) 325 mg PO DAILY [facility] Last Admin: 08/28/25 05:13 Dose: 325 mg Docusate Sodium (Docusate Sodium 100 Mg Capsule) 100 mg PO BID [facility] Last Admin: 08/28/25 05:13 Dose: Not Given Heparin Sodium (Porcine) (Heparin 5,000 Unit/Ml Inj 1 Ml) 5,000 unit SUBCUT Q8H [facility] Last Admin: 08/28/25 00:22 Dose: 5,000 unit Sodium Chloride (Sodium Chloride 0.9%) 1,000 mls @ 75 mls/hr IV .[id number] [facility] Last Admin: 08/27/25 20:29 Dose: 75 mls/hr Nitroglycerin (Nitroglycerin 0.4 Mg Sublingual Tablet) 0.4 mg SUBLINGUAL Q5M PRN PRN Reason: CHEST PAIN Stop: 08/29/25 06:48 Ondansetron HCl (Ondansetron 2 Mg/Ml Sdv 2 Ml) 4 mg IVP Q8H PRN PRN Reason: vomiting, or N/V if npo Ondansetron HCl (Ondansetron 2 Mg/Ml Sdv 2 Ml) 4 mg IVP Q2M PRN PRN Reason: NAUSEA Pantoprazole Sodium (Pantoprazole Dr 40 Mg Tablet) 40 mg PO DAILY [facility] Last Admin: 08/28/25 05:13 Dose: 40 mg Regadenoson (Regadenoson 0.4 Mg/5 Ml Syringe) 0.4 mg IVP ONCE PRN PRN Reason: Lexiscan Stress Test Senna (Sennosides 8.6 Mg Tablet) 17.2 mg PO BEDTIME MIRI Last Admin: 08/27/25 20:06 Dose: Not Given PFSH Anesthesia Medical History (Updated 08/29/25 @ 07:58 by Yvette Be MD) 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 had part of her small and large intestine removed in 2009. Uterine leiomyoma Vertigo Anxiety Surgical History History of CAD (coronary artery disease) 11/28/24 2 stents, 12/17/24 1 stent [facility] H/O ileostomy (~2009) Status post colonoscopy S/P partial colectomy (~2009) History of splenectomy History of eye surgery Family History Other CAD (coronary artery disease) Diabetes Psychiatric illness Denies family history of Cancer Social History Smoking and tobacco/nicotine status: current every day tobacco/nicotine user cigarettes Packs smoked per day: 1.5 Alcohol intake: never Substance/Drug Use: never Adopted: No Caregiver/support person: No Lives independently: Yes Household members: spouse Housing: House Marital status: service: No Current occupational status: employed 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 Do you think of yourself as: Straight/Heterosexual Current gender identity: Female Data Anesthesia 08/28/25 10:57 08/28/25 04:40 Short CBC 08/27/25 08/28/25 08/28/25 Range/Units 07:28 04:40 10:57 WBC 8.33 Cancelled 9.77 (3.29-11.43) 10^3/uL Hgb 13.80 Cancelled 14.10 (11.27-16.99) g/dL Hct 44.1 Cancelled 46.6 (36-47) % MCV 80.9 L Cancelled 83.8 L (85-98) fl Plt Count 465 H Cancelled 468 H (157-399) 10^3/cmm Neut % (Auto) Cancelled 69.5 Neut # (Auto) Cancelled 6.79 BMP 08/27/25 08/28/25 07:28 04:40 Sodium 133 L 137 Potassium 4.5 4.6 Chloride 100 103 Carbon Dioxide 18 L 18 L BUN 11 15 Creatinine 0.7 0.8 Glucose 108 96 Calcium 9.6 9.6 Cardiac Enzymes 08/27/25 08/27/25 08/27/25 Range/Units 07:28 09:25 13:11 Troponin T Baseline 29 H (0-10) ng/L Troponin T 120 Minute 28.79 H (0-10) ng/L Delta Troponin T -0.21 L (0-10) ABS# Troponin T Hi Sens 6Hr 26.60 H (0-10) ng/L Troponin T Hi Sens 6Hr Delta -2.40 L (0-12) ng/L NT-Pro-B Natriuret Pep 5001 H (0-125) pg/mL Liver Function 08/27/25 08/28/25 Range/Units 07:28 04:40 Total Bilirubin 1.5 H 1.5 H (0.15-1.2) mg/dL AST 18 21 (0-32) U/L ALT 21 22 (0-33) U/L Alkaline Phosphatase 120 H 126 H (35-105) U/L Albumin 3.2 L 3.1 L (3.5-5.2) g/dL Cardiac Studies: 2 Echocardiogram 08/27/25 Echocardiogram Limited Views 12/16/24
--- NOTE | 2025-08-29 07:56 | P.PN_ITS ---
Subjective 2 Subjective: The patient is feeling okay. No chest pain or arm pain. Has the baseline shortness of breath with exertion. The vitals are stable. She had allergic reaction to IV dye in the past causing skin rashes. She was treated with IV Solu-Medrol and Benadryl as premedications. Medications: Medication Review Details: Current Medications Acetaminophen (Acetaminophen 650 Mg/20.3 Ml Udc) 325 mg PO Q4H PRN PRN Reason: MILD PAIN OR INCREASE TEMP Last Admin: 08/28/25 05:12 Dose: 325 mg Aspirin (Aspirin 325 Mg Tablet) 325 mg PO DAILY [facility] Last Admin: 08/29/25 06:04 Dose: 325 mg Docusate Sodium (Docusate Sodium 100 Mg Capsule) 100 mg PO BID [facility] Last Admin: 08/29/25 05:00 Dose: Not Given Heparin Sodium (Porcine) (Heparin 5,000 Unit/Ml Inj 1 Ml) 5,000 unit SUBCUT Q8H [facility] Last Admin: 08/29/25 01:22 Dose: 5,000 unit Sodium Chloride (Sodium Chloride 0.9%) 1,000 mls @ 50 mls/hr IV .Q20H ONE Stop: 08/29/25 08:40 Last Admin: 08/28/25 16:06 Dose: Not Given Sodium Chloride (Sodium Chloride 0.9%) 1,000 mls @ 75 mls/hr IV .[id number] [facility] Last Admin: 08/29/25 06:05 Dose: 75 mls/hr Ondansetron HCl (Ondansetron 2 Mg/Ml Sdv 2 Ml) 4 mg IVP Q8H PRN PRN Reason: vomiting, or N/V if npo Ondansetron HCl (Ondansetron 2 Mg/Ml Sdv 2 Ml) 4 mg IVP Q2M PRN PRN Reason: NAUSEA Pantoprazole Sodium (Pantoprazole Dr 40 Mg Tablet) 40 mg PO DAILY [facility] Last Admin: 08/29/25 05:00 Dose: Not Given Senna (Sennosides 8.6 Mg Tablet) 17.2 mg PO BEDTIME [facility] Last Admin: 08/28/25 20:06 Dose: Not Given Vitals/I&O/Wt Last Vital Signs Temp 96.9 F L 08/29/25 06:52 Pulse 79 08/29/25 06:52 Resp 19 H 08/29/25 06:52 BP 132/86 08/29/25 06:52 Pulse Ox 97 08/29/25 06:52 O2 Del Method Room Air 08/29/25 06:52 08/28/25 08/29/25 08/29/25 22:59 06:59 14:59 Intake Total 480 / 1720 Balance 480 / 1720 Weight last 48 hrs Weight 187 lb 9.6 oz Weight 185 lb Physical Exam 2 Narrative: GENERAL: The patient is alert and oriented times three. Not in any acute distress. Moderately obese HEENT: No significant pallor, icterus or lymphadenopathy.Oral cavity: There are no mucous membrane lesions. NECK: Trachea appears to be central. No masses noted. No JVD or thyromegaly appreciated. RESPIRATORY: Chest is symmetrical. No intercostals muscle retraction or any accessory muscle activation. There is no chest wall tenderness. Breath sounds are heard bilaterally. No rales or rhonchi heard. No evidence of any consolidation. BREASTS: Deferred. HEART: The heart sounds are normal. No S3 or S4. No significant murmurs. No pericardial rub ABDOMEN: No vessel pulsations moderately obese. Extensive scarring. Ileostomy bag is draining : Deferred. RECTAL: Deferred. LYMPHATIC: No lymphadenopathy noted in the neck. EXTREMITIES: No edema or cyanosis. No clubbing. MUSCULOSKELETAL: No acute joint deformities or swelling SKIN: There are no significant rashes or ecchymosis NEUROPSYCHIATRIC: The patient is alert and oriented x3. No focal motor deficits. Data 08/28/25 10:57 08/28/25 04:40 Other Labs: Laboratory Last Values WBC 9.77 10^3/uL (3.29-11.43) 08/28/25 10:57 Corrected WBC Cancelled 08/28/25 04:40 RBC 5.56 10^6/uL (3.85-5.65) 08/28/25 10:57 Hgb 14.10 g/dL (11.27-16.99) 08/28/25 10:57 Hct 46.6 % (36-47) 08/28/25 10:57 MCV 83.8 fl (85-98) L 08/28/25 10:57 MCH 25.4 pg (27-33) L 08/28/25 10:57 MCHC 30.3 g/dL (30-55) 08/28/25 10:57 RDW 23.7 % (12.1-15.1) H 08/28/25 10:57 Plt Count 468 10^3/cmm (157-399) H 08/28/25 10:57 MPV 11.2 fL (7.4-10.4) H 08/28/25 10:57 Gran % Cancelled 08/28/25 04:40 Neut % (Auto) 69.5 % 08/28/25 10:57 Lymph % (Auto) 20.2 % 08/28/25 10:57 [place] % (Auto) 6.8 % 08/28/25 10:57 Eos % (Auto) 1.7 % 08/28/25 10:57 Baso % (Auto) 0.9 % 08/28/25 10:57 Neut # (Auto) 6.79 10^3/uL (1.8-7.7) 08/28/25 10:57 Lymph # (Auto) 2.0 10^3/uL (0.8-4.8) 08/28/25 10:57 [place] # (Auto) 0.7 10^3/uL (0.2-0.9) 08/28/25 10:57 Eos # (Auto) 0.2 10^3/uL (0.0-0.8) 08/28/25 10:57 Baso # (Auto) 0.1 10^3/uL (0.0-0.1) 08/28/25 10:57 Absolute Gran (auto) Cancelled 08/28/25 04:40 Nucleated RBC % (auto) 3.0 % 08/28/25 10:57 Total Counted 100 (0-100) 08/27/25 07:28 Atypical Lymphs % 6.0 % (0-5) H 08/27/25 07:28 Absolute Neutrophils 6.2 10^3/cmm (1.4-6.5) 08/27/25 07:28 Segmented Neutrophils 74 % 08/27/25 07:28 Band Neutrophils 0.0 % 08/27/25 07:28 Absolute Lymphocytes 1.9 10^3/cmm (1.2-3.4) 08/27/25 07:28 Lymphocytes (Manual) 17 % 08/27/25 07:28 Monocytes (Manual) 2.0 % 08/27/25 07:28 Absolute Monocytes 0.2 10^3/cmm (0.1-0.6) 08/27/25 07:28 Eosinophils (Manual) 2 % 08/27/25 07:28 Absolute Eosinophils 0.2 10^3/cmm (0.0-0.7) 08/27/25 07:28 Basophils (Manual) 0.0 % 08/27/25 07:28 Absolute Basophils 0.0 10^3/cmm (0.0-0.2) 08/27/25 07:28 Nucleated RBCs 4.0 /100WBC (0-1) H 08/27/25 07:28 Nucleated RBCs # 0.3 /100WBC 08/28/25 10:57 Platelet Estimate Increased (Normal) H 08/27/25 07:28 Sodium 137 mmol/L (136-145) 08/28/25 04:40 Potassium 4.6 mmol/L (3.5-5.1) 08/28/25 04:40 Chloride 103 mmol/L (98-107) 08/28/25 04:40 Carbon Dioxide 18 mmol/L (22-29) L 08/28/25 04:40 Anion Gap 20.6 (5-19) H 08/28/25 04:40 BUN 15 mg/dL (6-20) 08/28/25 04:40 Creatinine 0.8 mg/dL (0.5-0.9) 08/28/25 04:40 GFR Calculation 73.9 mL/min (90-130) L 08/28/25 04:40 Glucose 96 mg/dL (65-115) 08/28/25 04:40 Calculated Osmolality 285 mOsm/kg (285-295) 08/28/25 04:40 Calcium 9.6 mg/dL (8.5-10.5) 08/28/25 04:40 Phosphorus 3.5 mg/dL (2.5-4.5) 08/28/25 04:40 Magnesium 2.0 mg/dL (1.7-2.3) 08/28/25 04:40 Total Bilirubin 1.5 mg/dL (0.15-1.2) H 08/28/25 04:40 AST 21 U/L (0-32) 08/28/25 04:40 ALT 22 U/L (0-33) 08/28/25 04:40 Alkaline Phosphatase 126 U/L (35-105) H 08/28/25 04:40 Troponin T Baseline 29 ng/L (0-10) H 08/27/25 07:28 Troponin T 120 Minute 28.79 ng/L (0-10) H 08/27/25 09:25 Delta Troponin T -0.21 ABS# (0-10) L 08/27/25 09:25 Troponin T Hi Sens 6Hr 26.60 ng/L (0-10) H 08/27/25 13:11 Troponin T Hi Sens 6Hr Delta -2.40 ng/L (0-12) L 08/27/25 13:11 NT-Pro-B Natriuret Pep 5001 pg/mL (0-125) H 08/27/25 07:28 Total Protein 6.7 g/dL (6.6-8.7) 08/28/25 04:40 Albumin 3.1 g/dL (3.5-5.2) L 08/28/25 04:40 Globulin 3.6 g/dL (1.3-4.6) 08/28/25 04:40 A&P Assessment and plan 1. Left arm pain: The etiology of her left arm pain is not clear. Possibility of coronary ischemia causing this is a consideration. So far the enzymes are negative for myocardial injury. EKG is unremarkable. In view of the severe LV systolic dysfunction, a significant change from the previous study of December Possibility of progression of disease in the [place] vessel/stent restenosis are considerations. 2. Atherosclerotic heart disease of [place] coronary artery with other forms of angina pectoris: Patient had PCI of the occluded second obtuse marginal artery in November when she presented with non-ST elevation myocardial infarction. She had a staged PCI of the mid LAD in December. She was found to have mild to moderate diffuse disease in the other vessels. 3. Ischemic cardiomyopathy: The patient's LV ejection fraction by echocardiogram was 45% in December of this year. The repeat echocardiogram revealing ejection fraction around 19%. This is a significant change. 4. Smoking addiction: Patient is in the process of cutting down and eventually stop 5. Mixed hyperlipidemia: May continue on the current medications 6. Benign essential HTN: Currently normotensive. 7. Allergy to iodine: Patient apparently had rashes with the iodide. No anaphylactic reactions. She was given IV Solu-Medrol and Benadryl in the past. Will give a total of 100 mg of IV Solu-Medrol and 25 mg of IV Benadryl IV Plan: In view of the patient's presenting symptoms and the abnormal objective findings, in order to further evaluate her coronary status, a repeat cardiac catheterization would be appropriate. This was discussed with the patient in detail with the risks and benefits. The risk of bleeding, hematoma, vascular injury, myocardial infarction, myocardial perforation, malignant cardiac arrhythmias ,CVA, renal failure and other concomitant complications were explained in detail. Patient understood this well and consented to proceed. Because of the iodide allergy, even though we are premedicating, she still may have a chance for reactions. She seems understand this well. She was very restless and uncomfortable on the cath table during the last procedure. So we will get the anesthesia for sedation She is scheduled for the angiogram this morning Based on the angiogram findings, further recommendations will be made PDMP PDMP Reviewed: Not Reviewed Attestations 2 Medical Necessity Statement*: Patient requires continued hospital stay for close monitoring and further management Coding Level of Care Code 96066 Diagnoses Left arm pain M79.602 Atherosclerotic heart disease of [place] coronary artery with other forms of angina pectoris I25.118 Ischemic cardiomyopathy I25.5 Smoking addiction F17.200 Mixed hyperlipidemia E78.2 Hyperlipidemia type: mixed hyperlipidemia Benign essential HTN I10 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
--- NOTE | 2025-08-29 08:01 | W.PM.OPSUD ---
Surgery/Procedure H&P Update DATE OF PROCEDURE: August 29, 2025 DATE H&P PERFORMED: 08/27/25 H&P UPDATE INFORMATION: I have reviewed H&P completed within last 30 days, I have examined patient prior to procedure and No changes to prior documentation PREOP DIAGNOSIS: ASHD/cardiomyopathy PRIMARY INDICATION FOR PROCEDURE: ASHD/status post PCI/left arm pain/worsening LV systolic function PLANNED PROCEDURE: Left heart catheterization with coronary angiogram and possible PCI
--- NOTE | 2025-08-29 08:39 | PM.OP ---
Operative Report Date of procedure: August 29, 2025 Surgeon: Yvette Be MD Procedure: Patient underwent left heart catheterization with a left and right coronary angiogram under IV sedation by the anesthesia service. She was found to have patent stents in the LAD and the obtuse marginal 2. The right coronary artery was found to have moderate disease. No significant change from the previous study. The LVEDP was 22 millimeters of mercury. Based on the angiogram findings, it was opted to treat him medically. Patient tolerated the procedure very well and there were no complications
--- NOTE | 2025-08-29 09:15 | PC.CHAP ---
Pastoral Care Encounter/Spiritual Assessment Type of Contact [] Declined clinical staff anesthesiologist visit [] Patient/Family/Request visit [] Outpatient visit [] Follow-up visit [] Physician referral [] Code/Alert [x] Routine visit [] Staff referral [] Actively dying [] Patient sleeping [] Family support [] [] Out of room [] Palliative care [] [] Receiving care in room [] Pre-surgical visit [] Trauma [] Long length of stay [] ICU visit [] Other: Relational/Emotional Strength [x] Patient feels connected with others/family/visitors/staff [] Distress [] Loneliness/isolation [] Abandonment Spirituality of Patient [x] Person of Magdalena [] Attends Jain of their Magdalena [x] Believes in Prayer [] Reads Bible or Mandaeism materials [] There are Spiritual issues to be addressed Optical Glass Sawyer Interventions [x] Prayer [x] Active listening [x] Non-anxious presence [x] Spiritual/emotional support [] Crisis/trauma care [] Spiritual counseling [] Bereavement support [] Provided bereavement packet [] Provided Bible/devotional materials [] Provided toy/stuffed animal, coloring book to patient or family member [] Provided Communion [] Anointing/[place] [] Salvation [x] Completed spiritual assessment [] Other: Impact on Illness or Injury [] Angry [] Fearful [] Anxious [] Often cries [] Exhaustion [] Unable to work [] Unable to attend oriental orthodox [] Unable to walk/stand [] Unable to read [] Unable to drive [] Unable to eat/drink [] Unable to sleep [] Unable to be with family [] Patient intubated [] Other: Summary Time spent with patient 5 min
--- NOTE | 2025-08-29 09:16 | PC.NURSE ---
Addendum entered by Ambreen Jett RN 08/29/25 09:19: Oxygen placed until anesthesia wears off. 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 Extremity is warm with palpable pulses. No s/s of bleeding or hematoma formation observed. Patient has fluids running at 75ml/hr. Patient is currently sleeping post anesthesia medications. Noted patient to be apnix
--- NOTE | 2025-08-29 11:37 | PC.NURSE ---
Initiated TR band removal at 1000 removing 1-2mil of air every 10-15min. TR band removed at 1045. No s/s of bleeding or hematoma formation. Covered site with 2x2 and coban. Instructed patient regarding medications given during procedure and site care with restrictions. 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 Patient stated, I just want it to go away.
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
--- NOTE | 2025-08-29 17:57 | PC.NURSE ---
Vital signs have remain WNL. Patient refusing to have BP cuff left on for frequent VS.
--- NOTE | 2025-08-29 18:20 | P.PN_ITS ---
Subjective 2 Subjective: the patient was seen in the morning, did not voice any concerns however was having some effect of the ketamine post procedure. no sob or any chest pain at room air Vitals/I&O/Wt Last Vital Signs Temp 96.9 F L 08/29/25 11:45 Pulse 95 08/29/25 18:13 Resp 17 08/29/25 18:13 BP 117/87 08/29/25 18:13 Pulse Ox 97 08/29/25 18:13 O2 Del Method Room Air 08/29/25 18:13 08/29/25 08/29/25 08/29/25 06:59 14:59 22:59 Intake Total 240 / 240 Balance 240 / 240 Weight last 48 hrs Weight 85.094 kg Weight 83.915 kg Physical Exam 2 Narrative: General: Alert and oriented, lying comfortably without any distress with some sedative effect of ketamine at room air HEENT: Normocephalic, atraumatic, grossly unremarkable exam Cardio: normal rate rhythm, normal S1-S2 without any murmurs, rubs, or gallops and JVD normal Respiratory: normal vascular breathing on auscultation without any wheezes, stridor, rhonchi GI: Abdomen soft, nontender, nondistended, normoactive bowel sounds present all 4 quadrants, Neuro: intact cranial nerves motor and sensory and cerebellar/coordination function without any focal neurological deficit Behavior: Appropriate and cooperative Extremities: Adequate palpable pulses, mild trace pedal edema Data 08/28/25 10:57 08/28/25 04:40 A&P Assessment and plan 1. Ischemic cardiomyopathy: Patient underwent cath and no concerning coronary artery disease Patient drop in EF is more explained with her negative remodeling Heart failure with reduced ejection fraction for GDMT To start the patient on beta-blockers metoprolol 12.5 mg twice daily Farxiga 5 mg daily and to increase the dose as per his tolerance based on hemodynamics Entresto small dose 24/26 mg twice daily and continue as per hemodynamics Spironolactone 25 mg daily Statins Patient on home aspirin and Plavix and to resume Monitor patient blood pressure Cardiology recommended LifeVest referral before discharge and to follow-up 2. Heart failure with reduced ejection fraction: As mentioned above Heart failure medication with GDMT and to maximize dose based on tolerance of the patient/hemodynamics 3. COPD (chronic obstructive pulmonary disease) with emphysema: Currently stable continue DuoNebs as needed 4. Mixed hyperlipidemia: Patient on rosuvastatin at home, continue 5. Nicotine dependence, cigarettes, with unspecified nicotine-induced disorders: Emphasis on smoking cessation has been provided In case of further requirement to consider nicotine patch patient on patient preference PDMP PDMP Reviewed: Not Reviewed Attestations 2 Medical Necessity Statement*: Fabiola Lucero's hospital stay will require overnight stay for further management of heart failure with reduced ejection fraction with GDMT Coding Level of Care Code 95228 Diagnoses Ischemic cardiomyopathy I25.5 Heart failure with reduced ejection fraction I50.20 COPD (chronic obstructive pulmonary disease) with emphysema J43.9 Mixed hyperlipidemia E78.2 Hyperlipidemia type: mixed hyperlipidemia Nicotine dependence, cigarettes, with unspecified nicotine-induced disorders F17.219
[2025-08-30] VITALS (8 sets, daily range): BP systolic 105–117; BP diastolic 62–73; PULSE 63–78; RESP 15–22; TEMP 36.2–36.8; O2SAT 96–99
[2025-08-30] MEDS: heparin 5,000 unit/mL INJ 1 mL 5000 UNIT SUBCUT (01:13)
[2025-08-30 03:43] LABS: Hematocrit 42.8 % (36-47); Hemoglobin 13.10 g/dL (11.27-16.99); Mean Corpuscular HGB Conc 30.6 g/dL (30-55); Mean Corpuscular Hemoglobin 24.6 pg (27-33); Mean Corpuscular Volume 80.5 fl (85-98); Nucleated Red Blood Cells % 4.1 %; Platelet Count 459 10^3/cmm (157-399); Red Blood Count 5.32 10^6/uL (3.85-5.65); White Blood Count 7.96 10^3/uL (3.29-11.43)
[2025-08-30 04:11] LABS: Alanine Aminotransferase 21 U/L (0-33); Albumin Level 2.7 g/dL (3.5-5.2); Alkaline Phosphatase 111 U/L (35-105); Anion Gap 18.2 (5-19); Aspartate Amino Transferase 18 U/L (0-32); Blood Urea Nitrogen 18 mg/dL (6-20); Calcium 9.0 mg/dL (8.5-10.5); Carbon Dioxide 19 mmol/L (22-29); Chloride 105 mmol/L (98-107); Creatinine Clr Calc Pharmacy 90.3403; Globulin 3.0 g/dL (1.3-4.6); Glucose 188 mg/dL (65-115); Osmolality Calculated 293 mOsm/kg (285-295); Potassium 4.2 mmol/L (3.5-5.1); Sodium 138 mmol/L (136-145); Total Protein 5.7 g/dL (6.6-8.7)
[2025-08-30] MEDS: DAPAGLIFLOZIN 5 MG TABLET PO (05:25)
--- NOTE | 2025-08-30 09:24 | PM.PN ---
Subjective Subjective: Patient had the cardiac catheterization yesterday. She was found to have patent stented segments in the LAD and the obtuse marginal artery. Based on the angiogram findings, it was opted to treat her medically. She seems to negative remodeling. She was started on Entresto and other GDMT. Seems to be tolerating medication so far well Medications: Medication Review Details: Current Medications Acetaminophen (Acetaminophen 650 Mg/20.3 Ml Udc) 325 mg PO Q4H PRN PRN Reason: MILD PAIN OR INCREASE TEMP Last Admin: 08/28/25 05:12 Dose: 325 mg Al Hydrox/Mg Hydrox/Simethicone (Ikgc-Mqx-Rnalcjgbe-Brandon 30 Ml Udc) 30 ml PO Q15M PRN PRN Reason: INDIGESTION Alprazolam (Alprazolam 0.25 Mg Tablet) 0.25 mg PO TID PRN PRN Reason: ANXIETY Aspirin (Aspirin 81 Mg Chew Tablet) 81 mg PO DAILY [facility] Last Admin: 08/30/25 05:20 Dose: 81 mg Atorvastatin Calcium (Atorvastatin 40 Mg Tablet) 80 mg PO BEDTIME [facility] Last Admin: 08/29/25 21:00 Dose: 80 mg Atropine Sulfate (Atropine 1 Mg/Ml Sdv 1 Ml) 0.5 mg IVP PRN PRN PRN Reason: Symptomatic bradycardia Clopidogrel Bisulfate (Clopidogrel 75 Mg Tablet) 75 mg PO DAILY [facility] Last Admin: 08/30/25 05:21 Dose: 75 mg Docusate Sodium (Docusate Sodium 100 Mg Capsule) 100 mg PO BID [facility] Last Admin: 08/30/25 05:23 Dose: Not Given Fentanyl (Fentanyl 50 Mcg/Ml Inj 2ml) 50 mcg IVP PRN PRN PRN Reason: Prior to sheath removal Furosemide (Furosemide 20 Mg Tablet) 20 mg PO QAM PRN PRN Reason: EDEMA Heparin Sodium (Porcine) (Heparin 5,000 Unit/Ml Inj 1 Ml) 5,000 unit SUBCUT Q8H [facility] Last Admin: 08/30/25 07:54 Dose: Not Given Sodium Chloride (Sodium Chloride 0.9%) 1,000 mls @ 75 mls/hr IV .[id number] [facility] Last Admin: 08/30/25 07:57 Dose: Not Given Isosorbide Mononitrate (Isosorbide Mononitrate 20 Mg Tablet) 10 mg PO BID [facility] Last Admin: 08/30/25 05:21 Dose: 10 mg Magnesium Hydroxide (Magnesium Hydroxide 30 Ml Udc) 30 ml PO DAILY PRN PRN Reason: CONSTIPATION Metoprolol Tartrate (Metoprolol Tartrate 25 Mg Tablet) 12.5 mg PO BID@0900,2100 [facility] Last Admin: 08/30/25 07:48 Dose: 12.5 mg Naloxone HCl (Naloxone 0.4 Mg/Ml Sdv) 0.1 mg IVP Q2M PRN PRN Reason: RESPIRATORY RATE < 8/MIN Nitroglycerin (Nitroglycerin 0.4 Mg Sublingual Tablet) 0.4 mg SUBLINGUAL Q5M PRN PRN Reason: CHEST PAIN Ondansetron HCl (Ondansetron 2 Mg/Ml Sdv 2 Ml) 4 mg IVP Q8H PRN PRN Reason: vomiting, or N/V if npo Ondansetron HCl (Ondansetron 2 Mg/Ml Sdv 2 Ml) 4 mg IVP Q2M PRN PRN Reason: NAUSEA Pantoprazole Sodium (Pantoprazole Dr 40 Mg Tablet) 40 mg PO DAILY [facility] Last Admin: 08/30/25 05:23 Dose: Not Given Sacubitril/Valsartan (Sacubitril/Valsartan 24-26 Mg Tablet) 1 each PO BID [facility] Last Admin: 08/30/25 05:23 Dose: 1 each Senna (Sennosides 8.6 Mg Tablet) 17.2 mg PO BEDTIME [facility] Last Admin: 08/29/25 21:00 Dose: Not Given Spironolactone (Spironolactone 25 Mg Tablet) 25 mg PO DAILY [facility] Last Admin: 08/30/25 05:22 Dose: 25 mg Temazepam (Temazepam 15 Mg Capsule) 15 mg PO BEDTIME PRN PRN Reason: INSOMNIA Vitals/I&O/Wt Last Vital Signs Temp 98.3 F 08/30/25 07:43 Pulse 73 08/30/25 07:43 Resp 22 H 08/30/25 07:43 BP 108/62 08/30/25 07:43 Pulse Ox 96 08/30/25 07:43 O2 Del Method Room Air 08/30/25 03:57 08/29/25 08/30/25 08/30/25 22:59 06:59 14:59 Intake Total 1460 / 1700 300 / 2000 828.75 / 828.75 Output Total Balance 1460 / 1700 1996 828.75 / 828.75 Weight last 48 hrs Weight 194 lb Weight 187 lb 9.6 oz Physical Exam Narrative: GENERAL: The patient is alert and oriented times three. Not in any acute distress. Moderately obese HEENT: No significant pallor, icterus or lymphadenopathy.Oral cavity: There are no mucous membrane lesions. NECK: Trachea appears to be central. No masses noted. No JVD or thyromegaly appreciated. RESPIRATORY: Chest is symmetrical. No intercostals muscle retraction or any accessory muscle activation. There is no chest wall tenderness. Breath sounds are heard bilaterally. No rales or rhonchi heard. No evidence of any consolidation. BREASTS: Deferred. HEART: The heart sounds are normal. No S3 or S4. No significant murmurs. No pericardial rub ABDOMEN: No vessel pulsations moderately obese. Extensive scarring. Ileostomy bag is draining : Deferred. RECTAL: Deferred. LYMPHATIC: No lymphadenopathy noted in the neck. EXTREMITIES: No edema or cyanosis. No clubbing. MUSCULOSKELETAL: No hematoma bleeding at the arterial puncture site. Good distal pulses. SKIN: There are no significant rashes or ecchymosis NEUROPSYCHIATRIC: The patient is alert and oriented x3. No focal motor deficits. Data 08/30/25 03:10 08/30/25 03:10 Other Labs: Laboratory Last Values WBC 7.96 10^3/uL (3.29-11.43) 08/30/25 03:10 Corrected WBC Cancelled 08/28/25 04:40 RBC 5.32 10^6/uL (3.85-5.65) 08/30/25 03:10 Hgb 13.10 g/dL (11.27-16.99) 08/30/25 03:10 Hct 42.8 % (36-47) 08/30/25 03:10 MCV 80.5 fl (85-98) L 08/30/25 03:10 MCH 24.6 pg (27-33) L 08/30/25 03:10 MCHC 30.6 g/dL (30-55) 08/30/25 03:10 RDW 23.7 % (12.1-15.1) H 08/30/25 03:10 Plt Count 459 10^3/cmm (157-399) H 08/30/25 03:10 MPV 10.8 fL (7.4-10.4) H 08/30/25 03:10 Gran % Cancelled 08/28/25 04:40 Neut % (Auto) 77.9 % 08/30/25 03:10 Lymph % (Auto) 14.8 % 08/30/25 03:10 [place] % (Auto) 6.3 % 08/30/25 03:10 Eos % (Auto) 0.0 % 08/30/25 03:10 Baso % (Auto) 0.1 % 08/30/25 03:10 Neut # (Auto) 6.20 10^3/uL (1.8-7.7) 08/30/25 03:10 Lymph # (Auto) 1.2 10^3/uL (0.8-4.8) 08/30/25 03:10 [place] # (Auto) 0.5 10^3/uL (0.2-0.9) 08/30/25 03:10 Eos # (Auto) 0.0 10^3/uL (0.0-0.8) 08/30/25 03:10 Baso # (Auto) 0.0 10^3/uL (0.0-0.1) 08/30/25 03:10 Absolute Gran (auto) Cancelled 08/28/25 04:40 Nucleated RBC % (auto) 4.1 % 08/30/25 03:10 Total Counted 100 (0-100) 08/27/25 07:28 Atypical Lymphs % 6.0 % (0-5) H 08/27/25 07:28 Absolute Neutrophils 6.2 10^3/cmm (1.4-6.5) 08/27/25 07:28 Segmented Neutrophils 74 % 08/27/25 07:28 Band Neutrophils 0.0 % 08/27/25 07:28 Absolute Lymphocytes 1.9 10^3/cmm (1.2-3.4) 08/27/25 07:28 Lymphocytes (Manual) 17 % 08/27/25 07:28 Monocytes (Manual) 2.0 % 08/27/25 07:28 Absolute Monocytes 0.2 10^3/cmm (0.1-0.6) 08/27/25 07:28 Eosinophils (Manual) 2 % 08/27/25 07:28 Absolute Eosinophils 0.2 10^3/cmm (0.0-0.7) 08/27/25 07:28 Basophils (Manual) 0.0 % 08/27/25 07: Absolute Basophils 0.0 10^3/cmm (0.0-0.2) 08/27/25 07:28 Nucleated RBCs 4.0 /100WBC (0-1) H 08/27/25 07:28 Nucleated RBCs # 0.3 /100WBC 08/30/25 03:10 Platelet Estimate Increased (Normal) H 08/27/25 07:28 Sodium 138 mmol/L (136-145) 08/30/25 03:10 Potassium 4.2 mmol/L (3.5-5.1) 08/30/25 03:10 Chloride 105 mmol/L (98-107) 08/30/25 03:10 Carbon Dioxide 19 mmol/L (22-29) L 08/30/25 03:10 Anion Gap 18.2 (5-19) 08/30/25 03:10 BUN 18 mg/dL (6-20) 08/30/25 03:10 Creatinine 0.8 mg/dL (0.5-0.9) 08/30/25 03:10 GFR Calculation 73.9 mL/min (90-130) L 08/30/25 03:10 Glucose 188 mg/dL (65-115) H 08/30/25 03:10 Calculated Osmolality 293 mOsm/kg (285-295) 08/30/25 03:10 Calcium 9.0 mg/dL (8.5-10.5) 08/30/25 03:10 Phosphorus 3.5 mg/dL (2.5-4.5) 08/28/25 04:40 Magnesium 2.0 mg/dL (1.7-2.3) 08/28/25 04:40 Total Bilirubin 1.0 mg/dL (0.15-1.2) 08/30/25 03:10 AST 18 U/L (0-32) 08/30/25 03:10 ALT 21 U/L (0-33) 08/30/25 03:10 Alkaline Phosphatase 111 U/L (35-105) H 08/30/25 03:10 Troponin T Baseline 29 ng/L (0-10) H 08/27/25 07:28 Troponin T 120 Minute 28.79 ng/L (0-10) H 08/27/25 09:25 Delta Troponin T -0.21 ABS# (0-10) L 08/27/25 09:25 Troponin T Hi Sens 6Hr 26.60 ng/L (0-10) H 08/27/25 13:11 Troponin T Hi Sens 6Hr Delta -2.40 ng/L (0-12) L 08/27/25 13:11 NT-Pro-B Natriuret Pep 5001 pg/mL (0-125) H 08/27/25 07:28 Total Protein 5.7 g/dL (6.6-8.7) L 08/30/25 03:10 Albumin 2.7 g/dL (3.5-5.2) L 08/30/25 03:10 Globulin 3.0 g/dL (1.3-4.6) 08/30/25 03:10 A&P Assessment and plan 1. Atherosclerotic heart disease of [place] coronary artery with other forms of angina pectoris: Patent LAD and obtuse marginal artery stents. Severely depressed ejection fraction possibly from negative remodeling. 2. Ischemic cardiomyopathy: The patient's LV ejection fraction by echocardiogram was 45% in December of this year. The repeat echocardiogram revealing ejection fraction around 19%. This is a significant change. Patient was started on GDMT for the heart failure. Also discussed about external cardiac defibrillator. Patient is interested. 3. Smoking addiction: Strongly advised to quit. Patient is very much motivated 4. Left arm pain: Currently resolved. Possibly noncardiac 5. Mixed hyperlipidemia: May continue on the current medications 6. Benign essential HTN: Currently normotensive. 7. 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 No late reactions Plan: If the patient continues to remain stable, may be discharged home today with the LifeVest. If you have difficulty getting the LifeVest, may be appropriate to discharge home and to have the device placed at home Discussed with Dr. Martinez Appointment at the [facility] in 2 weeks with to see the nurse practitioner. Appointment with Dr. 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
--- NOTE | 2025-08-30 12:35 | P.DS_ITS ---
Discharge Providers Date of Admission: 08/27/25 10:26 Date of Discharge: August 30, 2025 Attending Provider at Admission: Brenda Lakhani MD Attending Provider at Discharge: Darnell Martinez MD Primary Care Provider: YAMILKA Whitlock Diagnoses at Discharge Discharge Diagnosis 1. Left arm pain: 2. Atherosclerotic heart disease of [place] coronary artery with other forms of angina pectoris: 3. Ischemic cardiomyopathy: 4. Smoking addiction: 5. Mixed hyperlipidemia: 6. Benign essential HTN: 7. 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 Patient had myocardial infarction in November 2024 this year and was status post cardiac catheterization at that time in this hospital and had 2 coronary artery stents putting at follow-up 2 weeks after the coronary artery event and cardiac catheterization patient had a stressful journey coming to the hospital with a friend that stressed her and she was not feeling well quite out of it for that reason patient was taken back to Input Output Clerk and required another stent placed within 2 weeks of the other 2. The patient is following with the cardiology as outpatient Patient came to ER with chest pain and considering her recent cardiac cath history admitted for further workup Hospital Course Hospital Course Patient underwent echo and found to have reduced ejection fraction. The concerning of reduced ejection fraction in comparison to the previous one lead her to have another cath which did not show any significant coronary artery disease. The possible reason is her negative remodeling that is causing reduced ejection fraction. She was started on GDMT. Patient tolerated well. LifeVest arranged. Patient has been informed about her current medical management. After establishing her stability to be discharged home to follow-up with the cardiology dietitian and rest of the primary care physician post discharge follow-up Patient condition has been discussed at length with the patient/family, I have independently reviewed the chart labs imaging/diagnostics/EKG. the goals of care and code status with the patient/family/NOK/legal artists' booking representative, and documented accordingly. The patient/family has been informed about the current condition and further plan of care. Agreed with the plan of care and understood without any language barrier. Every effort was made to ensure accuracy of personal coach. Any obvious errors or omissions should be clarified with the author of the document. Physical Exam Narrative: General: Alert and oriented, lying comfortably without any distress with some sedative effect of ketamine at room air HEENT: Normocephalic, atraumatic, grossly unremarkable exam Cardio: normal rate rhythm, normal S1-S2 without any murmurs, rubs, or gallops and JVD normal Respiratory: normal vascular breathing on auscultation without any wheezes, stridor, rhonchi GI: Abdomen soft, nontender, nondistended, normoactive bowel sounds present all 4 quadrants, Neuro: intact cranial nerves motor and sensory and cerebellar/coordination function without any focal neurological deficit Behavior: Appropriate and cooperative Extremities: Adequate palpable pulses, mild trace pedal edema Discharge Data Studies Completed and Pending Completed Studies During Hospitalization Category Date Time Status SHREDDER TENDER PEAT request for service Routine Exams 08/29/25 06:35 Completed XR chest 1V portable [id number] Stat Exams 08/27/25 07:15 Completed NM evelio perf SPECT r/s* [id number] Routine Nuc Med 08/28/25 17:15 Completed CV. echo complete* [id number] Routine Ultrasound 08/27/25 17:13 Completed Pending at discharge Category Date Time Status Cardiac Stress Test MIBI [Sestamibi Stress Test Request Exams 08/27/25 17:13 Ordered ] Routine Radiology Impressions Chest X-Ray 08/27/25 07:15 IMPRESSION: No acute process. Laboratory Results WBC 7.96 10^3/uL (3.29-11.43) 08/30/25 03:10 Corrected WBC Cancelled 08/28/25 04:40 RBC 5.32 10^6/uL (3.85-5.65) 08/30/25 03:10 Hgb 13.10 g/dL (11.27-16.99) 08/30/25 03:10 Hct 42.8 % (36-47) 08/30/25 03:10 MCV 80.5 fl (85-98) L 08/30/25 03:10 MCH 24.6 pg (27-33) L 08/30/25 03:10 MCHC 30.6 g/dL (30-55) 08/30/25 03:10 RDW 23.7 % (12.1-15.1) H 08/30/25 03:10 Plt Count 459 10^3/cmm (157-399) H 08/30/25 03:10 MPV 10.8 fL (7.4-10.4) H 08/30/25 03:10 Gran % Cancelled 08/28/25 04:40 Neut % (Auto) 77.9 % 08/30/25 03:10 Lymph % (Auto) 14.8 % 08/30/25 03:10 [place] % (Auto) 6.3 % 08/30/25 03:10 Eos % (Auto) 0.0 % 08/30/25 03:10 Baso % (Auto) 0.1 % 08/30/25 03:10 Neut # (Auto) 6.20 10^3/uL (1.8-7.7) 08/30/25 03:10 Lymph # (Auto) 1.2 10^3/uL (0.8-4.8) 08/30/25 03:10 [place] # (Auto) 0.5 10^3/uL (0.2-0.9) 08/30/25 03:10 Eos # (Auto) 0.0 10^3/uL (0.0-0.8) 08/30/25 03:10 Baso # (Auto) 0.0 10^3/uL (0.0-0.1) 08/30/25 03:10 Absolute Gran (auto) Cancelled 08/28/25 04:40 Nucleated RBC % (auto) 4.1 % 08/30/25 03:10 Total Counted 100 (0-100) 08/27/25 07:28 Atypical Lymphs % 6.0 % (0-5) H 08/27/25 07:28 Absolute Neutrophils 6.2 10^3/cmm (1.4-6.5) 08/27/25 07:28 Segmented Neutrophils 74 % 08/27/25 07:28 Band Neutrophils 0.0 % 08/27/25 07:28 Absolute Lymphocytes 1.9 10^3/cmm (1.2-3.4) 08/27/25 07:28 Lymphocytes (Manual) 17 % 08/27/25 07:28 Monocytes (Manual) 2.0 % 08/27/25 07:28 Absolute Monocytes 0.2 10^3/cmm (0.1-0.6) 08/27/25 07:28 Eosinophils (Manual) 2 % 08/27/25 07:28 Absolute Eosinophils 0.2 10^3/cmm (0.0-0.7) 08/27/25 07:28 Basophils (Manual) 0.0 % 08/27/25 07:28 Absolute Basophils 0.0 10^3/cmm (0.0-0.2) 08/27/25 07:28 Nucleated RBCs 4.0 /100WBC (0-1) H 08/27/25 07:28 Nucleated RBCs # 0.3 /100WBC 08/30/25 03:10 Platelet Estimate Increased (Normal) H 08/27/25 07:28 Sodium 138 mmol/L (136-145) 08/30/25 03:10 Potassium 4.2 mmol/L (3.5-5.1) 08/30/25 03:10 Chloride 105 mmol/L (98-107) 08/30/25 03:10 Carbon Dioxide 19 mmol/L (22-29) L 08/30/25 03:10 Anion Gap 18.2 (5-19) 08/30/25 03:10 BUN 18 mg/dL (6-20) 08/30/25 03:10 Creatinine 0.8 mg/dL (0.5-0.9) 08/30/25 03:10 GFR Calculation 73.9 mL/min (90-130) L 08/30/25 03:10 Glucose 188 mg/dL (65-115) H 08/30/25 03:10 Calculated Osmolality 293 mOsm/kg (285-295) 08/30/25 03:10 Calcium 9.0 mg/dL (8.5-10.5) 08/30/25 03:10 Phosphorus 3.5 mg/dL (2.5-4.5) 08/28/25 04:40 Magnesium 2.0 mg/dL (1.7-2.3) 08/28/25 04:40 Total Bilirubin 1.0 mg/dL (0.15-1.2) 08/30/25 03:10 AST 18 U/L (0-32) 08/30/25 03:10 ALT 21 U/L (0-33) 08/30/25 03:10 Alkaline Phosphatase 111 U/L (35-105) H 08/30/25 03:10 Troponin T Baseline 29 ng/L (0-10) H 08/27/25 07:28 Troponin T 120 Minute 28.79 ng/L (0-10) H 08/27/25 09:25 Delta Troponin T -0.21 ABS# (0-10) L 08/27/25 09:25 Troponin T Hi Sens 6Hr 26.60 ng/L (0-10) H 08/27/25 13:11 Troponin T Hi Sens 6Hr Delta -2.40 ng/L (0-12) L 08/27/25 13:11 NT-Pro-B Natriuret Pep 5001 pg/mL (0-125) H 08/27/25 07:28 Total Protein 5.7 g/dL (6.6-8.7) L 08/30/25 03:10 Albumin 2.7 g/dL (3.5-5.2) L 08/30/25 03:10 Globulin 3.0 g/dL (1.3-4.6) 08/30/25 03:10 Vitals Last Vital Signs Temp 98.3 F 08/30/25 07:43 Pulse 73 08/30/25 07:43 Resp 22 H 08/30/25 07:43 BP 108/62 08/30/25 07:43 Pulse Ox 96 08/30/25 07:43 O2 Del Method Room Air 08/30/25 03:57 Discharge Plan Discharge Patient Disposition: Home Condition: Stable Prescriptions: New pantoprazole 40 mg Tablet,Delayed Release (Dr/Ec) 40 mg PO DAILY 60 Days Qty: 60 0RF nitroglycerin 0.4 mg Tablet, Sublingual 0.4 mg sublingual Q5M PRN (Reason: Chest Pain) 60 Days Qty: 90 0RF dapagliflozin propanediol 5 mg Tablet 5 mg PO DAILY 60 Days Qty: 60 0RF spironolactone 25 mg Tablet 25 mg PO DAILY 60 Days Qty: 60 0RF sacubitril-valsartan [Entresto] 24-26 mg Tablet 1 tab PO BID 60 Days Qty: 120 0RF Continued (DME) nebulizers Misc See Rx Instructions .ROUTE .MEDSUPPLY Qty: 1 0RF Rx Instructions: use every 4 hours as needed cholecalciferol (vitamin D3) 125 mcg/mL (5,000 unit/mL) drops 125 mcg PO DAILY Qty: 52 2RF clopidogrel 75 mg tablet 75 mg PO DAILY Qty: 30 5RF rosuvastatin 10 mg tablet 20 mg PO DAILY Qty: 30 5RF furosemide [Lasix] 20 mg tablet 20 mg PO QAM PRN (Reason: edema) Qty: 30 0RF potassium chloride 10 mEq packet 10 meq PO DAILY Qty: 30 0RF Rx Instructions: take with Lasix albuterol sulfate 2.5 mg /3 mL (0.083 %) solution for nebulization 2.5 mg inhalation Q4H PRN (Reason: shortness of breath or wheezing) Qty: 180 5RF albuterol sulfate 90 mcg/actuation HFA aerosol inhaler 2 inh INHALATION Q4H PRN (Reason: shortness of breath or wheezing) Qty: 6.7 2RF acetaminophen 500 mg Tablet 1,000 mg PO Q6H PRN (Reason: Pain) aspirin 81 mg Tablet,Chewable 81 mg PO DAILY Qty: 30 0RF metoprolol tartrate 25 mg tablet 12.5 mg PO BID@0900,2100 Qty: 60 0RF isosorbide mononitrate 20 mg tablet 10 mg PO BID Qty: 30 0RF Rx Instructions: give doses 7 hrs apart Plate Developer OK for DC: Cardiology Referrals: [facility] [Other] Referral Note: You will have to call to schedule the appointment for therapy, but they do have a counselor [place] that has availability. Grazyna Dias NP [Nurse Practitioner, Cardiology] - 09/25/25 8:00 am Mireya Varner FNP-C [Primary Care Provider, Family Practice] - 09/04/25 10:40 am Anne Carey [Occupational Therapist, Card Grader] Haile Centeno MD [Physician, Psychiatry] - 4-7 days Referral Note: Follow-up postdischarge for anxiety disorder Discharge Diet: Advance as tolerated, Usual diet, As Directed, Cardiac, Diabetic, Low Salt and Low Cholesterol Discharge Activity: Resume usual activity, Increase activity as tolerated and Limit activity as instructed Patient Instructions: COPD, Acute Coronary Syndrome (DC), Heart Catheterization (DC), Chest Pain Stoplight, Opioid Safety, Patient Portal & Roland Instructions Discharge Attestations Time Spent in Discharge Care*: greater than 30 min Specific Discharge Activities: educating patient, educating and/or supporting family/caregiver, discussing with pcp/other providers, discussing with case management associate/social workers/dc planners, documenting/other paperwork and evaluating patient/reviewing data Status at Discharge: Cognitive status at discharge: cognitively intact , Behavioral status at discharge: cooperative , Functional status at discharge: independent ambulation , Overall status at discharge: patient is back to baseline Quality Metrics Clinical Quality Measures [ No reported AMI, CVA or VTE this stay] Coding Level of Care Code 64332 Diagnoses Left arm pain M79.602 Atherosclerotic heart disease of [place] coronary artery with other forms of angina pectoris I25.118 Ischemic cardiomyopathy I25.5 Smoking addiction F17.200 Mixed hyperlipidemia E78.2 Hyperlipidemia type: mixed hyperlipidemia Benign essential HTN I10 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
--- NOTE | 2025-08-30 15:51 | PC.NURSE ---
Patient discharged to home. Extensive instruction provided regarding follow up needs and new medications with changes. Patient verbalized complete understanding. Patient had Lifevest placed prior to discharge by Jerome Cade RN. Patient taken by wheelchair to private vehicle with daughters at side.
== END 2025-08-30 15:50 | disposition home or self-care (01) ==
LOC: ER 09:15 → ER IP 10:26 → CSU 14:46
PROVIDERS: Internal Medicine Cardiovascular Disease; Admitting Provider Internal Medicine; Emergency Provider Emergency Medicine; PCP Nurse Practitioner; Visit Provider Student in an Organized Health Care Education/Training Program
DX: I25.118 Atherosclerotic heart disease of native coronary artery with other forms of angina pectoris (principal); I25.5 Ischemic cardiomyopathy; E78.2 Mixed hyperlipidemia; I10 Essential (primary) hypertension; Z88.8 Allergy status to other drugs, medicaments and biological substances; Z79.82 Long term (current) use of aspirin; Z79.01 Long term (current) use of anticoagulants; J44.9 Chronic obstructive pulmonary disease, unspecified; Z86.14 Personal history of Methicillin resistant Staphylococcus aureus infection; F41.9 Anxiety disorder, unspecified; F17.210 Nicotine dependence, cigarettes, uncomplicated; I25.2 Old myocardial infarction; Z95.5 Presence of coronary angioplasty implant and graft; R74.01 Elevation of levels of liver transaminase levels
CPT/HCPCS: 36415; 71045; 78452; 80053; 83735; 83880; 84100; 84484; 85007; 85025; 93005; 93017; 93306; 93458; 96372; 96374; 96375; 99152; 99285; A9500; C1769; C1887; C1894; G0378; J1200; J1644; J2250; J2704; J2785; J2919; J3490; J7030; J9999; Q9967

== ENCOUNTER → 2025-09-25 09:35 | Outpatient (BNVA) | payer MEDICAID, SELFPAY | PROVIDERS: PCP Nurse Practitioner; Visit Provider Nurse Practitioner Family | DX: R07.9 Chest pain, unspecified (principal); I25.10 Atherosclerotic heart disease of native coronary artery without angina pectoris | CPT/HCPCS: 36415; 80053; 85025 ==

== ENCOUNTER 2025-10-10 21:06 | Emergency (ER) | payer MEDICAID, SELFPAY ==
--- OUTSIDE RECORDS SUMMARY | 2025-02-06 04:40 | XMS_ITS ---
Author Organization [facility] Address [address] [place] [address] Care Team Providers Care Bottom Steep Tender Name Role Phone Albaro Tapia Primary Care Provider [phone] REASON FOR VISIT CHECK UP Encounters Encounter Location Date Provider Diagnosis [facility] [address] [place] [id number] 02/06/2025 Albaro Tapia Plan Of Treatment No Information Progress Notes * Juan Alberto VELAJovannyB:[birth year] (55 yo F)Acc No.[id number]:02/06/2025 Progress Notes Patient: Fabiola Fuller Provider: Emile Tapia MD :1970 A ge:54 Y S ex:Female Date:02/06/2025 Address:[address] [id number] Subjective: * Chief Complaints: * C HECK UP Billing Information: * Procedure Codes: Care Plan Details* * Electronic signature of Arvind Tapia MD on 10/10/2025 at 09:18 PM TREASURY CONSULTANT Sign off status: Pending * Provider: Emile Tapia MD Date: 0 02/06/2025 Generated for Mario Alberto ndiaye/Malorie/eTransmitting on: 1 12/11/2024 09:18 PM TREASURY CONSULTANT
--- OUTSIDE RECORDS SUMMARY | 2025-02-07 07:20 | XMS_ITS ---
Author Organization [facility] Address [address] [place] [address] Care Team Providers Care Lithographing Machine Operator Name Role Phone Albaro Tapia Primary Care Provider [phone] REASON FOR VISIT follow up Encounters Encounter Location Date Provider Diagnosis [facility] [address] [place] [id number] 02/07/2025 Albaro Tapia Plan Of Treatment No Information Progress Notes * Juan Alberto VELAJovannyB:[birth year] (55 yo F)Acc No.[id number]:02/07/2025 Progress Notes Patient: Fabiola Fuller Provider: Emile Tapia MD :1970 A ge:54 Y S ex:Female Date:02/07/2025 Address[place] [id number] Subjective: * Chief Complaints: * F ollow up Billing Information: * Procedure Codes: Care Plan Details* * Electronic signature of Arvind Tapia MD on 10/10/2025 at 09:18 PM HEEL CEMENTER Sign off status: Pending * Provider: Emile Tapia MD Date: 0 02/07/2025 Generated for Mario Alberto ndiaye/Malorie/eTransmitting on: 1 12/11/2024 09:18 PM HEEL CEMENTER
[2025-10-10 21:09] VITALS: BP 86/51; PULSE 112; RESP 20; TEMP 36.4; O2SAT 96; BMI 24.3
--- OUTSIDE RECORDS SUMMARY | 2025-10-10 21:18 | XMS_ITS | Encounter Summary ---
Author Organization [facility] Address [address] [place] [address] Care Team Providers Care Technical Director Name Role Phone Non-Staff, Physician Primary Care Provider Unava ilable Encounter Details Date Type Department Care Team (Late st Contact Info) Description 01/21/2015 Lab Requisition [facility] General Laboratory Services [place] [address] [place] [address] Obed Henriquez, DO NO ADDRESS [...] WBC 14.4 K/uL 01/21/2015 11:18 PM CDT [facility] [place] SEGMENTED NEUTROPHILS 67 45 - 70 % 01/21/2015 11:18 PM CDT [facility] [place] LYMPHOCYTES RELATIVE 24 20 - 45 % 01/21/2015 11:18 PM CDT [facility] [place] MONOCYTES RELATIVE 4 2 - 8 % 01/21/2015 11:18 PM CDT [facility] [place] EOSINOPHILS RELATIVE 5 0 - 5 % 01/21/2015 11:18 PM CDT [facility] [place] PLATELET EST. Consistent with Count 01/21/2015 11:18 PM CDT [facility] [place] NEUTROPHILS ABSOLUTE COUNT 9.65(H) 1.78 - 5.38 K/uL 01/21/2015 11:18 PM CDT [facility] [place] LYMPHOCYTES ABSOLUTE 3.46 1.20 - 4.00 K/uL 01/21/2015 11:18 PM CDT [facility] [place] MONOCYTES ABSOLUTE 0.58 0.30 - 0.82 K/uL 01/21/2015 11:18 PM CDT [facility] [place] EOSINOPHILS ABSOLUTE 0.72(H) 0.04 - 0.54 K/uL 01/21/2015 11:18 PM CDT [facility] [place] RBC MORPHOLOGY Normal 01/21/2015 11:18 PM CDT [facility] [place] TOTAL CELLS COUNTED IN DIFF 100 01/21/2015 11:18 PM CDT [facility] [place] Blood 01/21/2015 10:2 6 PM CDT 01/21/2015 10:26 PM CDT Obed Henriquez DO HEMATOLOGY ORDERABLES COM Final Result [facility] [employer] [facility] CLIA # [id number] [address] [place] [address] * TSH (01/21/2015 10:26 PM CDT) TSH 1.73 0.30 - 4.80 uIU/mL 01/21/2015 11:17 PM CDT [facility] [employer] [facility] Blood 01/21/2015 10:2 6 PM CDT 01/21/2015 10:26 PM CDT us Obed Henriquez DO CHEMISTRY ORDERABLES Final Resu lt Performing Organization Address City/[facility] [place]/ZIP Co de Phone Number [facility] [employer] [facility] CLIA # [id number] [address] [place] [address] * (ABNORMAL) LIPID PANEL (01/21/2015 10:26 PM CDT) CHOLESTEROL 263(H) 130 - 200 mg/dL 01/21/2015 11:17 PM [facility]T [facility] TRIGLYCERIDE 744(H) 30 - 200 mg/dL 01/21/2015 11:17 PM CDT [facility] [employer] [facility] HDL 35 - 80 mg/dL 01/21/2015 11:17 PM T [facility] [employer] [facility] Comment: Measured HDL is not accurate when the Triglyceride value exceeds 700. LDL CALCULATED 0 - 100 mg/dL 01/21/2015 11:17 PM T [facility] [employer] [facility] Comment:Calculated LDL is no t accurate when the Triglyceride value exceeds 400. NON-HDL CHOLESTEROL mg/dL 01/21/2015 11:17 PM CDT [facility] Comment:Unable to determine Blood 01/21/2015 10:2 6 PM CDT 01/21/2015 10:26 PM CDT Narrative [facility] [employer] [facility] - 01/21/2015 11:17 PM CDT [...] ORDERABLES Final Resu lt Performing Organization Address [facility] [place]/ZIP Co de Phone Number [facility] [place] CLIA # [id number] [address] [place] [address] * (ABNORMAL) IRON LEVEL (01/21/2015 10:26 PM CDT) IRON 38(L) 50 - 170 ug/dL 01/21/2015 11:18 PM CDT [facility] [place] Blood 01/21/2015 10:2 6 PM CDT 01/21/2015 10:26 PM CDT Obed Henriquez DO CHEMISTRY ORDERABLES Final Resu lt Performing Organization Address [facility]/ZIP Co de Phone Number [facility] [employer] [facility] CLIA # [id number] [address] [place] [address] * (ABNORMAL) COMPREHENSIVE METABOLIC PANEL (01/21/2015 10:26 PM CDT) SODIUM 137 136 - 145 mmol/L 01/21/2015 11:17 PM CDT [facility] [place] POTASSIUM 3.9 3.5 - 5.1 mmol/L 01/21/2015 11:17 PM CDT [facility] [place] CHLORIDE 101 98 - 107 mmol/L 01/21/2015 11:17 PM CDT [facility] [place] CO2 24 21 - 32 mmol/L 01/21/2015 11:17 PM CDT [facility] [place] CALCIUM 9.6 8.5 - 10.1 mg/dL 01/21/2015 11:17 PM CDT [facility] [place] BUN 10 7 - 18 mg/dL 01/21/2015 11:17 PM [facility] LABORATORY [facility] CREATININE 1.10 0.60 - 1.30 mg/dL 01/21/2015 11:17 PM [facility] LABORATORY [facility] GLUCOSE 92 74 - 106 mg/dL 01/21/2015 11:17 PM [facility] TOTAL PROTEIN 7.9 6.4 - 8.2 g/dL 01/21/2015 11:17 PM [facility] ALBUMIN 3.7 3.4 - 5.0 g/dL 01/21/2015 11:17 PM [facility] LABORATORY [facility] BILIRUBIN TOTAL 0.3 0.2 - 1.0 mg/dL 01/21/2015 11:17 PM [facility] LABORATORY [facility] ALKALINE PHOSPHATASE 73 46 - 116 U/L 01/21/2015 11:17 PM [facility] AST 18 15 - 37 U/L 01/21/2015 11:17 PM [facility] ALT 22(L) 30 - 65 U/L 01/21/2015 11:17 PM [facility] GFR 53(L) >=60 mL/min/1.7 3 sq meter 01/21/2015 11:17 PM [facility] [employer] [facility] Comment: eGFR has not been validated [...] mL/min/1.7 3 sq meter 01/21/2015 11:17 PM [facility]ORATORY [facility] ANION GAP 12 12 - 20 mmol/L 01/21/2015 11:17 PM [facility] Blood 01/21/2015 10:2 6 PM CDT 01/21/2015 10:26 PM CDT Narrative [facility] [place] - 01/21/2015 11:17 PM CDT Effective 07/12/2014, the Alkaline Phosphatase test method and reference range have changed. Please take this into consideration when interpreting results prior to or after this date. us Obed Henriquez DO CHEMISTRY ORDERABLES Final Resu lt [facility] CLIA # [id number] [address] [place] [address]706 * (ABNORMAL) CBC WITH DIFFERENTIAL (01/21/2015 10:26 PM CDT) WBC 14.4(H) 4.0 - 10.0 K/uL 01/21/2015 10:[address] [facility] RBC 5.27(H) 3.93 - 5.22 M/uL 01/21/2015 10:[address] [facility] HEMOGLOBIN 15.3 11.2 - 15.7 g/dL 01/21/2015 10:[address] [facility] HEMATOCRIT 46.3(H) 34.1 - 44.9 % 01/21/2015 10:[address] [facility] MCV 87.9 79.4 - 94.8 fL 01/21/2015 10:[address] [facility] MCH 29.0 25.6 - 32.2 pg 01/21/2015 10:[address] [facility] MCHC 33.0 32.2 - 35.5 g/dL 01/21/2015 10:49 PM CDT [facility] [employer] [facility] RDW 16.0(H) 11.0 - 14.5 % 01/21/2015 10:49 PM CDT [facility] [employer] [facility] RDW-STDEV 51.6 36.9 - 56.9 fL 01/21/2015 10:49 PM CDT [facility] [employer] [facility] [place] PLATELETS 544(H) 163 - 337 K/uL 01/21/2015 10:49 PM CDT [facility] [employer] [facility] MPV 10.9 10.0 - 14.8 fL 01/21/2015 10:49 PM CDT [facility] [employer] [facility] Blood 01/21/2015 10:2 6 PM CDT 01/21/2015 10:26 PM CDT Obed Henriquez DO HEMATOLOGY ORDERABLES Final Res ult [facility] [employer] [facility] CLIA # [id number] [address] [place] [address] * VITAMIN B12 AND FOLATE (01/21/2015 10:26 PM CDT) FOLATE, SERUM 11.02 >=5.38 ng/mL 01/22/2015 9:33 PM CDT [facility] [employer] [facility] VITAMIN B12 238 211 - 911 pg/mL 01/22/2015 9:33 PM CDT [facility] [employer] [facility] Blood specimen (specimen) 01/21/2015 10:26 PM CDT 01/21/2015 10:26 PM CDT Obed Henriquez DO CHEMISTRY ORDERABLES Final Resu lt Performing Organization Address City/[facility] [place]/ZIP Co de Phone Number [facility] [employer] [facility] CLIA# [id number] [facility] [place], [place] [id number] [place] [address] [employer] [facility] CLIA# [id number] [address] [place] [address] documented in this encounter Visit Diagnoses Not on filedocumented in this encounter Care Teams Technical Director Relationship Specialty Start Date End Date Non-Staff, Physician NO ADDRESS ON FILE PCP - General 03/01/20 documented as of this encounter
--- OUTSIDE RECORDS SUMMARY | 2025-10-10 21:18 | XMS_ITS | Patient Health Record ---
Author Organization [facility] Address [address] [place] [address] Care Team Providers Care Mortician Helper Name Role Phone Albaro Tapia Primary Care Provider [phone] Allergies Allergen (clinical drug ingredient) Drug/Non Drug [...] Notes Lipid Panel Reflex [id number] Reviewed date:12/28/2024 12:53:18 PM Interpretation: Performing Lab: Notes/Report: Diagnosis Description: Atherosclerotic heart disease of [place] coronary artery without angina pectoris Trig 185 [...] o f right eye (H53.131) Referral Organization [facility] Referring Provider First Name Nam collins Referring Provider Last Name Regina Referring Provider Speciality Internal M edicine Referred Provider Edilberto Gutierrez Referred Provider Specialty Ribbing Machine Operator General Notes Cassandra Guo 02:26:41 PM >faxed Gerardo Holliday Heidi 02/12/2025 08:26:18 AM >PROGRESS NOTES IN REFERRAL FILE Referral Priority Routine Referral Appointment Date 02/09/2025 Medications Medication SIG (Take, Route, Frequency, Duration) Notes Start Date End Date Status Meclizine HCl 25 MG Tablet 1 tablet as n eeded Orally every 12 hrs Not-Taking Ciprofloxacin-dexAMETHason e 0.3-0.1 % Suspension 4 drops into affected ear Otic Twice a day; Duration: 7 days 03/10/2024 Not-Taking Clopidogrel Bisulfate 75 MG Tablet 1 tablet Orally Once a day; Duration: 90 days Active Isosorbide Mononitrate 10 MG Tablet 1 tablet Orally Twice a day; Duration: 90 days Active Rosuvastatin Calcium 10 MG Tablet 1 tablet Orally Once a day; Duration: 90 days 12/07/2024 Active Acetaminophen 500 MG Capsule 1 capsule as needed Orally every 6 hrs Active Metoprolol Tartrate 25 MG Tablet TAKE 1/2 TABLET BY MOUTH TWICE DAILY WITH FOOD FOR 30 DAYS; Duration: 30 Active Aspirin 81 MG Tablet Chewable 1 tablet Orally Once a day; Duration: 90 days Active Social History Tobacco Use: Social History [...] day do you smoke? 09-27 Section Notes: 12/07/24 Dep/tob - 12/07/24 CIME Dep/tob - 12/07/24 CIME Dep/tob - 04/24/25 Problems Problem Type SNOMED Code ICD Code Onset Dates Problem Status W/U Status Risk Notes Problem Primary insomnia (1165879) Primary insomnia (F51.01) Active confirmed Problem Vitamin D deficiency (31979012) Vitamin D deficiency (E55.9) Active confirmed Problem Tobacco abuse (2260843689) Tobacco abuse (Z72.0) Active confirmed Problem Dyspnea on exertion (31289487) Dyspnea on exertion (R06.09) Active confirmed Problem Multi vessel coronary artery disease (513577489) CAD, multiple vessel (I25.10) Active confirmed Problem Vitamin B12 deficiency (non anemic) (65701453) B12 deficiency (E53.8) Active confirmed Problem 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) Active confirmed Problem 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 Problem Sudden visual loss of right eye (164872896281496 ) 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 confirmed Problem Rectal pouchitis (K91.850) Active confirmed Vital Signs Heart Rate 99 /min 04/24/2025 Temperature 97.7 degrees Fahrenheit 04/24/2025 Height-cm 203.2 cm 04/24/2025 Oximetry 97 % 04/24/2025 Blood pressure diastolic 80 mm Hg 04/24/2025 Weight-kg 93.44 kg 04/24/2025 Height 80 in 04/24/2025 Blood pressure systolic 139 mm Hg 04/24/2025 Weight 206 lbs 04/24/2025 BMI 22.63 kg/m2 04/24/2025 Encounters Encounter Location Date Provider Diagnosis [facility] [address] [address] 04/24/2025 Albaro Tapia Primary insomnia F51.01 ; Tobacco abuse Z72.0 ; B12 deficiency E53.8 ; Dyspnea on exertion R06.09 and Depression screen Z13.31 [facility] [address] [address] 02/08/2025 Albaro Tapia CAD, multiple vessel I25.10 ; B12 deficiency E53.8 ; Altered bowel elimination due to intestinal ostomy K94.19 ; Sudden visual loss of right eye H53.131 and Depression screen Z13.31 [facility] [address] [address] 12/25/2024 Albaro Tapia CAD, multiple vessel I25.10 ; Altered bowel elimination due to intestinal ostomy K94.19 and Tobacco abuse Z72.0 [facility] [address] [address] 12/07/2024 Albaro Tapia CAD, multiple vessel I25.10 ; Tobacco abuse Z72.0 and Depression screen Z13.31 [facility] [address] [address] 09/25/2025 Albaro Tapia [facility] [address] [address] 07/16/2025 Albaro Tapia [facility] [address] [address] 01/30/2025 Albaro Tapia CAD, multiple vessel I25.10 [facility] [address] [address] 01/15/2025 Albaro Tapia Assessments Encounter Date Diagnosis (ICD Code) Assessment Notes Treatment Notes Treatment Clinical Notes Section Notes 12/25/2024 CAD, multiple vessel (ICD-10 - I25.10) 12/25/2024 Altered bowel elimination due to intestinal ostomy (ICD-10 - K94.19) 01/30/2025 CAD, multiple vessel (ICD-10 - I25.10) 04/24/2025 Primary insomnia (ICD-10 - F51.01) 04/24/2025 Tobacco abuse (ICD-10 - Z72.0) 02/08/2025 CAD, multiple vessel (ICD-10 - I25.10) 02/08/2025 B12 deficiency (ICD-10 - E53.8) 12/07/2024 CAD, multiple vessel (ICD-10 - I25.10) 12/07/2024 Tobacco abuse (ICD-10 - Z72.0) 02/08/2025 Altered bowel elimination due to intestinal ostomy (ICD-10 - K94.19) 04/24/2025 B12 deficiency (ICD-10 - E53.8) 12/25/2024 Tobacco abuse (ICD-10 - Z72.0) 04/24/2025 Dyspnea on exertion (ICD-10 - R06.09) 02/08/2025 Sudden visual loss of right eye (ICD-10 - H53.131) 12/07/2024 Depression screen (ICD-10 - Z13.31) 02/08/2025 Depression screen (ICD-10 - Z13.31) 04/24/2025 Depression screen (ICD-10 - Z13.31) Plan Of Treatment No Information Insurance Providers Payer Name Payer Address Payer Phone Subscriber Number Group Number Insured Name Patient Relationship to Insured Coverage Start Date Coverage End Date [place] [address] [place] [address] [phone] [id number] Fabiola Lucero Self - patient is the insured Medical (General) History Medical History History ICD Code 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
--- OUTSIDE RECORDS SUMMARY | 2025-10-10 21:18 | XMS_ITS | Clinical Summary ---
Author Organization [facility] Address [address] [place] [phone] Care Team Providers Care Air Quality Engineer Name Role Phone Non-Staff, Physician Primary Care Provider Unava ilable Allergies Active Allergy Reactions Criticality Noted Date Comments Iodinated Contrast Media Nausea and Vomiting Low Latex Rash Low 04/28/2016 Metronidazole Rash Low 11/23/2019 Moxifloxacin Rash Low 11/13/2018 Opioids - Morphine Analogues Nausea and Vomiting Low 08/17/2014 [place] Hives High 09/09/2016 Medications lisinopril (PRINIVIL) 20 [...] PM CDT Pulse 134 12/13/2019 3:14 PM [employer] Temperature 36.5 C (97.7 F) 04/17/2020 9:15 PM CDT Respiratory Rate 34 12/13/2019 3:14 PM [employer] Oxygen Saturation 100% 04/17/2020 9:15 PM CDT [...] Most Recently Relevant to Health Maintenance Insurance [employer] Care Teams Air Quality Engineer Relationship Specialty Start Date End Date Non-Staff, Physician NO ADDRESS ON FILE PCP - General 03/01/20
--- OUTSIDE RECORDS SUMMARY | 2025-10-10 21:18 | XMS_ITS | Encounter Summary ---
Author Organization [facility] Address [address] [place] [address] Care Team Providers Care Director Of Retail Operations Name Role Phone Non-Staff, Physician Primary Care Provider Unava ilable Reason for Referral * Outpatient Services (Routine) - Closed Specialty Diagnoses / Procedures Referred By Contac t Referred To Contact Radiology Diagnoses Ovarian cyst, left Uterine fibroid Procedures US PELVIS COMPLETE William Kingston MD Phone: tel: fax: [facility] [address] [place] [address] Phone: tel: fax: Referral ID Status Reason Start Date Expiration Date V isits Requested Visits Authorized [id number] Closed [facility] CTS to Schedule (SGF) 01/22/2017 02/22/2018 1 1 Encounter Details Date Type Department Care Team (Latest Contact Info) Description 01/22/2017 Ancillary Orders [facility] Centralized Scheduling [address] [place] [address] William Kingston MD [address] [place] [address] Ovarian cyst, left; Uterine fibroid [...] unspecified documented in this encounter Care Teams Director Of Retail Operations Relationship Specialty Start Date End Date Non-Staff, Physician NO ADDRESS ON FILE PCP - General 03/01/20 documented as of this encounter
--- OUTSIDE RECORDS SUMMARY | 2025-10-10 21:18 | XMS_ITS | Encounter Summary ---
Author Organization [facility] Address [address] [place] [address] Care Team Providers Care Dermatologist And Dermatopathologist Name Role Phone Non-Staff, Physician Primary Care Provider Unava ilable Encounter Details Date Type Department Care Team (Late st Contact Info) Description 12/23/2015 Lab Requisition [facility] General Laboratory Services [place] [address] [facility] [address] [place] [id number] Jay Jay Riddle PA NO ADDRESS ON [...] Comments FOLATE, SERUM Routine 12/23/2015 8:48 PM LEAD [employer] CBC WITH DIFFERENTIAL Routine 12/23/2015 8:48 PM LEAD [employer] VITAMIN D 25 HYDROXY Routine 12/23/2015 8:48 PM LEAD [employer] TSH Routine 12/23/2015 8:48 PM LEAD [employer] IRON LEVEL Routine 12/23/2015 8:48 PM LEAD [employer] VITAMIN B12 LEVEL Routine 12/23/2015 8:4 8 PM LEAD [employer] HEPATIC FUNCTION PANEL Routine 12/23/2015 8:48 PM LEAD [employer] LIPID PANEL Routine 12/23/2015 8:48 PM LEAD [employer] BASIC METABOLIC PANEL Routine 12/23/2015 8:48 PM LEAD [employer] documented in this encounter Results * (ABNORMAL) VITAMIN D 25 HYDROXY (12/23/2015 8:48 PM LEAD [employer]) VITAMIN D TOTAL (25OH) 6(L) 30 - 100 ng/ml 12/25/2015 1:31 AM LEAD PR[employer] [facility] Blood 12/23/2015 8:48 PM LEAD [employer] 12/23/2015 8:48 PM LEAD [employer] Narrative [facility] [employer] [facility] - 12/25/2015 1:31 AM LEAD [employer] Interpretive Data Chart: Deficient: 0 - 20 ng/ml Insufficient: 21 - 29 ng/ml Sufficient: 30 - 100 ng/ml Increased Risk of Hypercalciuria: >100 ng/ml Toxic: >150 ng/ml Jay Jay GAGNON CHEMISTRY ORDERABLES Final Re sult Performing Organization Address [facility]/ZIP Co de Phone Number [facility] CLIA# [id number] [address] [place] [address] * TSH (12/23/2015 8:48 PM LEAD PR[employer]) Pathologist [facility] TSH 2.47 0.27 - 4.20 uIU/mL 12/23/2015 9:55 PM LEAD [employer] [facility] Blood 12/23/2015 8:48 PM LEAD [employer] 12/23/2015 8:48 PM LEAD [employer] Jay Jay GAGNON CHEMISTRY ORDERABLES Final Re sult Performing Organization Address City/[facility]/ZIP Co de Phone Number [facility] [employer] [facility] CLIA # [id number] [address] [address] * (ABNORMAL) LIPID PANEL (12/23/2015 8:48 PM LEAD [employer]) CHOLESTEROL 262(H) <200 mg/dL 12/23/2015 9:55 PM [facility] TRIGLYCERIDE 626(H) <150 mg/dL 12/23/2015 9:55 PM [facility] HDL 44 40 - 59 mg/dL 12/23/2015 9:55 PM [facility] LDL CALCULATED <100 mg/dL 12/23/2015 9:55 PM [facility] Comment:Calculated LDL is no t accurate when the Triglyceride value exceeds 400. NON-HDL CHOLESTEROL 218(H) <130 mg/dL 12/23/2015 9:55 PM [facility] Blood 12/23/2015 8:48 PM [employer] 12/23/2015 8:48 PM LEAD [employer] [facility] - 12/23/2015 9:55 PM LEAD [employer] TOTAL CHOLESTEROL mg/dL Desirable <200 Borderline high [...] Jay GAGNON CHEMISTRY ORDERABLES Final Re sult [facility] CLIA # [id number] [address] [address] * IRON LEVEL (12/23/2015 8:48 PM LEAD [employer]) IRON 47 37 - 145 ug/dL 12/23/2015 9:55 PM [facility] Blood 12/23/2015 8:48 PM [employer] 12/23/2015 8:48 PM LEAD [employer] Jay Jay GAGNON CHEMISTRY ORDERABLES Final Re sult Performing Organization Address [facility] de Phone Number [employer] [facility] [place] CLIA # [id number] [address] [place] [phone] * HEPATIC FUNCTION PANEL (12/23/2015 8:48 PM LEAD [employer]) TOTAL PROTEIN 7.4 6.6 - 8.7 g/dL 12/23/2015 9:55 PM LEAD [employer] [facility] [place] ALBUMIN 4.1 3.5 - 5.2 g/dL 12/23/2015 9:55 PM LEAD [employer] [facility] [place] BILIRUBIN TOTAL 0.2 0.0 - 1.2 mg/dL 12/23/2015 9:55 PM LEAD [employer] [facility] [place] BILIRUBIN DIRECT <0.2 0.0 - 0.3 mg/dL 12/23/2015 9:55 PM LEAD [employer] [facility] [place] ALKALINE PHOSPHATASE 66 35 - 104 U/L 12/23/2015 9:55 PM LEAD [employer] [facility] [place] AST 22 10 - 35 U/L 12/23/2015 9:55 PM LEAD [employer] [facility] [place] ALT 19 10 - 35 U/L 12/23/2015 9:55 PM LEAD [employer] [facility] [place] Blood 12/23/2015 8:48 PM LEAD [employer] 12/23/2015 8:48 PM LEAD [employer] Jay Jay GAGNON CHEMISTRY ORDERABLES Final Re sult Performing Organization Address [facility] Co de Phone Number [employer] [facility] [place] CLIA # [id number] [address] [place] [address] [phone] * BASIC METABOLIC PANEL (12/23/2015 8:48 PM LEAD [employer]) SODIUM 136 136 - 145 mmol/L 12/23/2015 9:55 PM LEAD [email or web address] [facility] [place] POTASSIUM 3.8 3.5 - 5.1 mmol/L 12/23/2015 9:55 PM [facility] [employer] [facility] CHLORIDE 98 98 - 107 mmol/L 12/23/2015 9:55 PM [facility] [employer] [facility] [place] CO2 22 22 - 29 mmol/L 12/23/2015 9:55 PM [facility] [place] CALCIUM 9.6 8.6 - 10.0 mg/dL 12/23/2015 9:55 PM [facility] BUN 9 6 - 20 mg/dL 12/23/2015 9:55 PM [facility] [employer] [facility] CREATININE 0.81 0.51 - 0.95 mg/dL 12/23/2015 9:55 PM [facility] GLUCOSE 89 74 - 106 mg/dL 12/23/2015 9:55 PM [facility] GFR >60 >=60 mL/min/1.7 3 sq meter 12/23/2015 9:55 PM [facility] Comment: eGFR has not been validated [...] mL/min/1.7 3 sq meter 12/23/2015 9:55 PM [facility] [employer] [facility] ANION GAP 16 12 - 20 mmol/L 12/23/2015 9:55 PM [facility] Blood 12/23/2015 8:48 PM [employer] 12/23/2015 8:48 PM LEAD [employer] us Jay Jay GAGNON CHEMISTRY ORDERABLES Final Re sult [facility] [employer] [facility] CLIA # [id number] [address] [place] [address] * (ABNORMAL) CBC WITH DIFFERENTIAL (12/23/2015 8:48 PM LEAD [employer]) WBC 13.5(H) 4.0 - 10.0 K/uL 12/23/2015 9:11 PM LEAD [email or web address] [place] RBC 5.00 3.93 - 5.22 M/uL 12/23/2015 9:11 PM LEAD [email or web address] [place] HEMOGLOBIN 14.1 11.2 - 15.7 g/dL 12/23/2015 9:11 PM LEAD [email or web address] [place] HEMATOCRIT 43.1 34.1 - 44.9 % 12/23/2015 9:11 PM LEAD [email or web address] [facility] [place] MCV 86.2 79.4 - 94.8 fL 12/23/2015 9:11 PM LEAD [email or web address] [place] MCH 28.2 25.6 - 32.2 pg 12/23/2015 9:11 PM LEAD [employer] [facility] [place] MCHC 32.7 32.2 - 35.5 g/dL 12/23/2015 9:11 PM LEAD [email or web address] [place] RDW 17.1(H) 11.0 - 14.5 % 12/23/2015 9:11 PM LEAD [email or web address] [place] RDW-STDEV 53.9 36.9 - 56.9 fL 12/23/2015 9:11 PM LEAD [email or web address] [place] PLATELETS 533(H) 163 - 337 K/uL 12/23/2015 9:11 PM LEAD [employer] [facility] [place] MPV 10.6 10.0 - 14.8 fL 12/23/2015 9:11 PM LEAD [email or web address] [place] NEUTROPHILS 53 34 - 71 % 12/23/2015 9:11 PM LEAD [email or web address] [place] LYMPHOCYTES 27 19 - 52 % 12/23/2015 9:11 PM LEAD [email or web address] [facility] [place] MONOCYTES 10 5 - 13 % 12/23/2015 9:11 PM LEAD [email or web address] [facility] [place] EOSINOPHILS 8(H) 1 - 6 % 12/23/2015 9:11 PM LEAD [email or web address] [facility] [place] BASOPHILS 2(H) 0 - 1 % 12/23/2015 9:11 PM LEAD [email or web address] [facility] [place] NEUTROPHIL ABSOLUTE 7.08(H) 1.56 - 6.13 K/uL 12/23/2015 9:11 PM LEAD [employer] [facility] [place] LYMPHOCYTE ABSOLUTE 3.68(H) 1.20 - 3.40 K/uL 12/23/2015 9:11 PM LEAD [employer] [facility] [place] MONOCYTE ABSOLUTE 1.33(H) 0.24 - 0.36 K/uL 12/23/2015 9:11 PM LEAD [employer] [facility] [place] EOSINOPHIL ABSOLUTE 1.09(H) 0.04 - 0.36 K/uL 12/23/2015 9:11 PM LEAD [employer] [facility] [place] BASOPHILS ABSOLUTE 0.29(H) 0.01 - 0.08 K/uL 12/23/2015 9:11 PM LEAD [employer] [facility] [place] IMMATURE GRANULOCYTES 0 % 12/23/2015 9:11 PM LEAD [employer] [facility] [place] IMMATURE GRANULOCYTES ABSOLUTE 0.02 K/uL 12/23/2015 9:11 PM LEAD [employer] [facility] Blood 12/23/2015 8:48 PM LEAD [employer] 12/23/2015 8:48 PM LEAD [employer] Jay Jay GAGNON HEMATOLOGY ORDERABLES Final R esult Performing Organization Address City/[facility]/ZIP Co de Phone Number [facility] CLIA # [id number] [address] [place] [address] * FOLATE, SERUM (12/23/2015 8:48 PM LEAD [employer]) FOLATE, SERUM 21.7 >=5.4 ng/mL 12/25/2015 1:31 AM LEAD [employer] [facility] [employer] [facility] Blood 12/23/2015 8:48 PM LEAD [employer] 12/23/2015 8:48 PM LEAD [employer] Jay Jay GAGNON CHEMISTRY ORDERABLES Final Re sult [facility] CLIA# [id number] [address] [place] [phone] * VITAMIN B12 LEVEL (12/23/2015 8:48 PM LEAD [employer]) VITAMIN B12 239 211 - 946 pg/mL 12/23/2015 9:59 PM LEAD [employer] [facility]ORY [facility] Blood 12/23/2015 8:48 PM LEAD [employer] 12/23/2015 8:48 PM LEAD [employer] Jay Jay GAGNON CHEMISTRY ORDERABLES Final Re sult [facility] [employer] [facility] CLIA # [id number] [address] [place] [address] documented in this encounter Visit Diagnoses Not on filedocumented in this encounter Care Teams Dermatologist And Dermatopathologist Relationship Specialty Start Date End Date Non-Staff, Physician NO ADDRESS ON FILE PCP - General 03/01/20 documented as of this encounter
--- OUTSIDE RECORDS SUMMARY | 2025-10-10 21:18 | XMS_ITS | Clinical Summary ---
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 Role Phone Unavailable Primary Care Provider Unavailabl e Allergies Active Allergy Reactions Criticality Noted Date Comments Codeine Other,Nausea/Vomiti ng Medium 06/28/2023 Heart issues, projectile vomiting Fentanyl Other,Nausea/Vomiti ng Medium 06/28/2023 Heart issues, projectile vomiting Hydromorphone Other,Nausea/Vomiti ng Medium 06/28/2023 Heart issues, projectile vomiting Iodinated Contrast Media 06/28/2023 Latex Rash Low 04/28/2016 Metronidazole 06/28/2023 Metrogel Moxifloxacin Rash Low 11/13/2018 Avalox Oxycodone Other,Nausea/Vomiti ng Medium 06/28/2023 Heart issues, projective vomiting [place] Hives Medium 09/09/2016 Medications acetaminophen (Tylenol) 325 mg tablet Take by mouth every 6 (six) hours if needed for mild pain (1-3). Active Active Problems Problem Noted Date Diagnosed Date PONV (postoperative nausea and vomiting) 023 Pyelonephritis 06/28/2023 Calculus of distal left ureter 06/28/2023 Left ureteral stone 06/28/2023 Family History Medical History Relation Comments Anesthesia problems Neg Hx Relation Status Comments Father Mother Social History Tobacco Use Types Packs/Day Years Used Date Smoking Tobacco: Every Day Cigarettes 1.5 40 Tobacco Cessation:Ready to Q uit: No; Counseling Given: No Alcohol Use Standard Drinks/Week Comments Never 0 (1 standard drink = 0.6 oz pur e alcohol) PHQ-2 Answer Date Recorded Patient Health Questionnaire-2 Score 0 07/07/2023 Housing Stability Vital Sign Answer Yaw e Recorded In the last 12 months, was t here a time when you were not able to pay the mortgage or rent on time? No 06/29/2023 In the last 12 months, how many places have you lived? 2 06/29/2023 In the last 12 months, was t here a time when you did not have a steady place to sleep or slept in a alf (including now)? No 06/29/2023 Comments Unknown Sex and Gender Information Value Date Recorded Sex Assigned at Not on file Legal Sex Female 12:35 PM CDT Gender Identity Not on file Sexual Orientation Not on file Last Filed Vital Signs Vital Sign Reading Time Taken Comments Blood Pressure 89/68 07/21/2023 2:44 PM CDT Pulse 56 07/21/2023 3:40 PM CDT Temperature 36.2 C (97.1 F) 07/21/2023 2:20 PM CDT Respiratory Rate 17 07/21/2023 3:40 PM CDT Oxygen Saturation 95% 07/21/2023 3:40 PM CDT Inhaled Oxygen Concentration - - Weight 91.9 kg (202 lb 9.6 oz) 07/21/2023 10:33 AM CDT Height 170 cm (5' 6.93 ) 07/21/2023 10:33 AM CDT Body Mass Index 31.8 07/21/2023 10:33 AM CDT Plan of Treatment Health Maintenance Due Date Last Done Comments MMR Vaccines (1 of 1 - Stand do series) 1969 DTaP,Tdap,and Td Vaccines (1 - Tdap) 1975 Varicella Vaccines (1 of 2 - 13+ 2-dose series) 1981 Depression Screening 1986 Social Drivers of Health (SDoH) 1986 Hepatitis B Vaccines (1 of 3 - 19+ 3-dose series) 1987 Pneumococcal Vaccines: 50+ Y ears (1 of 2 - PCV) 1987 Pap Smear 1989 Cervical Cancer Screening 1998 HPV/Cotest 1998 Mammogram 2008 Zoster Vaccines (1 of 2) 2018 COVID-19 Vaccines (1 - season) 2025 Influenza Vaccine (#1) 2025 RSV Vaccines (1 - 1-dose 75+ series) 2043 HIB Vaccines Aged Out No longer eligi ble based on patient's age to complete this topic HPV Vaccines Aged Out No longer eligi ble based on patient's age to complete this topic Hepatitis A Vaccines Aged Out No long er eligible based on patient's age to complete this topic IPV Vaccines Aged Out No longer eligi ble based on patient's age to complete this topic Meningococcal B Vaccine Aged Out No l onger eligible based on patient's age to complete this topic Meningococcal Vaccine Aged Out No elia khadra eligible based on patient's age to complete this topic Rotavirus Vaccines Aged Out No longer eligible based on patient's age to complete this topic Medical Devices Implanted Type Area Surface 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, 7 days a week) * Full Code (Latest Code Status on File) Date Activated Date Inactivated Comments 07/21/2023 11:32 AM 07/21/2023 6:43 PM * Full Code Date Activated Date Inactivated Comments 06/28/2023 5:06 PM 06/30/2023 7:21 PM
--- OUTSIDE RECORDS SUMMARY | 2025-10-10 21:18 | XMS_ITS | Clinical Summary ---
Author Organization [facility] Address [address] 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 Role Phone Non-Staff, Physician Primary Care Provider Unava ilable Allergies Active Allergy Reactions Criticality Noted Date Comments Iodinated Contrast Media Nausea and Vomiting Low Latex Rash Low 04/28/2016 Metronidazole Rash Low 11/23/2019 Moxifloxacin Rash Low 11/13/2018 Opioids - Morphine Analogues Nausea and Vomiting Low 08/17/2014 [place] Hives High 09/09/2016 Medications lisinopriL (PRINIVIL) 20 [...] on file Legal Sex Female 10:49 AM SEC[employer] Gender Identity Not on file Sexual Orientation Not on file Last Filed Vital Signs Vital Sign Reading Time Taken Comments Blood Pressure 146/86 04/17/2020 9:15 PM CDT Pulse 134 12/13/2019 3:14 PM SECOND [employer]ER Temperature 36.5 C (97.7 F) 04/17/2020 9:15 PM CDT Respiratory Rate 34 12/13/2019 3:14 PM [employer] Oxygen Saturation - - Inhaled Oxygen Concentration [...] 03/11/2020 INFLUENZA VACCINE (#1) 2025 Care Teams [employer] Developer Relationship Specialty Start Date End Date Non-Staff, Physician NO ADDRESS ON FILE PCP - General 03/01/20
[2025-10-10 21:47] VITALS: BP 87/59; PULSE 99; O2SAT 93
--- NOTE | 2025-10-10 22:16 | XRR_ITS ---
PROCEDURE INFORMATION: Exam: XR Chest Exam date and time: 10/10/2025 10:35 PM Age: 55 years old Clinical indication: Other: Low BP TECHNIQUE: Imaging protocol: Radiologic exam of the chest. Views: 1 view. COMPARISON: CR XR chest 1V portable [id number] 08/27/2025 7:28 AM FINDINGS: Lungs: Unremarkable. No consolidation. Pleural spaces: Small left pleural effusion. Heart/Mediastinum: Cardiomegaly. Bones/joints: Unremarkable. XR/XR chest 1V portable [id number] IMPRESSION: Small left pleural effusion.
--- NOTE | 2025-10-10 22:25 | ECG_ITS ---
[facility] Test Date: 2025-10-10 Pat Name: Fabiola Lucero Department: Room: Gender: Female Certified Medical Technician: : 1970 Requested By: Osmar Malin Order Number: [id number] Joel MD: Yvette Be M.D. Measurements Intervals [place] Rate: 98 P: 64 UT: 164 QRS: -66 QRSD: 105 T: 77 QT: 357 QTc: 457 Interpretive Statements SINUS RHYTHM LEFT ANTERIOR FASCICULAR BLOCK [QRS AXIS <= -45, QR IN I, RS IN II] ANTEROLATERAL MYOCARDIAL INFARCTION , OF INDETERMINATE AGE [40+ ms Q WAVE IN I/aVL/V3-V6] Compared to ECG 08/27/2025 13:38:00 ST (T wave) deviation no longer present Myocardial infarct finding still present Electronically Signed On 10-10-2025 23:25:31 SCALEMAKER by Yvette Be M.D. [email or web address]
[2025-10-10 22:47] VITALS: BP 87/63; PULSE 101; RESP 20; O2SAT 96
[2025-10-10 23:02] LABS: Hematocrit 52.9 % (36-47); Hemoglobin 17.00 g/dL (11.27-16.99); Mean Corpuscular HGB Conc 32.1 g/dL (30-55); Mean Corpuscular Hemoglobin 27.3 pg (27-33); Mean Corpuscular Volume 84.9 fl (85-98); Nucleated Red Blood Cells % 0 %; Platelet Count 455 10^3/cmm (157-399); Red Blood Count 6.23 10^6/uL (3.85-5.65); White Blood Count 11.59 10^3/uL (3.29-11.43)
--- NOTE | 2025-10-10 23:08 | W.ED.ABDPA2 ---
Documented by User: CHELSI Weeks 10/11/25 00:52 HPI - Abdominal Pain General: Chief Complaint: Abdominal Pain Stated Complaint: Intestinal Issues Time Seen by Provider: 10/10/25 21:32 Source: patient Mode of arrival: ambulatory Limitations: no limitations History of Present Illness: Patient is a 55-year-old female with past medical history of Crohn disease, COPD, and colostomy presenting to the emergency department complaining of intestinal issues for the past day or so. States that she has frequent intestinal problems where she requires liquid ciprofloxacin, and she was having these consistent symptoms today. Notes that she has been having anal bleeding and leaking, and is currently in between primary care providers and that she needs antibiotics. She has not been running fevers, no vomiting, and is not reporting any abdominal pain. She is not reporting any chest pain or shortness of breath, she is hypotensive at this time and tachycardic, but afebrile. Does not have any history of heart attacks. Denies any significant changes in appetite or p.o. intake. MD elicited complaint: other ( Intestinal issues ) Onset (ago): day(s) Location: None Severity: similar to previous episodes Associated Symptoms: Reports other (Rectal bleeding/leaking); Denies bloating, chills, diarrhea, dysuria, fever(s), nausea and vomiting Related Data Home Medications ?Medication ?Instructions ?Recorded ?Confirmed acetaminophen 500 mg tablet 1,000 mg PO Q6H PRN Pain 06/28/23 09/25/25 Previous Rx's ?Medication ?Instructions ?Recorded aspirin 81 mg chewable tablet 81 mg PO DAILY #30 tabs 12/18/24 cholecalciferol (vitamin D3) 125 125 mcg PO DAILY #52 mL 05/08/25 mcg/mL (5,000 unit/mL) oral drops nebulizers #1 ea 05/24/25 furosemide 20 mg tablet (Lasix) 20 mg PO QAM PRN edema #30 tabs 07/03/25 potassium chloride 10 mEq oral 10 meq PO DAILY #30 ea 07/03/25 packet albuterol sulfate 2.5 mg/3 mL 2.5 mg (3 mL) inhalation Q4H PRN 08/06/25 (0.083 %) solution for nebulization shortness of breath or wheezing #180 mL nitroglycerin 0.4 mg sublingual 0.4 mg sublingual Q5M PRN Chest 08/30/25 tablet Pain 60 days #90 tabs clopidogrel 75 mg tablet 75 mg PO DAILY #90 tabs 09/25/25 dapagliflozin propanediol 10 mg 10 mg PO DAILY #90 tabs 09/25/25 tablet isosorbide mononitrate 20 mg tablet 10 mg (1/2 x 20 mg) PO BID #30 tabs 09/25/25 metoprolol tartrate 25 mg tablet 12.5 mg (1/2 x 25 mg) PO 09/25/25 BID@0900,2100 #60 tabs sacubitril 24 mg-valsartan 26 mg 1 tab PO BID #60 tabs 09/25/25 tablet (Entresto) spironolactone 25 mg tablet 25 mg PO DAILY #90 tabs 09/25/25 rosuvastatin 20 mg tablet 10 mg (1/2 x 20 mg) PO DAILY #90 09/28/25 tabs albuterol sulfate 90 mcg/actuation 2 inh inhalation Q4H PRN shortness 10/02/25 aerosol inhaler of breath or wheezing #6.7 grams ciprofloxacin 500 mg/5 mL oral 500 mg (5 mL) PO Q12H 7 days #70 mL 10/11/25 suspension Allergies Allergy/AdvReac Type Severity Reaction Status Date / Time budesonide (From Symbicort) Allergy Severe ALGY-Hives Verified 10/10/25 21:19 codeine Allergy Severe ADR-Agitate Verified 10/10/25 21:19 d formoterol (From Symbicort) Allergy Severe ALGY-Hives Verified 10/10/25 21:19 metronidazole (From Flagyl) Allergy Mild ALGY-Rash Verified 10/10/25 21:19 Iodinated Contrast Media Allergy ALGY-Hives Verified 10/10/25 21:19 oxycodone (From Percocet) Allergy Unknown Verified 10/10/25 21:19 fentanyl AdvReac Mild Unknown Verified 10/10/25 21:19 hydromorphone (From Dilaudid) AdvReac Mild unknown Verified 10/10/25 21:19 Review of Systems General: Reports: 10 or more systems reviewed and unremarkable except in HPI and below Const: Denies: fever(s), chills, change in appetite, change in weight or diaphoresis ENMT: Denies: throat pain or hoarseness Card: Denies: chest pain, palpitations or lightheadedness Resp: Denies: dyspnea, productive cough or wheezing GI: Reports: other (Rectal bleeding/leaking); Denies: abdominal pain, nausea, vomiting, diarrhea or bloating : Denies: flank pain, difficulty voiding, dysuria, urinary frequency or urinary urgency Musc: Denies: neck pain or back pain Skin/Breast: Denies: rash or new lesions Neuro: Denies: headache(s) or dizziness PFSH ED PFSH: Medical History 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 had part of her small and large intestine removed in 2009. Uterine leiomyoma Vertigo Anxiety Surgical History History of CAD (coronary artery disease) 11/28/24 2 stents, 12/17/24 1 stent [facility] H/O ileostomy (~2009) Status post colonoscopy S/P partial colectomy (~2009) History of splenectomy History of eye surgery Family History Other CAD (coronary artery disease) Diabetes Psychiatric illness Denies family history of Cancer Social History Smoking and tobacco/nicotine status: current every day tobacco/nicotine user cigarettes Packs smoked per day: 1.5 Alcohol intake: never Substance/Drug Use: never Adopted: No Caregiver/support person: No Lives independently: Yes Household members: spouse Housing: House Marital status: service: No Current occupational status: employed 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 Chronically ill-appearing Resp: COMMON NORMALS: normal respiratory effort, No retractions, No use of accessory muscles and clear to auscultation bilaterally AUSCULTATION: clear to auscultation bilaterally, no crackles, no rales, no rhonchi and no wheezes Cardio: COMMON NORMALS: regular rhythm, No gallops present (Cardio), No clicks present (Cardio), No murmurs present (Cardio) and No rub (Cardio) RATE: tachycardic RHYTHM: regular rhythm GI: COMMON NORMALS: Soft to palpation, non-tender, No hepatosplenomegaly present and no masses AUSCULTATION: Yes normoactive bowel sounds PALPATION: Yes Soft to palpation, No Guarding due to palpation present (GI), No Rigid due to palpation and Yes No hepatosplenomegaly present RECTAL EXAM: deferred OTHER: Colostomy right lower quadrant, brown stool, no blood Extremity: COMMON NORMALS: normal to inspection and full ROM Neuro: COMMON NORMALS: patient oriented x3, moves all extremities, no focal motor deficits and no sensory deficits noted SENSORIUM/ORIENTATION: Yes alert Psych: COMMON NORMALS: mental status grossly normal, cooperative and speech normal SPEECH: Yes normal speech Skin: COMMON NORMALS: no rashes or lesions noted GENERAL SKIN EXAM: no rashes or lesions noted Course Vital Signs: Vital signs: Vital Signs Temperature 97.5 F L 10/10/25 21:09 Pulse Rate 99 10/11/25 02:49 Respiratory Rate 17 10/11/25 02:00 Blood Pressure 117/64 10/11/25 02:49 Pulse Oximetry 96 10/11/25 02:49 Oxygen Delivery Me thod Room Air 10/11/25 00:38 MDM - Abdominal Pain Medical Decision Making Patient presented initially for reporting leakage and bleeding from her rectum, history of colostomy from Crohn's disease and she states that typically when this happens she is prescribed liquid ciprofloxacin. Also had reported to me that she is currently in between primary care providers and normally would go to them but came to the ED. However on arrival here she was tachycardic in the 110s and 120s, and hypotensive on her blood pressure. IVs are established, and fluid bolus administered while workup initiated. Minimal leukocytosis on her CBC, lactic acid is normal at this time. She is mildly hyperkalemic slight elevation in creatinine and BUN, calcium 11.6, x-ray showing small left pleural effusion. EKG showing sinus tachycardia no acute ST segment changes. Her blood pressure normalizes after 2 L of fluids and heart rate has dropped below 100, I did suspect that she was pretty hypovolemic/dehydrated. At this time there is a CT scan pending for her history of Crohn's disease and bowel resection, and care of patient transferred to Dr. Palafox here in the ED. So far patient has received 2 L of fluids and has remained stable. She had no complaints of chest pain or shortness of breath. Nontender abdomen on exam, colostomy with brown stool. Lab Data 10/10/25 22:49 10/10/25 22:49 Labs/Radiology: Radiology Impressions Chest X-Ray 10/10/25 22:16 IMPRESSION: Small left pleural effusion. Abdomen/Pelvis CT 10/11/25 00:32 IMPRESSION: 1. Diverticulosis, without acute diverticulitis. No small bowel obstruction. No free air. 2. No nephrolithiasis, hydronephrosis, or obstructive uropathy. 3. Right lower quadrant parastomal hernia measures 7.6 x 5.5 cm that contains a bowel loop which is nonobstructive. Laboratory Results WBC 11.59 10^3/uL (3.29-11.43) H 10/10/25 22:49 RBC 6.23 10^6/uL (3.85-5.65) H 10/10/25 22:49 Hgb 17.00 g/dL (11.27-16.99) H 10/10/25 22:49 Hct 52.9 % (36-47) H 10/10/25 22:49 MCV 84.9 fl (85-98) L 10/10/25 22:49 MCH 27.3 pg (27-33) 10/10/25 22:49 MCHC 32.1 g/dL (30-55) 10/10/25 22:49 RDW 30.2 % (12.1-15.1) H 10/10/25 22:49 Plt Count 455 10^3/cmm (157-399) H 10/10/25 22:49 MPV 9.9 fL (7.4-10.4) 10/10/25 22:49 Neut % (Auto) 69.6 % 10/10/25 22:49 Lymph % (Auto) 19.7 % 10/10/25 22:49 [place] % (Auto) 7.5 % 10/10/25 22:49 Eos % (Auto) 1.9 % 10/10/25 22:49 Baso % (Auto) 1.0 % 10/10/25 22:49 Neut # (Auto) 8.06 10^3/uL (1.8-7.7) H 10/10/25 22:49 Lymph # (Auto) 2.3 10^3/uL (0.8-4.8) 10/10/25 22:49 [place] # (Auto) 0.9 10^3/uL (0.2-0.9) 10/10/25 22:49 Eos # (Auto) 0.2 10^3/uL (0.0-0.8) 10/10/25 22:49 Baso # (Auto) 0.1 10^3/uL (0.0-0.1) 10/10/25 22:49 Nucleated RBC % (auto) 0 % 10/10/25 22:49 Nucleated RBCs # 0.0 /100WBC 10/10/25 22:49 Sodium 138 mmol/L (136-145) 10/10/25 22:49 Potassium 5.6 mmol/L (3.5-5.1) H 10/10/25 22:49 Chloride 103 mmol/L (98-107) 10/10/25 22:49 Carbon Dioxide 22 mmol/L (22-29) 10/10/25 22:49 Anion Gap 18.6 (5-19) 10/10/25 22:49 BUN 28 mg/dL (6-20) H 10/10/25 22:49 Creatinine 1.1 mg/dL (0.5-0.9) H 10/10/25 22:49 GFR Calculation 51.2 mL/min (90-130) L 10/10/25 22:49 Glucose 116 mg/dL (65-115) H 10/10/25 22:49 Calculated Osmolality 292 mOsm/kg (285-295) 10/10/25 22:49 Lactic Acid 1.9 mmol/L (0.5-2.2) 10/10/25 22:49 Calcium 11.6 mg/dL (8.5-10.5) H 10/10/25 22:49 Total Bilirubin 1.0 mg/dL (0.15-1.2) 10/10/25 22:49 AST 29 U/L (0-32) 10/10/25 22:49 ALT 23 U/L (0-33) 10/10/25 22:49 Alkaline Phosphatase 156 U/L (35-105) H 10/10/25 22:49 Troponin T Baseline 23 ng/L (0-10) H 10/10/25 22:49 Troponin T 120 Minute 18.61 ng/L (0-10) H 10/11/25 00:43 Delta Troponin T -4.39 ABS# (0-10) L 10/11/25 00:43 Total Protein 7.5 g/dL (6.6-8.7) 10/10/25 22:49 Albumin 4.0 g/dL (3.5-5.2) 10/10/25 22:49 Globulin 3.5 g/dL (1.3-4.6) 10/10/25 22:49 Lipase 33 U/L (13-60) 10/10/25 22:49 Urine Color Dark yellow (Yellow) A 10/11/25 00:20 Urine Appearance Cloudy (CLEAR) A 10/11/25 00:20 Urine pH 5.0 (5-7) 10/11/25 00:20 Ur Specific [place] 1.035 (1.005-1.030) H 10/11/25 00:20 Urine Protein 1+ (Negative) A 10/11/25 00:20 Urine Glucose (UA) 2+ (Normal) H 10/11/25 00:20 Urine Ketones Negative (Negative) 10/11/25 00:20 Urine Blood Negative (Negative) 10/11/25 00:20 Urine Nitrate Negative (Negative) 10/11/25 00:20 Urine Bilirubin 1+ (Negative) H 10/11/25 00:20 Urine Urobilinogen 1.0 mg/dL (Negative) 10/11/25 00:20 Ur Leukocyte Esterase Negative (Negative) 10/11/25 00:20 Urine RBC 3-5 /hpf (0-2) 10/11/25 00:20 Urine WBC 11-20 /hpf (0-5) H 10/11/25 00:20 Ur Squamous Epith Cells 6-10 /hpf (0-5) 10/11/25 00:20 Calcium Oxalate Crystal 10-15 /hpf H 10/11/25 00:20 Amorphous Sediment Not Reportable 10/11/25 00:20 Urine Bacteria Trace /hpf (NONE) 10/11/25 00:20 Hyaline Casts 4.52 /lpf 10/11/25 00:20 Discharge Plan Discharge Patient Disposition: Home Clinical Impression: Abdominal pain Qualifiers: Abdominal location: generalized Qualified Code(s): R10.84 - Generalized abdominal pain Condition: Stable Prescriptions: New ciprofloxacin 500 mg/5 mL suspension,microcapsule recon 500 mg PO Q12H 7 Days Qty: 70 0RF No Action (DME) nebulizers Misc See Rx Instructions .ROUTE .MEDSUPPLY Qty: 1 0RF Rx Instructions: use every 4 hours as needed sacubitril-valsartan [Entresto] 24-26 mg tablet 1 tab PO BID Qty: 60 2RF spironolactone 25 mg tablet 25 mg PO DAILY Qty: 90 0RF dapagliflozin propanediol 10 mg tablet 10 mg PO DAILY Qty: 90 0RF metoprolol tartrate 25 mg tablet 12.5 mg PO BID@0900,2100 Qty: 60 3RF clopidogrel 75 mg tablet 75 mg PO DAILY Qty: 90 3RF isosorbide mononitrate 20 mg tablet 10 mg PO BID Qty: 30 3RF Rx Instructions: give doses 7 hrs apart cholecalciferol (vitamin D3) 125 mcg/mL (5,000 unit/mL) drops 125 mcg PO DAILY Qty: 52 2RF furosemide [Lasix] 20 mg tablet 20 mg PO QAM PRN (Reason: edema) Qty: 30 0RF potassium chloride 10 mEq packet 10 meq PO DAILY Qty: 30 0RF Rx Instructions: take with Lasix albuterol sulfate 2.5 mg /3 mL (0.083 %) solution for nebulization 2.5 mg inhalation Q4H PRN (Reason: shortness of breath or wheezing) Qty: 180 5RF rosuvastatin 20 mg tablet 10 mg PO DAILY Qty: 90 0RF albuterol sulfate 90 mcg/actuation HFA aerosol inhaler 2 inh INHALATION Q4H PRN (Reason: shortness of breath or wheezing) Qty: 6.7 2RF acetaminophen 500 mg Tablet 1,000 mg PO Q6H PRN (Reason: Pain) nitroglycerin 0.4 mg Tablet, Sublingual 0.4 mg sublingual Q5M PRN (Reason: Chest Pain) 60 Days Qty: 90 0RF aspirin 81 mg Tablet,Chewable 81 mg PO DAILY Qty: 30 0RF Discharge Orders: Discharge ED (Routine); Ordered 10/11/25 Ordered By: Grabiel Palafox Referrals: Mireya Varner, YAMILKA [Primary Care Provider, Family Practice] Patient Instructions: Crohn Disease (ED), Abdominal Pain (ED), Patient Portal & Roland Instructions Print Language: [place] Coding Level of Care Code ED Ms Sql Server Developer for Chg Fwd Documented by User: Grabiel Palafox MD 10/11/25 05:50 HPI - Abdominal Pain General: Chief Complaint: Abdominal Pain Stated Complaint: Intestinal Issues Time Seen by Provider: 10/10/25 21:32 Related Data Home Medications ?Medication ?Instructions ?Recorded ?Confirmed acetaminophen 500 mg tablet 1,000 mg PO Q6H PRN Pain 06/28/23 09/25/25 Previous Rx's ?Medication ?Instructions ?Recorded aspirin 81 mg chewable tablet 81 mg PO DAILY #30 tabs 12/18/24 cholecalciferol (vitamin D3) 125 125 mcg PO DAILY #52 mL 05/08/25 mcg/mL (5,000 unit/mL) oral drops nebulizers #1 ea 05/24/25 furosemide 20 mg tablet (Lasix) 20 mg PO QAM PRN edema #30 tabs 07/03/25 potassium chloride 10 mEq oral 10 meq PO DAILY #30 ea 07/03/25 packet albuterol sulfate 2.5 mg/3 mL 2.5 mg (3 mL) inhalation Q4H PRN 08/06/25 (0.083 %) solution for nebulization shortness of breath or wheezing #180 mL nitroglycerin 0.4 mg sublingual 0.4 mg sublingual Q5M PRN Chest 08/30/25 tablet Pain 60 days #90 tabs clopidogrel 75 mg tablet 75 mg PO DAILY #90 tabs 09/25/25 dapagliflozin propanediol 10 mg 10 mg PO DAILY #90 tabs 09/25/25 tablet isosorbide mononitrate 20 mg tablet 10 mg (1/2 x 20 mg) PO BID #30 tabs 09/25/25 metoprolol tartrate 25 mg tablet 12.5 mg (1/2 x 25 mg) PO 09/25/25 BID@0900,2100 #60 tabs sacubitril 24 mg-valsartan 26 mg 1 tab PO BID #60 tabs 09/25/25 tablet (Entresto) spironolactone 25 mg tablet 25 mg PO DAILY #90 tabs 09/25/25 rosuvastatin 20 mg tablet 10 mg (1/2 x 20 mg) PO DAILY #90 09/28/25 tabs albuterol sulfate 90 mcg/actuation 2 inh inhalation Q4H PRN shortness 10/02/25 aerosol inhaler of breath or wheezing #6.7 grams ciprofloxacin 500 mg/5 mL oral 500 mg (5 mL) PO Q12H 7 days #70 mL 10/11/25 suspension Allergies Allergy/AdvReac Type Severity Reaction Status Date / Time budesonide (From Symbicort) Allergy Severe ALGY-Hives Verified 10/10/25 21:19 codeine Allergy Severe ADR-Agitate Verified 10/10/25 21:19 d formoterol (From Symbicort) Allergy Severe ALGY-Hives Verified 10/10/25 21:19 metronidazole (From Flagyl) Allergy Mild ALGY-Rash Verified 10/10/25 21:19 Iodinated Contrast Media Allergy ALGY-Hives Verified 10/10/25 21:19 oxycodone (From Percocet) Allergy Unknown Verified 10/10/25 21:19 fentanyl AdvReac Mild Unknown Verified 10/10/25 21:19 hydromorphone (From Dilaudid) AdvReac Mild unknown Verified 10/10/25 21:19 PFSH ED PFSH: Medical History 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 had part of her small and large intestine removed in 2009. Uterine leiomyoma Vertigo Anxiety Surgical History History of CAD (coronary artery disease) 11/28/24 2 stents, 12/17/24 1 stent [facility] H/O ileostomy (~2009) Status post colonoscopy S/P partial colectomy (~2009) History of splenectomy History of eye surgery Family History Other CAD (coronary artery disease) Diabetes Psychiatric illness Denies family history of Cancer Social History Smoking and tobacco/nicotine status: current every day tobacco/nicotine user cigarettes Packs smoked per day: 1.5 Alcohol intake: never Substance/Drug Use: never Adopted: No Caregiver/support person: No Lives independently: Yes Household members: spouse Housing: House Marital status: service: No Current occupational status: employed 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 Patient with a history of COPD, Crohn's disease status post intestinal resection and ostomy, presenting with abdominal pain and hypotension that resolved with fluids, symptoms per patient consistent with prior Crohn's flares that resolved with liquid ciprofloxacin, pending imaging to rule out acute surgical intra-abdominal pathology but anticipate discharge with hydration instructions and oral antibiotics with referral to PCP. Time: 01:16 Vital Signs: Vital signs: Vital Signs Temperature 97.5 F L 10/10/25 21:09 Pulse Rate 99 10/11/25 02:49 Respiratory Rate 17 10/11/25 02:00 Blood Pressure 117/64 10/11/25 02:49 Pulse Oximetry 96 10/11/25 02:49 Oxygen Delivery Me thod Room Air 10/11/25 00:38 MDM - Abdominal Pain Lab Data Labs showing hemoconcentration with mild leukocytosis erythrocytosis and thrombocytosis, mild hyperkalemia 5.6 with a borderline creatinine 1.1, prerenal azotemia with BUN/creatinine ratio above 20, lipase normal, LFTs normal, troponin minimally increased on initial test repeat stable/slightly downtrending after hydration, urinalysis grossly negative for UTI 10/10/25 22:49 10/10/25 22:49 Labs/Radiology: Radiology Impressions Chest X-Ray 10/10/25 22:16 IMPRESSION: Small left pleural effusion. Abdomen/Pelvis CT 10/11/25 00:32 IMPRESSION: 1. Diverticulosis, without acute diverticulitis. No small bowel obstruction. No free air. 2. No nephrolithiasis, hydronephrosis, or obstructive uropathy. 3. Right lower quadrant parastomal hernia measures 7.6 x 5.5 cm that contains a bowel loop which is nonobstructive. Laboratory Results WBC 11.59 10^3/uL (3.29-11.43) H 10/10/25 22:49 RBC 6.23 10^6/uL (3.85-5.65) H 10/10/25 22:49 Hgb 17.00 g/dL (11.27-16.99) H 10/10/25 22:49 Hct 52.9 % (36-47) H 10/10/25 22:49 MCV 84.9 fl (85-98) L 10/10/25 22:49 MCH 27.3 pg (27-33) 10/10/25 22:49 MCHC 32.1 g/dL (30-55) 10/10/25 22:49 RDW 30.2 % (12.1-15.1) H 10/10/25 22:49 Plt Count 455 10^3/cmm (157-399) H 10/10/25 22:49 MPV 9.9 fL (7.4-10.4) 10/10/25 22:49 Neut % (Auto) 69.6 % 10/10/25 22:49 Lymph % (Auto) 19.7 % 10/10/25 22:49 [place] % (Auto) 7.5 % 10/10/25 22:49 Eos % (Auto) 1.9 % 10/10/25 22:49 Baso % (Auto) 1.0 % 10/10/25 22:49 Neut # (Auto) 8.06 10^3/uL (1.8-7.7) H 10/10/25 22:49 Lymph # (Auto) 2.3 10^3/uL (0.8-4.8) 10/10/25 22:49 [place] # (Auto) 0.9 10^3/uL (0.2-0.9) 10/10/25 22:49 Eos # (Auto) 0.2 10^3/uL (0.0-0.8) 10/10/25 22:49 Baso # (Auto) 0.1 10^3/uL (0.0-0.1) 10/10/25 22:49 Nucleated RBC % (auto) 0 % 10/10/25 22:49 Nucleated RBCs # 0.0 /100WBC 10/10/25 22:49 Sodium 138 mmol/L (136-145) 10/10/25 22:49 Potassium 5.6 mmol/L (3.5-5.1) H 10/10/25 22:49 Chloride 103 mmol/L (98-107) 10/10/25 22:49 Carbon Dioxide 22 mmol/L (22-29) 10/10/25 22:49 Anion Gap 18.6 (5-19) 10/10/25 22:49 BUN 28 mg/dL (6-20) H 10/10/25 22:49 Creatinine 1.1 mg/dL (0.5-0.9) H 10/10/25 22:49 GFR Calculation 51.2 mL/min (90-130) L 10/10/25 22:49 Glucose 116 mg/dL (65-115) H 10/10/25 22:49 Calculated Osmolality 292 mOsm/kg (285-295) 10/10/25 22:49 Lactic Acid 1.9 mmol/L (0.5-2.2) 10/10/25 22:49 Calcium 11.6 mg/dL (8.5-10.5) H 10/10/25 22:49 Total Bilirubin 1.0 mg/dL (0.15-1.2) 10/10/25 22:49 AST 29 U/L (0-32) 10/10/25 22:49 ALT 23 U/L (0-33) 10/10/25 22:49 Alkaline Phosphatase 156 U/L (35-105) H 10/10/25 22:49 Troponin T Baseline 23 ng/L (0-10) H 10/10/25 22:49 Troponin T 120 Minute 18.61 ng/L (0-10) H 10/11/25 00:43 Delta Troponin T -4.39 ABS# (0-10) L 10/11/25 00:43 Total Protein 7.5 g/dL (6.6-8.7) 10/10/25 22:49 Albumin 4.0 g/dL (3.5-5.2) 10/10/25 22:49 Globulin 3.5 g/dL (1.3-4.6) 10/10/25 22:49 Lipase 33 U/L (13-60) 10/10/25 22:49 Urine Color Dark yellow (Yellow) A 10/11/25 00:20 Urine Appearance Cloudy (CLEAR) A 10/11/25 00:20 Urine pH 5.0 (5-7) 10/11/25 00:20 Ur Specific [place] 1.035 (1.005-1.030) H 10/11/25 00:20 Urine Protein 1+ (Negative) A 10/11/25 00:20 Urine Glucose (UA) 2+ (Normal) H 10/11/25 00:20 Urine Ketones Negative (Negative) 10/11/25 00:20 Urine Blood Negative (Negative) 10/11/25 00:20 Urine Nitrate Negative (Negative) 10/11/25 00:20 Urine Bilirubin 1+ (Negative) H 10/11/25 00:20 Urine Urobilinogen 1.0 mg/dL (Negative) 10/11/25 00:20 Ur Leukocyte Esterase Negative (Negative) 10/11/25 00:20 Urine RBC 3-5 /hpf (0-2) 10/11/25 00:20 Urine WBC 11-20 /hpf (0-5) H 10/11/25 00:20 Ur Squamous Epith Cells 6-10 /hpf (0-5) 10/11/25 00:20 Calcium Oxalate Crystal 10-15 /hpf H 10/11/25 00:20 Amorphous Sediment Not Reportable 10/11/25 00:20 Urine Bacteria Trace /hpf (NONE) 10/11/25 00:20 Hyaline Casts 4.52 /lpf 10/11/25 00:20 All radiology interpretation(s) finalized by discharge ED provider radiology interpretation(s): CT abdomen pelvis showing a parastomal hernia nonobstructive and diverticulosis without evidence of acute intra-abdominal surgical or infectious pathology Discharge Plan Discharge Patient Disposition: Home Clinical Impression: Abdominal pain Qualifiers: Abdominal location: generalized Qualified Code(s): R10.84 - Generalized abdominal pain Condition: Stable Prescriptions: New ciprofloxacin 500 mg/5 mL suspension,microcapsule recon 500 mg PO Q12H 7 Days Qty: 70 0RF No Action (DME) nebulizers Misc See Rx Instructions .ROUTE .MEDSUPPLY Qty: 1 0RF Rx Instructions: use every 4 hours as needed sacubitril-valsartan [Entresto] 24-26 mg tablet 1 tab PO BID Qty: 60 2RF spironolactone 25 mg tablet 25 mg PO DAILY Qty: 90 0RF dapagliflozin propanediol 10 mg tablet 10 mg PO DAILY Qty: 90 0RF metoprolol tartrate 25 mg tablet 12.5 mg PO BID@0900,2100 Qty: 60 3RF clopidogrel 75 mg tablet 75 mg PO DAILY Qty: 90 3RF isosorbide mononitrate 20 mg tablet 10 mg PO BID Qty: 30 3RF Rx Instructions: give doses 7 hrs apart cholecalciferol (vitamin D3) 125 mcg/mL (5,000 unit/mL) drops 125 mcg PO DAILY Qty: 52 2RF furosemide [Lasix] 20 mg tablet 20 mg PO QAM PRN (Reason: edema) Qty: 30 0RF potassium chloride 10 mEq packet 10 meq PO DAILY Qty: 30 0RF Rx Instructions: take with Lasix albuterol sulfate 2.5 mg /3 mL (0.083 %) solution for nebulization 2.5 mg inhalation Q4H PRN (Reason: shortness of breath or wheezing) Qty: 180 5RF rosuvastatin 20 mg tablet 10 mg PO DAILY Qty: 90 0RF albuterol sulfate 90 mcg/actuation HFA aerosol inhaler 2 inh INHALATION Q4H PRN (Reason: shortness of breath or wheezing) Qty: 6.7 2RF acetaminophen 500 mg Tablet 1,000 mg PO Q6H PRN (Reason: Pain) nitroglycerin 0.4 mg Tablet, Sublingual 0.4 mg sublingual Q5M PRN (Reason: Chest Pain) 60 Days Qty: 90 0RF aspirin 81 mg Tablet,Chewable 81 mg PO DAILY Qty: 30 0RF Discharge Orders: Discharge ED (Routine); Ordered 10/11/25 Ordered By: Grabiel Palafox Referrals: Mireya Varner, KEAGANC [Primary Care Provider, Family Practice] Patient Instructions: Crohn Disease (ED), Abdominal Pain (ED), Patient Portal & Roland Instructions Print Language: [place] Coding Level of Care Code ED Ms Sql Server Developer for [place]
[2025-10-10 23:24] LABS: Troponin(5th) Baseline 23 ng/L (0-10)
[2025-10-10 23:33] LABS: Alanine Aminotransferase 23 U/L (0-33); Albumin Level 4.0 g/dL (3.5-5.2); Alkaline Phosphatase 156 U/L (35-105); Blood Urea Nitrogen 28 mg/dL (6-20); Calcium 11.6 mg/dL (8.5-10.5); Carbon Dioxide 22 mmol/L (22-29); Chloride 103 mmol/L (98-107); Globulin 3.5 g/dL (1.3-4.6); Glucose 116 mg/dL (65-115); Lipase 33 U/L (13-60); Osmolality Calculated 292 mOsm/kg (285-295); Sodium 138 mmol/L (136-145); Total Protein 7.5 g/dL (6.6-8.7)
[2025-10-10 23:34] LABS: Lactic Sepsis W/Reflex 1.9 mmol/L (0.5-2.2)
[2025-10-10 23:39] LABS: Anion Gap 18.6 (5-19); Aspartate Amino Transferase 29 U/L (0-32); Potassium 5.6 mmol/L (3.5-5.1)
--- NOTE | 2025-10-11 00:16 | ECG_ITS ---
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 [email or web address]
[2025-10-11 00:32] VITALS: BP 98/74; PULSE 98; O2SAT 96
[2025-10-11 00:32] LABS: Glucose Urine UA 2+ (Normal); Nitrate Urine Negative (Negative)
--- NOTE | 2025-10-11 00:32 | CTR_ITS ---
PROCEDURE INFORMATION: Exam: CT Abdomen And Pelvis Without Contrast Exam date and time: 10/11/2025 12:56 AM Age: 55 years old Clinical indication: Abdominal pain; Prior surgery; Surgery date: 6+ months; Surgery type: Colostomy x 15 years; Additional info: Diarrhea, hypotension, colostomy TECHNIQUE: Imaging protocol: Computed tomography of the abdomen and pelvis without contrast. Radiation optimization: All CT scans at this facility use at least one of these dose optimization techniques: automated exposure control; mA and/or kV adjustment per patient size (includes targeted exams where dose is matched to clinical indication); or iterative reconstruction. COMPARISON: CT abdomen pelvis con [id number] 06/19/2025 1:25 AM RADIATION DOSE METRICS: Total DLP (mGy-cm): 924.89 FINDINGS: Liver: Normal. No mass. Gallbladder and biliary ducts: Normal. No calcified stones. No ductal dilation. Pancreas: Normal. No ductal dilation. Spleen: Normal. No splenomegaly. Adrenal glands: Normal. No mass. Kidneys and ureters: No nephrolithiasis, hydronephrosis, or obstructive uropathy. Stomach and bowel: Diverticulosis, without acute diverticulitis. No small bowel obstruction. No free air. Appendix: No evidence of appendicitis. Intraperitoneal space: See Stomach and bowel finding. Vasculature: Atherosclerotic changes of the aorta. Lymph nodes: Unremarkable. No enlarged lymph nodes. Urinary bladder: Unremarkable as visualized. Reproductive: Unremarkable as visualized. Bones/joints: Degenerative changes of the spine. Soft tissues: Right lower quadrant parastomal hernia measures 7.6 x 5.5 cm that contains a bowel loop which is nonobstructive. CT/CT abdomen pelvis con [id number] IMPRESSION: 1. Diverticulosis, without acute diverticulitis. No small bowel obstruction. No free air. 2. No nephrolithiasis, hydronephrosis, or obstructive uropathy. 3. Right lower quadrant parastomal hernia measures 7.6 x 5.5 cm that contains a bowel loop which is nonobstructive.
[2025-10-11 00:35] LABS: Add Urine Microscopic? YES
--- NOTE | 2025-10-11 00:36 | PC.NURSE ---
pt. was requesting to clean ostomy bag with bleach or lysol wipes this RN asked medical charge entry specialist and provider. This RN gave appropriate wipes not lysol or bleach wipes.
[2025-10-11 00:38] VITALS: BP 98/79; PULSE 98; O2SAT 96
[2025-10-11 01:06] LABS: Troponin 5 2HR 18.61 ng/L (0-10)
--- NOTE | 2025-10-11 01:06 | PC.NURSE ---
pt. at ct.
[2025-10-11 01:09] LABS: Specific Gravity, Urine 1.035 (1.005-1.030)
[2025-10-11 01:10] LABS: Troponin 5 2HR Delta -4.39 ABS# (0-10)
--- NOTE | 2025-10-11 01:28 | PC.NURSE ---
report given to [facility]
[2025-10-11 01:30] VITALS: BP 92/77; PULSE 101; O2SAT 95
[2025-10-11 02:00] VITALS: BP 119/75; PULSE 91; RESP 17; O2SAT 97
[2025-10-11 02:49] VITALS: BP 117/64; PULSE 99; O2SAT 96
--- NOTE | 2025-10-12 07:09 | DCPLANNER ---
messaged general surgery for er f/u
== END 2025-10-11 02:50 | disposition home or self-care (01) ==
PROVIDERS: Physician Assistant; Emergency Provider Student in an Organized Health Care Education/Training Program; PCP Nurse Practitioner
DX: R10.84 Generalized abdominal pain (principal); Z79.02 Long term (current) use of antithrombotics/antiplatelets; Z79.82 Long term (current) use of aspirin; J44.9 Chronic obstructive pulmonary disease, unspecified; I10 Essential (primary) hypertension; I25.10 Atherosclerotic heart disease of native coronary artery without angina pectoris; F17.210 Nicotine dependence, cigarettes, uncomplicated
CPT/HCPCS: 36415; 71045; 74176; 80053; 81001; 83605; 83690; 84484; 85025; 87040; 93005; 96360; 96361; 99285; J7030